=== PATIENT | male | born 1955 | race Caucasian/White ===

== ENCOUNTER 2016-10-29 18:09 | Inpatient (IN) | payer OTHER ==
[~2016-10-29] VITALS: Ht 177.8 cm; Wt 81.8 kg
[2016-10-29 20:15] VITALS: BP 127/99
[2016-10-29] MEDS ORDERED: BISACODYL 10 MG SUPP.RECT PR PRN (21:30)
[2016-10-29] MEDS ORDERED: 0.9 % SODIUM CHLORIDE 10 ML DISP.SYRIN. IV PRN (21:30)
[2016-10-29] MEDS ORDERED: ONDANSETRON PF 4 MG/2 ML VIAL. IV PRN (21:30)
[2016-10-29] MEDS ORDERED: ASA/APAP/CAFFEINE 250/250/65MG TABLET. PO PRN (21:30)
[2016-10-29] MEDS ORDERED: IV NORMAL SALINE 1000ML BAG 1,000 ML IV SCH (21:30)
[2016-10-29 22:35] LABS: BASO % 1 % (0-3); EOS % 2 % (0-3); HEMATOCRIT 39.9 % (39.0-53.0); HEMOGLOBIN 13.1 g/dL (13.0-17.5); LYMPH # 0.8 x10^3/uL (1.0-4.8); LYMPH % 12 % (24-48); MEAN CORPUSCULAR HEMOGLOBIN 31 pg (25-35); MEAN CORPUSCULAR HGB CONC 33 g/dL (31-37); MEAN CORPUSCULAR VOLUME 93 fL (79-100); MONO % 12 % (0-9); NEUT % 74 % (31-73); PLATELET COUNT 297 x10^3/uL (140-400); RED BLOOD COUNT 4.28 x10^6/uL (4.30-5.70); RED CELL DISTRIBUTION WIDTH 14.9 % (11.5-14.5); WHITE BLOOD COUNT 7.2 x10^3/uL (4.0-11.0)
[2016-10-29 22:54] LABS: ALBUMIN 2.3 g/dL (3.4-5.0); ALBUMIN/GLOBULIN RATIO 0.5 (1.0-1.7); CALCIUM 8.7 mg/dL (8.5-10.1); CREATININE 0.9 mg/dL (0.7-1.3); GFR 86.1; POTASSIUM 3.3 mmol/L (3.5-5.1); TOTAL BILIRUBIN 0.9 mg/dL (0.2-1.0); TOTAL PROTEIN 6.5 g/dL (6.4-8.2)
--- NOTE | 2016-10-29 23:16 | HP ---
ADMIT DATE: 10/29/2016 CHIEF COMPLAINT: Intractable vomiting and hematemesis. HISTORY OF PRESENT ILLNESS: The patient is a 61-year-old gentleman, currently residing at [facility], who has a longstanding history of recurrent nausea, vomiting, and dehydration. His story actually goes back to 09/07/2016 when he was first admitted to the [facility] [place] with nausea, vomiting, and dehydration. He did recover with IV fluids, etc., but had recurrent symptoms a few days later. He was diagnosed with H. pylori and treatment was started. Over the following months, he actually had received multiple IV fluid boluses to help him over recurrent nausea and vomiting. He was once again admitted to the [facility] on 10/13/2016 with decreased blood pressure and dehydration. Once again received fluids. Labs were fairly abnormal. Most recently, on 10/22/2016, he was once again admitted to the [facility] for the same symptoms- bilious vomiting and creatinine at 2.24, which improved with IV fluids. However, yesterday he had an episode of copious hematemesis of about a liter and a half. He has stabilized since then. Labs are okay. Nevertheless, the etiology of his vomiting remains unclear and he was therefore transferred to [facility] for further workup and care. The patient denies any other medical issues, has noticed worsening weakness. He is unable to keep any food down. At times, even water does not stay with him. He is constantly thirsty and trying to drink. PAST MEDICAL HISTORY: Essentially none. FAMILY HISTORY: Positive for diabetes. Other diseases unknown. SOCIAL HISTORY: Quit smoking 10 years ago. No toxic habits ongoing. ALLERGIES: No known drug allergies. HOME MEDICATIONS: Reconciled with MAR. REVIEW OF SYSTEMS: Positive as per HPI. Generalized weakness. Rest of organ system review is fairly benign. PHYSICAL EXAMINATION: VITAL SIGNS: From today, show a blood pressure of 127/99, heart rate of 97, and respiratory rate at 18. He is afebrile. GENERAL: This is a 61-year-old gentleman, well-nourished, pale-appearing, alert and oriented, and in no acute distress. HEENT: Shows no scleral icterus. NECK: Supple without any lymphadenopathy. LUNGS: Clear to auscultation bilaterally. HEART: Slightly tachycardic. ABDOMEN: Has positive bowel sounds, soft, and no tenderness to palpation. EXTREMITIES: Show no edema. Palms and the distal fingers are bluish-whitish discolored bilaterally and cool. SKIN: Otherwise warm, soft, and dry. LABORATORY DATA: Pending. ASSESSMENT AND PLAN: The patient is a 61-year-old gentleman with recurrent nausea and vomiting of unclear etiology. We will place him on clear liquids for now. IV fluids will be started to prevent dehydration. Labs are pending. We will obtain a CT of the abdomen to evaluate. Obtain GI consult in the morning. Question gastric outlet obstruction versus obstruction further down the road. The patient did have a history of Helicobacter pylori. This may or may not be resolved at this point, but I doubt that this is the etiology for ongoing issues. We will start a proton pump inhibitor. Only home medication is Paxil. We will continue this for the time being. PAYAM FANG MD DR: NGOC/nts JOB#: [id number] / [id number] RICHARD
[2016-10-29 23:40] VITALS: BP 97/70
[2016-10-29] MEDS: DO NOT USE 40 MG/0.4 ML DISP.SYRIN SQ SCH (23:46)
[2016-10-30] MEDS: METOCLOPRAMIDE HCL 10 MG/2 ML VIAL. IV SCH ×4 (00:24→21:07)
[2016-10-30 03:40] VITALS: BP 97/58
[2016-10-30] MEDS ORDERED: IOHEXOL 240 MG/ML 50ML VIAL. PO ONE (06:45)
[2016-10-30] MEDS ORDERED: IOHEXOL 300 MG/ML 75 ML VIAL IV ONE (06:45)
[2016-10-30] MEDS ORDERED: CONTRAST GIVEN MC PRN (06:45)
[2016-10-30 07:54] VITALS: BP 122/71
[2016-10-30] MEDS: PAROXETINE 10 MG TABLET. PO SCH ×3 (09:00→17:52)
[2016-10-30] MEDS: PANTOPRAZOLE IV PUSH 40 MG VIAL. IVP SCH (09:31)
--- NOTE | 2016-10-30 10:11 | PDOC2 ---
GI CONSULT Reason For Consult: N/v HPI: HPI: 61 y/o male from [facility] admitted through ER. Reports "at least" 2 months of n/v, abd pain, and weight loss. Vomiting occurs 1-3 times daily randomly (not always related to eating). Nausea is fairly constant. Periumbilical pain is worse after eating, drinking ice water, and w/ movement; as a result, he has avoided eating. Estimates 46 lb weight loss during this time. Feels weak. Regarding hematemesis, he says "they found some blood" but he has never noticed anything obvious. Additional h/o GERD which used to be quite bothersome requiring frequent use of Tums. Dietary changes have minimized symptoms. Has been bloated lately and taking Gas-X. Also, was somehow diagnosed w/ H. pylori and describes previous treatment w/ 10 days of amoxicillin followed by a course of Flagyl. Denies diarrhea, constipation, melena, hematochezia. No previous EGD or colonoscopy. Has had HAs recently and took Excedrin once but otherwise denies NSAID use. PMH: PMH: GERD, H. pylori, heart cath (reportedly normal), COPD, anxiety, right knee surgery (meniscal tear) FH: Family History: No pertinent hx (denies GI cancers) Social History: Smoke: Quit ALCOHOL: other (describes heavy alcohol use in the past) ROS: GEN: Denies fevers, chills, sweats HEENT: Denies blurred vision, sore throat CV: Denies chest pain RESP: Denies shortness of air, cough GI: Per HPI : Denies hematuria, dysuria ENDO: +weight loss NEURO: Denies confusion, dizziness MSK: +weakness SKIN: Denies jaundice, pruritus VItals: Vitals: Vital Signs Date Time Temp Pulse Resp B/P Pulse Ox O2 Delivery O2 Flow Rate FiO2 10/30/16 07:54 99.1 80 18 122/71 98 Room Air 99.1 10/30/16 07:49 99.0 Labs: Labs: Laboratory Tests Test 10/29/16 22:04 White Blood Count 7.2x10^3/uL (4.0-11.0) Red Blood Count 4.28x10^6/uL (4.30-5.70) Hemoglobin 13.1g/dL (13.0-17.5) Hematocrit 39.9% (39.0-53.0) Mean Corpuscular Volume 93fL (79-100) Mean Corpuscular Hemoglobin 31pg (25-35) Mean Corpuscular Hemoglobin Concent 33g/dL (31-37) Red Cell Distribution Width 14.9% (11.5-14.5) Platelet Count 297x10^3/uL (140-400) Neutrophils (%) (Auto) 74% (31-73) Lymphocytes (%) (Auto) 12% (24-48) Monocytes (%) (Auto) 12% (0-9) Eosinophils (%) (Auto) 2% (0-3) Basophils (%) (Auto) 1% (0-3) Neutrophils # (Auto) 5.3x10^3uL (1.8-7.7) Lymphocytes # (Auto) 0.8x10^3/uL (1.0-4.8) Monocytes # (Auto) 0.9x10^3/uL (0.0-1.1) Eosinophils # (Auto) 0.1x10^3/uL (0.0-0.7) Basophils # (Auto) 0.0x10^3/uL (0.0-0.2) Sodium Level 140mmol/L (136-145) Potassium Level 3.3mmol/L (3.5-5.1) Chloride Level 106mmol/L (98-107) Carbon Dioxide Level 25mmol/L (21-32) Anion Gap 9 (6-14) Blood Urea Nitrogen 17mg/dL (8-26) Creatinine 0.9mg/dL (0.7-1.3) Estimated GFR (Cockcroft-Gault) 86.1 BUN/Creatinine Ratio 19 (6-20) Glucose Level 91mg/dL (70-99) Calcium Level 8.7mg/dL (8.5-10.1) Total Bilirubin 0.9mg/dL (0.2-1.0) Aspartate Amino Transf (AST/SGOT) 43U/L (15-37) Alanine Aminotransferase (ALT/SGPT) 37U/L (16-63) Alkaline Phosphatase 131U/L (46-116) Total Protein 6.5g/dL (6.4-8.2) Albumin 2.3g/dL (3.4-5.0) Albumin/Globulin Ratio 0.5 (1.0-1.7) Thyroid Stimulating Hormone (TSH) 1.034uIU/mL (0.358-3.74) Allergies: Coded Allergies: No Known Drug Allergies (Unverified , 10/29/16) Medications: Current Medications Medications (Trade) Dose Ordered Sig/Jose Route PRN Reason Start Time Stop Time Status Last Admin Dose Admin Sodium Chloride (Iv Sodium Chloride 0.9% 1000ml Bag) 1,000 ml @ 100 mls/hr Q10H IV 10/29/16 21:30 10/30/16 07:29 DC 10/30/16 00:27 Enoxaparin Sodium (Lovenox 40mg Syringe) 40 mg Q24H SQ 10/29/16 22:00 10/29/16 23:46 Metoclopramide HCl (Reglan) 10 mg Q8HRS IV 10/29/16 22:00 10/30/16 05:44 Pantoprazole Sodium (Protonix Vial) 40 mg DAILYAC IVP 10/30/16 07:30 10/30/16 09:31 Acetaminophen/ Aspirin/Caffeine (Excedrin Migraine) 1 tab PRN BID PRN PO MIGRAINE HEADACHE 10/29/16 21:30 10/29/16 23:46 Iohexol (Omnipaque 300 Mg/ml) 75 ml 1X ONCE IV 10/30/16 06:45 10/30/16 06:46 DC 10/30/16 09:09 Iohexol (Omnipaque 240 Mg/ml) 30 ml 1X ONCE PO 10/30/16 06:45 10/30/16 06:46 DC 10/30/16 06:45 Imaging: Imaging: CT A/P PENDING PE: GEN: NAD HEENT: Atraumatic, PERRLA LUNGS: clear anteriorly HEART: S1S2, distant ABD: NABS, S/ND, periumbilical tenderness most prominent, epigastric discomfort EXTREMITY: No edema SKIN: No rashes, no jaundice NEURO/PSYCH: A & O 3 A/P: A/P: N/v, abd pain, weight loss -onset ~2 months ago -n/v throughout the day -periumbilical pain worse after eating -estimates >40 lb weight loss GERD -long history, treated w/ Tums -recently improved w/ dietary changes H/o H. pylori -?diagnosed w/ lab -seems received treatment w/ Prevpac and then Pylera (?) CRC screen -no previous colonoscopy -- Await CT A/P. Agree w/ PPI. ?EGD Dr. Fam to see. LEANDRO SHARMA Oct 30, 2016 10:11
[2016-10-30 11:13] VITALS: BP 115/69
--- NOTE | 2016-10-30 11:22 | PDOC ---
PROGRESS NOTES Chief Complaint Chief Complaint A/P Small bowel obstruction Plan IV Zofran CT abdomen pending GI recommendations noted, Surgery and oncology consulted IV hydration NPO IV Morphine for pain control History of Present Illness History of Present Illness vomiting no fever no chest pain Vitals Vitals Vital Signs Date Time Temp Pulse Resp B/P Pulse Ox O2 Delivery O2 Flow Rate FiO2 10/30/16 11:13 97.9 82 18 115/69 99 Room Air 97.9 10/30/16 07:49 99.0 Physical Exam General: Alert, Oriented X3 Heart: Normal S1, Normal S2 Lungs: Clear Abdomen: Normal bowel sounds, Soft Extremities: No clubbing Labs LABS Laboratory Tests Test 10/29/16 22:04 White Blood Count 7.2x10^3/uL (4.0-11.0) Red Blood Count 4.28x10^6/uL (4.30-5.70) Hemoglobin 13.1g/dL (13.0-17.5) Hematocrit 39.9% (39.0-53.0) Mean Corpuscular Volume 93fL (79-100) Mean Corpuscular Hemoglobin 31pg (25-35) Mean Corpuscular Hemoglobin Concent 33g/dL (31-37) Red Cell Distribution Width 14.9% (11.5-14.5) Platelet Count 297x10^3/uL (140-400) Neutrophils (%) (Auto) 74% (31-73) Lymphocytes (%) (Auto) 12% (24-48) Monocytes (%) (Auto) 12% (0-9) Eosinophils (%) (Auto) 2% (0-3) Basophils (%) (Auto) 1% (0-3) Neutrophils # (Auto) 5.3x10^3uL (1.8-7.7) Lymphocytes # (Auto) 0.8x10^3/uL (1.0-4.8) Monocytes # (Auto) 0.9x10^3/uL (0.0-1.1) Eosinophils # (Auto) 0.1x10^3/uL (0.0-0.7) Basophils # (Auto) 0.0x10^3/uL (0.0-0.2) Sodium Level 140mmol/L (136-145) Potassium Level 3.3mmol/L (3.5-5.1) Chloride Level 106mmol/L (98-107) Carbon Dioxide Level 25mmol/L (21-32) Anion Gap 9 (6-14) Blood Urea Nitrogen 17mg/dL (8-26) Creatinine 0.9mg/dL (0.7-1.3) Estimated GFR (Cockcroft-Gault) 86.1 BUN/Creatinine Ratio 19 (6-20) Glucose Level 91mg/dL (70-99) Calcium Level 8.7mg/dL (8.5-10.1) Total Bilirubin 0.9mg/dL (0.2-1.0) Aspartate Amino Transf (AST/SGOT) 43U/L (15-37) Alanine Aminotransferase (ALT/SGPT) 37U/L (16-63) Alkaline Phosphatase 131U/L (46-116) Total Protein 6.5g/dL (6.4-8.2) Albumin 2.3g/dL (3.4-5.0) Albumin/Globulin Ratio 0.5 (1.0-1.7) Thyroid Stimulating Hormone (TSH) 1.034uIU/mL (0.358-3.74) Assessment and Plan Assessmemt and Plan Problems Medical Problems: (1) Intractable vomiting Status: Acute Problems: Comment Review of Relevant I have reviewed the following items pako (where applicable) has been applied. Labs Laboratory Tests Test 10/29/16 22:04 White Blood Count 7.2x10^3/uL (4.0-11.0) Red Blood Count 4.28x10^6/uL (4.30-5.70) Hemoglobin 13.1g/dL (13.0-17.5) Hematocrit 39.9% (39.0-53.0) Mean Corpuscular Volume 93fL (79-100) Mean Corpuscular Hemoglobin 31pg (25-35) Mean Corpuscular Hemoglobin Concent 33g/dL (31-37) Red Cell Distribution Width 14.9% (11.5-14.5) Platelet Count 297x10^3/uL (140-400) Neutrophils (%) (Auto) 74% (31-73) Lymphocytes (%) (Auto) 12% (24-48) Monocytes (%) (Auto) 12% (0-9) Eosinophils (%) (Auto) 2% (0-3) Basophils (%) (Auto) 1% (0-3) Neutrophils # (Auto) 5.3x10^3uL (1.8-7.7) Lymphocytes # (Auto) 0.8x10^3/uL (1.0-4.8) Monocytes # (Auto) 0.9x10^3/uL (0.0-1.1) Eosinophils # (Auto) 0.1x10^3/uL (0.0-0.7) Basophils # (Auto) 0.0x10^3/uL (0.0-0.2) Sodium Level 140mmol/L (136-145) Potassium Level 3.3mmol/L (3.5-5.1) Chloride Level 106mmol/L (98-107) Carbon Dioxide Level 25mmol/L (21-32) Anion Gap 9 (6-14) Blood Urea Nitrogen 17mg/dL (8-26) Creatinine 0.9mg/dL (0.7-1.3) Estimated GFR (Cockcroft-Gault) 86.1 BUN/Creatinine Ratio 19 (6-20) Glucose Level 91mg/dL (70-99) Calcium Level 8.7mg/dL (8.5-10.1) Total Bilirubin 0.9mg/dL (0.2-1.0) Aspartate Amino Transf (AST/SGOT) 43U/L (15-37) Alanine Aminotransferase (ALT/SGPT) 37U/L (16-63) Alkaline Phosphatase 131U/L (46-116) Total Protein 6.5g/dL (6.4-8.2) Albumin 2.3g/dL (3.4-5.0) Albumin/Globulin Ratio 0.5 (1.0-1.7) Thyroid Stimulating Hormone (TSH) 1.034uIU/mL (0.358-3.74) Laboratory Tests Test 10/29/16 22:04 White Blood Count 7.2x10^3/uL (4.0-11.0) Red Blood Count 4.28x10^6/uL (4.30-5.70) Hemoglobin 13.1g/dL (13.0-17.5) Hematocrit 39.9% (39.0-53.0) Mean Corpuscular Volume 93fL (79-100) Mean Corpuscular Hemoglobin 31pg (25-35) Mean Corpuscular Hemoglobin Concent 33g/dL (31-37) Red Cell Distribution Width 14.9% (11.5-14.5) Platelet Count 297x10^3/uL (140-400) Neutrophils (%) (Auto) 74% (31-73) Lymphocytes (%) (Auto) 12% (24-48) Monocytes (%) (Auto) 12% (0-9) Eosinophils (%) (Auto) 2% (0-3) Basophils (%) (Auto) 1% (0-3) Neutrophils # (Auto) 5.3x10^3uL (1.8-7.7) Lymphocytes # (Auto) 0.8x10^3/uL (1.0-4.8) Monocytes # (Auto) 0.9x10^3/uL (0.0-1.1) Eosinophils # (Auto) 0.1x10^3/uL (0.0-0.7) Basophils # (Auto) 0.0x10^3/uL (0.0-0.2) Sodium Level 140mmol/L (136-145) Potassium Level 3.3mmol/L (3.5-5.1) Chloride Level 106mmol/L (98-107) Carbon Dioxide Level 25mmol/L (21-32) Anion Gap 9 (6-14) Blood Urea Nitrogen 17mg/dL (8-26) Creatinine 0.9mg/dL (0.7-1.3) Estimated GFR (Cockcroft-Gault) 86.1 BUN/Creatinine Ratio 19 (6-20) Glucose Level 91mg/dL (70-99) Calcium Level 8.7mg/dL (8.5-10.1) Total Bilirubin 0.9mg/dL (0.2-1.0) Aspartate Amino Transf (AST/SGOT) 43U/L (15-37) Alanine Aminotransferase (ALT/SGPT) 37U/L (16-63) Alkaline Phosphatase 131U/L (46-116) Total Protein 6.5g/dL (6.4-8.2) Albumin 2.3g/dL (3.4-5.0) Albumin/Globulin Ratio 0.5 (1.0-1.7) Thyroid Stimulating Hormone (TSH) 1.034uIU/mL (0.358-3.74) Medications Current Medications Sodium Chloride 3 ml 3 ml PRN DAILY PRN IV AFTER MEDS AND BLOOD DRAWS; Start at 21:30 Sodium Chloride (Iv Sodium Chloride 0.9% 1000ml Bag) 1,000 ml @ 100 mls/hr Q10H IV Last administered on 10/30/16 00:27; Start 10/29/16 at 21:30; Stop at 07:29; Status DC Bisacodyl (Dulcolax Supp) 10 mg PRN DAILY PRN NM CONSTIPATION; Start 10/29/16 at 21:30 Enoxaparin Sodium (Lovenox 40mg Syringe) 40 mg Q24H SQ Last administered on 23:46; Start 10/29/16 at 22:00 Metoclopramide HCl (Reglan) 10 mg Q8HRS IV Last administered on 10/30/16 05:44 ; Start 10/29/16 at 22:00 Ondansetron HCl (Zofran) 4 mg PRN Q8HRS PRN IV NAUSEA/VOMITING; Start 10/29/16 at 21:30 Pantoprazole Sodium (Protonix Vial) 40 mg DAILYAC IVP Last administered on 10/30 09:31; Start 10/30/16 at 07:30 Paroxetine HCl (Paxil) 10 mg DAILY PO ; Start 10/30/16 at 09:00; Stop 10/30/16 at 09:33; Status DC Acetaminophen/ Aspirin/Caffeine (Excedrin Migraine) 1 tab PRN BID PRN PO MIGRAINE HEADACHE Last administered on 10/29/16 23:46; Start 10/29/16 at 21:30 Acetaminophen (Tylenol) 650 mg PRN Q6HRS PRN PO MILD PAIN / TEMP; Start at 22:00 Iohexol (Omnipaque 300 Mg/ml) 75 ml 1X ONCE IV Last administered on 10/30/16 09:09; Start 10/30/16 at 06:45; Stop 10/30/16 at 06:46; Status DC Iohexol (Omnipaque 240 Mg/ml) 30 ml 1X ONCE PO Last administered on 10/30/16 06:45; Start 10/30/16 at 06:45; Stop 10/30/16 at 06:46; Status DC Info (Do NOT chart on this entry -- for MONITORING) 1 each PRN DAILY PRN MC SEE COMMENTS; Start 10/30/16 at 06:45; Stop 11/01/16 at 06:44 Paroxetine HCl (Paxil) 10 mg DAILY@18 PO ; Start 10/30/16 at 18:00 Vitals/I & O Vital Sign - Last 24 Hours 10/29/16 10/29/16 10/29/16 10/30/16 20:15 22:37 23:40 03:40 Temp 99.0 98.3 98.4 99.0 98.3 98.4 Pulse 97 95 89 Resp 18 18 18 B/P 127/99 97/70 97/58 Pulse Ox 100 99 O2 Delivery Room Air Room Air Room Air Room Air O2 Flow Rate 99.0 10/30/16 10/30/16 10/30/16 07:49 07:54 11:13 Temp 99.1 97.9 99.1 97.9 Pulse 80 82 Resp 18 18 B/P 122/71 115/69 Pulse Ox 98 99 O2 Delivery Room Air Room Air Room Air O2 Flow Rate 99.0 Intake and Output 10/29/16 10/29/16 10/30/16 15:00 23:00 07:00 Intake Total 0 ml Output Total 100 ml Balance -100 ml DAX REY MD Oct 30, 2016 11:22
--- NOTE | 2016-10-30 13:08 | RAD ---
Indication: Intractable vomiting. Technique: Axial images and coronal and sagittal reformatted images are provided. Patient received oral contrast and 75 mL of intravenous Omnipaque 300. No comparison is available. One or more of the following individualized dose reduction techniques were utilized for this examination: 1. Automated exposure control 2. Adjustment of the mA and/or kV according to patient size 3. Use of iterative reconstruction technique Findings: Calcified granuloma is noted in the left lung base. There is no pleural effusion. The heart is not enlarged. There is fatty infiltration of the liver. Gallbladder is unremarkable. Spleen is not enlarged. Pancreas and adrenals are unremarkable. Probable cyst in each kidney is less than a centimeter in size. There is atheromatous disease in the abdominal aorta without aneurysm. There is moderate gastric distention and there is dilation of the duodenum and proximal jejunum. Abnormal thickened small bowel loop extending over a length of at least 15 cm is the transition site. Necrotic mesenteric adenopathy is adjacent to this bowel loop including a matted grouping of nodes measuring up to 4.6 x 4.1 cm. Beyond this abnormal jejunal loop the bowel is normal in caliber. Oral contrast does pass beyond this abnormal loop suggesting a partial obstruction. There are a few diverticula in the colon. Bladder is unremarkable. Prostate calcifications are noted. There are degenerative changes in the spine. No definite skeletal lesion is identified. Report was called to the patient's nurse, Jacqui, at 1302 hours. Impression: 1. Abnormally thickened jejunal small bowel loop with adjacent necrotic adenopathy suspicious for neoplasm. 2. Mild obstruction associated with this abnormal bowel loop. 3. Fatty infiltration of the liver.
[2016-10-30 15:43] VITALS: BP 102/69
[2016-10-30] MEDS ORDERED: MORPHINE SULFATE 2 MG/ML DISP.SYRIN. IV PRN (17:45)
[2016-10-30 19:24] VITALS: BP 104/69
[2016-10-30] MEDS: DO NOT USE 40 MG/0.4 ML DISP.SYRIN SQ SCH (21:11)
[2016-10-30 23:52] VITALS: BP 112/57
[2016-10-31] VITALS (11 sets, daily range): BP systolic 84–125; BP diastolic 47–64
[2016-10-31] MEDS: METOCLOPRAMIDE HCL 10 MG/2 ML VIAL. IV SCH ×3 (06:20→21:01)
[2016-10-31] MEDS: PANTOPRAZOLE IV PUSH 40 MG VIAL. IVP SCH (08:20)
--- NOTE | 2016-10-31 08:36 | PDOC2 ---
PHU VACA [employer] 10/31/16 0836: CONSULT Date of Consult Date of Consult DATE: 10/31/16 TIME: 08:27 Reason for Consult Reason for Consult: possible small bowel cancer Referring Physician Referring Physician: SKINNY Identification/Chief Complaint Chief Complaint abdominal pain Source Source: Chart review, Patient History of Present Illness Reason for Visit: 3 month history of abdominal pain, nausea and emesis. Reports has been worsening, the pain is constant, aggravated by eating and movement. For last 2 weeks has not been able to keep even water down. Was in the [facility] receiving fluids, a diagnosis of H pylori also. His symptoms never improved. He does report 46 lb weight loss in 5 weeks Past Medical History Pulmonary: COPD GI: GERD, Other (H pylori) Psych: Anxiety, Depression Past Surgical History Past Surgical History: Other (knee, no abdominal surgeries ) Family History Family History: Diabetes, Other (lung cancer in family hx) Social History Quit ALCOHOL: other (describes heavy alcohol use in the past) Drugs: None Current Problem List Problem List Problems Medical Problems: (1) Intractable vomiting Status: Acute Current Medications Current Medications Current Medications Sodium Chloride 3 ml 3 ml PRN DAILY PRN IV AFTER MEDS AND BLOOD DRAWS; Start at 21:30 Sodium Chloride (Iv Sodium Chloride 0.9% 1000ml Bag) 1,000 ml @ 100 mls/hr Q10H IV Last administered on 10/30/16 00:27; Start 10/29/16 at 21:30; Stop at 07:29; Status DC Bisacodyl (Dulcolax Supp) 10 mg PRN DAILY PRN [place] CONSTIPATION; Start 10/29/16 at 21:30 Enoxaparin Sodium (Lovenox 40mg Syringe) 40 mg Q24H SQ Last administered on 21:11; Start 10/29/16 at 22:00 Metoclopramide HCl (Reglan) 10 mg Q8HRS IV Last administered on 10/31/16 06:20 ; Start 10/29/16 at 22:00 Ondansetron HCl (Zofran) 4 mg PRN Q8HRS PRN IV NAUSEA/VOMITING Last administered on 10/31/16 00:09; Start 10/29/16 at 21:30 Pantoprazole Sodium (Protonix Vial) 40 mg DAILYAC IVP Last administered on 10/31 08:20; Start 10/30/16 at 07:30 Paroxetine HCl (Paxil) 10 mg DAILY PO ; Start 10/30/16 at 09:00; Stop 10/30/16 at 09:33; Status DC Acetaminophen/ Aspirin/Caffeine (Excedrin Migraine) 1 tab PRN BID PRN PO MIGRAINE HEADACHE Last administered on 10/29/16 23:46; Start 10/29/16 at 21:30 Acetaminophen (Tylenol) 650 mg PRN Q6HRS PRN PO MILD PAIN / TEMP; Start at 22:00 Iohexol (Omnipaque 300 Mg/ml) 75 ml 1X ONCE IV Last administered on 10/30/16 09:09; Start 10/30/16 at 06:45; Stop 10/30/16 at 06:46; Status DC Iohexol (Omnipaque 240 Mg/ml) 30 ml 1X ONCE PO Last administered on 10/30/16 06:45; Start 10/30/16 at 06:45; Stop 10/30/16 at 06:46; Status DC Info (Do NOT chart on this entry -- for MONITORING) 1 each PRN DAILY PRN MC SEE COMMENTS; Start 10/30/16 at 06:45; Stop 11/01/16 at 06:44 Paroxetine HCl (Paxil) 10 mg DAILY@18 PO Last administered on 10/30/16 17:52; Start 10/30/16 at 18:00 Morphine Sulfate 2 mg PRN Q2HR PRN IV PAIN; Start 10/30/16 at 17:45 Allergies Allergies: Coded Allergies: No Known Drug Allergies (Unverified , 10/29/16) ROS General: YES: Chills, No: Other (fevers ) PSYCHOLOGICAL ROS: YES: Anxiety, Depression Eyes: No Blurry vision, No Double vision HEENT: No: Heacaches, Sore Throat Hematological and Lymphatic: No: Bleeding Problems, Blood Clots Respiratory: YES: Shortness of breath, No: Cough Cardiovascular: No Chest Pain, No Palpitations Gastrointestinal: Yes Other (see hpi) Genitourinary: No Dysuria, No Hematuria Musculoskeletal: No Joint Pain, No Muscle Pain Neurological: No Confusion, No Numbness/Tingling Skin: No Pruritus, No Rash Physical Exam General: Alert, Oriented X3, Cooperative, No acute distress, Other (appears in acute discomfort) HEENT: Atraumatic, PERRLA Lungs: Clear to auscultation, Normal air movement Heart: Regular rate, Normal S1, Normal S2 Abdomen: Soft, Other (mildly distended, moderately tender mid abdomen, epigastric ) Extremities: No clubbing, No cyanosis Skin: No rashes, No breakdown Neuro: Normal speech, Sensation intact Psych/Mental Status: Mental status NL, Mood NL MUSCULOSKELETAL: No deformity, No swelling Vitals VITALS Vital Signs Date Time Temp Pulse Resp B/P Pulse Ox O2 Delivery O2 Flow Rate FiO2 10/31/16 02:34 99.1 92 18 98/59 96 Room Air 99.1 10/30/16 20:00 99.0 Labs Labs Laboratory Tests Test 10/29/16 20:35 10/29/16 22:04 Nasal Screen MRSA (PCR) Negative (Negative) White Blood Count 7.2x10^3/uL (4.0-11.0) Red Blood Count 4.28x10^6/uL (4.30-5.70) Hemoglobin 13.1g/dL (13.0-17.5) Hematocrit 39.9% (39.0-53.0) Mean Corpuscular Volume 93fL (79-100) Mean Corpuscular Hemoglobin 31pg (25-35) Mean Corpuscular Hemoglobin Concent 33g/dL (31-37) Red Cell Distribution Width 14.9% (11.5-14.5) Platelet Count 297x10^3/uL (140-400) Neutrophils (%) (Auto) 74% (31-73) Lymphocytes (%) (Auto) 12% (24-48) Monocytes (%) (Auto) 12% (0-9) Eosinophils (%) (Auto) 2% (0-3) Basophils (%) (Auto) 1% (0-3) Neutrophils # (Auto) 5.3x10^3uL (1.8-7.7) Lymphocytes # (Auto) 0.8x10^3/uL (1.0-4.8) Monocytes # (Auto) 0.9x10^3/uL (0.0-1.1) Eosinophils # (Auto) 0.1x10^3/uL (0.0-0.7) Basophils # (Auto) 0.0x10^3/uL (0.0-0.2) Sodium Level 140mmol/L (136-145) Potassium Level 3.3mmol/L (3.5-5.1) Chloride Level 106mmol/L (98-107) Carbon Dioxide Level 25mmol/L (21-32) Anion Gap 9 (6-14) Blood Urea Nitrogen 17mg/dL (8-26) Creatinine 0.9mg/dL (0.7-1.3) Estimated GFR (Cockcroft-Gault) 86.1 BUN/Creatinine Ratio 19 (6-20) Glucose Level 91mg/dL (70-99) Calcium Level 8.7mg/dL (8.5-10.1) Total Bilirubin 0.9mg/dL (0.2-1.0) Aspartate Amino Transf (AST/SGOT) 43U/L (15-37) Alanine Aminotransferase (ALT/SGPT) 37U/L (16-63) Alkaline Phosphatase 131U/L (46-116) Total Protein 6.5g/dL (6.4-8.2) Albumin 2.3g/dL (3.4-5.0) Albumin/Globulin Ratio 0.5 (1.0-1.7) Thyroid Stimulating Hormone (TSH) 1.034uIU/mL (0.358-3.74) Assessment/Plan Assessment/Plan Abdominal pain, nausea, emesis, weight loss mild to moderate protein malnutrition albumin 2.3 Ct with findings concerning for small bowel cancer, jejunal loop thickening and adjacent necrotic mesenteric adenopathy D/W Dr Cage NPO, last lovenox dose was last night-hold today Plans for OR this Afternoon REAL CAGE MD 10/31/16 1242: CONSULT Allergies Allergies: Coded Allergies: No Known Drug Allergies (Unverified , 10/29/16) Assessment/Plan Assessment/Plan addendum i saw and examined him. i repeated weems parts of the consult. 61 yo reports to me a 3 month hx of periumbilical pain, dull mostly but at times crampy in nature, mild to moderate in severity. associated with n/v and decreased amount of stool production. pain is aggravated/worsened by eating. pmh copd. former smoker ros neg except shortness of breath and 40-50 pound weight loss in last few months. pe afeb vss alert, no distress abd nd, mild to moderate tenderness above the umbilicus. firmness in LUQ and across midline above the umbilicus. ct reviewed lab reviewed. 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 risks of bleeding ,infection, injury to intra-abd structure requiring repair, anastamotic leak resulting in sepsis and requiring additional surgery, hernia formation, pneumonia/resp failure (increased risk due to his copd), ami, cva, dvt/pe, and d/w him. questions answered and he desires to proceed. PHU VACA APRN Oct 31, 2016 08:36 REAL CAGE MD Oct 31, 2016 12:42
[2016-10-31] MEDS ORDERED: IV RINGERS,LACTATED 1000ML 1,000 ML IV SCH (08:44)
[2016-10-31] MEDS ORDERED: HYDROMORPHONE 2 MG/ML VIAL. IV PRN ×2 (08:45→17:30)
[2016-10-31] MEDS ORDERED: MORPHINE SULFATE 2 MG/ML DISP.SYRIN. IV PRN (08:45)
[2016-10-31] MEDS ORDERED: PROCHLORPERAZINE 10 MG/2 ML VIAL. IV PRN (08:45)
[2016-10-31] MEDS ORDERED: FENTANYL PF 100 MCG/2 ML VIAL. IV PRN ×2 (08:45)
[2016-10-31] MEDS ORDERED: LIDOCAINE 1% 1 ML SYRINGE. ID PRN (08:45)
[2016-10-31] MEDS ORDERED: ONDANSETRON PF 4 MG/2 ML VIAL. IV PRN (08:45)
--- NOTE | 2016-10-31 10:37 | PDOC ---
PROGRESS NOTES Chief Complaint Chief Complaint A/P Small bowel obstruction ? Malignancy Plan Pain control with IV fentanyl surgical plans, Dr Martini following. IV hydration IV zofran History of Present Illness History of Present Illness vomiting no fever no chest pain Vitals Vitals Vital Signs Date Time Temp Pulse Resp B/P Pulse Ox O2 Delivery O2 Flow Rate FiO2 10/31/16 08:00 Room Air 99.0 10/31/16 07:00 98.4 93 16 103/64 97 98.4 Physical Exam General: Alert, Oriented X3, Cooperative, No acute distress, Other (appears in acute discomfort) Heart: Regular rate, Normal S1, Normal S2 Lungs: Clear Abdomen: Soft, Other (mildly distended, moderately tender mid abdomen, epigastric ) Extremities: No clubbing, No cyanosis Skin: No rashes, No breakdown Assessment and Plan Assessmemt and Plan Problems Medical Problems: (1) Intractable vomiting Status: Acute Problems: Comment Review of Relevant I have reviewed the following items pako (where applicable) has been applied. Labs Laboratory Tests Test 10/29/16 20:35 10/29/16 22:04 Nasal Screen MRSA (PCR) Negative (Negative) White Blood Count 7.2x10^3/uL (4.0-11.0) Red Blood Count 4.28x10^6/uL (4.30-5.70) Hemoglobin 13.1g/dL (13.0-17.5) Hematocrit 39.9% (39.0-53.0) Mean Corpuscular Volume 93fL (79-100) Mean Corpuscular Hemoglobin 31pg (25-35) Mean Corpuscular Hemoglobin Concent 33g/dL (31-37) Red Cell Distribution Width 14.9% (11.5-14.5) Platelet Count 297x10^3/uL (140-400) Neutrophils (%) (Auto) 74% (31-73) Lymphocytes (%) (Auto) 12% (24-48) Monocytes (%) (Auto) 12% (0-9) Eosinophils (%) (Auto) 2% (0-3) Basophils (%) (Auto) 1% (0-3) Neutrophils # (Auto) 5.3x10^3uL (1.8-7.7) Lymphocytes # (Auto) 0.8x10^3/uL (1.0-4.8) Monocytes # (Auto) 0.9x10^3/uL (0.0-1.1) Eosinophils # (Auto) 0.1x10^3/uL (0.0-0.7) Basophils # (Auto) 0.0x10^3/uL (0.0-0.2) Sodium Level 140mmol/L (136-145) Potassium Level 3.3mmol/L (3.5-5.1) Chloride Level 106mmol/L (98-107) Carbon Dioxide Level 25mmol/L (21-32) Anion Gap 9 (6-14) Blood Urea Nitrogen 17mg/dL (8-26) Creatinine 0.9mg/dL (0.7-1.3) Estimated GFR (Cockcroft-Gault) 86.1 BUN/Creatinine Ratio 19 (6-20) Glucose Level 91mg/dL (70-99) Calcium Level 8.7mg/dL (8.5-10.1) Total Bilirubin 0.9mg/dL (0.2-1.0) Aspartate Amino Transf (AST/SGOT) 43U/L (15-37) Alanine Aminotransferase (ALT/SGPT) 37U/L (16-63) Alkaline Phosphatase 131U/L (46-116) Total Protein 6.5g/dL (6.4-8.2) Albumin 2.3g/dL (3.4-5.0) Albumin/Globulin Ratio 0.5 (1.0-1.7) Thyroid Stimulating Hormone (TSH) 1.034uIU/mL (0.358-3.74) Medications Current Medications Sodium Chloride 3 ml 3 ml PRN DAILY PRN IV AFTER MEDS AND BLOOD DRAWS; Start at 21:30 Sodium Chloride (Iv Sodium Chloride 0.9% 1000ml Bag) 1,000 ml @ 100 mls/hr Q10H IV Last administered on 10/30/16 00:27; Start 10/29/16 at 21:30; Stop at 07:29; Status DC Bisacodyl (Dulcolax Supp) 10 mg PRN DAILY PRN [place] CONSTIPATION; Start 10/29/16 at 21:30 Enoxaparin Sodium (Lovenox 40mg Syringe) 40 mg Q24H SQ Last administered on 21:11; Start 10/29/16 at 22:00; Stop 10/31/16 at 08:28; Status DC Metoclopramide HCl (Reglan) 10 mg Q8HRS IV Last administered on 10/31/16 06:20 ; Start 10/29/16 at 22:00 Ondansetron HCl (Zofran) 4 mg PRN Q8HRS PRN IV NAUSEA/VOMITING Last administered on 10/31/16 00:09; Start 10/29/16 at 21:30 Pantoprazole Sodium (Protonix Vial) 40 mg DAILYAC IVP Last administered on 10/31 08:20; Start 10/30/16 at 07:30 Paroxetine HCl (Paxil) 10 mg DAILY PO ; Start 10/30/16 at 09:00; Stop 10/30/16 at 09:33; Status DC Acetaminophen/ Aspirin/Caffeine (Excedrin Migraine) 1 tab PRN BID PRN PO MIGRAINE HEADACHE Last administered on 10/29/16 23:46; Start 10/29/16 at 21:30 Acetaminophen (Tylenol) 650 mg PRN Q6HRS PRN PO MILD PAIN / TEMP; Start at 22:00 Iohexol (Omnipaque 300 Mg/ml) 75 ml 1X ONCE IV Last administered on 10/30/16 09:09; Start 10/30/16 at 06:45; Stop 10/30/16 at 06:46; Status DC Iohexol (Omnipaque 240 Mg/ml) 30 ml 1X ONCE PO Last administered on 10/30/16 06:45; Start 10/30/16 at 06:45; Stop 10/30/16 at 06:46; Status DC Info (Do NOT chart on this entry -- for MONITORING) 1 each PRN DAILY PRN MC SEE COMMENTS; Start 10/30/16 at 06:45; Stop 11/01/16 at 06:44 Paroxetine HCl (Paxil) 10 mg DAILY@18 PO Last administered on 10/30/16 17:52; Start 10/30/16 at 18:00 Morphine Sulfate 2 mg PRN Q2HR PRN IV PAIN; Start 10/30/16 at 17:45 Ondansetron HCl (Zofran) 4 mg PRN Q6HRS PRN IV Nausea; Start 10/31/16 at 08:45 ; Stop 10/31/16 at 18:00 Fentanyl Citrate (Fentanyl 2ml Vial) 25 mcg PRN Q5MIN PRN IV MILD PAIN; Start 10/31/16 at 08:45; Stop 10/31/16 at 18:00 Fentanyl Citrate (Fentanyl 2ml Vial) 50 mcg PRN Q5MIN PRN IV MODERATE PAIN; Start 10/31/16 at 08:45; Stop 10/31/16 at 08:50; Status DC Morphine Sulfate 1 mg 1 mg PRN Q10MIN PRN IV SEVERE PAIN; Start 10/31/16 at 08: 45; Stop 10/31/16 at 18:00 Lactated Ringer's (Iv Lactated Ringers) 1,000 ml @ 30 mls/hr Q24H IV ; Start at 08:44; Stop 10/31/16 at 20:43 Lidocaine HCl 2 ml 1X PRN PRN ID IV START; Start 10/31/16 at 08:45; Stop at 18:00 Hydromorphone HCl (Dilaudid) 0.5 mg PRN Q10MIN PRN IV SEV PAIN,Second choice; Start 10/31/16 at 08:45; Stop 10/31/16 at 18:00 Prochlorperazine Edisylate (Compazine) 5 mg PACU PRN PRN IV NAUSEA; Start 10/31 at 08:45; Stop 10/31/16 at 18:00 Vitals/I & O Vital Sign - Last 24 Hours 10/30/16 10/30/16 10/30/16 10/30/16 11:13 15:43 19:24 20:00 Temp 97.9 98.8 98.4 97.9 98.8 98.4 Pulse 82 88 90 Resp 18 B/P 115/69 102/69 104/69 Pulse Ox 99 96 96 O2 Delivery Room Air Room Air Room Air Room Air O2 Flow Rate 99.0 10/30/16 10/31/16 10/31/16 10/31/16 23:52 02:34 07:00 08:00 Temp 99.3 99.1 98.4 99.3 99.1 98.4 Pulse 102 92 93 Resp 16 B/P 112/57 98/59 103/64 Pulse Ox 96 96 97 O2 Delivery Room Air Room Air Room Air Room Air O2 Flow Rate 99.0 Intake and Output 10/30/16 10/30/16 10/31/16 15:00 23:00 07:00 Intake Total 100 ml Output Total 800 ml 6200 ml Balance -800 ml -6100 ml Nutrition Consultation Dietary Evaluation: Recommendations by RD: Increase Calorie Intake, Protein supplementation Comments: boost breeze tid and prn Expected Outcomes/Goals: diet adv/ tolerance Interpretation of weight loss: >5% in 1 month Malnutrition Findings: Food and Nutrition Intake (Sev: <50% est energy req 5days Reduced Lean Leader Strength: N/A Weight Status: Overweight Fluid Accumulation (N/A): N/A DAX REY MD Oct 31, 2016 10:37
[2016-10-31 11:15] LABS: BASO # 0.1 x10^3/uL (0.0-0.2); BASO % 1 % (0-3); EOS % 3 % (0-3); HEMATOCRIT 36.6 % (39.0-53.0); HEMOGLOBIN 12.3 g/dL (13.0-17.5); LYMPH # 1.1 x10^3/uL (1.0-4.8); LYMPH % 18 % (24-48); MEAN CORPUSCULAR HEMOGLOBIN 30 pg (25-35); MEAN CORPUSCULAR HGB CONC 34 g/dL (31-37); MEAN CORPUSCULAR VOLUME 91 fL (79-100); MONO % 17 % (0-9); NEUT % 60 % (31-73); PLATELET COUNT 367 x10^3/uL (140-400); RED BLOOD COUNT 4.03 x10^6/uL (4.30-5.70); RED CELL DISTRIBUTION WIDTH 15.3 % (11.5-14.5)
[2016-10-31 11:23] LABS: CALCIUM 8.9 mg/dL (8.5-10.1); CREATININE 0.9 mg/dL (0.7-1.3); GFR 86.1; POTASSIUM 3.5 mmol/L (3.5-5.1)
[2016-10-31] MEDS ORDERED: CEFOXITIN 2GM IVPB FOR OMNI 100 ML IV ONE (11:30)
[2016-10-31] MEDS ORDERED: ROCURONIUM 50 MG/5 ML VIAL. ONE (12:14)
[2016-10-31] MEDS ORDERED: FENTANYL PF 100 MCG/2 ML VIAL. ONE (12:14)
[2016-10-31] MEDS ORDERED: SEVOFLURANE 61 TO 120 MINUTES. IH ONE (12:14)
[2016-10-31] MEDS ORDERED: ONDANSETRON PF 4 MG/2 ML VIAL. ONE (12:15)
[2016-10-31] MEDS ORDERED: PROPOFOL 20 ML IV ONE (12:15)
[2016-10-31] MEDS ORDERED: LIDOCAINE 2% 100 MG/5 ML DISP.SYRIN. ONE (12:15)
[2016-10-31] MEDS ORDERED: DEXAMETHASONE SOD PHOS 20 MG/5 ML VIAL. ONE (12:15)
--- NOTE | 2016-10-31 12:38 | PDOC ---
Provider Note Provider Note Onc consult dictated- 119278 Distal small bowel mass causing partial obstruction- To OR today - CT chest for staging of probable malignancy - CEA, CA 19-9 ordered - Will f/u operative and path reports SACHIN UNGER DO Oct 31, 2016 12:38
[2016-10-31] MEDS ORDERED: GLYCOPYRROLATE 1 MG/5 ML VIAL. ONE (12:40)
[2016-10-31] MEDS ORDERED: NEOSTIGMINE METHYLSULFATE 5 MG/5 ML SYRINGE. ONE (12:40)
[2016-10-31] MEDS ORDERED: SUCCINYLCHOLINE 200 MG/10 ML VIAL. ONE (13:04)
[2016-10-31] MEDS ORDERED: PHENYLEPHRINE in 0.9% NACL PF 1 MG/10 ML DISP.SYRIN. IV ONE (13:14)
--- NOTE | 2016-10-31 13:21 | PDOC ---
G I PROGRESS NOTE Subjective Not seen. In surgery. Objective Others' notes reviewed. Physical Exam No PE. Review of Relevant I have reviewed the following items pako (where applicable) has been applied. Labs Laboratory Tests Test 10/29/16 20:35 10/29/16 22:04 10/31/16 07:00 Nasal Screen MRSA (PCR) Negative (Negative) White Blood Count 7.2x10^3/uL (4.0-11.0) 6.0x10^3/uL (4.0-11.0) Red Blood Count 4.28x10^6/uL (4.30-5.70) 4.03x10^6/uL (4.30-5.70) Hemoglobin 13.1g/dL (13.0-17.5) 12.3g/dL (13.0-17.5) Hematocrit 39.9% (39.0-53.0) 36.6% (39.0-53.0) Mean Corpuscular Volume 93fL (79-100) 91fL (79-100) Mean Corpuscular Hemoglobin 31pg (25-35) 30pg (25-35) Mean Corpuscular Hemoglobin Concent 33g/dL (31-37) 34g/dL (31-37) Red Cell Distribution Width 14.9% (11.5-14.5) 15.3% (11.5-14.5) Platelet Count 297x10^3/uL (140-400) 367x10^3/uL (140-400) Neutrophils (%) (Auto) 74% (31-73) 60% (31-73) Lymphocytes (%) (Auto) 12% (24-48) 18% (24-48) Monocytes (%) (Auto) 12% (0-9) 17% (0-9) Eosinophils (%) (Auto) 2% (0-3) 3% (0-3) Basophils (%) (Auto) 1% (0-3) 1% (0-3) Neutrophils # (Auto) 5.3x10^3uL (1.8-7.7) 3.6x10^3uL (1.8-7.7) Lymphocytes # (Auto) 0.8x10^3/uL (1.0-4.8) 1.1x10^3/uL (1.0-4.8) Monocytes # (Auto) 0.9x10^3/uL (0.0-1.1) 1.0x10^3/uL (0.0-1.1) Eosinophils # (Auto) 0.1x10^3/uL (0.0-0.7) 0.2x10^3/uL (0.0-0.7) Basophils # (Auto) 0.0x10^3/uL (0.0-0.2) 0.1x10^3/uL (0.0-0.2) Sodium Level 140mmol/L (136-145) 142mmol/L (136-145) Potassium Level 3.3mmol/L (3.5-5.1) 3.5mmol/L (3.5-5.1) Chloride Level 106mmol/L (98-107) 108mmol/L (98-107) Carbon Dioxide Level 25mmol/L (21-32) 21mmol/L (21-32) Anion Gap 9 (6-14) 13 (6-14) Blood Urea Nitrogen 17mg/dL (8-26) 16mg/dL (8-26) Creatinine 0.9mg/dL (0.7-1.3) 0.9mg/dL (0.7-1.3) Estimated GFR (Cockcroft-Gault) 86.1 86.1 BUN/Creatinine Ratio 19 (6-20) Glucose Level 91mg/dL (70-99) 91mg/dL (70-99) Calcium Level 8.7mg/dL (8.5-10.1) 8.9mg/dL (8.5-10.1) Total Bilirubin 0.9mg/dL (0.2-1.0) Aspartate Amino Transf (AST/SGOT) 43U/L (15-37) Alanine Aminotransferase (ALT/SGPT) 37U/L (16-63) Alkaline Phosphatase 131U/L (46-116) Total Protein 6.5g/dL (6.4-8.2) Albumin 2.3g/dL (3.4-5.0) Albumin/Globulin Ratio 0.5 (1.0-1.7) Thyroid Stimulating Hormone (TSH) 1.034uIU/mL (0.358-3.74) Laboratory Tests Test 10/31/16 07:00 White Blood Count 6.0x10^3/uL (4.0-11.0) Red Blood Count 4.03x10^6/uL (4.30-5.70) Hemoglobin 12.3g/dL (13.0-17.5) Hematocrit 36.6% (39.0-53.0) Mean Corpuscular Volume 91fL (79-100) Mean Corpuscular Hemoglobin 30pg (25-35) Mean Corpuscular Hemoglobin Concent 34g/dL (31-37) Red Cell Distribution Width 15.3% (11.5-14.5) Platelet Count 367x10^3/uL (140-400) Neutrophils (%) (Auto) 60% (31-73) Lymphocytes (%) (Auto) 18% (24-48) Monocytes (%) (Auto) 17% (0-9) Eosinophils (%) (Auto) 3% (0-3) Basophils (%) (Auto) 1% (0-3) Neutrophils # (Auto) 3.6x10^3uL (1.8-7.7) Lymphocytes # (Auto) 1.1x10^3/uL (1.0-4.8) Monocytes # (Auto) 1.0x10^3/uL (0.0-1.1) Eosinophils # (Auto) 0.2x10^3/uL (0.0-0.7) Basophils # (Auto) 0.1x10^3/uL (0.0-0.2) Sodium Level 142mmol/L (136-145) Potassium Level 3.5mmol/L (3.5-5.1) Chloride Level 108mmol/L (98-107) Carbon Dioxide Level 21mmol/L (21-32) Anion Gap 13 (6-14) Blood Urea Nitrogen 16mg/dL (8-26) Creatinine 0.9mg/dL (0.7-1.3) Estimated GFR (Cockcroft-Gault) 86.1 Glucose Level 91mg/dL (70-99) Calcium Level 8.9mg/dL (8.5-10.1) Medications Current Medications Sodium Chloride 3 ml 3 ml PRN DAILY PRN IV AFTER MEDS AND BLOOD DRAWS; Start at 21:30 Sodium Chloride (Iv Sodium Chloride 0.9% 1000ml Bag) 1,000 ml @ 100 mls/hr Q10H IV Last administered on 10/30/16 00:27; Start 10/29/16 at 21:30; Stop at 07:29; Status DC Bisacodyl (Dulcolax Supp) 10 mg PRN DAILY PRN [place] CONSTIPATION; Start 10/29/16 at 21:30 Enoxaparin Sodium (Lovenox 40mg Syringe) 40 mg Q24H SQ Last administered on 21:11; Start 10/29/16 at 22:00; Stop 10/31/16 at 08:28; Status DC Metoclopramide HCl (Reglan) 10 mg Q8HRS IV Last administered on 10/31/16 06:20 ; Start 10/29/16 at 22:00 Ondansetron HCl (Zofran) 4 mg PRN Q8HRS PRN IV NAUSEA/VOMITING Last administered on 10/31/16 00:09; Start 10/29/16 at 21:30 Pantoprazole Sodium (Protonix Vial) 40 mg DAILYAC IVP Last administered on 10/31 08:20; Start 10/30/16 at 07:30 Paroxetine HCl (Paxil) 10 mg DAILY PO ; Start 10/30/16 at 09:00; Stop 10/30/16 at 09:33; Status DC Acetaminophen/ Aspirin/Caffeine (Excedrin Migraine) 1 tab PRN BID PRN PO MIGRAINE HEADACHE Last administered on 10/29/16 23:46; Start 10/29/16 at 21:30 Acetaminophen (Tylenol) 650 mg PRN Q6HRS PRN PO MILD PAIN / TEMP; Start at 22:00 Iohexol (Omnipaque 300 Mg/ml) 75 ml 1X ONCE IV Last administered on 10/30/16 09:09; Start 10/30/16 at 06:45; Stop 10/30/16 at 06:46; Status DC Iohexol (Omnipaque 240 Mg/ml) 30 ml 1X ONCE PO Last administered on 10/30/16 06:45; Start 10/30/16 at 06:45; Stop 10/30/16 at 06:46; Status DC Info (Do NOT chart on this entry -- for MONITORING) 1 each PRN DAILY PRN MC SEE COMMENTS; Start 10/30/16 at 06:45; Stop 11/01/16 at 06:44 Paroxetine HCl (Paxil) 10 mg DAILY@18 PO Last administered on 10/30/16t 17:52; Start 10/30/16 at 18:00 Morphine Sulfate 2 mg PRN Q2HR PRN IV PAIN; Start 10/30/16 at 17:45 Ondansetron HCl (Zofran) 4 mg PRN Q6HRS PRN IV Nausea; Start 10/31/16 at 08:45 ; Stop 10/31/16 at 18:00 Fentanyl Citrate (Fentanyl 2ml Vial) 25 mcg PRN Q5MIN PRN IV MILD PAIN; Start 10/31/16 at 08:45; Stop 10/31/16 at 18:00 Fentanyl Citrate (Fentanyl 2ml Vial) 50 mcg PRN Q5MIN PRN IV MODERATE PAIN; Start 10/31/16 at 08:45; Stop 10/31/16 at 08:50; Status DC Morphine Sulfate 1 mg 1 mg PRN Q10MIN PRN IV SEVERE PAIN; Start 10/31/16 at 08: 45; Stop 10/31/16 at 18:00 Lactated Ringer's (Iv Lactated Ringers) 1,000 ml @ 30 mls/hr Q24H IV ; Start at 08:44; Stop 10/31/16 at 20:43 Lidocaine HCl 2 ml 1X PRN PRN ID IV START; Start 10/31/16 at 08:45; Stop at 18:00 Hydromorphone HCl (Dilaudid) 0.5 mg PRN Q10MIN PRN IV SEV PAIN,Second choice; Start 10/31/16 at 08:45; Stop 10/31/16 at 18:00 Prochlorperazine Edisylate 5 mg 5 mg PACU PRN PRN IV NAUSEA; Start 10/31/16 at 08:45; Stop 10/31/16 at 18:00 Cefoxitin Sodium (Mefoxin 2gm Ivpb For Omni) 100 ml @ 200 mls/hr 1X ONCE IV ; Start 10/31/16 at 11:30; Stop 10/31/16 at 11:59; Status DC Sevoflurane (Ultane) 60 ml STK-MED ONCE IH ; Start 10/31/16 at 12:14; Stop 10/31 at 12:15; Status DC Fentanyl Citrate (Fentanyl 2ml Vial) 100 mcg STK-MED ONCE .ROUTE ; Start at 12:14; Stop 10/31/16 at 12:15; Status DC Rocuronium [place] 50 mg 50 mg STK-MED ONCE .ROUTE ; Start 10/31/16 at 12:14; Stop 10/31/16 at 12:15; Status DC Propofol (Diprivan) 20 ml @ As Directed STK-MED ONCE IV ; Start 10/31/16 at 12: 15; Stop 10/31/16 at 12:16; Status DC Dexamethasone Sodium Phosphate (Decadron) 20 mg STK-MED ONCE .ROUTE ; Start at 12:15; Stop 10/31/16 at 12:16; Status DC Ondansetron HCl (Zofran) 4 mg STK-MED ONCE .ROUTE ; Start 10/31/16 at 12:15; Stop 10/31/16 at 12:16; Status DC Lidocaine HCl 100 mg STK-MED ONCE .ROUTE ; Start 10/31/16 at 12:15; Stop at 12:16; Status DC Glycopyrrolate (Robinul) 1 mg STK-MED ONCE .ROUTE ; Start 10/31/16 at 12:40; Stop 10/31/16 at 12:41; Status DC Neostigmine Methylsulfate 5 mg STK-MED ONCE .ROUTE ; Start 10/31/16 at 12:40; Stop 10/31/16 at 12:41; Status DC Succinylcholine Chloride (Anectine) 200 mg STK-MED ONCE .ROUTE ; Start 10/31/16 at 13:04; Stop 10/31/16 at 13:05; Status DC Phenylephrine HCl 1 mg STK-MED ONCE IV ; Start 10/31/16 at 13:14; Stop 10/31/16 at 13:15; Status DC Vitals/I & O Vital Sign - Last 24 Hours 10/30/16 10/30/16 10/30/16 10/30/16 15:43 19:24 20:00 23:52 Temp 98.8 98.4 99.3 98.8 98.4 99.3 Pulse 88 90 102 Resp 20 18 18 B/P 102/69 104/69 112/57 Pulse Ox 96 96 96 O2 Delivery Room Air Room Air Room Air Room Air O2 Flow Rate 99.0 10/31/16 10/31/16 10/31/16 10/31/16 02:34 07:00 08:00 10:47 Temp 99.1 98.4 99.1 99.1 98.4 99.1 Pulse 92 93 93 Resp 18 18 B/P 98/59 103/64 125/62 Pulse Ox 96 97 97 O2 Delivery Room Air Room Air Room Air Room Air O2 Flow Rate 99.0 10/31/16 12:23 Temp 97.9 97.9 Pulse 82 Resp 21 B/P 90/61 Pulse Ox 96 O2 Delivery Room Air Intake and Output 10/30/16 10/30/16 10/31/16 15:00 23:00 07:00 Intake Total 100 ml Output Total 800 ml 6200 ml Balance -800 ml -6100 ml Problem List Problems Medical Problems: (1) Intractable vomiting Status: Acute Assessment Jejunal mass with partial SBO, 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 Lymphoma? Seems a bit long for anything else. Plan of Care Note Await operative findings, path. ROBINSON RAMOS MD Oct 31, 2016 13:21
[2016-10-31] MEDS ORDERED: ALBUMIN HUMAN 5% 500 ML IV ONE (15:47)
[2016-10-31] MEDS ORDERED: ROCURONIUM 100 MG/10 ML VIAL. ONE (15:51)
[2016-10-31] MEDS ORDERED: CEFOXITIN 2GM IVPB FOR OMNI. IV ONE (16:00)
[2016-10-31] MEDS ORDERED: FENTANYL PF 250 MCG/5 ML VIAL. ONE (16:19)
[2016-10-31] MEDS ORDERED: HYDROMORPHONE STANDARD PCA 30 ML IV ONE (17:24)
[2016-10-31] MEDS ORDERED: IV NORMAL SALINE 1000ML BAG 1,000 ML IV ONE (17:30)
[2016-10-31] MEDS ORDERED: 0.9 % SODIUM CHLORIDE 10 ML DISP.SYRIN. IV PRN (17:30)
[2016-10-31] MEDS: HYDROMORPHONE STANDARD PCA 30 ML IV PRN (17:33)
[2016-10-31] MEDS: PAROXETINE 10 MG TABLET. PO SCH (18:00)
--- NOTE | 2016-10-31 18:27 | PDOC ---
BRIEF OPERATIVE NOTE Pre-Op Diagnosis small bowel neoplasm xlap; sbr shant cage (assist. sean champagne) geta ebl 300 ivf 3300 crystalloid, 500 albumin uop 450 ng 1900 leandra well to rr stable. REAL CAGE MD Oct 31, 2016 18:27
[2016-10-31 21:27] LABS: HEMATOCRIT 32.6 % (39.0-53.0); HEMOGLOBIN 10.6 g/dL (13.0-17.5)
[2016-10-31] MEDS ORDERED: IV NORMAL SALINE 500ML BAG 500 ML IV ONE (22:00)
--- NOTE | 2016-11-01 00:18 | CONS ---
DATE OF CONSULTATION: 10/31/2016 REFERRING PROVIDER: Dr. Gupta. REASON FOR CONSULTATION: Small bowel mass. HISTORY OF PRESENT ILLNESS: The patient is a 61-year-old male who reports a 2-month history of nausea, vomiting, recurring dehydration, abdominal pain, recent hematemesis, 50-pound weight loss in 2 months. He was noted on imaging to have an abnormal mass with associated adenopathy in the jejunum and concern for a partial small bowel obstruction. Per review of GI notes, an EGD would not be helpful as it is too far distal. CT of the abdomen and pelvis revealed a fatty liver, dilation in the duodenum and proximal jejunum with small bowel thickening measuring 15 cm and a 4.6 cm mass of matted necrotic lymph nodes. Per discussion with Surgery, he is going to go to the operating room this afternoon. PAST MEDICAL HISTORY: H. pylori, COPD, anxiety, heartburn. PAST SURGICAL HISTORY: Right knee arthroscopy, tonsillectomy. FAMILY HISTORY: Brother had rheumatoid arthritis, sister with anxiety. SOCIAL HISTORY: Currently incarcerated. He previously smoked 5 packs a day for 40 years, but quit 10 years ago. He previously drank heavily as well. ALLERGIES: No known drug allergies. CURRENT MEDICATIONS: Compazine, Dilaudid, morphine, fentanyl, Zofran, Paxil, Protonix, Tylenol, Reglan, Excedrin. REVIEW OF SYSTEMS: Ten-point review of systems completed and unremarkable with the exception of that mentioned above and bilateral foot neuropathy. PHYSICAL EXAMINATION: VITAL SIGNS: Temperature 99.1, pulse 102, respiratory rate 18, blood pressure 110/59, 96% O2 on room air. GENERAL: He is alert and oriented. He appears very fatigued. He is not in any distress at this time. HEENT: No scleral icterus. Dry mucous membranes. CARDIOVASCULAR: Heart is regular in rhythm and rate. LUNGS: Clear to auscultation bilaterally. ABDOMEN: Reveals normoactive bowel sounds. Some mild tenderness diffusely. EXTREMITIES: No edema. NEUROLOGIC: No focal cranial deficits. IMAGING AND LABORATORY DATA: CBC and CMP are unremarkable with the exception of albumin 2.3. ASSESSMENT AND PLAN: The patient is a 61-year-old male with the following medical problems: Jejunal mass with associated adenopathy, certainly concerning for an underlying malignancy. This lesion is not accessible via endoscopy. He is going to go to the operating room today. I did order a CT chest for staging of this probable malignancy in addition to a baseline CEA and CA19-9. We will follow up on the operative and pathology report. Thank you for allowing me to participate in his care. SACHIN UNGER DO DR: Tanya JOB#: [id number] / [id number] RICHARD
[2016-11-01 02:45] VITALS: BP 93/51
[2016-11-01] MEDS: METOCLOPRAMIDE HCL 10 MG/2 ML VIAL. IV SCH ×3 (05:59→22:13)
[2016-11-01 06:02] LABS: BASO # 0.1 x10^3/uL (0.0-0.2); BASO % 1 % (0-3); EOS % 0 % (0-3); HEMATOCRIT 31.9 % (39.0-53.0); HEMOGLOBIN 10.5 g/dL (13.0-17.5); LYMPH # 0.4 x10^3/uL (1.0-4.8); LYMPH % 4 % (24-48); MEAN CORPUSCULAR HEMOGLOBIN 31 pg (25-35); MEAN CORPUSCULAR HGB CONC 33 g/dL (31-37); MEAN CORPUSCULAR VOLUME 94 fL (79-100); MONO % 9 % (0-9); NEUT % 87 % (31-73); PLATELET COUNT 310 x10^3/uL (140-400); RED CELL DISTRIBUTION WIDTH 15.5 % (11.5-14.5); WHITE BLOOD COUNT 9.6 x10^3/uL (4.0-11.0)
[2016-11-01 06:11] LABS: CREATININE 0.9 mg/dL (0.7-1.3); GFR 86.1; POTASSIUM 4.2 mmol/L (3.5-5.1)
[2016-11-01 07:00] VITALS: BP 94/53
[2016-11-01] MEDS: DO NOT USE 40 MG/0.4 ML DISP.SYRIN SQ SCH (08:24)
[2016-11-01] MEDS: PANTOPRAZOLE IV PUSH 40 MG VIAL. IVP SCH (08:24)
--- NOTE | 2016-11-01 09:07 | PDOC ---
G I PROGRESS NOTE Subjective "Sore". Incisional pain. Objective Op note reviewed. Path pending. Physical Exam Lungs clear. RRR Abdomen soft, no real bowel sounds. Review of Relevant I have reviewed the following items pako (where applicable) has been applied. Labs Laboratory Tests Test 10/31/16 07:00 10/31/16 21:15 11/01/16 05:25 White Blood Count 6.0x10^3/uL (4.0-11.0) 9.6x10^3/uL (4.0-11.0) Red Blood Count 4.03x10^6/uL (4.30-5.70) 3.40x10^6/uL (4.30-5.70) Hemoglobin 12.3g/dL (13.0-17.5) 10.6g/dL (13.0-17.5) 10.5g/dL (13.0-17.5) Hematocrit 36.6% (39.0-53.0) 32.6% (39.0-53.0) 31.9% (39.0-53.0) Mean Corpuscular Volume 91fL (79-100) 94fL (79-100) Mean Corpuscular Hemoglobin 30pg (25-35) 31pg (25-35) Mean Corpuscular Hemoglobin Concent 34g/dL (31-37) 33g/dL (31-37) 33g/dL (31-37) Red Cell Distribution Width 15.3% (11.5-14.5) 15.5% (11.5-14.5) Platelet Count 367x10^3/uL (140-400) 310x10^3/uL (140-400) Neutrophils (%) (Auto) 60% (31-73) 87% (31-73) Lymphocytes (%) (Auto) 18% (24-48) 4% (24-48) Monocytes (%) (Auto) 17% (0-9) 9% (0-9) Eosinophils (%) (Auto) 3% (0-3) 0% (0-3) Basophils (%) (Auto) 1% (0-3) 1% (0-3) Neutrophils # (Auto) 3.6x10^3uL (1.8-7.7) 8.4x10^3uL (1.8-7.7) Lymphocytes # (Auto) 1.1x10^3/uL (1.0-4.8) 0.4x10^3/uL (1.0-4.8) Monocytes # (Auto) 1.0x10^3/uL (0.0-1.1) 0.8x10^3/uL (0.0-1.1) Eosinophils # (Auto) 0.2x10^3/uL (0.0-0.7) 0.0x10^3/uL (0.0-0.7) Basophils # (Auto) 0.1x10^3/uL (0.0-0.2) 0.1x10^3/uL (0.0-0.2) Sodium Level 142mmol/L (136-145) 144mmol/L (136-145) Potassium Level 3.5mmol/L (3.5-5.1) 4.2mmol/L (3.5-5.1) Chloride Level 108mmol/L (98-107) 111mmol/L (98-107) Carbon Dioxide Level 21mmol/L (21-32) 18mmol/L (21-32) Anion Gap 13 (6-14) 15 (6-14) Blood Urea Nitrogen 16mg/dL (8-26) 17mg/dL (8-26) Creatinine 0.9mg/dL (0.7-1.3) 0.9mg/dL (0.7-1.3) Estimated GFR (Cockcroft-Gault) 86.1 86.1 Glucose Level 91mg/dL (70-99) 73mg/dL (70-99) Calcium Level 8.9mg/dL (8.5-10.1) 8.0mg/dL (8.5-10.1) Laboratory Tests Test 10/31/16 21:15 11/01/16 05:25 Hemoglobin 10.6g/dL (13.0-17.5) 10.5g/dL (13.0-17.5) Hematocrit 32.6% (39.0-53.0) 31.9% (39.0-53.0) Mean Corpuscular Hemoglobin Concent 33g/dL (31-37) 33g/dL (31-37) White Blood Count 9.6x10^3/uL (4.0-11.0) Red Blood Count 3.40x10^6/uL (4.30-5.70) Mean Corpuscular Volume 94fL (79-100) Mean Corpuscular Hemoglobin 31pg (25-35) Red Cell Distribution Width 15.5% (11.5-14.5) Platelet Count 310x10^3/uL (140-400) Neutrophils (%) (Auto) 87% (31-73) Lymphocytes (%) (Auto) 4% (24-48) Monocytes (%) (Auto) 9% (0-9) Eosinophils (%) (Auto) 0% (0-3) Basophils (%) (Auto) 1% (0-3) Neutrophils # (Auto) 8.4x10^3uL (1.8-7.7) Lymphocytes # (Auto) 0.4x10^3/uL (1.0-4.8) Monocytes # (Auto) 0.8x10^3/uL (0.0-1.1) Eosinophils # (Auto) 0.0x10^3/uL (0.0-0.7) Basophils # (Auto) 0.1x10^3/uL (0.0-0.2) Sodium Level 144mmol/L (136-145) Potassium Level 4.2mmol/L (3.5-5.1) Chloride Level 111mmol/L (98-107) Carbon Dioxide Level 18mmol/L (21-32) Anion Gap 15 (6-14) Blood Urea Nitrogen 17mg/dL (8-26) Creatinine 0.9mg/dL (0.7-1.3) Estimated GFR (Cockcroft-Gault) 86.1 Glucose Level 73mg/dL (70-99) Calcium Level 8.0mg/dL (8.5-10.1) Medications Current Medications Sodium Chloride 3 ml 3 ml PRN DAILY PRN IV AFTER MEDS AND BLOOD DRAWS; Start at 21:30 Sodium Chloride (Iv Sodium Chloride 0.9% 1000ml Bag) 1,000 ml @ 100 mls/hr Q10H IV Last administered on 10/30/16t 00:27; Start 10/29/16 at 21:30; Stop at 07:29; Status DC Bisacodyl (Dulcolax Supp) 10 mg PRN DAILY PRN IN CONSTIPATION; Start 10/29/16 at 21:30 Enoxaparin Sodium (Lovenox 40mg Syringe) 40 mg Q24H SQ Last administered on 21:11; Start 10/29/16 at 22:00; Stop 10/31/16 at 08:28; Status DC Metoclopramide HCl (Reglan) 10 mg Q8HRS IV Last administered on 11/01/16 05:59 ; Start 10/29/16 at 22:00 Ondansetron HCl (Zofran) 4 mg PRN Q8HRS PRN IV NAUSEA/VOMITING Last administered on 10/31/16 00:09; Start 10/29/16 at 21:30 Pantoprazole Sodium (Protonix Vial) 40 mg DAILYAC IVP Last administered on 11/01 08:24; Start 10/30/16 at 07:30 Paroxetine HCl (Paxil) 10 mg DAILY PO ; Start 10/30/16 at 09:00; Stop 10/30/16 at 09:33; Status DC Acetaminophen/ Aspirin/Caffeine (Excedrin Migraine) 1 tab PRN BID PRN PO MIGRAINE HEADACHE Last administered on 10/29/16 23:46; Start 10/29/16 at 21:30 Acetaminophen (Tylenol) 650 mg PRN Q6HRS PRN PO MILD PAIN / TEMP; Start at 22:00 Iohexol (Omnipaque 300 Mg/ml) 75 ml 1X ONCE IV Last administered on 10/30/16 09:09; Start 10/30/16 at 06:45; Stop 10/30/16 at 06:46; Status DC Iohexol (Omnipaque 240 Mg/ml) 30 ml 1X ONCE PO Last administered on 10/30/16 06:45; Start 10/30/16 at 06:45; Stop 10/30/16 at 06:46; Status DC Info (Do NOT chart on this entry -- for MONITORING) 1 each PRN DAILY PRN MC SEE COMMENTS; Start 10/30/16 at 06:45; Stop 11/01/16 at 06:44; Status DC Paroxetine HCl (Paxil) 10 mg DAILY@18 PO Last administered on 10/30/16t 17:52; Start 10/30/16 at 18:00 Morphine Sulfate 2 mg PRN Q2HR PRN IV PAIN; Start 10/30/16 at 17:45 Ondansetron HCl (Zofran) 4 mg PRN Q6HRS PRN IV Nausea; Start 10/31/16 at 08:45 ; Stop 10/31/16 at 18:00; Status DC Fentanyl Citrate (Fentanyl 2ml Vial) 25 mcg PRN Q5MIN PRN IV MILD PAIN; Start 10/31/16 at 08:45; Stop 10/31/16 at 18:00; Status DC Fentanyl Citrate (Fentanyl 2ml Vial) 50 mcg PRN Q5MIN PRN IV MODERATE PAIN; Start 10/31/16 at 08:45; Stop 10/31/16 at 08:50; Status DC Morphine Sulfate 1 mg 1 mg PRN Q10MIN PRN IV SEVERE PAIN; Start 10/31/16 at 08: 45; Stop 10/31/16 at 18:00; Status DC Lactated Ringer's (Iv Lactated Ringers) 1,000 ml @ 30 mls/hr Q24H IV ; Start at 08:44; Stop 10/31/16 at 20:43; Status DC Lidocaine HCl 2 ml 1X PRN PRN ID IV START; Start 10/31/16 at 08:45; Stop at 18:00; Status DC Hydromorphone HCl (Dilaudid) 0.5 mg PRN Q10MIN PRN IV SEV PAIN,Second choice; Start 10/31/16 at 08:45; Stop 10/31/16 at 18:00; Status DC Prochlorperazine Edisylate 5 mg 5 mg PACU PRN PRN IV NAUSEA; Start 10/31/16 at 08:45; Stop 10/31/16 at 18:00; Status DC Cefoxitin Sodium (Mefoxin 2gm Ivpb For Omni) 100 ml @ 200 mls/hr 1X ONCE IV Last administered on 10/31/16t 13:16; Start 10/31/16 at 11:30; Stop 10/31/16 at 11:59; Status DC Sevoflurane (Ultane) 60 ml STK-MED ONCE IH ; Start 10/31/16 at 12:14; Stop 10/31 at 12:15; Status DC Fentanyl Citrate (Fentanyl 2ml Vial) 100 mcg STK-MED ONCE .ROUTE ; Start at 12:14; Stop 10/31/16 at 12:15; Status DC Rocuronium Kechi 50 mg 50 mg STK-MED ONCE .ROUTE ; Start 10/31/16 at 12:14; Stop 10/31/16 at 12:15; Status DC Propofol (Diprivan) 20 ml @ As Directed STK-MED ONCE IV ; Start 10/31/16 at 12: 15; Stop 10/31/16 at 12:16; Status DC Dexamethasone Sodium Phosphate (Decadron) 20 mg STK-MED ONCE .ROUTE ; Start at 12:15; Stop 10/31/16 at 12:16; Status DC Ondansetron HCl (Zofran) 4 mg STK-MED ONCE .ROUTE ; Start 10/31/16 at 12:15; Stop 10/31/16 at 12:16; Status DC Lidocaine HCl 100 mg STK-MED ONCE .ROUTE ; Start 10/31/16 at 12:15; Stop at 12:16; Status DC Glycopyrrolate (Robinul) 1 mg STK-MED ONCE .ROUTE ; Start 10/31/16 at 12:40; Stop 10/31/16 at 12:41; Status DC Neostigmine Methylsulfate 5 mg STK-MED ONCE .ROUTE ; Start 10/31/16 at 12:40; Stop 10/31/16 at 12:41; Status DC Succinylcholine Chloride (Anectine) 200 mg STK-MED ONCE .ROUTE ; Start 10/31/16 at 13:04; Stop 10/31/16 at 13:05; Status DC Phenylephrine HCl 1 mg 1 mg STK-MED ONCE IV ; Start 10/31/16 at 13:14; Stop at 13:15; Status DC Albumin Human (Plasmanate) 500 ml @ As Directed STK-MED ONCE IV ; Start at 15:47; Stop 10/31/16 at 15:48; Status DC Rocuronium Kechi (Zemuron) 100 mg STK-MED ONCE .ROUTE ; Start 10/31/16 at 15: 51; Stop 10/31/16 at 15:52; Status DC Fentanyl Citrate (Fentanyl 5ml Vial) 250 mcg STK-MED ONCE .ROUTE ; Start at 16:19; Stop 10/31/16 at 16:20; Status DC Sodium Chloride 3 ml 3 ml QSHIFT PRN IV AFTER MEDS AND BLOOD DRAWS; Start 10/31 at 17:30; Status UNV Hydromorphone HCl (Dilaudid Standard [employer]) 30 ml @ 0 mls/hr CONT PRN PRN IV PROTOCOL Last administered on 10/31/16 17:33; Start 10/31/16 at 17:30 Hydromorphone HCl (Dilaudid) 0.4 mg PRN Q1HR PRN IV SEE COMMENTS; Start at 17:30 Ondansetron HCl (Zofran) 4 mg PRN Q6HRS PRN IV NAUESA, 1ST CHOICE; Start at 17:30 Metoclopramide HCl 10 mg 10 mg PRN Q6HRS PRN IV Nausea/Vomiting, 2nd Choice; Start 10/31/16 at 17:30 Sodium Chloride (Iv Sodium Chloride 0.9% 1000ml Bag) 1,000 ml @ 125 mls/hr 1X ONCE IV Last administered on 10/31/16 22:45; Start 10/31/16 at 17:30; Stop at 01:29; Status DC Enoxaparin Sodium 40 mg 40 mg Q24H SQ Last administered on 11/01/16 08:24; Start 11/01/16 at 09:00 Hydromorphone HCl 30 ml @ As Directed STK-MED ONCE IV ; Start 10/31/16 at 17:24 ; Stop 10/31/16 at 17:26; Status DC Sodium Chloride (Iv Sodium Chloride 0.9% 500ml Bag) 500 ml @ 500 mls/hr 1X ONCE IV Last administered on 10/31/16 22:00; Start 10/31/16 at 22:00; Stop at 22:59; Status DC Cefoxitin Sodium (Mefoxin 2gm Ivpb For Omni) 2 gm STK-MED ONCE IV ; Start at 16:00; Stop 11/01/16 at 08:43; Status DC Vitals/I & O Vital Sign - Last 24 Hours 10/31/16 10/31/16 10/31/16 10/31/16 10:47 12:23 16:42 16:42 Temp 99.1 97.9 97.3 99.1 97.9 97.3 Pulse 93 82 75 Resp 18 21 12 B/P 125/62 90/61 119/61 Pulse Ox 97 96 100 O2 Delivery Room Air Room Air Mask Simple Mask O2 Flow Rate 10 10 10/31/16 10/31/16 10/31/16 10/31/16 16:57 17:12 17:25 17:27 Pulse 78 84 90 Resp 10 10 12 B/P 106/59 101/58 104/56 Pulse Ox 100 100 97 O2 Delivery Simple Mask Simple Mask Room Air Room Air O2 Flow Rate 10 10 10/31/16 10/31/16 10/31/16 10/31/16 17:33 17:42 18:00 18:15 Temp 97.4 97.7 97.4 97.7 Pulse 90 93 95 Resp 12 12 18 18 B/P 104/56 97/57 95/57 Pulse Ox 95 96 95 93 O2 Delivery Room Air Room Air Room Air Room Air 10/31/16 10/31/16 10/31/16 10/31/16 18:30 18:31 18:40 19:50 Temp 97.9 97.9 Pulse 101 93 103 Resp 18 B/P 84/57 97/52 96/60 Pulse Ox 94 96 94 97 O2 Delivery Room Air Room Air Room Air Room Air O2 Flow Rate 10.0 10/31/16 10/31/16 10/31/16 11/01/16 20:00 21:00 22:23 02:45 Temp 97.9 98.6 97.9 98.6 Pulse 98 113 Resp 14 18 B/P 86/47 117/61 93/51 Pulse Ox 97 97 O2 Delivery Room Air Room Air Room Air O2 Flow Rate 99.0 11/01/16 07:00 Temp 97.9 97.9 Pulse 116 Resp 18 B/P 94/53 Pulse Ox 93 O2 Delivery Room Air Intake and Output 10/31/16 10/31/16 11/01/16 15:00 23:00 07:00 Output Total 946 ml 2775 ml 830 ml Balance -946 ml -2775 ml -830 ml Problem List Problems Medical Problems: (1) Intractable vomiting Status: Acute (2) Small intestine cancer Status: Acute Assessment IMP: Small bowel mass/tumor, post-resection. Plan of Care: Continue current Tx, Mgmt Plan of Care Note Await path. I'm off the weekend. Dr. Moreno available if needed. ROBINSON RAMOS MD Nov 01, 2016 09:07
--- NOTE | 2016-11-01 09:26 | PDOC ---
SURGICAL PROGRESS NOTE Subjective sore but feels better than preop no n/v no flatus yet bxo out, no void yet Vital Signs Vital Signs Date Time Temp Pulse Resp B/P Pulse Ox O2 Delivery O2 Flow Rate FiO2 11/01/16 07:00 97.9 116 18 94/53 93 Room Air 97.9 10/31/16 20:00 99.0 I&O Intake and Output 11/01/16 07:00 Output Total 4551 ml Balance -4551 ml Output Urine Total 1025 ml Gastric Drainage Total 2200 ml Emesis 946 ml Drainage Total 80 ml Estimated Blood Loss 300 ml PATIENT HAS A BOX: No General: Alert, Oriented X3, Cooperative, No acute distress HEENT: Other (NG bilious) Abdomen: Soft, Other (incisional TTP, dressing dry, HIEU serosang) Labs Laboratory Tests Test 10/31/16 07:00 10/31/16 21:15 11/01/16 05:25 White Blood Count 6.0x10^3/uL (4.0-11.0) 9.6x10^3/uL (4.0-11.0) Red Blood Count 4.03x10^6/uL (4.30-5.70) 3.40x10^6/uL (4.30-5.70) Hemoglobin 12.3g/dL (13.0-17.5) 10.6g/dL (13.0-17.5) 10.5g/dL (13.0-17.5) Hematocrit 36.6% (39.0-53.0) 32.6% (39.0-53.0) 31.9% (39.0-53.0) Mean Corpuscular Volume 91fL (79-100) 94fL (79-100) Mean Corpuscular Hemoglobin 30pg (25-35) 31pg (25-35) Mean Corpuscular Hemoglobin Concent 34g/dL (31-37) 33g/dL (31-37) 33g/dL (31-37) Red Cell Distribution Width 15.3% (11.5-14.5) 15.5% (11.5-14.5) Platelet Count 367x10^3/uL (140-400) 310x10^3/uL (140-400) Neutrophils (%) (Auto) 60% (31-73) 87% (31-73) Lymphocytes (%) (Auto) 18% (24-48) 4% (24-48) Monocytes (%) (Auto) 17% (0-9) 9% (0-9) Eosinophils (%) (Auto) 3% (0-3) 0% (0-3) Basophils (%) (Auto) 1% (0-3) 1% (0-3) Neutrophils # (Auto) 3.6x10^3uL (1.8-7.7) 8.4x10^3uL (1.8-7.7) Lymphocytes # (Auto) 1.1x10^3/uL (1.0-4.8) 0.4x10^3/uL (1.0-4.8) Monocytes # (Auto) 1.0x10^3/uL (0.0-1.1) 0.8x10^3/uL (0.0-1.1) Eosinophils # (Auto) 0.2x10^3/uL (0.0-0.7) 0.0x10^3/uL (0.0-0.7) Basophils # (Auto) 0.1x10^3/uL (0.0-0.2) 0.1x10^3/uL (0.0-0.2) Sodium Level 142mmol/L (136-145) 144mmol/L (136-145) Potassium Level 3.5mmol/L (3.5-5.1) 4.2mmol/L (3.5-5.1) Chloride Level 108mmol/L (98-107) 111mmol/L (98-107) Carbon Dioxide Level 21mmol/L (21-32) 18mmol/L (21-32) Anion Gap 13 (6-14) 15 (6-14) Blood Urea Nitrogen 16mg/dL (8-26) 17mg/dL (8-26) Creatinine 0.9mg/dL (0.7-1.3) 0.9mg/dL (0.7-1.3) Estimated GFR (Cockcroft-Gault) 86.1 86.1 Glucose Level 91mg/dL (70-99) 73mg/dL (70-99) Calcium Level 8.9mg/dL (8.5-10.1) 8.0mg/dL (8.5-10.1) Laboratory Tests Test 10/31/16 21:15 11/01/16 05:25 Hemoglobin 10.6g/dL (13.0-17.5) 10.5g/dL (13.0-17.5) Hematocrit 32.6% (39.0-53.0) 31.9% (39.0-53.0) Mean Corpuscular Hemoglobin Concent 33g/dL (31-37) 33g/dL (31-37) White Blood Count 9.6x10^3/uL (4.0-11.0) Red Blood Count 3.40x10^6/uL (4.30-5.70) Mean Corpuscular Volume 94fL (79-100) Mean Corpuscular Hemoglobin 31pg (25-35) Red Cell Distribution Width 15.5% (11.5-14.5) Platelet Count 310x10^3/uL (140-400) Neutrophils (%) (Auto) 87% (31-73) Lymphocytes (%) (Auto) 4% (24-48) Monocytes (%) (Auto) 9% (0-9) Eosinophils (%) (Auto) 0% (0-3) Basophils (%) (Auto) 1% (0-3) Neutrophils # (Auto) 8.4x10^3uL (1.8-7.7) Lymphocytes # (Auto) 0.4x10^3/uL (1.0-4.8) Monocytes # (Auto) 0.8x10^3/uL (0.0-1.1) Eosinophils # (Auto) 0.0x10^3/uL (0.0-0.7) Basophils # (Auto) 0.1x10^3/uL (0.0-0.2) Sodium Level 144mmol/L (136-145) Potassium Level 4.2mmol/L (3.5-5.1) Chloride Level 111mmol/L (98-107) Carbon Dioxide Level 18mmol/L (21-32) Anion Gap 15 (6-14) Blood Urea Nitrogen 17mg/dL (8-26) Creatinine 0.9mg/dL (0.7-1.3) Estimated GFR (Cockcroft-Gault) 86.1 Glucose Level 73mg/dL (70-99) Calcium Level 8.0mg/dL (8.5-10.1) Problem List Problems Medical Problems: (1) Intractable vomiting Status: Acute (2) Small intestine cancer Status: Acute Assessment/Plan POD#1 xlap, sbr needs to void, if no void st cath NG lis await bowel function afebrile, lab ok ambulate Problems: PHU VACA APRN Nov 01, 2016 09:26
[2016-11-01 09:49] LABS: % EOS 1 % (0-5); PLT ESTIMATE ADEQUATE (ADEQUATE)
--- NOTE | 2016-11-01 10:20 | PDOC ---
PROGRESS NOTES Chief Complaint Chief Complaint A/P Small bowel obstructions, small intestinal mass, s/p exploratory laparotomy on ? 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 NG tube, intermittent suction Follow pathology report Oncology following NPO Monitor electrolytes. History of Present Illness History of Present Illness vomiting no fever no chest pain Vitals Vitals Vital Signs Date Time Temp Pulse Resp B/P Pulse Ox O2 Delivery O2 Flow Rate FiO2 11/01/16 07:00 97.9 116 18 94/53 93 Room Air 97.9 10/31/16 20:00 99.0 Physical Exam General: Alert, Oriented X3, Cooperative, No acute distress Heart: Regular rate, Normal S1, Normal S2 Lungs: Clear Abdomen: Soft, Other (incisional TTP, dressing dry, HIEU serosang) Extremities: No clubbing, No cyanosis Skin: No rashes, No breakdown Labs LABS Laboratory Tests Test 10/31/16 21:15 11/01/16 05:25 Hemoglobin 10.6g/dL (13.0-17.5) 10.5g/dL (13.0-17.5) Hematocrit 32.6% (39.0-53.0) 31.9% (39.0-53.0) Mean Corpuscular Hemoglobin Concent 33g/dL (31-37) 33g/dL (31-37) White Blood Count 9.6x10^3/uL (4.0-11.0) Red Blood Count 3.40x10^6/uL (4.30-5.70) Mean Corpuscular Volume 94fL (79-100) Mean Corpuscular Hemoglobin 31pg (25-35) Red Cell Distribution Width 15.5% (11.5-14.5) Platelet Count 310x10^3/uL (140-400) Neutrophils (%) (Auto) 87% (31-73) Lymphocytes (%) (Auto) 4% (24-48) Monocytes (%) (Auto) 9% (0-9) Eosinophils (%) (Auto) 0% (0-3) Basophils (%) (Auto) 1% (0-3) Neutrophils # (Auto) 8.4x10^3uL (1.8-7.7) Lymphocytes # (Auto) 0.4x10^3/uL (1.0-4.8) Monocytes # (Auto) 0.8x10^3/uL (0.0-1.1) Eosinophils # (Auto) 0.0x10^3/uL (0.0-0.7) Basophils # (Auto) 0.1x10^3/uL (0.0-0.2) Segmented Neutrophils % 73% (35-66) Band Neutrophils % 18% (0-9) Lymphocytes % 1% (24-48) Monocytes % 7% (0-10) Eosinophils % 1% (0-5) Platelet Estimate Adequate (ADEQUATE) Sodium Level 144mmol/L (136-145) Potassium Level 4.2mmol/L (3.5-5.1) Chloride Level 111mmol/L (98-107) Carbon Dioxide Level 18mmol/L (21-32) Anion Gap 15 (6-14) Blood Urea Nitrogen 17mg/dL (8-26) Creatinine 0.9mg/dL (0.7-1.3) Estimated GFR (Cockcroft-Gault) 86.1 Glucose Level 73mg/dL (70-99) Calcium Level 8.0mg/dL (8.5-10.1) Assessment and Plan Assessmemt and Plan Problems Medical Problems: (1) Intractable vomiting Status: Acute (2) Small intestine cancer Status: Acute Problems: Comment Review of Relevant I have reviewed the following items pako (where applicable) has been applied. Labs Laboratory Tests Test 10/31/16 07:00 10/31/16 21:15 11/01/16 05:25 White Blood Count 6.0x10^3/uL (4.0-11.0) 9.6x10^3/uL (4.0-11.0) Red Blood Count 4.03x10^6/uL (4.30-5.70) 3.40x10^6/uL (4.30-5.70) Hemoglobin 12.3g/dL (13.0-17.5) 10.6g/dL (13.0-17.5) 10.5g/dL (13.0-17.5) Hematocrit 36.6% (39.0-53.0) 32.6% (39.0-53.0) 31.9% (39.0-53.0) Mean Corpuscular Volume 91fL (79-100) 94fL (79-100) Mean Corpuscular Hemoglobin 30pg (25-35) 31pg (25-35) Mean Corpuscular Hemoglobin Concent 34g/dL (31-37) 33g/dL (31-37) 33g/dL (31-37) Red Cell Distribution Width 15.3% (11.5-14.5) 15.5% (11.5-14.5) Platelet Count 367x10^3/uL (140-400) 310x10^3/uL (140-400) Neutrophils (%) (Auto) 60% (31-73) 87% (31-73) Lymphocytes (%) (Auto) 18% (24-48) 4% (24-48) Monocytes (%) (Auto) 17% (0-9) 9% (0-9) Eosinophils (%) (Auto) 3% (0-3) 0% (0-3) Basophils (%) (Auto) 1% (0-3) 1% (0-3) Neutrophils # (Auto) 3.6x10^3uL (1.8-7.7) 8.4x10^3uL (1.8-7.7) Lymphocytes # (Auto) 1.1x10^3/uL (1.0-4.8) 0.4x10^3/uL (1.0-4.8) Monocytes # (Auto) 1.0x10^3/uL (0.0-1.1) 0.8x10^3/uL (0.0-1.1) Eosinophils # (Auto) 0.2x10^3/uL (0.0-0.7) 0.0x10^3/uL (0.0-0.7) Basophils # (Auto) 0.1x10^3/uL (0.0-0.2) 0.1x10^3/uL (0.0-0.2) Sodium Level 142mmol/L (136-145) 144mmol/L (136-145) Potassium Level 3.5mmol/L (3.5-5.1) 4.2mmol/L (3.5-5.1) Chloride Level 108mmol/L (98-107) 111mmol/L (98-107) Carbon Dioxide Level 21mmol/L (21-32) 18mmol/L (21-32) Anion Gap 13 (6-14) 15 (6-14) Blood Urea Nitrogen 16mg/dL (8-26) 17mg/dL (8-26) Creatinine 0.9mg/dL (0.7-1.3) 0.9mg/dL (0.7-1.3) Estimated GFR (Cockcroft-Gault) 86.1 86.1 Glucose Level 91mg/dL (70-99) 73mg/dL (70-99) Calcium Level 8.9mg/dL (8.5-10.1) 8.0mg/dL (8.5-10.1) Segmented Neutrophils % 73% (35-66) Band Neutrophils % 18% (0-9) Lymphocytes % 1% (24-48) Monocytes % 7% (0-10) Eosinophils % 1% (0-5) Platelet Estimate Adequate (ADEQUATE) Laboratory Tests Test 10/31/16 21:15 11/01/16 05:25 Hemoglobin 10.6g/dL (13.0-17.5) 10.5g/dL (13.0-17.5) Hematocrit 32.6% (39.0-53.0) 31.9% (39.0-53.0) Mean Corpuscular Hemoglobin Concent 33g/dL (31-37) 33g/dL (31-37) White Blood Count 9.6x10^3/uL (4.0-11.0) Red Blood Count 3.40x10^6/uL (4.30-5.70) Mean Corpuscular Volume 94fL (79-100) Mean Corpuscular Hemoglobin 31pg (25-35) Red Cell Distribution Width 15.5% (11.5-14.5) Platelet Count 310x10^3/uL (140-400) Neutrophils (%) (Auto) 87% (31-73) Lymphocytes (%) (Auto) 4% (24-48) Monocytes (%) (Auto) 9% (0-9) Eosinophils (%) (Auto) 0% (0-3) Basophils (%) (Auto) 1% (0-3) Neutrophils # (Auto) 8.4x10^3uL (1.8-7.7) Lymphocytes # (Auto) 0.4x10^3/uL (1.0-4.8) Monocytes # (Auto) 0.8x10^3/uL (0.0-1.1) Eosinophils # (Auto) 0.0x10^3/uL (0.0-0.7) Basophils # (Auto) 0.1x10^3/uL (0.0-0.2) Segmented Neutrophils % 73% (35-66) Band Neutrophils % 18% (0-9) Lymphocytes % 1% (24-48) Monocytes % 7% (0-10) Eosinophils % 1% (0-5) Platelet Estimate Adequate (ADEQUATE) Sodium Level 144mmol/L (136-145) Potassium Level 4.2mmol/L (3.5-5.1) Chloride Level 111mmol/L (98-107) Carbon Dioxide Level 18mmol/L (21-32) Anion Gap 15 (6-14) Blood Urea Nitrogen 17mg/dL (8-26) Creatinine 0.9mg/dL (0.7-1.3) Estimated GFR (Cockcroft-Gault) 86.1 Glucose Level 73mg/dL (70-99) Calcium Level 8.0mg/dL (8.5-10.1) Medications Current Medications Sodium Chloride 3 ml 3 ml PRN DAILY PRN IV AFTER MEDS AND BLOOD DRAWS; Start at 21:30 Sodium Chloride (Iv Sodium Chloride 0.9% 1000ml Bag) 1,000 ml @ 100 mls/hr Q10H IV Last administered on 10/30/16 00:27; Start 10/29/16 at 21:30; Stop at 07:29; Status DC Bisacodyl (Dulcolax Supp) 10 mg PRN DAILY PRN OK CONSTIPATION; Start 10/29/16 at 21:30 Enoxaparin Sodium (Lovenox 40mg Syringe) 40 mg Q24H SQ Last administered on 21:11; Start 10/29/16 at 22:00; Stop 10/31/16 at 08:28; Status DC Metoclopramide HCl (Reglan) 10 mg Q8HRS IV Last administered on 11/01/16 05:59 ; Start 10/29/16 at 22:00 Ondansetron HCl (Zofran) 4 mg PRN Q8HRS PRN IV NAUSEA/VOMITING Last administered on 10/31/16 00:09; Start 10/29/16 at 21:30 Pantoprazole Sodium (Protonix Vial) 40 mg DAILYAC IVP Last administered on 11/01 08:24; Start 10/30/16 at 07:30 Paroxetine HCl (Paxil) 10 mg DAILY PO ; Start 10/30/16 at 09:00; Stop 10/30/16 at 09:33; Status DC Acetaminophen/ Aspirin/Caffeine (Excedrin Migraine) 1 tab PRN BID PRN PO MIGRAINE HEADACHE Last administered on 10/29/16 23:46; Start 10/29/16 at 21:30 Acetaminophen (Tylenol) 650 mg PRN Q6HRS PRN PO MILD PAIN / TEMP; Start at 22:00 Iohexol (Omnipaque 300 Mg/ml) 75 ml 1X ONCE IV Last administered on 10/30/16 09:09; Start 10/30/16 at 06:45; Stop 10/30/16 at 06:46; Status DC Iohexol (Omnipaque 240 Mg/ml) 30 ml 1X ONCE PO Last administered on 10/30/16 06:45; Start 10/30/16 at 06:45; Stop 10/30/16 at 06:46; Status DC Info (Do NOT chart on this entry -- for MONITORING) 1 each PRN DAILY PRN MC SEE COMMENTS; Start 10/30/16 at 06:45; Stop 11/01/16 at 06:44; Status DC Paroxetine HCl (Paxil) 10 mg DAILY@18 PO Last administered on 10/30/16 17:52; Start 10/30/16 at 18:00 Morphine Sulfate 2 mg PRN Q2HR PRN IV PAIN; Start 10/30/16 at 17:45 Ondansetron HCl (Zofran) 4 mg PRN Q6HRS PRN IV Nausea; Start 10/31/16 at 08:45 ; Stop 10/31/16 at 18:00; Status DC Fentanyl Citrate (Fentanyl 2ml Vial) 25 mcg PRN Q5MIN PRN IV MILD PAIN; Start 10/31/16 at 08:45; Stop 10/31/16 at 18:00; Status DC Fentanyl Citrate (Fentanyl 2ml Vial) 50 mcg PRN Q5MIN PRN IV MODERATE PAIN; Start 10/31/16 at 08:45; Stop 10/31/16 at 08:50; Status DC Morphine Sulfate 1 mg 1 mg PRN Q10MIN PRN IV SEVERE PAIN; Start 10/31/16 at 08: 45; Stop 10/31/16 at 18:00; Status DC Lactated Ringer's (Iv Lactated Ringers) 1,000 ml @ 30 mls/hr Q24H IV ; Start at 08:44; Stop 10/31/16 at 20:43; Status DC Lidocaine HCl 2 ml 1X PRN PRN ID IV START; Start 10/31/16 at 08:45; Stop at 18:00; Status DC Hydromorphone HCl (Dilaudid) 0.5 mg PRN Q10MIN PRN IV SEV PAIN,Second choice; Start 10/31/16 at 08:45; Stop 10/31/16 at 18:00; Status DC Prochlorperazine Edisylate 5 mg 5 mg PACU PRN PRN IV NAUSEA; Start 10/31/16 at 08:45; Stop 10/31/16 at 18:00; Status DC Cefoxitin Sodium (Mefoxin 2gm Ivpb For Omni) 100 ml @ 200 mls/hr 1X ONCE IV Last administered on 10/31/16t 13:16; Start 10/31/16 at 11:30; Stop 10/31/16 at 11:59; Status DC Sevoflurane (Ultane) 60 ml STK-MED ONCE IH ; Start 10/31/16 at 12:14; Stop 10/31 at 12:15; Status DC Fentanyl Citrate (Fentanyl 2ml Vial) 100 mcg STK-MED ONCE .ROUTE ; Start at 12:14; Stop 10/31/16 at 12:15; Status DC Rocuronium [place] 50 mg 50 mg STK-MED ONCE .ROUTE ; Start 10/31/16 at 12:14; Stop 10/31/16 at 12:15; Status DC Propofol (Diprivan) 20 ml @ As Directed STK-MED ONCE IV ; Start 10/31/16 at 12: 15; Stop 10/31/16 at 12:16; Status DC Dexamethasone Sodium Phosphate (Decadron) 20 mg STK-MED ONCE .ROUTE ; Start at 12:15; Stop 10/31/16 at 12:16; Status DC Ondansetron HCl (Zofran) 4 mg STK-MED ONCE .ROUTE ; Start 10/31/16 at 12:15; Stop 10/31/16 at 12:16; Status DC Lidocaine HCl 100 mg STK-MED ONCE .ROUTE ; Start 10/31/16 at 12:15; Stop at 12:16; Status DC Glycopyrrolate (Robinul) 1 mg STK-MED ONCE .ROUTE ; Start 10/31/16 at 12:40; Stop 10/31/16 at 12:41; Status DC Neostigmine Methylsulfate 5 mg STK-MED ONCE .ROUTE ; Start 10/31/16 at 12:40; Stop 10/31/16 at 12:41; Status DC Succinylcholine Chloride (Anectine) 200 mg STK-MED ONCE .ROUTE ; Start 10/31/16 at 13:04; Stop 10/31/16 at 13:05; Status DC Phenylephrine HCl 1 mg 1 mg STK-MED ONCE IV ; Start 10/31/16 at 13:14; Stop at 13:15; Status DC Albumin Human (Plasmanate) 500 ml @ As Directed STK-MED ONCE IV ; Start at 15:47; Stop 10/31/16 at 15:48; Status DC Rocuronium [place] (Zemuron) 100 mg STK-MED ONCE .ROUTE ; Start 10/31/16 at 15: 51; Stop 10/31/16 at 15:52; Status DC Fentanyl Citrate (Fentanyl 5ml Vial) 250 mcg STK-MED ONCE .ROUTE ; Start at 16:19; Stop 10/31/16 at 16:20; Status DC Sodium Chloride 3 ml 3 ml QSHIFT PRN IV AFTER MEDS AND BLOOD DRAWS; Start 10/31 at 17:30; Status UNV Hydromorphone HCl (Dilaudid Standard PAINT FORMULATOR) 30 ml @ 0 mls/hr CONT PRN PRN IV PROTOCOL Last administered on 10/31/16 17:33; Start 10/31/16 at 17:30 Hydromorphone HCl (Dilaudid) 0.4 mg PRN Q1HR PRN IV SEE COMMENTS; Start at 17:30 Ondansetron HCl (Zofran) 4 mg PRN Q6HRS PRN IV NAUESA, 1ST CHOICE; Start at 17:30 Metoclopramide HCl 10 mg 10 mg PRN Q6HRS PRN IV Nausea/Vomiting, 2nd Choice; Start 10/31/16 at 17:30 Sodium Chloride (Iv Sodium Chloride 0.9% 1000ml Bag) 1,000 ml @ 125 mls/hr 1X ONCE IV Last administered on 10/31/16 22:45; Start 10/31/16 at 17:30; Stop at 01:29; Status DC Enoxaparin Sodium 40 mg 40 mg Q24H SQ Last administered on 11/01/16 08:24; Start 11/01/16 at 09:00 Hydromorphone HCl 30 ml @ As Directed STK-MED ONCE IV ; Start 10/31/16 at 17:24 ; Stop 10/31/16 at 17:26; Status DC Sodium Chloride (Iv Sodium Chloride 0.9% 500ml Bag) 500 ml @ 500 mls/hr 1X ONCE IV Last administered on 10/31/16 22:00; Start 10/31/16 at 22:00; Stop at 22:59; Status DC Cefoxitin Sodium (Mefoxin 2gm Ivpb For Omni) 2 gm STK-MED ONCE IV ; Start at 16:00; Stop 11/01/16 at 08:43; Status DC Vitals/I & O Vital Sign - Last 24 Hours 10/31/16 10/31/16 10/31/16 10/31/16 10:47 12:23 16:42 16:42 Temp 99.1 97.9 97.3 99.1 97.9 97.3 Pulse 93 82 75 Resp 18 21 12 B/P 125/62 90/61 119/61 Pulse Ox 97 96 100 O2 Delivery Room Air Room Air Mask Simple Mask O2 Flow Rate 10 10 3/16/17 10/31/16 10/31/16 10/31/16 16:57 17:12 17:25 17:27 Pulse 78 84 90 Resp 10 10 12 B/P 106/59 101/58 104/56 Pulse Ox 100 100 97 O2 Delivery Simple Mask Simple Mask Room Air Room Air O2 Flow Rate 10 10 10/31/16 10/31/16 10/31/16 10/31/16 17:33 17:42 18:00 18:15 Temp 97.4 97.7 97.4 97.7 Pulse 90 93 95 Resp 12 12 18 18 B/P 104/56 97/57 95/57 Pulse Ox 95 96 95 93 O2 Delivery Room Air Room Air Room Air Room Air 10/31/16 10/31/16 10/31/16 10/31/16 18:30 18:31 18:40 19:50 Temp 97.9 97.9 Pulse 101 93 103 Resp 18 B/P 84/57 97/52 96/60 Pulse Ox 94 96 94 97 O2 Delivery Room Air Room Air Room Air Room Air O2 Flow Rate 10.0 10/31/16 10/31/16 10/31/16 11/01/16 20:00 21:00 22:23 02:45 Temp 97.9 98.6 97.9 98.6 Pulse 98 113 Resp 14 18 B/P 86/47 117/61 93/51 Pulse Ox 97 97 O2 Delivery Room Air Room Air Room Air O2 Flow Rate 99.0 11/01/16 07:00 Temp 97.9 97.9 Pulse 116 Resp 18 B/P 94/53 Pulse Ox 93 O2 Delivery Room Air Intake and Output 10/31/16 10/31/16 11/01/16 15:00 23:00 07:00 Output Total 946 ml 2775 ml 830 ml Balance -946 ml -2775 ml -830 ml Nutrition Consultation Dietary Evaluation: Recommendations by RD: Increase Calorie Intake, Protein supplementation Comments: boost breeze tid and prn Expected Outcomes/Goals: diet adv/ tolerance Interpretation of weight loss: >5% in 1 month Malnutrition Findings: Food and Nutrition Intake (Sev: <50% est energy req 5days 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
--- NOTE | 2016-11-01 10:20 | PDOC ---
Subjective: Subjective: Onc f/u- Small bowel mass s/o resxn 10/31 Pain controlled. NGT in place. No complaints. Objective: Vital Signs: Vital Signs Date Time Temp Pulse Resp B/P Pulse Ox O2 Delivery O2 Flow Rate FiO2 11/01/16 07:00 97.9 116 18 94/53 93 Room Air 97.9 10/31/16 20:00 99.0 Physical Exam: Extremities: No edema General: Alert, Oriented X3, Cooperative, No acute distress Lungs: Other (no resp dsitress) Psych/Mental Status: Mental status NL, Mood NL Skin: Other (no jaundicce) Assessment/Plan A/P: 1. Small bowel mass causing partial SBO, adenopathy s/p resxn 10/31. Plan: F/u CEA, CA 19-9 F/u Operative, path reports F/u CT chest- not yet done Continue supportive care per surgery, primary team. Dr. Mcguire is covering this weekend if acute issues arise, Dr. Sinclair will take over Fri and return when path report is available. SACHIN UNGER DO Nov 01, 2016 10:20
[2016-11-01 11:00] VITALS: BP 99/56
[2016-11-01] MEDS ORDERED: IV NORMAL SALINE 1000ML BAG 1,000 ML IV ONE ×2 (14:00)
[2016-11-01 15:00] VITALS: BP 98/54
[2016-11-01] MEDS: PAROXETINE 10 MG TABLET. PO SCH (18:00)
[2016-11-01 19:50] VITALS: BP 99/60
[2016-11-01 23:05] VITALS: BP 107/62
[2016-11-02] VITALS (7 sets, daily range): BP systolic 104–117; BP diastolic 59–65
--- NOTE | 2016-11-02 00:31 | OP ---
DATE OF SURGERY: 10/31/2016 PREOPERATIVE DIAGNOSIS: Small bowel neoplasm. POSTOPERATIVE DIAGNOSIS: Small bowel neoplasm. PROCEDURES: 1. Exploratory laparotomy. 2. Small bowel resection with a duodenojejunal anastomosis. SURGEON: Real Cage M.D. BIODIESEL PROCESSING TECHNICIAN: Dr. Khalif Betancourt. ANESTHESIA: General. ESTIMATED BLOOD LOSS: 300 mL. IV FLUIDS: 3300 mL crystalloid, 500 albumin, 453 urine output, and NG-tube was 1900. INDICATIONS: The patient is a 61-year-old male who presents with a 3-month history of abdominal pain and weight loss. He had a CT scan, which confirmed the presence of a small bowel neoplasm. He is here for resection. FINDINGS: Extensive small bowel neoplasm arising just beyond the ligament of Treitz into the proximal jejunum and the base of the mesentery was replaced with tumor. Small bowel resection was performed at the ligament of Treitz, then the anastomosis was performed between the 4th portion of the duodenum and the jejunum. DESCRIPTION OF PROCEDURE: After informed consent was obtained, the patient was taken to the operating room and placed in supine position. After adequate induction of general anesthesia, he was prepped and draped in usual sterile fashion. Epigastric incision was made with a scalpel and sent through subcutaneous tissue with cautery. The fascia was opened in the midline with cautery along the length of the incision. Peritoneum was opened with cautery. The abdomen was explored. The liver was smooth without nodularity. The gallbladder was smooth and without stones. The colon was otherwise unremarkable. The small bowel was run from the ligament of treitz to the ileocecal valve. The only abnormality in the small bowel began in the proximal jejunum and extended just distal to the ligament of Treitz. This was a section of small bowel that was replaced with tumor. The mesentery was replaced with large bulky lymphadenopathy as well. The transverse colon and the mesentery of the transverse colon appeared to be adherent to the mass, but not being invaded by the mass. This was able to be somewhat bluntly and also with cautery without any obvious dissection directly through neoplasm itself. The duodenum at the 4th portion was massively enlarged. He has had this process ongoing for months and had been developing bowel obstruction from this large mass for the 4 months resulting in massive dilation of the stomach and the duodenum. At this point a resection was performed. The jejunum distal to the mass was resected with a PETER-75 stapler. The mesentery was taken both with LigaSure impact as well as clamp, cutting and ligating any larger vessels. The superior mesenteric artery at first could not be palpated. Using the CT images from his preop CT and correlating that with intraoperative anatomy, the majority of the bulky lymphadenopathy was able to be resected, leaving the SMA and SMV intact. The lymphadenopathy was primarily anterior to the SMA. The ligament of Treitz had to be mobilized sharply and in doing so, then window was made just distal to the ligament of Treitz where the duodenum at its fourth portion could be transected with a TA 90 stapler. The specimen was then sent to pathology with the open end marked proximal. The duodenum in its width was approximately 7 cm versus the jejunum, which was approximately 2-3 cm at its width. Therefore end-to-end anastomosis was not feasible because of the luminal mismatch, and so the anastomosis was an end duodenal with a side jejunal anastomosis. This was performed in a double layer fashion with 2-0 Vicryl Lembert sutures for the outer layer and then inner layer with 3-0 Vicryl in a running fashion. At the completion of the anastomosis, it was hemostatic and it was water/air tight. There was no obvious leakage. The duodenum and the jejunum both appeared healthy and both had excellent blood supply throughout the anastomosis. There was reassuring bleeding from the anastomosis that was being created. At this point, the mesenteric rent was closed with 3-0 Vicryl suture and then the abdomen was irrigated. I did attempt to pass a Dobhoff past the anastomosis, but I could not get it to advance through the second and third portion of the duodenum, therefore a Dobhoff was not placed. NG tube was left in place. The fascia was closed with a #1 looped PDS starting in the apices and meeting in the middle. Subcutaneous tissue was irrigated. Skin was loosely reapproximated with fatoumata. Telfa itzel were placed between while we placed the fatoumata. He tolerated the procedure well. There were no apparent complications. He was then transferred in stable condition to the recovery room. Sponge and needle counts were correct at the end of the procedure. REAL CAGE MD DR: KORIN/federico JOB#: [id number] / [id number] RICHARD
[2016-11-02] MEDS: HYDROMORPHONE STANDARD PCA 30 ML IV PRN (06:10)
[2016-11-02] MEDS: METOCLOPRAMIDE HCL 10 MG/2 ML VIAL. IV SCH ×3 (06:11→21:14)
[2016-11-02] MEDS: DO NOT USE 40 MG/0.4 ML DISP.SYRIN SQ SCH (08:47)
[2016-11-02] MEDS: PANTOPRAZOLE IV PUSH 40 MG VIAL. IVP SCH (08:47)
--- NOTE | 2016-11-02 09:47 | PDOC ---
PROGRESS NOTES Chief Complaint Chief Complaint A/P Small bowel obstructions, small intestinal mass, s/p exploratory laparotomy, s/ p small bowel resection with a duodenojejunal anastomosis on 10/31/16 ? 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 NG tube, intermittent suction Follow pathology report Oncology following NPO Monitor electrolytes. IV NS 1 bolus History of Present Illness History of Present Illness no vomiting no fever no chest pain Vitals Vitals Vital Signs Date Time Temp Pulse Resp B/P Pulse Ox O2 Delivery O2 Flow Rate FiO2 11/02/16 08:00 98.9 102 12 108/65 93 Nasal Cannula 3.0 98.9 Physical Exam General: Alert, Oriented X3, Cooperative, No acute distress Heart: Regular rate, Normal S1, Normal S2 Lungs: Clear Abdomen: Soft, Other (incisional TTP, dressing dry, HIEU serosang) Extremities: No edema Skin: Other (no jaundicce) Assessment and Plan Assessmemt and Plan Problems Medical Problems: (1) Intractable vomiting Status: Acute (2) Small intestine cancer Status: Acute Problems: Comment Review of Relevant I have reviewed the following items pako (where applicable) has been applied. Labs Laboratory Tests Test 10/31/16 21:15 11/01/16 05:25 Hemoglobin 10.6g/dL (13.0-17.5) 10.5g/dL (13.0-17.5) Hematocrit 32.6% (39.0-53.0) 31.9% (39.0-53.0) Mean Corpuscular Hemoglobin Concent 33g/dL (31-37) 33g/dL (31-37) White Blood Count 9.6x10^3/uL (4.0-11.0) Red Blood Count 3.40x10^6/uL (4.30-5.70) Mean Corpuscular Volume 94fL (79-100) Mean Corpuscular Hemoglobin 31pg (25-35) Red Cell Distribution Width 15.5% (11.5-14.5) Platelet Count 310x10^3/uL (140-400) Neutrophils (%) (Auto) 87% (31-73) Lymphocytes (%) (Auto) 4% (24-48) Monocytes (%) (Auto) 9% (0-9) Eosinophils (%) (Auto) 0% (0-3) Basophils (%) (Auto) 1% (0-3) Neutrophils # (Auto) 8.4x10^3uL (1.8-7.7) Lymphocytes # (Auto) 0.4x10^3/uL (1.0-4.8) Monocytes # (Auto) 0.8x10^3/uL (0.0-1.1) Eosinophils # (Auto) 0.0x10^3/uL (0.0-0.7) Basophils # (Auto) 0.1x10^3/uL (0.0-0.2) Segmented Neutrophils % 73% (35-66) Band Neutrophils % 18% (0-9) Lymphocytes % 1% (24-48) Monocytes % 7% (0-10) Eosinophils % 1% (0-5) Platelet Estimate Adequate (ADEQUATE) Sodium Level 144mmol/L (136-145) Potassium Level 4.2mmol/L (3.5-5.1) Chloride Level 111mmol/L (98-107) Carbon Dioxide Level 18mmol/L (21-32) Anion Gap 15 (6-14) Blood Urea Nitrogen 17mg/dL (8-26) Creatinine 0.9mg/dL (0.7-1.3) Estimated GFR (Cockcroft-Gault) 86.1 Glucose Level 73mg/dL (70-99) Calcium Level 8.0mg/dL (8.5-10.1) Medications Current Medications Sodium Chloride 3 ml 3 ml PRN DAILY PRN IV AFTER MEDS AND BLOOD DRAWS; Start at 21:30 Sodium Chloride (Iv Sodium Chloride 0.9% 1000ml Bag) 1,000 ml @ 100 mls/hr Q10H IV Last administered on 10/30/16 00:27; Start 10/29/16 at 21:30; Stop at 07:29; Status DC Bisacodyl (Dulcolax Supp) 10 mg PRN DAILY PRN LA CONSTIPATION; Start 10/29/16 at 21:30 Enoxaparin Sodium (Lovenox 40mg Syringe) 40 mg Q24H SQ Last administered on 21:11; Start 10/29/16 at 22:00; Stop 10/31/16 at 08:28; Status DC Metoclopramide HCl (Reglan) 10 mg Q8HRS IV Last administered on 11/02/16 06:11 ; Start 10/29/16 at 22:00 Ondansetron HCl (Zofran) 4 mg PRN Q8HRS PRN IV NAUSEA/VOMITING Last administered on 10/31/16 00:09; Start 10/29/16 at 21:30; Stop 11/01/16 at 14:47 ; Status DC Pantoprazole Sodium (Protonix Vial) 40 mg DAILYAC IVP Last administered on 11/02 08:47; Start 10/30/16 at 07:30 Paroxetine HCl (Paxil) 10 mg DAILY PO ; Start 10/30/16 at 09:00; Stop 10/30/16 at 09:33; Status DC Acetaminophen/ Aspirin/Caffeine (Excedrin Migraine) 1 tab PRN BID PRN PO MIGRAINE HEADACHE Last administered on 10/29/16 23:46; Start 10/29/16 at 21:30 Acetaminophen (Tylenol) 650 mg PRN Q6HRS PRN PO MILD PAIN / TEMP; Start at 22:00 Iohexol (Omnipaque 300 Mg/ml) 75 ml 1X ONCE IV Last administered on 10/30/16 09:09; Start 10/30/16 at 06:45; Stop 10/30/16 at 06:46; Status DC Iohexol (Omnipaque 240 Mg/ml) 30 ml 1X ONCE PO Last administered on 10/30/16 06:45; Start 10/30/16 at 06:45; Stop 10/30/16 at 06:46; Status DC Info (Do NOT chart on this entry -- for MONITORING) 1 each PRN DAILY PRN MC SEE COMMENTS; Start 10/30/16 at 06:45; Stop 11/01/16 at 06:44; Status DC Paroxetine HCl (Paxil) 10 mg DAILY@18 PO Last administered on 10/30/16 17:52; Start 10/30/16 at 18:00 Morphine Sulfate 2 mg PRN Q2HR PRN IV PAIN; Start 10/30/16 at 17:45; Stop 11/02 at 05:57; Status DC Ondansetron HCl (Zofran) 4 mg PRN Q6HRS PRN IV Nausea; Start 10/31/16 at 08:45 ; Stop 10/31/16 at 18:00; Status DC Fentanyl Citrate (Fentanyl 2ml Vial) 25 mcg PRN Q5MIN PRN IV MILD PAIN; Start 10/31/16 at 08:45; Stop 10/31/16 at 18:00; Status DC Fentanyl Citrate (Fentanyl 2ml Vial) 50 mcg PRN Q5MIN PRN IV MODERATE PAIN; Start 10/31/16 at 08:45; Stop 10/31/16 at 08:50; Status DC Morphine Sulfate 1 mg 1 mg PRN Q10MIN PRN IV SEVERE PAIN; Start 10/31/16 at 08: 45; Stop 10/31/16 at 18:00; Status DC Lactated Ringer's (Iv Lactated Ringers) 1,000 ml @ 30 mls/hr Q24H IV ; Start at 08:44; Stop 10/31/16 at 20:43; Status DC Lidocaine HCl 2 ml 1X PRN PRN ID IV START; Start 10/31/16 at 08:45; Stop at 18:00; Status DC Hydromorphone HCl (Dilaudid) 0.5 mg PRN Q10MIN PRN IV SEV PAIN,Second choice; Start 10/31/16 at 08:45; Stop 10/31/16 at 18:00; Status DC Prochlorperazine Edisylate 5 mg 5 mg PACU PRN PRN IV NAUSEA; Start 10/31/16 at 08:45; Stop 10/31/16 at 18:00; Status DC Cefoxitin Sodium (Mefoxin 2gm Ivpb For Omni) 100 ml @ 200 mls/hr 1X ONCE IV Last administered on 10/31/16t 13:16; Start 10/31/16 at 11:30; Stop 10/31/16 at 11:59; Status DC Sevoflurane (Ultane) 60 ml STK-MED ONCE IH ; Start 10/31/16 at 12:14; Stop 10/31 at 12:15; Status DC Fentanyl Citrate (Fentanyl 2ml Vial) 100 mcg STK-MED ONCE .ROUTE ; Start at 12:14; Stop 10/31/16 at 12:15; Status DC Rocuronium [place] 50 mg 50 mg STK-MED ONCE .ROUTE ; Start 10/31/16 at 12:14; Stop 10/31/16 at 12:15; Status DC Propofol (Diprivan) 20 ml @ As Directed STK-MED ONCE IV ; Start 10/31/16 at 12: 15; Stop 10/31/16 at 12:16; Status DC Dexamethasone Sodium Phosphate (Decadron) 20 mg STK-MED ONCE .ROUTE ; Start at 12:15; Stop 10/31/16 at 12:16; Status DC Ondansetron HCl (Zofran) 4 mg STK-MED ONCE .ROUTE ; Start 10/31/16 at 12:15; Stop 10/31/16 at 12:16; Status DC Lidocaine HCl 100 mg STK-MED ONCE .ROUTE ; Start 10/31/16 at 12:15; Stop at 12:16; Status DC Glycopyrrolate (Robinul) 1 mg STK-MED ONCE .ROUTE ; Start 10/31/16 at 12:40; Stop 10/31/16 at 12:41; Status DC Neostigmine Methylsulfate 5 mg STK-MED ONCE .ROUTE ; Start 10/31/16 at 12:40; Stop 10/31/16 at 12:41; Status DC Succinylcholine Chloride (Anectine) 200 mg STK-MED ONCE .ROUTE ; Start 10/31/16 at 13:04; Stop 10/31/16 at 13:05; Status DC Phenylephrine HCl 1 mg 1 mg STK-MED ONCE IV ; Start 10/31/16 at 13:14; Stop at 13:15; Status DC Albumin Human (Plasmanate) 500 ml @ As Directed STK-MED ONCE IV ; Start at 15:47; Stop 10/31/16 at 15:48; Status DC Rocuronium [place] (Zemuron) 100 mg STK-MED ONCE .ROUTE ; Start 10/31/16 at 15: 51; Stop 10/31/16 at 15:52; Status DC Fentanyl Citrate (Fentanyl 5ml Vial) 250 mcg STK-MED ONCE .ROUTE ; Start at 16:19; Stop 10/31/16 at 16:20; Status DC Sodium Chloride 3 ml 3 ml QSHIFT PRN IV AFTER MEDS AND BLOOD DRAWS; Start 10/31 at 17:30; Status UNV Hydromorphone HCl (Dilaudid Standard FOREPART LASTER) 30 ml @ 0 mls/hr CONT PRN PRN IV PROTOCOL Last administered on 11/02/16 06:10; Start 10/31/16 at 17:30 Hydromorphone HCl (Dilaudid) 0.4 mg PRN Q1HR PRN IV SEE COMMENTS; Start at 17:30; Stop 11/02/16 at 05:57; Status DC Ondansetron HCl (Zofran) 4 mg PRN Q6HRS PRN IV NAUESA, 1ST CHOICE; Start at 17:30 Metoclopramide HCl 10 mg 10 mg PRN Q6HRS PRN IV Nausea/Vomiting, 2nd Choice; Start 10/31/16 at 17:30 Sodium Chloride (Iv Sodium Chloride 0.9% 1000ml Bag) 1,000 ml @ 125 mls/hr 1X ONCE IV Last administered on 10/31/16 22:45; Start 10/31/16 at 17:30; Stop at 01:29; Status DC Enoxaparin Sodium 40 mg 40 mg Q24H SQ Last administered on 11/02/16 08:47; Start 11/01/16 at 09:00 Hydromorphone HCl 30 ml @ As Directed STK-MED ONCE IV ; Start 10/31/16 at 17:24 ; Stop 10/31/16 at 17:26; Status DC Sodium Chloride (Iv Sodium Chloride 0.9% 500ml Bag) 500 ml @ 500 mls/hr 1X ONCE IV Last administered on 10/31/16 22:00; Start 10/31/16 at 22:00; Stop at 22:59; Status DC Cefoxitin Sodium 2 gm 2 gm STK-MED ONCE IV ; Start 10/31/16 at 16:00; Stop 11/01 at 08:43; Status DC Sodium Chloride 1,000 ml @ 1,000 mls/hr 1X ONCE IV Last administered on 14:00; Start 11/01/16 at 14:00; Stop 11/01/16 at 14:59; Status DC Sodium Chloride (Iv Sodium Chloride 0.9% 1000ml Bag) 1,000 ml @ 125 mls/hr 1X ONCE IV Last administered on 11/01/16t 17:51; Start 11/01/16 at 14:00; Stop at 21:59; Status DC Vitals/I & O Vital Sign - Last 24 Hours 11/01/16 11/01/16 11/01/16 11/01/16 11:00 15:00 19:50 20:00 Temp 97.9 97.7 98.1 97.9 97.7 98.1 Pulse 116 110 123 Resp 20 B/P 99/56 98/54 99/60 Pulse Ox 94 95 94 O2 Delivery Room Air Room Air Room Air Room Air 11/01/16 11/02/16 11/02/16 11/02/16 23:05 03:38 06:10 08:00 Temp 98.1 98.2 98.1 98.2 Pulse 122 119 Resp 16 B/P 107/62 104/59 Pulse Ox 93 92 O2 Delivery Room Air Room Air Room Air 11/02/16 08:00 Temp 98.9 98.9 Pulse 102 Resp 12 B/P 108/65 Pulse Ox 93 O2 Delivery Nasal Cannula O2 Flow Rate 3.0 Intake and Output 11/01/16 11/01/16 11/02/16 15:00 23:00 07:00 Intake Total 2181 ml Output Total 280 ml 960 ml Balance 1901 ml -960 ml Nutrition Consultation Dietary Evaluation: Recommendations by RD: Increase Calorie Intake, Protein supplementation Comments: boost breeze tid and prn Expected Outcomes/Goals: diet adv/ tolerance Interpretation of weight loss: >5% in 1 month Malnutrition Findings: Food and Nutrition Intake (Sev: <50% est energy req 5days Reduced Head Greenskeeper Strength: N/A Weight Status: Overweight Fluid Accumulation (N/A): N/A DAX REY MD Nov 02, 2016 09:47
--- NOTE | 2016-11-02 11:15 | PDOC ---
Provider Note Provider Note SURG Dann for Dr Martini POD 2 SBR, no new complaints, still thirsty vss belly soft NG patent s/p SBR continue NG ERWIN BEGUM MD Nov 02, 2016 11:15
[2016-11-02] MEDS ORDERED: IV NORMAL SALINE 1000ML BAG 1,000 ML IV ONE (11:45)
[2016-11-02] MEDS: PAROXETINE 10 MG TABLET. PO SCH (17:31)
[2016-11-03 03:15] VITALS: BP 93/91
[2016-11-03] MEDS: METOCLOPRAMIDE HCL 10 MG/2 ML VIAL. IV SCH ×3 (06:30→21:10)
[2016-11-03 07:00] VITALS: BP 107/66
--- NOTE | 2016-11-03 07:19 | PDOC ---
PROGRESS NOTES Chief Complaint Chief Complaint A/P Small bowel obstructions, small intestinal mass, s/p exploratory laparotomy, s/ p small bowel resection with a duodenojejunal anastomosis on 10/31/16 ? 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 NG tube, intermittent suction Follow pathology report Oncology following NPO Monitor electrolytes. History of Present Illness History of Present Illness no vomiting no fever no chest pain Vitals Vitals Vital Signs Date Time Temp Pulse Resp B/P Pulse Ox O2 Delivery O2 Flow Rate FiO2 11/03/16 03:15 98.2 76 18 93/91 95 Room Air 98.2 11/02/16 08:00 3.0 Physical Exam General: Alert, Oriented X3, Cooperative, No acute distress Heart: Regular rate, Normal S1, Normal S2 Lungs: Clear Abdomen: Soft, Other (incisional TTP, dressing dry, HIEU serosang) Extremities: No edema Skin: Other (no jaundicce) Labs LABS Laboratory Tests Test 11/02/16 17:31 Glucose (Fingerstick) 75mg/dL (70-99) Assessment and Plan Assessmemt and Plan Problems Medical Problems: (1) Intractable vomiting Status: Acute (2) Small intestine cancer Status: Acute Problems: Comment Review of Relevant I have reviewed the following items pako (where applicable) has been applied. Labs Laboratory Tests Test 11/02/16 17:31 Glucose (Fingerstick) 75mg/dL (70-99) Laboratory Tests Test 11/02/16 17:31 Glucose (Fingerstick) 75mg/dL (70-99) Medications Current Medications Sodium Chloride 3 ml 3 ml PRN DAILY PRN IV AFTER MEDS AND BLOOD DRAWS; Start at 21:30 Sodium Chloride (Iv Sodium Chloride 0.9% 1000ml Bag) 1,000 ml @ 100 mls/hr Q10H IV Last administered on 10/30/16t 00:27; Start 10/29/16 at 21:30; Stop at 07:29; Status DC Bisacodyl (Dulcolax Supp) 10 mg PRN DAILY PRN LA CONSTIPATION; Start 10/29/16 at 21:30 Enoxaparin Sodium (Lovenox 40mg Syringe) 40 mg Q24H SQ Last administered on 21:11; Start 10/29/16 at 22:00; Stop 10/31/16 at 08:28; Status DC Metoclopramide HCl (Reglan) 10 mg Q8HRS IV Last administered on 11/03/16 06:30 ; Start 10/29/16 at 22:00 Ondansetron HCl (Zofran) 4 mg PRN Q8HRS PRN IV NAUSEA/VOMITING Last administered on 10/31/16 00:09; Start 10/29/16 at 21:30; Stop 11/01/16 at 14:47 ; Status DC Pantoprazole Sodium (Protonix Vial) 40 mg DAILYAC IVP Last administered on 11/02 08:47; Start 10/30/16 at 07:30 Paroxetine HCl (Paxil) 10 mg DAILY PO ; Start 10/30/16 at 09:00; Stop 10/30/16 at 09:33; Status DC Acetaminophen/ Aspirin/Caffeine (Excedrin Migraine) 1 tab PRN BID PRN PO MIGRAINE HEADACHE Last administered on 10/29/16 23:46; Start 10/29/16 at 21:30 Acetaminophen (Tylenol) 650 mg PRN Q6HRS PRN PO MILD PAIN / TEMP; Start at 22:00 Iohexol (Omnipaque 300 Mg/ml) 75 ml 1X ONCE IV Last administered on 10/30/16 09:09; Start 10/30/16 at 06:45; Stop 10/30/16 at 06:46; Status DC Iohexol (Omnipaque 240 Mg/ml) 30 ml 1X ONCE PO Last administered on 10/30/16 06:45; Start 10/30/16 at 06:45; Stop 10/30/16 at 06:46; Status DC Info (Do NOT chart on this entry -- for MONITORING) 1 each PRN DAILY PRN MC SEE COMMENTS; Start 10/30/16 at 06:45; Stop 11/01/16 at 06:44; Status DC Paroxetine HCl (Paxil) 10 mg DAILY@18 PO Last administered on 10/30/16 17:52; Start 10/30/16 at 18:00 Morphine Sulfate 2 mg PRN Q2HR PRN IV PAIN; Start 10/30/16 at 17:45; Stop 11/02 at 05:57; Status DC Ondansetron HCl (Zofran) 4 mg PRN Q6HRS PRN IV Nausea; Start 10/31/16 at 08:45 ; Stop 10/31/16 at 18:00; Status DC Fentanyl Citrate (Fentanyl 2ml Vial) 25 mcg PRN Q5MIN PRN IV MILD PAIN; Start 10/31/16 at 08:45; Stop 10/31/16 at 18:00; Status DC Fentanyl Citrate (Fentanyl 2ml Vial) 50 mcg PRN Q5MIN PRN IV MODERATE PAIN; Start 10/31/16 at 08:45; Stop 10/31/16 at 08:50; Status DC Morphine Sulfate 1 mg 1 mg PRN Q10MIN PRN IV SEVERE PAIN; Start 10/31/16 at 08: 45; Stop 10/31/16 at 18:00; Status DC Lactated Ringer's (Iv Lactated Ringers) 1,000 ml @ 30 mls/hr Q24H IV ; Start at 08:44; Stop 10/31/16 at 20:43; Status DC Lidocaine HCl 2 ml 1X PRN PRN ID IV START; Start 10/31/16 at 08:45; Stop at 18:00; Status DC Hydromorphone HCl (Dilaudid) 0.5 mg PRN Q10MIN PRN IV SEV PAIN,Second choice; Start 10/31/16 at 08:45; Stop 10/31/16 at 18:00; Status DC Prochlorperazine Edisylate 5 mg 5 mg PACU PRN PRN IV NAUSEA; Start 10/31/16 at 08:45; Stop 10/31/16 at 18:00; Status DC Cefoxitin Sodium (Mefoxin 2gm Ivpb For Omni) 100 ml @ 200 mls/hr 1X ONCE IV Last administered on 10/31/16t 13:16; Start 10/31/16 at 11:30; Stop 10/31/16 at 11:59; Status DC Sevoflurane (Ultane) 60 ml STK-MED ONCE IH ; Start 10/31/16 at 12:14; Stop 10/31 at 12:15; Status DC Fentanyl Citrate (Fentanyl 2ml Vial) 100 mcg STK-MED ONCE .ROUTE ; Start at 12:14; Stop 10/31/16 at 12:15; Status DC Rocuronium [place] 50 mg 50 mg STK-MED ONCE .ROUTE ; Start 10/31/16 at 12:14; Stop 10/31/16 at 12:15; Status DC Propofol (Diprivan) 20 ml @ As Directed STK-MED ONCE IV ; Start 10/31/16 at 12: 15; Stop 10/31/16 at 12:16; Status DC Dexamethasone Sodium Phosphate (Decadron) 20 mg STK-MED ONCE .ROUTE ; Start at 12:15; Stop 10/31/16 at 12:16; Status DC Ondansetron HCl (Zofran) 4 mg STK-MED ONCE .ROUTE ; Start 10/31/16 at 12:15; Stop 10/31/16 at 12:16; Status DC Lidocaine HCl 100 mg STK-MED ONCE .ROUTE ; Start 10/31/16 at 12:15; Stop at 12:16; Status DC Glycopyrrolate (Robinul) 1 mg STK-MED ONCE .ROUTE ; Start 10/31/16 at 12:40; Stop 10/31/16 at 12:41; Status DC Neostigmine Methylsulfate 5 mg STK-MED ONCE .ROUTE ; Start 10/31/16 at 12:40; Stop 10/31/16 at 12:41; Status DC Succinylcholine Chloride (Anectine) 200 mg STK-MED ONCE .ROUTE ; Start 10/31/16 at 13:04; Stop 10/31/16 at 13:05; Status DC Phenylephrine HCl 1 mg 1 mg STK-MED ONCE IV ; Start 10/31/16 at 13:14; Stop at 13:15; Status DC Albumin Human (Plasmanate) 500 ml @ As Directed STK-MED ONCE IV ; Start at 15:47; Stop 10/31/16 at 15:48; Status DC Rocuronium [place] (Zemuron) 100 mg STK-MED ONCE .ROUTE ; Start 10/31/16 at 15: 51; Stop 10/31/16 at 15:52; Status DC Fentanyl Citrate (Fentanyl 5ml Vial) 250 mcg STK-MED ONCE .ROUTE ; Start at 16:19; Stop 10/31/16 at 16:20; Status DC Sodium Chloride 3 ml 3 ml QSHIFT PRN IV AFTER MEDS AND BLOOD DRAWS; Start 10/31 at 17:30; Status UNV Hydromorphone HCl (Dilaudid Standard CUT PLUG PACKER) 30 ml @ 0 mls/hr CONT PRN PRN IV PROTOCOL Last administered on 11/02/16 06:10; Start 10/31/16 at 17:30 Hydromorphone HCl (Dilaudid) 0.4 mg PRN Q1HR PRN IV SEE COMMENTS; Start at 17:30; Stop 11/02/16 at 05:57; Status DC Ondansetron HCl (Zofran) 4 mg PRN Q6HRS PRN IV NAUESA, 1ST CHOICE; Start at 17:30 Metoclopramide HCl 10 mg 10 mg PRN Q6HRS PRN IV Nausea/Vomiting, 2nd Choice; Start 10/31/16 at 17:30 Sodium Chloride (Iv Sodium Chloride 0.9% 1000ml Bag) 1,000 ml @ 125 mls/hr 1X ONCE IV Last administered on 10/31/16 22:45; Start 10/31/16 at 17:30; Stop at 01:29; Status DC Enoxaparin Sodium 40 mg 40 mg Q24H SQ Last administered on 11/02/16 08:47; Start 11/01/16 at 09:00 Hydromorphone HCl 30 ml @ As Directed STK-MED ONCE IV ; Start 10/31/16 at 17:24 ; Stop 10/31/16 at 17:26; Status DC Sodium Chloride (Iv Sodium Chloride 0.9% 500ml Bag) 500 ml @ 500 mls/hr 1X ONCE IV Last administered on 10/31/16 22:00; Start 10/31/16 at 22:00; Stop at 22:59; Status DC Cefoxitin Sodium 2 gm 2 gm STK-MED ONCE IV ; Start 10/31/16 at 16:00; Stop 11/01 at 08:43; Status DC Sodium Chloride 1,000 ml @ 1,000 mls/hr 1X ONCE IV Last administered on 14:00; Start 11/01/16 at 14:00; Stop 11/01/16 at 14:59; Status DC Sodium Chloride 1,000 ml @ 125 mls/hr 1X ONCE IV Last administered on 17:51; Start 11/01/16 at 14:00; Stop 11/01/16 at 21:59; Status DC Sodium Chloride (Iv Sodium Chloride 0.9% 1000ml Bag) 1,000 ml @ 1,000 mls/hr 1X ONCE IV Last administered on 11/02/16 13:14; Start 11/02/16 at 11:45; Stop 11/02/16 at 12:44; Status DC Vitals/I & O Vital Sign - Last 24 Hours 11/02/16 11/02/16 11/02/16 11/02/16 08:00 08:00 11:00 15:00 Temp 98.9 98.8 100.6 98.9 98.8 100.6 Pulse 102 104 94 Resp 16 16 B/P 108/65 117/64 114/65 Pulse Ox 93 93 96 O2 Delivery Room Air Nasal Cannula Room Air Room Air O2 Flow Rate 3.0 11/02/16 11/02/16 11/02/16 11/03/16 19:15 20:00 23:15 03:15 Temp 98.4 98.0 98.2 98.4 98.0 98.2 Pulse 85 78 76 Resp 18 B/P 116/64 114/62 93/91 Pulse Ox 98 95 95 O2 Delivery Room Air Room Air Room Air Room Air Intake and Output 11/02/16 11/02/16 11/03/16 15:00 23:00 07:00 Intake Total 0 ml Output Total 150 ml 250 ml Balance -150 ml -250 ml Nutrition Consultation Dietary Evaluation: Recommendations by RD: Increase Calorie Intake, Protein supplementation Comments: boost breeze tid and prn Expected Outcomes/Goals: diet adv/ tolerance Interpretation of weight loss: >5% in 1 month Malnutrition Findings: Food and Nutrition Intake (Sev: <50% est energy req 5days Reduced Inventory Controller Strength: N/A Weight Status: Overweight Fluid Accumulation (N/A): N/A DAX REY MD Nov 03, 2016 07:19
[2016-11-03 08:35] LABS: HEMATOCRIT 26.7 % (39.0-53.0); HEMOGLOBIN 8.8 g/dL (13.0-17.5); RED BLOOD COUNT 2.83 x10^6/uL (4.30-5.70); RED CELL DISTRIBUTION WIDTH 16.9 % (11.5-14.5); WHITE BLOOD COUNT 7.3 x10^3/uL (4.0-11.0)
[2016-11-03] MEDS: DO NOT USE 40 MG/0.4 ML DISP.SYRIN SQ SCH (09:24)
[2016-11-03] MEDS: PANTOPRAZOLE IV PUSH 40 MG VIAL. IVP SCH (09:25)
[2016-11-03] MEDS: AA 3%/ELECTROLYTE-TPN SOLN/GLY 1,000 ML IV SCH ×2 (10:25→21:15)
[2016-11-03 11:00] VITALS: BP 117/62
--- NOTE | 2016-11-03 12:14 | PDOC ---
Provider Note Provider Note SURG POD [address] Martini wants "nutrition", NG out vss belly soft, NG in place explained needed to allow healing of anastomosis before NG removed he understands no new recs ambulate ERWIN BEGUM MD Nov 03, 2016 12:14
[2016-11-03 15:00] VITALS: BP 134/58
[2016-11-03] MEDS: PAROXETINE 10 MG TABLET. PO SCH (17:29)
[2016-11-03 19:15] VITALS: BP 136/73
[2016-11-03] MEDS: HYDROMORPHONE STANDARD PCA 30 ML IV PRN (20:21)
[2016-11-03 23:57] VITALS: BP 129/77
[2016-11-04] MEDS: AA 3%/ELECTROLYTE-TPN SOLN/GLY 1,000 ML IV SCH ×2 (03:00→15:11)
[2016-11-04 03:07] VITALS: BP 153/86
[2016-11-04] MEDS: METOCLOPRAMIDE HCL 10 MG/2 ML VIAL. IV SCH ×3 (06:00→21:20)
[2016-11-04 07:05] VITALS: BP 159/71
[2016-11-04] MEDS: PANTOPRAZOLE IV PUSH 40 MG VIAL. IVP SCH (07:30)
--- NOTE | 2016-11-04 08:39 | PDOC ---
PHU VACA [employer]PER[employer]OR [employer] 11/04/16 0839: SURGICAL PROGRESS NOTE Subjective sweating this AM IV problems no flatus Vital Signs Vital Signs Date Time Temp Pulse Resp B/P Pulse Ox O2 Delivery O2 Flow Rate FiO2 11/04/16 07:05 98.1 93 18 159/71 95 Room Air 98.1 I&O Intake and Output 11/04/16 07:00 Intake Total 0 ml Output Total 970 ml Balance -970 ml Intake Oral 0 ml Output Urine Total 750 ml Drainage Total 220 ml PATIENT HAS A GIANG: No General: Alert, Oriented X3, Cooperative, No acute distress Abdomen: Soft, Other (incision loosely intact, removed itzel, no drainage from wound, fredy serosang) Labs Laboratory Tests Test 11/02/16 17:31 11/03/16 08:15 Glucose (Fingerstick) 75mg/dL (70-99) White Blood Count 7.3x10^3/uL (4.0-11.0) Red Blood Count 2.83x10^6/uL (4.30-5.70) Hemoglobin 8.8g/dL (13.0-17.5) Hematocrit 26.7% (39.0-53.0) Mean Corpuscular Volume 94fL (79-100) Mean Corpuscular Hemoglobin 31pg (25-35) Mean Corpuscular Hemoglobin Concent 33g/dL (31-37) Red Cell Distribution Width 16.9% (11.5-14.5) Platelet Count 270x10^3/uL (140-400) Problem List Problems Medical Problems: (1) Intractable vomiting Status: Acute (2) Small intestine cancer Status: Acute Assessment/Plan POD#4 no documentation on NG output--nursing unsure, no drainage in canister this AM on rounds---will clamp ng, check residual in 6 hrs itzel out, wound dry, if increased drainage will repack wound ambulate continue PPN Problems: REAL CAGE MD 11/04/16 1108: SURGICAL PROGRESS NOTE Assessment/Plan addendum i saw and examined him. the only c/o he has now is dry, sore throat from ng. not sure if he passed flatus no nausea with ng clamped abd soft nd nt ng output not charted all weekend. will clamp ng, check residual, if low, will dc ng and start clears today. d/w pt the likelihood that this mass is malignant and outpt chemo will be needed post op. Problems: PHU VACA APRN Nov 04, 2016 08:39 REAL CAGE MD Nov 04, 2016 11:08
[2016-11-04 11:05] VITALS: BP 178/73
[2016-11-04] MEDS: IPRATRPIUM/ALBUTEROL 0.5/2.5MG 3 ML NEBU. NEB SCH ×3 (12:00→19:22)
--- NOTE | 2016-11-04 12:49 | PDOC ---
Subjective: Subjective: Trying not to cough to avoid abd pain. Awaiting specimen cup for sputum sample - doesn't want to swallow phlegm. Not sure if passed flatus. Wants NG out, uncomfortable. Objective: Objective: Per RN - monitoring NG until this afternoon, then possible removal after checking w/ surgery. PICC today. Elevated BP noted. Vital Signs: Vital Signs Date Time Temp Pulse Resp B/P Pulse Ox O2 Delivery O2 Flow Rate FiO2 11/04/16 11:05 99.0 101 20 178/73 95 Room Air 99.0 PE: GEN: NAD LUNGS: poor effort, obvious pain w/ wet cough HEART: tachycardic ABD: NG, dressing w/o drainage, drain serosang, soft, not too tender NEURO/PSYCH: A & O 3 A/P: Small bowel mass s/p resection 10/31 -NPO w/ NG, on PPN, NG clamped w/ possible removal later today -incisional pain w/ cough -path pending, likely malignant -PICC to be placed Cough -CXR and sputum cx ordered -- NG per surgery. Awaiting path. Will follow. LEANDRO SHARMA Nov 04, 2016 12:49
--- NOTE | 2016-11-04 13:00 | PDOC ---
PROGRESS NOTES Subjective Subjective c/c - f/u of Small bowel mass causing partial SBO, adenopathy s/p resxn 10/31. Objective Objective Vital Signs Date Time Temp Pulse Resp B/P Pulse Ox O2 Delivery O2 Flow Rate FiO2 11/04/16 11:05 99.0 101 20 178/73 95 Room Air 99.0 11/02/16 08:00 3.0 Intake and Output 11/04/16 07:00 Intake Total 0 ml Output Total 970 ml Balance -970 ml Intake Oral 0 ml Output Urine Total 750 ml Drainage Total 220 ml Physical Exam Heart: Normal S1, Normal S2 General: Alert, Oriented X3 Lungs: Clear to auscultation Assessment Assessment Problems Medical Problems: (1) Intractable vomiting Status: Acute (2) Small intestine cancer Status: Acute A/P: 1. Small bowel mass causing partial SBO, adenopathy s/p resxn 10/31. Await pathology CEA 8.8, CA 19-9 is 27 F/u Operative, path reports F/u CT chest- not yet done Continue supportive care per surgery, primary team. Comment Review of Relevant I have reviewed the following items pako (where applicable) has been applied. Labs Laboratory Tests Test 11/02/16 17:31 11/03/16 08:15 Glucose (Fingerstick) 75mg/dL (70-99) White Blood Count 7.3x10^3/uL (4.0-11.0) Red Blood Count 2.83x10^6/uL (4.30-5.70) Hemoglobin 8.8g/dL (13.0-17.5) Hematocrit 26.7% (39.0-53.0) Mean Corpuscular Volume 94fL (79-100) Mean Corpuscular Hemoglobin 31pg (25-35) Mean Corpuscular Hemoglobin Concent 33g/dL (31-37) Red Cell Distribution Width 16.9% (11.5-14.5) Platelet Count 270x10^3/uL (140-400) Medications Current Medications Sodium Chloride 3 ml 3 ml PRN DAILY PRN IV AFTER MEDS AND BLOOD DRAWS; Start at 21:30 Sodium Chloride (Iv Sodium Chloride 0.9% 1000ml Bag) 1,000 ml @ 100 mls/hr Q10H IV Last administered on 10/30/16 00:27; Start 10/29/16 at 21:30; Stop at 07:29; Status DC Bisacodyl (Dulcolax Supp) 10 mg PRN DAILY PRN [place] CONSTIPATION; Start 10/29/16 at 21:30 Enoxaparin Sodium (Lovenox 40mg Syringe) 40 mg Q24H SQ Last administered on 21:11; Start 10/29/16 at 22:00; Stop 10/31/16 at 08:28; Status DC Metoclopramide HCl (Reglan) 10 mg Q8HRS IV Last administered on 11/03/16 21:10 ; Start 10/29/16 at 22:00 Ondansetron HCl (Zofran) 4 mg PRN Q8HRS PRN IV NAUSEA/VOMITING Last administered on 10/31/16 00:09; Start 10/29/16 at 21:30; Stop 11/01/16 at 14:47 ; Status DC Pantoprazole Sodium (Protonix Vial) 40 mg DAILYAC IVP Last administered on 11/03 09:25; Start 10/30/16 at 07:30 Paroxetine HCl (Paxil) 10 mg DAILY PO ; Start 10/30/16 at 09:00; Stop 10/30/16 at 09:33; Status DC Acetaminophen/ Aspirin/Caffeine (Excedrin Migraine) 1 tab PRN BID PRN PO MIGRAINE HEADACHE Last administered on 10/29/16 23:46; Start 10/29/16 at 21:30 Acetaminophen (Tylenol) 650 mg PRN Q6HRS PRN PO MILD PAIN / TEMP; Start at 22:00 Iohexol (Omnipaque 300 Mg/ml) 75 ml 1X ONCE IV Last administered on 10/30/16 09:09; Start 10/30/16 at 06:45; Stop 10/30/16 at 06:46; Status DC Iohexol (Omnipaque 240 Mg/ml) 30 ml 1X ONCE PO Last administered on 10/30/16 06:45; Start 10/30/16 at 06:45; Stop 10/30/16 at 06:46; Status DC Info (Do NOT chart on this entry -- for MONITORING) 1 each PRN DAILY PRN MC SEE COMMENTS; Start 10/30/16 at 06:45; Stop 11/01/16 at 06:44; Status DC Paroxetine HCl (Paxil) 10 mg DAILY@18 PO Last administered on 10/30/16t 17:52; Start 10/30/16 at 18:00 Morphine Sulfate 2 mg PRN Q2HR PRN IV PAIN; Start 10/30/16 at 17:45; Stop 11/02 at 05:57; Status DC Ondansetron HCl (Zofran) 4 mg PRN Q6HRS PRN IV Nausea; Start 10/31/16 at 08:45 ; Stop 10/31/16 at 18:00; Status DC Fentanyl Citrate (Fentanyl 2ml Vial) 25 mcg PRN Q5MIN PRN IV MILD PAIN; Start 10/31/16 at 08:45; Stop 10/31/16 at 18:00; Status DC Fentanyl Citrate (Fentanyl 2ml Vial) 50 mcg PRN Q5MIN PRN IV MODERATE PAIN; Start 10/31/16 at 08:45; Stop 10/31/16 at 08:50; Status DC Morphine Sulfate 1 mg 1 mg PRN Q10MIN PRN IV SEVERE PAIN; Start 10/31/16 at 08: 45; Stop 10/31/16 at 18:00; Status DC Lactated Ringer's (Iv Lactated Ringers) 1,000 ml @ 30 mls/hr Q24H IV ; Start at 08:44; Stop 10/31/16 at 20:43; Status DC Lidocaine HCl 2 ml 1X PRN PRN ID IV START; Start 10/31/16 at 08:45; Stop at 18:00; Status DC Hydromorphone HCl (Dilaudid) 0.5 mg PRN Q10MIN PRN IV SEV PAIN,Second choice; Start 10/31/16 at 08:45; Stop 10/31/16 at 18:00; Status DC Prochlorperazine Edisylate 5 mg 5 mg PACU PRN PRN IV NAUSEA; Start 10/31/16 at 08:45; Stop 10/31/16 at 18:00; Status DC Cefoxitin Sodium (Mefoxin 2gm Ivpb For Omni) 100 ml @ 200 mls/hr 1X ONCE IV Last administered on 10/31/16t 13:16; Start 10/31/16 at 11:30; Stop 10/31/16 at 11:59; Status DC Sevoflurane (Ultane) 60 ml STK-MED ONCE IH ; Start 10/31/16 at 12:14; Stop 10/31 at 12:15; Status DC Fentanyl Citrate (Fentanyl 2ml Vial) 100 mcg STK-MED ONCE .ROUTE ; Start at 12:14; Stop 10/31/16 at 12:15; Status DC Rocuronium [place] 50 mg 50 mg STK-MED ONCE .ROUTE ; Start 10/31/16 at 12:14; Stop 10/31/16 at 12:15; Status DC Propofol (Diprivan) 20 ml @ As Directed STK-MED ONCE IV ; Start 10/31/16 at 12: 15; Stop 10/31/16 at 12:16; Status DC Dexamethasone Sodium Phosphate (Decadron) 20 mg STK-MED ONCE .ROUTE ; Start at 12:15; Stop 10/31/16 at 12:16; Status DC Ondansetron HCl (Zofran) 4 mg STK-MED ONCE .ROUTE ; Start 10/31/16 at 12:15; Stop 10/31/16 at 12:16; Status DC Lidocaine HCl 100 mg STK-MED ONCE .ROUTE ; Start 10/31/16 at 12:15; Stop at 12:16; Status DC Glycopyrrolate (Robinul) 1 mg STK-MED ONCE .ROUTE ; Start 10/31/16 at 12:40; Stop 10/31/16 at 12:41; Status DC Neostigmine Methylsulfate 5 mg STK-MED ONCE .ROUTE ; Start 10/31/16 at 12:40; Stop 10/31/16 at 12:41; Status DC Succinylcholine Chloride (Anectine) 200 mg STK-MED ONCE .ROUTE ; Start 10/31/16 at 13:04; Stop 10/31/16 at 13:05; Status DC Phenylephrine HCl 1 mg 1 mg STK-MED ONCE IV ; Start 10/31/16 at 13:14; Stop at 13:15; Status DC Albumin Human (Plasmanate) 500 ml @ As Directed STK-MED ONCE IV ; Start at 15:47; Stop 10/31/16 at 15:48; Status DC Rocuronium [place] (Zemuron) 100 mg STK-MED ONCE .ROUTE ; Start 10/31/16 at 15: 51; Stop 10/31/16 at 15:52; Status DC Fentanyl Citrate (Fentanyl 5ml Vial) 250 mcg STK-MED ONCE .ROUTE ; Start at 16:19; Stop 10/31/16 at 16:20; Status DC Sodium Chloride 3 ml 3 ml QSHIFT PRN IV AFTER MEDS AND BLOOD DRAWS; Start 10/31 at 17:30; Status UNV Hydromorphone HCl (Dilaudid Standard NIGHT SHIFT) 30 ml @ 0 mls/hr CONT PRN PRN IV PROTOCOL Last administered on 11/03/16 20:21; Start 10/31/16 at 17:30 Hydromorphone HCl (Dilaudid) 0.4 mg PRN Q1HR PRN IV SEE COMMENTS; Start at 17:30; Stop 11/02/16 at 05:57; Status DC Ondansetron HCl (Zofran) 4 mg PRN Q6HRS PRN IV NAUESA, 1ST CHOICE; Start at 17:30 Metoclopramide HCl 10 mg 10 mg PRN Q6HRS PRN IV Nausea/Vomiting, 2nd Choice; Start 10/31/16 at 17:30 Sodium Chloride (Iv Sodium Chloride 0.9% 1000ml Bag) 1,000 ml @ 125 mls/hr 1X ONCE IV Last administered on 10/31/16 22:45; Start 10/31/16 at 17:30; Stop at 01:29; Status DC Enoxaparin Sodium 40 mg 40 mg Q24H SQ Last administered on 11/03/16 09:24; Start 11/01/16 at 09:00 Hydromorphone HCl 30 ml @ As Directed STK-MED ONCE IV ; Start 10/31/16 at 17:24 ; Stop 10/31/16 at 17:26; Status DC Sodium Chloride (Iv Sodium Chloride 0.9% 500ml Bag) 500 ml @ 500 mls/hr 1X ONCE IV Last administered on 10/31/16 22:00; Start 10/31/16 at 22:00; Stop at 22:59; Status DC Cefoxitin Sodium 2 gm 2 gm STK-MED ONCE IV ; Start 10/31/16 at 16:00; Stop 11/01 at 08:43; Status DC Sodium Chloride 1,000 ml @ 1,000 mls/hr 1X ONCE IV Last administered on 14:00; Start 11/01/16 at 14:00; Stop 11/01/16 at 14:59; Status DC Sodium Chloride 1,000 ml @ 125 mls/hr 1X ONCE IV Last administered on 17:51; Start 11/01/16 at 14:00; Stop 11/01/16 at 21:59; Status DC Sodium Chloride 1,000 ml @ 1,000 mls/hr 1X ONCE IV Last administered on 13:14; Start 11/02/16 at 11:45; Stop 11/02/16 at 12:44; Status DC Amino Acids/ Glycerin/ Electrolytes (Procalamine) 1,000 ml @ 80 mls/hr [id number] IV Last administered on 11/03/16 21:15; Start 11/03/16 at 09:30 Albuterol/ Ipratropium (Duoneb) 3 ml RTQID NEB ; Start 11/04/16 at 12:00 Albuterol Sulfate (Ventolin Neb Soln) 2.5 mg PRN Q4HRS PRN NEB SHORTNESS OF BREATH; Start 11/04/16 at 11:00 Vitals/I & O Vital Sign - Last 24 Hours 11/03/16 11/03/16 11/03/16 11/03/16 15:00 19:15 20:00 20:21 Temp 98.0 97.9 98.0 97.9 Pulse 105 98 Resp 18 B/P 134/58 136/73 Pulse Ox 94 95 95 O2 Delivery Room Air Room Air Room Air Room Air 11/03/16 11/04/16 11/04/16 11/04/16 23:57 03:07 07:05 08:00 Temp 98.1 97.7 98.1 98.1 97.7 98.1 Pulse 93 101 93 Resp B/P 129/77 153/86 159/71 Pulse Ox 93 94 95 O2 Delivery Room Air Room Air Room Air Room Air 11/04/16 11:05 Temp 99.0 99.0 Pulse 101 Resp 20 B/P 178/73 Pulse Ox 95 O2 Delivery Room Air Intake and Output 11/03/16 11/03/16 11/04/16 15:00 23:00 07:00 Intake Total 0 ml 0 ml Output Total 820 ml 150 ml Balance -820 ml -150 ml Nutrition Consultation Dietary Evaluation: Recommendations by RD: Increase Calorie Intake, Protein supplementation Comments: boost breeze tid and prn Expected Outcomes/Goals: diet adv/ tolerance Interpretation of weight loss: >5% in 1 month Malnutrition Findings: Food and Nutrition Intake (Sev: <50% est energy req 5days 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
[2016-11-04] MEDS ORDERED: LIDOCAINE 1% / SOD BICARB 8.4% 20 ML VIAL. IJ ONE (14:00)
--- NOTE | 2016-11-04 14:23 | PDOC ---
PROGRESS NOTES Chief Complaint Chief Complaint A/P Small bowel obstructions, small intestinal mass, s/p exploratory laparotomy, s/ p small bowel resection with a duodenojejunal anastomosis on 10/31/16 ? 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, Path pending NGT ppn, npo check cxr, add duoneb labs tmr gi, dvt ppx check sputum get PICC line since no iv access now History of Present Illness History of Present Illness no vomiting no fever no chest pain no bm, or flatus post op severe abd pain ,with cough Vitals Vitals Vital Signs Date Time Temp Pulse Resp B/P Pulse Ox O2 Delivery O2 Flow Rate FiO2 11/04/16 11:05 99.0 101 20 178/73 95 Room Air 99.0 Physical Exam General: Alert, Oriented X3 Heart: Normal S1, Normal S2 Lungs: Clear Abdomen: Soft, Other (incision loosely intact, removed itzel, no drainage from wound, fredy serosang) Extremities: No edema Skin: Other (no jaundicce) Review of Systems Review of Systems no fever, chills, sob or chest pain Assessment and Plan Assessmemt and Plan Problems Medical Problems: (1) Intractable vomiting Status: Acute (2) Small intestine cancer Status: Acute Problems: Comment Review of Relevant I have reviewed the following items pako (where applicable) has been applied. Labs Laboratory Tests Test 11/02/16 17:31 11/03/16 08:15 Glucose (Fingerstick) 75mg/dL (70-99) White Blood Count 7.3x10^3/uL (4.0-11.0) Red Blood Count 2.83x10^6/uL (4.30-5.70) Hemoglobin 8.8g/dL (13.0-17.5) Hematocrit 26.7% (39.0-53.0) Mean Corpuscular Volume 94fL (79-100) Mean Corpuscular Hemoglobin 31pg (25-35) Mean Corpuscular Hemoglobin Concent 33g/dL (31-37) Red Cell Distribution Width 16.9% (11.5-14.5) Platelet Count 270x10^3/uL (140-400) Medications Current Medications Sodium Chloride 3 ml 3 ml PRN DAILY PRN IV AFTER MEDS AND BLOOD DRAWS; Start at 21:30 Sodium Chloride (Iv Sodium Chloride 0.9% 1000ml Bag) 1,000 ml @ 100 mls/hr Q10H IV Last administered on 10/30/16 00:27; Start 10/29/16 at 21:30; Stop at 07:29; Status DC Bisacodyl (Dulcolax Supp) 10 mg PRN DAILY PRN [place] CONSTIPATION; Start 10/29/16 at 21:30 Enoxaparin Sodium (Lovenox 40mg Syringe) 40 mg Q24H SQ Last administered on 21:11; Start 10/29/16 at 22:00; Stop 10/31/16 at 08:28; Status DC Metoclopramide HCl (Reglan) 10 mg Q8HRS IV Last administered on 11/03/16 21:10 ; Start 10/29/16 at 22:00 Ondansetron HCl (Zofran) 4 mg PRN Q8HRS PRN IV NAUSEA/VOMITING Last administered on 10/31/16 00:09; Start 10/29/16 at 21:30; Stop 11/01/16 at 14:47 ; Status DC Pantoprazole Sodium (Protonix Vial) 40 mg DAILYAC IVP Last administered on 11/03 09:25; Start 10/30/16 at 07:30 Paroxetine HCl (Paxil) 10 mg DAILY PO ; Start 10/30/16 at 09:00; Stop 10/30/16 at 09:33; Status DC Acetaminophen/ Aspirin/Caffeine (Excedrin Migraine) 1 tab PRN BID PRN PO MIGRAINE HEADACHE Last administered on 10/29/16 23:46; Start 10/29/16 at 21:30 Acetaminophen (Tylenol) 650 mg PRN Q6HRS PRN PO MILD PAIN / TEMP; Start at 22:00 Iohexol (Omnipaque 300 Mg/ml) 75 ml 1X ONCE IV Last administered on 10/30/16 09:09; Start 10/30/16 at 06:45; Stop 10/30/16 at 06:46; Status DC Iohexol (Omnipaque 240 Mg/ml) 30 ml 1X ONCE PO Last administered on 10/30/16 06:45; Start 10/30/16 at 06:45; Stop 10/30/16 at 06:46; Status DC Info (Do NOT chart on this entry -- for MONITORING) 1 each PRN DAILY PRN MC SEE COMMENTS; Start 10/30/16 at 06:45; Stop 11/01/16 at 06:44; Status DC Paroxetine HCl (Paxil) 10 mg DAILY@18 PO Last administered on 10/30/16t 17:52; Start 10/30/16 at 18:00 Morphine Sulfate 2 mg PRN Q2HR PRN IV PAIN; Start 10/30/16 at 17:45; Stop 11/02 at 05:57; Status DC Ondansetron HCl (Zofran) 4 mg PRN Q6HRS PRN IV Nausea; Start 10/31/16 at 08:45 ; Stop 10/31/16 at 18:00; Status DC Fentanyl Citrate (Fentanyl 2ml Vial) 25 mcg PRN Q5MIN PRN IV MILD PAIN; Start 10/31/16 at 08:45; Stop 10/31/16 at 18:00; Status DC Fentanyl Citrate (Fentanyl 2ml Vial) 50 mcg PRN Q5MIN PRN IV MODERATE PAIN; Start 10/31/16 at 08:45; Stop 10/31/16 at 08:50; Status DC Morphine Sulfate 1 mg 1 mg PRN Q10MIN PRN IV SEVERE PAIN; Start 10/31/16 at 08: 45; Stop 10/31/16 at 18:00; Status DC Lactated Ringer's (Iv Lactated Ringers) 1,000 ml @ 30 mls/hr Q24H IV ; Start at 08:44; Stop 10/31/16 at 20:43; Status DC Lidocaine HCl 2 ml 1X PRN PRN ID IV START; Start 10/31/16 at 08:45; Stop at 18:00; Status DC Hydromorphone HCl (Dilaudid) 0.5 mg PRN Q10MIN PRN IV SEV PAIN,Second choice; Start 10/31/16 at 08:45; Stop 10/31/16 at 18:00; Status DC Prochlorperazine Edisylate 5 mg 5 mg PACU PRN PRN IV NAUSEA; Start 10/31/16 at 08:45; Stop 10/31/16 at 18:00; Status DC Cefoxitin Sodium (Mefoxin 2gm Ivpb For Omni) 100 ml @ 200 mls/hr 1X ONCE IV Last administered on 10/31/16t 13:16; Start 10/31/16 at 11:30; Stop 10/31/16 at 11:59; Status DC Sevoflurane (Ultane) 60 ml STK-MED ONCE IH ; Start 10/31/16 at 12:14; Stop 10/31 at 12:15; Status DC Fentanyl Citrate (Fentanyl 2ml Vial) 100 mcg STK-MED ONCE .ROUTE ; Start at 12:14; Stop 10/31/16 at 12:15; Status DC Rocuronium Bent 50 mg 50 mg STK-MED ONCE .ROUTE ; Start 10/31/16 at 12:14; Stop 10/31/16 at 12:15; Status DC Propofol (Diprivan) 20 ml @ As Directed STK-MED ONCE IV ; Start 10/31/16 at 12: 15; Stop 10/31/16 at 12:16; Status DC Dexamethasone Sodium Phosphate (Decadron) 20 mg STK-MED ONCE .ROUTE ; Start at 12:15; Stop 10/31/16 at 12:16; Status DC Ondansetron HCl (Zofran) 4 mg STK-MED ONCE .ROUTE ; Start 10/31/16 at 12:15; Stop 10/31/16 at 12:16; Status DC Lidocaine HCl 100 mg STK-MED ONCE .ROUTE ; Start 10/31/16 at 12:15; Stop at 12:16; Status DC Glycopyrrolate (Robinul) 1 mg STK-MED ONCE .ROUTE ; Start 10/31/16 at 12:40; Stop 10/31/16 at 12:41; Status DC Neostigmine Methylsulfate 5 mg STK-MED ONCE .ROUTE ; Start 10/31/16 at 12:40; Stop 10/31/16 at 12:41; Status DC Succinylcholine Chloride (Anectine) 200 mg STK-MED ONCE .ROUTE ; Start 10/31/16 at 13:04; Stop 10/31/16 at 13:05; Status DC Phenylephrine HCl 1 mg 1 mg STK-MED ONCE IV ; Start 10/31/16 at 13:14; Stop at 13:15; Status DC Albumin Human (Plasmanate) 500 ml @ As Directed STK-MED ONCE IV ; Start at 15:47; Stop 10/31/16 at 15:48; Status DC Rocuronium [place] (Zemuron) 100 mg STK-MED ONCE .ROUTE ; Start 10/31/16 at 15: 51; Stop 10/31/16 at 15:52; Status DC Fentanyl Citrate (Fentanyl 5ml Vial) 250 mcg STK-MED ONCE .ROUTE ; Start at 16:19; Stop 10/31/16 at 16:20; Status DC Sodium Chloride 3 ml 3 ml QSHIFT PRN IV AFTER MEDS AND BLOOD DRAWS; Start 10/31 at 17:30; Status UNV Hydromorphone HCl (Dilaudid Standard [employer]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) 30 ml @ 0 mls/hr CONT PRN PRN IV PROTOCOL Last administered on 11/03/16 20:21; Start 10/31/16 at 17:30 Hydromorphone HCl (Dilaudid) 0.4 mg PRN Q1HR PRN IV SEE COMMENTS; Start at 17:30; Stop 11/02/16 at 05:57; Status DC Ondansetron HCl (Zofran) 4 mg PRN Q6HRS PRN IV NAUESA, 1ST CHOICE; Start at 17:30 Metoclopramide HCl 10 mg 10 mg PRN Q6HRS PRN IV Nausea/Vomiting, 2nd Choice; Start 10/31/16 at 17:30 Sodium Chloride (Iv Sodium Chloride 0.9% 1000ml Bag) 1,000 ml @ 125 mls/hr 1X ONCE IV Last administered on 10/31/16 22:45; Start 10/31/16 at 17:30; Stop at 01:29; Status DC Enoxaparin Sodium 40 mg 40 mg Q24H SQ Last administered on 11/03/16 09:24; Start 11/01/16 at 09:00 Hydromorphone HCl 30 ml @ As Directed STK-MED ONCE IV ; Start 10/31/16 at 17:24 ; Stop 10/31/16 at 17:26; Status DC Sodium Chloride (Iv Sodium Chloride 0.9% 500ml Bag) 500 ml @ 500 mls/hr 1X ONCE IV Last administered on 10/31/16 22:00; Start 10/31/16 at 22:00; Stop at 22:59; Status DC Cefoxitin Sodium 2 gm 2 gm STK-MED ONCE IV ; Start 10/31/16 at 16:00; Stop 11/01 at 08:43; Status DC Sodium Chloride 1,000 ml @ 1,000 mls/hr 1X ONCE IV Last administered on 14:00; Start 11/01/16 at 14:00; Stop 11/01/16 at 14:59; Status DC Sodium Chloride 1,000 ml @ 125 mls/hr 1X ONCE IV Last administered on 17:51; Start 11/01/16 at 14:00; Stop 11/01/16 at 21:59; Status DC Sodium Chloride 1,000 ml @ 1,000 mls/hr 1X ONCE IV Last administered on 13:14; Start 11/02/16 at 11:45; Stop 11/02/16 at 12:44; Status DC Amino Acids/ Glycerin/ Electrolytes (Procalamine) 1,000 ml @ 80 mls/hr [id number] IV Last administered on 11/03/16 21:15; Start 11/03/16 at 09:30 Albuterol/ Ipratropium (Duoneb) 3 ml RTQID NEB ; Start 11/04/16 at 12:00 Albuterol Sulfate (Ventolin Neb Soln) 2.5 mg PRN Q4HRS PRN NEB SHORTNESS OF BREATH; Start 11/04/16 at 11:00 Lidocaine/Sodium Bicarbonate (Buffered Lidocaine 1%) 3 ml 1X ONCE IJ ; Start at 14:00; Stop 11/04/16 at 14:01; Status DC Heparin Sodium/ Sodium Chloride 60 unit 1X ONCE IV ; Start 11/04/16 at 14:00; Stop 11/04/16 at 14:01; Status DC Vitals/I & O Vital Sign - Last 24 Hours 11/03/16 11/03/16 11/03/16 11/03/16 15:00 19:15 20:00 20:21 Temp 98.0 97.9 98.0 97.9 Pulse 105 98 Resp 18 B/P 134/58 136/73 Pulse Ox 94 95 95 O2 Delivery Room Air Room Air Room Air Room Air 11/03/16 11/04/16 11/04/16 11/04/16 23:57 03:07 07:05 08:00 Temp 98.1 97.7 98.1 98.1 97.7 98.1 Pulse 93 101 93 Resp 18 18 B/P 129/77 153/86 159/71 Pulse Ox 93 94 95 O2 Delivery Room Air Room Air Room Air Room Air 11/04/16 11:05 Temp 99.0 99.0 Pulse 101 Resp 20 B/P 178/73 Pulse Ox 95 O2 Delivery Room Air Intake and Output 11/03/16 11/03/16 11/04/16 15:00 23:00 07:00 Intake Total 0 ml 0 ml Output Total 820 ml 150 ml Balance -820 ml -150 ml Nutrition Consultation Dietary Evaluation: Recommendations by RD: Increase Calorie Intake, Protein supplementation Comments: boost breeze tid and prn Expected Outcomes/Goals: diet adv/ tolerance Interpretation of weight loss: >5% in 1 month Malnutrition Findings: Food and Nutrition Intake (Sev: <50% est energy req 5days 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
[2016-11-04] MEDS: DO NOT USE 40 MG/0.4 ML DISP.SYRIN SQ SCH (15:07)
[2016-11-04] MEDS: PAROXETINE 10 MG TABLET. PO SCH (15:36)
[2016-11-04] MEDS ORDERED: GUAIFENESIN 200 MG/10 ML LIQUID. PO PRN (16:15)
--- NOTE | 2016-11-04 16:20 | RAD ---
Indication cough. AP views, 2, of the chest were obtained. No prior imaging of the chest is available. The heart and pulmonary vessels appear normal. The mediastinum has a normal appearance. The lungs are clear. A right PICC line is appropriately positioned in the mid to distal SVC. Nasogastric tube has its tip beyond the proximal body of the stomach. IMPRESSION: Appropriately positioned right PICC line. NG tube also noted. No acute or focal process seen in the chest
--- NOTE | 2016-11-04 16:44 | RAD ---
Procedure: Upper extremity PICC line placement Clinical Indication: 61-year-old requiring central venous access Sedation: Local anesthesia only was provided Antibiotics: None Fluoro Time: 0.2 minutes. Images: 1 Contrast: None Sterility: All elements of maximal sterile barrier technique including the use of a cap, mask, sterile gown, sterile gloves, large sterile sheet, appropriate hand hygiene, and 2% chlorhexidine for cutaneous antisepsis (or acceptable alternative antiseptic per current guidelines) were followed for this procedure. Consent: The procedure was explained in its entirety to the patient or the patients designated banking representative by a member of the treatment team, including a discussion of the risks, benefits and commonly accepted alternatives to the procedure, as well as the expected consequences of no therapy whatsoever. Discussion of the risks included, but was not limited to, those that are most frequent and those that are rare but possibly severe or life-threatening, as well as the possibility of unforeseen complications. Technique and Findings: Following informed consent, the patient was prepped and draped in the usual sterile fashion. Ultrasound interrogation of the right arm revealed patency and compressibility of right basilic vein. A hard copy ultrasound image was recorded. 1% Lidocaine was used to achieve local anesthesia and a 21-gauge micropuncture needle was used to gain access to the targeted vein. The needle was exchanged over wire for a 5 Prydeinig peel-away sheath which was used to deploy a PICC line under fluoroscopic guidance such that the distal tip resided at the cavoatrial junction. The catheter flushed and aspirated with ease and was sutured to the skin. Complications: No immediate Impression: 1. Ultrasound guided PICC line placement as described.
[2016-11-04 17:36] VITALS: BP 150/82
[2016-11-04] MEDS: ACETAMINOPHEN 325 MG TABLET. PO PRN (17:39)
[2016-11-04 19:00] VITALS: BP 142/74
[2016-11-04 23:24] VITALS: BP 144/74
[2016-11-05 03:00] VITALS: BP 113/58
[2016-11-05] MEDS: METOCLOPRAMIDE HCL 10 MG/2 ML VIAL. IV SCH ×3 (06:01→21:31)
[2016-11-05 06:16] LABS: BASO % 1 % (0-3); EOS % 5 % (0-3); HEMATOCRIT 27.8 % (39.0-53.0); HEMOGLOBIN 9.3 g/dL (13.0-17.5); LYMPH % 15 % (24-48); MEAN CORPUSCULAR HEMOGLOBIN 31 pg (25-35); MEAN CORPUSCULAR HGB CONC 33 g/dL (31-37); MEAN CORPUSCULAR VOLUME 92 fL (79-100); MONO % 12 % (0-9); NEUT % 68 % (31-73); PLATELET COUNT 240 x10^3/uL (140-400); RED BLOOD COUNT 3.01 x10^6/uL (4.30-5.70); RED CELL DISTRIBUTION WIDTH 15.8 % (11.5-14.5); WHITE BLOOD COUNT 6.8 x10^3/uL (4.0-11.0)
[2016-11-05 06:28] LABS: CALCIUM 7.8 mg/dL (8.5-10.1); CREATININE 0.7 mg/dL (0.7-1.3); POTASSIUM 3.1 mmol/L (3.5-5.1)
[2016-11-05 07:00] VITALS: BP 121/87
[2016-11-05] MEDS: IPRATRPIUM/ALBUTEROL 0.5/2.5MG 3 ML NEBU. NEB SCH ×3 (07:53→11:44)
[2016-11-05] MEDS: DO NOT USE 40 MG/0.4 ML DISP.SYRIN SQ SCH (08:24)
[2016-11-05] MEDS: PANTOPRAZOLE IV PUSH 40 MG VIAL. IVP SCH (08:25)
[2016-11-05] MEDS: AA 2.75%/CALCIUM/LYTES/D5W 2,000 ML IV SCH (08:33)
--- NOTE | 2016-11-05 10:38 | PDOC ---
G I PROGRESS NOTE Subjective NG out/on clears. Had "wet belch" last night. Continues with some abdominal discomfort. Still no stool; not sure if he's passed flatus. Physical Exam Lungs clear. RRR Abdomen soft with incisional tenderness. Maybe rare bowel sounds. Review of Relevant I have reviewed the following items pako (where applicable) has been applied. Labs Laboratory Tests Test 11/05/16 06:06 White Blood Count 6.8x10^3/uL (4.0-11.0) Red Blood Count 3.01x10^6/uL (4.30-5.70) Hemoglobin 9.3g/dL (13.0-17.5) Hematocrit 27.8% (39.0-53.0) Mean Corpuscular Volume 92fL (79-100) Mean Corpuscular Hemoglobin 31pg (25-35) Mean Corpuscular Hemoglobin Concent 33g/dL (31-37) Red Cell Distribution Width 15.8% (11.5-14.5) Platelet Count 240x10^3/uL (140-400) Neutrophils (%) (Auto) 68% (31-73) Lymphocytes (%) (Auto) 15% (24-48) Monocytes (%) (Auto) 12% (0-9) Eosinophils (%) (Auto) 5% (0-3) Basophils (%) (Auto) 1% (0-3) Neutrophils # (Auto) 4.7x10^3uL (1.8-7.7) Lymphocytes # (Auto) 1.0x10^3/uL (1.0-4.8) Monocytes # (Auto) 0.8x10^3/uL (0.0-1.1) Eosinophils # (Auto) 0.3x10^3/uL (0.0-0.7) Basophils # (Auto) 0.0x10^3/uL (0.0-0.2) Sodium Level 142mmol/L (136-145) Potassium Level 3.1mmol/L (3.5-5.1) Chloride Level 106mmol/L (98-107) Carbon Dioxide Level 30mmol/L (21-32) Anion Gap 6 (6-14) Blood Urea Nitrogen 12mg/dL (8-26) Creatinine 0.7mg/dL (0.7-1.3) Estimated GFR (Cockcroft-Gault) 115.0 Glucose Level 133mg/dL (70-99) Calcium Level 7.8mg/dL (8.5-10.1) Magnesium Level 2.1mg/dL (1.8-2.4) Laboratory Tests Test 11/05/16 06:06 White Blood Count 6.8x10^3/uL (4.0-11.0) Red Blood Count 3.01x10^6/uL (4.30-5.70) Hemoglobin 9.3g/dL (13.0-17.5) Hematocrit 27.8% (39.0-53.0) Mean Corpuscular Volume 92fL (79-100) Mean Corpuscular Hemoglobin 31pg (25-35) Mean Corpuscular Hemoglobin Concent 33g/dL (31-37) Red Cell Distribution Width 15.8% (11.5-14.5) Platelet Count 240x10^3/uL (140-400) Neutrophils (%) (Auto) 68% (31-73) Lymphocytes (%) (Auto) 15% (24-48) Monocytes (%) (Auto) 12% (0-9) Eosinophils (%) (Auto) 5% (0-3) Basophils (%) (Auto) 1% (0-3) Neutrophils # (Auto) 4.7x10^3uL (1.8-7.7) Lymphocytes # (Auto) 1.0x10^3/uL (1.0-4.8) Monocytes # (Auto) 0.8x10^3/uL (0.0-1.1) Eosinophils # (Auto) 0.3x10^3/uL (0.0-0.7) Basophils # (Auto) 0.0x10^3/uL (0.0-0.2) Sodium Level 142mmol/L (136-145) Potassium Level 3.1mmol/L (3.5-5.1) Chloride Level 106mmol/L (98-107) Carbon Dioxide Level 30mmol/L (21-32) Anion Gap 6 (6-14) Blood Urea Nitrogen 12mg/dL (8-26) Creatinine 0.7mg/dL (0.7-1.3) Estimated GFR (Cockcroft-Gault) 115.0 Glucose Level 133mg/dL (70-99) Calcium Level 7.8mg/dL (8.5-10.1) Magnesium Level 2.1mg/dL (1.8-2.4) Path pending. Medications Current Medications Sodium Chloride 3 ml 3 ml PRN DAILY PRN IV AFTER MEDS AND BLOOD DRAWS; Start at 21:30 Sodium Chloride (Iv Sodium Chloride 0.9% 1000ml Bag) 1,000 ml @ 100 mls/hr Q10H IV Last administered on 10/30/16 00:27; Start 10/29/16 at 21:30; Stop at 07:29; Status DC Bisacodyl (Dulcolax Supp) 10 mg PRN DAILY PRN [place] CONSTIPATION; Start 10/29/16 at 21:30 Enoxaparin Sodium (Lovenox 40mg Syringe) 40 mg Q24H SQ Last administered on 21:11; Start 10/29/16 at 22:00; Stop 10/31/16 at 08:28; Status DC Metoclopramide HCl (Reglan) 10 mg Q8HRS IV Last administered on 11/05/16 06:01 ; Start 10/29/16 at 22:00 Ondansetron HCl (Zofran) 4 mg PRN Q8HRS PRN IV NAUSEA/VOMITING Last administered on 10/31/16 00:09; Start 10/29/16 at 21:30; Stop 11/01/16 at 14:47 ; Status DC Pantoprazole Sodium (Protonix Vial) 40 mg DAILYAC IVP Last administered on 11/05 08:25; Start 10/30/16 at 07:30 Paroxetine HCl (Paxil) 10 mg DAILY PO ; Start 10/30/16 at 09:00; Stop 10/30/16 at 09:33; Status DC Acetaminophen/ Aspirin/Caffeine (Excedrin Migraine) 1 tab PRN BID PRN PO MIGRAINE HEADACHE Last administered on 10/29/16 23:46; Start 10/29/16 at 21:30 Acetaminophen (Tylenol) 650 mg PRN Q6HRS PRN PO MILD PAIN / TEMP Last administered on 11/04/16 17:39; Start 10/29/16 at 22:00 Iohexol (Omnipaque 300 Mg/ml) 75 ml 1X ONCE IV Last administered on 10/30/16 09:09; Start 10/30/16 at 06:45; Stop 10/30/16 at 06:46; Status DC Iohexol (Omnipaque 240 Mg/ml) 30 ml 1X ONCE PO Last administered on 10/30/16 06:45; Start 10/30/16 at 06:45; Stop 10/30/16 at 06:46; Status DC Info (Do NOT chart on this entry -- for MONITORING) 1 each PRN DAILY PRN MC SEE COMMENTS; Start 10/30/16 at 06:45; Stop 11/01/16 at 06:44; Status DC Paroxetine HCl (Paxil) 10 mg DAILY@18 PO Last administered on 10/30/16 17:52; Start 10/30/16 at 18:00 Morphine Sulfate 2 mg PRN Q2HR PRN IV PAIN; Start 10/30/16 at 17:45; Stop 11/02 at 05:57; Status DC Ondansetron HCl (Zofran) 4 mg PRN Q6HRS PRN IV Nausea; Start 10/31/16 at 08:45 ; Stop 10/31/16 at 18:00; Status DC Fentanyl Citrate (Fentanyl 2ml Vial) 25 mcg PRN Q5MIN PRN IV MILD PAIN; Start 10/31/16 at 08:45; Stop 10/31/16 at 18:00; Status DC Fentanyl Citrate (Fentanyl 2ml Vial) 50 mcg PRN Q5MIN PRN IV MODERATE PAIN; Start 10/31/16 at 08:45; Stop 10/31/16 at 08:50; Status DC Morphine Sulfate 1 mg 1 mg PRN Q10MIN PRN IV SEVERE PAIN; Start 10/31/16 at 08: 45; Stop 10/31/16 at 18:00; Status DC Lactated Ringer's (Iv Lactated Ringers) 1,000 ml @ 30 mls/hr Q24H IV ; Start at 08:44; Stop 10/31/16 at 20:43; Status DC Lidocaine HCl 2 ml 1X PRN PRN ID IV START; Start 10/31/16 at 08:45; Stop at 18:00; Status DC Hydromorphone HCl (Dilaudid) 0.5 mg PRN Q10MIN PRN IV SEV PAIN,Second choice; Start 10/31/16 at 08:45; Stop 10/31/16 at 18:00; Status DC Prochlorperazine Edisylate 5 mg 5 mg PACU PRN PRN IV NAUSEA; Start 10/31/16 at 08:45; Stop 10/31/16 at 18:00; Status DC Cefoxitin Sodium (Mefoxin 2gm Ivpb For Omni) 100 ml @ 200 mls/hr 1X ONCE IV Last administered on 10/31/16t 13:16; Start 10/31/16 at 11:30; Stop 10/31/16 at 11:59; Status DC Sevoflurane (Ultane) 60 ml STK-MED ONCE IH ; Start 10/31/16 at 12:14; Stop 10/31 at 12:15; Status DC Fentanyl Citrate (Fentanyl 2ml Vial) 100 mcg STK-MED ONCE .ROUTE ; Start at 12:14; Stop 10/31/16 at 12:15; Status DC Rocuronium [place] 50 mg 50 mg STK-MED ONCE .ROUTE ; Start 10/31/16 at 12:14; Stop 10/31/16 at 12:15; Status DC Propofol (Diprivan) 20 ml @ As Directed STK-MED ONCE IV ; Start 10/31/16 at 12: 15; Stop 10/31/16 at 12:16; Status DC Dexamethasone Sodium Phosphate (Decadron) 20 mg STK-MED ONCE .ROUTE ; Start at 12:15; Stop 10/31/16 at 12:16; Status DC Ondansetron HCl (Zofran) 4 mg STK-MED ONCE .ROUTE ; Start 10/31/16 at 12:15; Stop 10/31/16 at 12:16; Status DC Lidocaine HCl 100 mg STK-MED ONCE .ROUTE ; Start 10/31/16 at 12:15; Stop at 12:16; Status DC Glycopyrrolate (Robinul) 1 mg STK-MED ONCE .ROUTE ; Start 10/31/16 at 12:40; Stop 10/31/16 at 12:41; Status DC Neostigmine Methylsulfate 5 mg STK-MED ONCE .ROUTE ; Start 10/31/16 at 12:40; Stop 10/31/16 at 12:41; Status DC Succinylcholine Chloride (Anectine) 200 mg STK-MED ONCE .ROUTE ; Start 10/31/16 at 13:04; Stop 10/31/16 at 13:05; Status DC Phenylephrine HCl 1 mg 1 mg STK-MED ONCE IV ; Start 10/31/16 at 13:14; Stop at 13:15; Status DC Albumin Human (Plasmanate) 500 ml @ As Directed STK-MED ONCE IV ; Start at 15:47; Stop 10/31/16 at 15:48; Status DC Rocuronium [place] (Zemuron) 100 mg STK-MED ONCE .ROUTE ; Start 10/31/16 at 15: 51; Stop 10/31/16 at 15:52; Status DC Fentanyl Citrate (Fentanyl 5ml Vial) 250 mcg STK-MED ONCE .ROUTE ; Start at 16:19; Stop 10/31/16 at 16:20; Status DC Sodium Chloride 3 ml 3 ml QSHIFT PRN IV AFTER MEDS AND BLOOD DRAWS; Start 10/31 at 17:30; Status UNV Hydromorphone HCl (Dilaudid Standard V[employer]ER) 30 ml @ 0 mls/hr CONT PRN PRN IV PROTOCOL Last administered on 11/03/16t 20:21; Start 10/31/16 at 17:30 Hydromorphone HCl (Dilaudid) 0.4 mg PRN Q1HR PRN IV SEE COMMENTS; Start at 17:30; Stop 11/02/16 at 05:57; Status DC Ondansetron HCl (Zofran) 4 mg PRN Q6HRS PRN IV NAUESA, 1ST CHOICE; Start at 17:30 Metoclopramide HCl 10 mg 10 mg PRN Q6HRS PRN IV Nausea/Vomiting, 2nd Choice; Start 10/31/16 at 17:30 Sodium Chloride (Iv Sodium Chloride 0.9% 1000ml Bag) 1,000 ml @ 125 mls/hr 1X ONCE IV Last administered on 10/31/16t 22:45; Start 10/31/16 at 17:30; Stop at 01:29; Status DC Enoxaparin Sodium 40 mg 40 mg Q24H SQ Last administered on 11/05/16 08:24; Start 11/01/16 at 09:00 Hydromorphone HCl 30 ml @ As Directed STK-MED ONCE IV ; Start 10/31/16 at 17:24 ; Stop 10/31/16 at 17:26; Status DC Sodium Chloride (Iv Sodium Chloride 0.9% 500ml Bag) 500 ml @ 500 mls/hr 1X ONCE IV Last administered on 10/31/16 22:00; Start 10/31/16 at 22:00; Stop at 22:59; Status DC Cefoxitin Sodium 2 gm 2 gm STK-MED ONCE IV ; Start 10/31/16 at 16:00; Stop 11/01 at 08:43; Status DC Sodium Chloride 1,000 ml @ 1,000 mls/hr 1X ONCE IV Last administered on 14:00; Start 11/01/16 at 14:00; Stop 11/01/16 at 14:59; Status DC Sodium Chloride 1,000 ml @ 125 mls/hr 1X ONCE IV Last administered on 17:51; Start 11/01/16 at 14:00; Stop 11/01/16 at 21:59; Status DC Sodium Chloride 1,000 ml @ 1,000 mls/hr 1X ONCE IV Last administered on 13:14; Start 11/02/16 at 11:45; Stop 11/02/16 at 12:44; Status DC Amino Acids/ Glycerin/ Electrolytes (Procalamine) 1,000 ml @ 80 mls/hr [id number] IV Last administered on 11/04/16 03:00; Start 11/03/16 at 09:30; Stop at 07:57; Status DC Albuterol/ Ipratropium (Duoneb) 3 ml RTQID NEB Last administered on 11/05/16 07:53; Start 11/04/16 at 12:00 Albuterol Sulfate (Ventolin Neb Soln) 2.5 mg PRN Q4HRS PRN NEB SHORTNESS OF BREATH; Start 11/04/16 at 11:00 Lidocaine/Sodium Bicarbonate (Buffered Lidocaine 1%) 3 ml 1X ONCE IJ Last administered on 11/04/16 14:51; Start 11/04/16 at 14:00; Stop 11/04/16 at 14:01 ; Status DC Heparin Sodium/ Sodium Chloride 60 unit 1X ONCE IV Last administered on 14:52; Start 11/04/16 at 14:00; Stop 11/04/16 at 14:01; Status DC Guaifenesin 200 mg 200 mg PRN Q6HRS PRN PO COUGH; Start 11/04/16 at 16:15 Amino Acids/ Electrolytes (Clinimix E 2.75%-5% Solution) 2,000 ml @ 80 mls/hr Q24H IV Last administered on 11/05/16 08:33; Start 11/05/16 at 08:00 Vitals/I & O Vital Sign - Last 24 Hours 11/04/16 11/04/16 11/04/16 11/04/16 11:05 15:38 17:36 19:00 Temp 99.0 99.9 97.9 99.0 99.9 97.9 Pulse 101 99 76 Resp 20 16 B/P 178/73 150/82 142/74 Pulse Ox 95 93 96 97 O2 Delivery Room Air Room Air Room Air Room Air 11/04/16 11/04/16 11/04/16 11/05/16 19:24 20:00 23:24 03:00 Temp 96.5 98.1 96.5 98.1 Pulse 95 84 Resp 16 16 B/P 144/74 113/58 Pulse Ox 94 97 96 O2 Delivery Room Air Room Air Room Air Room Air 11/05/16 11/05/16 11/05/16 07:00 07:53 08:00 Temp 98.0 98.0 Pulse 66 Resp 18 B/P 121/87 Pulse Ox 97 98 O2 Delivery Room Air Room Air Room Air Intake and Output 11/04/16 11/04/16 11/05/16 15:00 23:00 07:00 Intake Total 269 ml Output Total 150 ml 365 ml Balance 119 ml -365 ml Problem List Problems Medical Problems: (1) Intractable vomiting Status: Acute (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 Ileus persists to some degree. Plan of Care: Continue current Tx, Mgmt Plan of Care Note Await path. ROBINSON RAMOS MD Nov 05, 2016 10:38
[2016-11-05] MEDS: ONDANSETRON PF 4 MG/2 ML VIAL. IV PRN ×2 (10:46→18:27)
[2016-11-05 11:00] VITALS: BP 148/78
--- NOTE | 2016-11-05 11:06 | PDOC ---
PROGRESS NOTES Subjective Subjective c/c - f/u of Small bowel mass causing partial SBO, adenopathy s/p resxn 10/31. Objective Objective Vital Signs Date Time Temp Pulse Resp B/P Pulse Ox O2 Delivery O2 Flow Rate FiO2 11/05/16 08:00 Room Air 11/05/16 07:53 98 11/05/16 07:00 98.0 66 18 121/87 98.0 11/02/16 08:00 3.0 Intake and Output 11/05/16 07:00 Intake Total 269 ml Output Total 515 ml Balance -246 ml Intake Oral 200 ml IV Total 69 ml Output Urine Total 225 ml Gastric Drainage Total 50 ml Drainage Total 240 ml Physical Exam Heart: Normal S1, Normal S2 General: Alert, Oriented X3 Lungs: Clear to auscultation Assessment Assessment Problems Medical Problems: (1) Intractable vomiting Status: Acute (2) Small intestine cancer Status: Acute A/P: 1. Small bowel mass causing partial SBO, adenopathy s/p resxn 10/31. Await pathology CEA 8.8, CA 19-9 is 27 F/u Operative, path reports F/u CT chest- not yet done Continue supportive care per surgery, primary team. 2. Abd pain - cont pain management per surgery Comment Review of Relevant I have reviewed the following items pako (where applicable) has been applied. Labs Laboratory Tests Test 11/05/16 06:06 White Blood Count 6.8x10^3/uL (4.0-11.0) Red Blood Count 3.01x10^6/uL (4.30-5.70) Hemoglobin 9.3g/dL (13.0-17.5) Hematocrit 27.8% (39.0-53.0) Mean Corpuscular Volume 92fL (79-100) Mean Corpuscular Hemoglobin 31pg (25-35) Mean Corpuscular Hemoglobin Concent 33g/dL (31-37) Red Cell Distribution Width 15.8% (11.5-14.5) Platelet Count 240x10^3/uL (140-400) Neutrophils (%) (Auto) 68% (31-73) Lymphocytes (%) (Auto) 15% (24-48) Monocytes (%) (Auto) 12% (0-9) Eosinophils (%) (Auto) 5% (0-3) Basophils (%) (Auto) 1% (0-3) Neutrophils # (Auto) 4.7x10^3uL (1.8-7.7) Lymphocytes # (Auto) 1.0x10^3/uL (1.0-4.8) Monocytes # (Auto) 0.8x10^3/uL (0.0-1.1) Eosinophils # (Auto) 0.3x10^3/uL (0.0-0.7) Basophils # (Auto) 0.0x10^3/uL (0.0-0.2) Sodium Level 142mmol/L (136-145) Potassium Level 3.1mmol/L (3.5-5.1) Chloride Level 106mmol/L (98-107) Carbon Dioxide Level 30mmol/L (21-32) Anion Gap 6 (6-14) Blood Urea Nitrogen 12mg/dL (8-26) Creatinine 0.7mg/dL (0.7-1.3) Estimated GFR (Cockcroft-Gault) 115.0 Glucose Level 133mg/dL (70-99) Calcium Level 7.8mg/dL (8.5-10.1) Magnesium Level 2.1mg/dL (1.8-2.4) Laboratory Tests Test 11/05/16 06:06 White Blood Count 6.8x10^3/uL (4.0-11.0) Red Blood Count 3.01x10^6/uL (4.30-5.70) Hemoglobin 9.3g/dL (13.0-17.5) Hematocrit 27.8% (39.0-53.0) Mean Corpuscular Volume 92fL (79-100) Mean Corpuscular Hemoglobin 31pg (25-35) Mean Corpuscular Hemoglobin Concent 33g/dL (31-37) Red Cell Distribution Width 15.8% (11.5-14.5) Platelet Count 240x10^3/uL (140-400) Neutrophils (%) (Auto) 68% (31-73) Lymphocytes (%) (Auto) 15% (24-48) Monocytes (%) (Auto) 12% (0-9) Eosinophils (%) (Auto) 5% (0-3) Basophils (%) (Auto) 1% (0-3) Neutrophils # (Auto) 4.7x10^3uL (1.8-7.7) Lymphocytes # (Auto) 1.0x10^3/uL (1.0-4.8) Monocytes # (Auto) 0.8x10^3/uL (0.0-1.1) Eosinophils # (Auto) 0.3x10^3/uL (0.0-0.7) Basophils # (Auto) 0.0x10^3/uL (0.0-0.2) Sodium Level 142mmol/L (136-145) Potassium Level 3.1mmol/L (3.5-5.1) Chloride Level 106mmol/L (98-107) Carbon Dioxide Level 30mmol/L (21-32) Anion Gap 6 (6-14) Blood Urea Nitrogen 12mg/dL (8-26) Creatinine 0.7mg/dL (0.7-1.3) Estimated GFR (Cockcroft-Gault) 115.0 Glucose Level 133mg/dL (70-99) Calcium Level 7.8mg/dL (8.5-10.1) Magnesium Level 2.1mg/dL (1.8-2.4) Medications Current Medications Sodium Chloride 3 ml 3 ml PRN DAILY PRN IV AFTER MEDS AND BLOOD DRAWS; Start at 21:30 Sodium Chloride (Iv Sodium Chloride 0.9% 1000ml Bag) 1,000 ml @ 100 mls/hr Q10H IV Last administered on 10/30/16 00:27; Start 10/29/16 at 21:30; Stop at 07:29; Status DC Bisacodyl (Dulcolax Supp) 10 mg PRN DAILY PRN [place] CONSTIPATION; Start 10/29/16 at 21:30 Enoxaparin Sodium (Lovenox 40mg Syringe) 40 mg Q24H SQ Last administered on 21:11; Start 10/29/16 at 22:00; Stop 10/31/16 at 08:28; Status DC Metoclopramide HCl (Reglan) 10 mg Q8HRS IV Last administered on 11/05/16 06:01 ; Start 10/29/16 at 22:00 Ondansetron HCl (Zofran) 4 mg PRN Q8HRS PRN IV NAUSEA/VOMITING Last administered on 10/31/16 00:09; Start 10/29/16 at 21:30; Stop 11/01/16 at 14:47 ; Status DC Pantoprazole Sodium (Protonix Vial) 40 mg DAILYAC IVP Last administered on 11/05 08:25; Start 10/30/16 at 07:30 Paroxetine HCl (Paxil) 10 mg DAILY PO ; Start 10/30/16 at 09:00; Stop 10/30/16 at 09:33; Status DC Acetaminophen/ Aspirin/Caffeine (Excedrin Migraine) 1 tab PRN BID PRN PO MIGRAINE HEADACHE Last administered on 10/29/16 23:46; Start 10/29/16 at 21:30 Acetaminophen (Tylenol) 650 mg PRN Q6HRS PRN PO MILD PAIN / TEMP Last administered on 11/04/16 17:39; Start 10/29/16 at 22:00 Iohexol (Omnipaque 300 Mg/ml) 75 ml 1X ONCE IV Last administered on 10/30/16 09:09; Start 10/30/16 at 06:45; Stop 10/30/16 at 06:46; Status DC Iohexol (Omnipaque 240 Mg/ml) 30 ml 1X ONCE PO Last administered on 10/30/16 06:45; Start 10/30/16 at 06:45; Stop 10/30/16 at 06:46; Status DC Info (Do NOT chart on this entry -- for MONITORING) 1 each PRN DAILY PRN MC SEE COMMENTS; Start 10/30/16 at 06:45; Stop 11/01/16 at 06:44; Status DC Paroxetine HCl (Paxil) 10 mg DAILY@18 PO Last administered on 10/30/16 17:52; Start 10/30/16 at 18:00 Morphine Sulfate 2 mg PRN Q2HR PRN IV PAIN; Start 10/30/16 at 17:45; Stop 11/02 at 05:57; Status DC Ondansetron HCl (Zofran) 4 mg PRN Q6HRS PRN IV Nausea; Start 10/31/16 at 08:45 ; Stop 10/31/16 at 18:00; Status DC Fentanyl Citrate (Fentanyl 2ml Vial) 25 mcg PRN Q5MIN PRN IV MILD PAIN; Start 10/31/16 at 08:45; Stop 10/31/16 at 18:00; Status DC Fentanyl Citrate (Fentanyl 2ml Vial) 50 mcg PRN Q5MIN PRN IV MODERATE PAIN; Start 10/31/16 at 08:45; Stop 10/31/16 at 08:50; Status DC Morphine Sulfate 1 mg 1 mg PRN Q10MIN PRN IV SEVERE PAIN; Start 10/31/16 at 08: 45; Stop 10/31/16 at 18:00; Status DC Lactated Ringer's (Iv Lactated Ringers) 1,000 ml @ 30 mls/hr Q24H IV ; Start at 08:44; Stop 10/31/16 at 20:43; Status DC Lidocaine HCl 2 ml 1X PRN PRN ID IV START; Start 10/31/16 at 08:45; Stop at 18:00; Status DC Hydromorphone HCl (Dilaudid) 0.5 mg PRN Q10MIN PRN IV SEV PAIN,Second choice; Start 10/31/16 at 08:45; Stop 10/31/16 at 18:00; Status DC Prochlorperazine Edisylate 5 mg 5 mg PACU PRN PRN IV NAUSEA; Start 10/31/16 at 08:45; Stop 10/31/16 at 18:00; Status DC Cefoxitin Sodium (Mefoxin 2gm Ivpb For Omni) 100 ml @ 200 mls/hr 1X ONCE IV Last administered on 10/31/16t 13:16; Start 10/31/16 at 11:30; Stop 10/31/16 at 11:59; Status DC Sevoflurane (Ultane) 60 ml STK-MED ONCE IH ; Start 10/31/16 at 12:14; Stop 10/31 at 12:15; Status DC Fentanyl Citrate (Fentanyl 2ml Vial) 100 mcg STK-MED ONCE .ROUTE ; Start at 12:14; Stop 10/31/16 at 12:15; Status DC Rocuronium [place] 50 mg 50 mg STK-MED ONCE .ROUTE ; Start 10/31/16 at 12:14; Stop 10/31/16 at 12:15; Status DC Propofol (Diprivan) 20 ml @ As Directed STK-MED ONCE IV ; Start 10/31/16 at 12: 15; Stop 10/31/16 at 12:16; Status DC Dexamethasone Sodium Phosphate (Decadron) 20 mg STK-MED ONCE .ROUTE ; Start at 12:15; Stop 10/31/16 at 12:16; Status DC Ondansetron HCl (Zofran) 4 mg STK-MED ONCE .ROUTE ; Start 10/31/16 at 12:15; Stop 10/31/16 at 12:16; Status DC Lidocaine HCl 100 mg STK-MED ONCE .ROUTE ; Start 10/31/16 at 12:15; Stop at 12:16; Status DC Glycopyrrolate (Robinul) 1 mg STK-MED ONCE .ROUTE ; Start 10/31/16 at 12:40; Stop 10/31/16 at 12:41; Status DC Neostigmine Methylsulfate 5 mg STK-MED ONCE .ROUTE ; Start 10/31/16 at 12:40; Stop 10/31/16 at 12:41; Status DC Succinylcholine Chloride (Anectine) 200 mg STK-MED ONCE .ROUTE ; Start 10/31/16 at 13:04; Stop 10/31/16 at 13:05; Status DC Phenylephrine HCl 1 mg 1 mg STK-MED ONCE IV ; Start 10/31/16 at 13:14; Stop at 13:15; Status DC Albumin Human (Plasmanate) 500 ml @ As Directed STK-MED ONCE IV ; Start at 15:47; Stop 10/31/16 at 15:48; Status DC Rocuronium [place] (Zemuron) 100 mg STK-MED ONCE .ROUTE ; Start 10/31/16 at 15: 51; Stop 10/31/16 at 15:52; Status DC Fentanyl Citrate (Fentanyl 5ml Vial) 250 mcg STK-MED ONCE .ROUTE ; Start at 16:19; Stop 10/31/16 at 16:20; Status DC Sodium Chloride 3 ml 3 ml QSHIFT PRN IV AFTER MEDS AND BLOOD DRAWS; Start 10/31 at 17:30; Status UNV Hydromorphone HCl (Dilaudid Standard [employer]) 30 ml @ 0 mls/hr CONT PRN PRN IV PROTOCOL Last administered on 11/03/16 20:21; Start 10/31/16 at 17:30 Hydromorphone HCl (Dilaudid) 0.4 mg PRN Q1HR PRN IV SEE COMMENTS; Start at 17:30; Stop 11/02/16 at 05:57; Status DC Ondansetron HCl (Zofran) 4 mg PRN Q6HRS PRN IV NAUESA, 1ST CHOICE Last administered on 11/05/16 10:46; Start 10/31/16 at 17:30 Metoclopramide HCl 10 mg 10 mg PRN Q6HRS PRN IV Nausea/Vomiting, 2nd Choice; Start 10/31/16 at 17:30 Sodium Chloride (Iv Sodium Chloride 0.9% 1000ml Bag) 1,000 ml @ 125 mls/hr 1X ONCE IV Last administered on 10/31/16 22:45; Start 10/31/16 at 17:30; Stop at 01:29; Status DC Enoxaparin Sodium 40 mg 40 mg Q24H SQ Last administered on 11/05/16 08:24; Start 11/01/16 at 09:00 Hydromorphone HCl 30 ml @ As Directed STK-MED ONCE IV ; Start 10/31/16 at 17:24 ; Stop 10/31/16 at 17:26; Status DC Sodium Chloride (Iv Sodium Chloride 0.9% 500ml Bag) 500 ml @ 500 mls/hr 1X ONCE IV Last administered on 10/31/16 22:00; Start 10/31/16 at 22:00; Stop at 22:59; Status DC Cefoxitin Sodium 2 gm 2 gm STK-MED ONCE IV ; Start 10/31/16 at 16:00; Stop 11/01 at 08:43; Status DC Sodium Chloride 1,000 ml @ 1,000 mls/hr 1X ONCE IV Last administered on 14:00; Start 11/01/16 at 14:00; Stop 11/01/16 at 14:59; Status DC Sodium Chloride 1,000 ml @ 125 mls/hr 1X ONCE IV Last administered on 17:51; Start 11/01/16 at 14:00; Stop 11/01/16 at 21:59; Status DC Sodium Chloride 1,000 ml @ 1,000 mls/hr 1X ONCE IV Last administered on 13:14; Start 11/02/16 at 11:45; Stop 11/02/16 at 12:44; Status DC Amino Acids/ Glycerin/ Electrolytes (Procalamine) 1,000 ml @ 80 mls/hr [id number] IV Last administered on 11/04/16 03:00; Start 11/03/16 at 09:30; Stop at 07:57; Status DC Albuterol/ Ipratropium (Duoneb) 3 ml RTQID NEB Last administered on 11/05/16 07:53; Start 11/04/16 at 12:00 Albuterol Sulfate (Ventolin Neb Soln) 2.5 mg PRN Q4HRS PRN NEB SHORTNESS OF BREATH; Start 11/04/16 at 11:00 Lidocaine/Sodium Bicarbonate (Buffered Lidocaine 1%) 3 ml 1X ONCE IJ Last administered on 11/04/16 14:51; Start 11/04/16 at 14:00; Stop 11/04/16 at 14:01 ; Status DC Heparin Sodium/ Sodium Chloride 60 unit 1X ONCE IV Last administered on 14:52; Start 11/04/16 at 14:00; Stop 11/04/16 at 14:01; Status DC Guaifenesin 200 mg 200 mg PRN Q6HRS PRN PO COUGH; Start 11/04/16 at 16:15 Amino Acids/ Electrolytes (Clinimix E 2.75%-5% Solution) 2,000 ml @ 80 mls/hr Q24H IV Last administered on 11/05/16 08:33; Start 11/05/16 at 08:00 Vitals/I & O Vital Sign - Last 24 Hours 11/04/16 11/04/16 11/04/16 11/04/16 11:05 15:38 17:36 19:00 Temp 99.0 99.9 97.9 99.0 99.9 97.9 Pulse 101 99 76 Resp 20 20 16 B/P 178/73 150/82 142/74 Pulse Ox 95 93 96 97 O2 Delivery Room Air Room Air Room Air Room Air 3/11/04/16 11/04/16 11/05/16 19:24 20:00 23:24 03:00 Temp 96.5 98.1 96.5 98.1 Pulse 95 84 Resp 16 16 B/P 144/74 113/58 Pulse Ox 94 97 96 O2 Delivery Room Air Room Air Room Air Room Air 11/05/16 11/05/16 11/05/16 07:00 07:53 08:00 Temp 98.0 98.0 Pulse 66 Resp 18 B/P 121/87 Pulse Ox 97 98 O2 Delivery Room Air Room Air Room Air Intake and Output 11/04/16 11/04/16 11/05/16 15:00 23:00 07:00 Intake Total 269 ml Output Total 150 ml 365 ml Balance 119 ml -365 ml Nutrition Consultation Dietary Evaluation: Recommendations by RD: PPN/TPN Comments: continue ppn at this time Expected Outcomes/Goals: diet adv/ tolerance Interpretation of weight loss: >5% in 1 month Malnutrition Findings: Food and Nutrition Intake (Sev: <50% est energy req 5days Reduced Order Entry Representative Strength: N/A Weight Status: Overweight Fluid Accumulation (N/A): N/A ADELAIDA LOPEZ MD Nov 05, 2016 11:06
[2016-11-05] MEDS: POTASSIUM CHLORIDE 20 MEQ TABLET.ER. PO ONE ×2 (11:15→12:37)
[2016-11-05] MEDS ORDERED: POLYETHYLENE GLYCOL 3350 17 GM PACKET. PO PRN (11:15)
--- NOTE | 2016-11-05 12:23 | PDOC ---
SURGICAL PROGRESS NOTE Subjective 3 episodes of emesis(although he believes related to breathing txs, occurred after those) unsure if any flatus incisional pain managed mainly just taking sips of water Vital Signs Vital Signs Date Time Temp Pulse Resp B/P Pulse Ox O2 Delivery O2 Flow Rate FiO2 11/05/16 11:00 97.8 91 18 148/78 98 Room Air 97.8 I&O Intake and Output 11/05/16 07:00 Intake Total 269 ml Output Total 515 ml Balance -246 ml Intake Oral 200 ml IV Total 69 ml Output Urine Total 225 ml Gastric Drainage Total 50 ml Drainage Total 240 ml General: Alert, Oriented X3, Cooperative, No acute distress Abdomen: Soft, Other (midline incision-lower portion with drainage, serous/ yellow--small wick dressing packed in place, fredy serosang ) Labs Laboratory Tests Test 11/05/16 06:06 White Blood Count 6.8x10^3/uL (4.0-11.0) Red Blood Count 3.01x10^6/uL (4.30-5.70) Hemoglobin 9.3g/dL (13.0-17.5) Hematocrit 27.8% (39.0-53.0) Mean Corpuscular Volume 92fL (79-100) Mean Corpuscular Hemoglobin 31pg (25-35) Mean Corpuscular Hemoglobin Concent 33g/dL (31-37) Red Cell Distribution Width 15.8% (11.5-14.5) Platelet Count 240x10^3/uL (140-400) Neutrophils (%) (Auto) 68% (31-73) Lymphocytes (%) (Auto) 15% (24-48) Monocytes (%) (Auto) 12% (0-9) Eosinophils (%) (Auto) 5% (0-3) Basophils (%) (Auto) 1% (0-3) Neutrophils # (Auto) 4.7x10^3uL (1.8-7.7) Lymphocytes # (Auto) 1.0x10^3/uL (1.0-4.8) Monocytes # (Auto) 0.8x10^3/uL (0.0-1.1) Eosinophils # (Auto) 0.3x10^3/uL (0.0-0.7) Basophils # (Auto) 0.0x10^3/uL (0.0-0.2) Sodium Level 142mmol/L (136-145) Potassium Level 3.1mmol/L (3.5-5.1) Chloride Level 106mmol/L (98-107) Carbon Dioxide Level 30mmol/L (21-32) Anion Gap 6 (6-14) Blood Urea Nitrogen 12mg/dL (8-26) Creatinine 0.7mg/dL (0.7-1.3) Estimated GFR (Cockcroft-Gault) 115.0 Glucose Level 133mg/dL (70-99) Calcium Level 7.8mg/dL (8.5-10.1) Magnesium Level 2.1mg/dL (1.8-2.4) Laboratory Tests Test 11/05/16 06:06 White Blood Count 6.8x10^3/uL (4.0-11.0) Red Blood Count 3.01x10^6/uL (4.30-5.70) Hemoglobin 9.3g/dL (13.0-17.5) Hematocrit 27.8% (39.0-53.0) Mean Corpuscular Volume 92fL (79-100) Mean Corpuscular Hemoglobin 31pg (25-35) Mean Corpuscular Hemoglobin Concent 33g/dL (31-37) Red Cell Distribution Width 15.8% (11.5-14.5) Platelet Count 240x10^3/uL (140-400) Neutrophils (%) (Auto) 68% (31-73) Lymphocytes (%) (Auto) 15% (24-48) Monocytes (%) (Auto) 12% (0-9) Eosinophils (%) (Auto) 5% (0-3) Basophils (%) (Auto) 1% (0-3) Neutrophils # (Auto) 4.7x10^3uL (1.8-7.7) Lymphocytes # (Auto) 1.0x10^3/uL (1.0-4.8) Monocytes # (Auto) 0.8x10^3/uL (0.0-1.1) Eosinophils # (Auto) 0.3x10^3/uL (0.0-0.7) Basophils # (Auto) 0.0x10^3/uL (0.0-0.2) Sodium Level 142mmol/L (136-145) Potassium Level 3.1mmol/L (3.5-5.1) Chloride Level 106mmol/L (98-107) Carbon Dioxide Level 30mmol/L (21-32) Anion Gap 6 (6-14) Blood Urea Nitrogen 12mg/dL (8-26) Creatinine 0.7mg/dL (0.7-1.3) Estimated GFR (Cockcroft-Gault) 115.0 Glucose Level 133mg/dL (70-99) Calcium Level 7.8mg/dL (8.5-10.1) Magnesium Level 2.1mg/dL (1.8-2.4) Problem List Problems Medical Problems: (1) Intractable vomiting Status: Acute (2) Small intestine cancer Status: Acute Assessment/Plan s/p sbr await return of bowel fx-with emesis, npo wound packing to allow for drainage hypokalemia-replacement noted PT/OT tachycardia improved, noted cardiology consult Problems: PHU VACA APRN Nov 05, 2016 12:23
[2016-11-05] MEDS ORDERED: IPRATRPIUM/ALBUTEROL 0.5/2.5MG 3 ML NEBU. NEB PRN (12:30)
--- NOTE | 2016-11-05 12:39 | PDOC2 ---
HEIDIKATI Tete [employer]IST[employer] 11/05/16 1239: CARDIAC CONSULT DATE OF CONSULT Date of Consult DATE: 11/05/16 TIME: 12:37 REASON FOR CONSULT Reason for Consult: NSVT REFERRING PHYSICIAN Referring Physician: Dr. Sara Lewis SOURCE Source: Chart review, Patient HISTORY OF PRESENT ILLNESS HISTORY OF PRESENT ILLNESS 61 year old male with hematemesis at his correctional facility and subsequent transfer to [facility]. Determined to have small bowel mass and has undergone surgical resection with question of malignancy. Narrow and wide complex tachycardia demonstrated on telemetry. No history of tachydysrhythmias. Underwent LHC about 15 years ago for dyspnea without significant findings and ultimately diagnosed with COPD. Has noted faster heart rate if he has a fever. Serum K today of 3.1 with oral replacement ordered. Reason for Visit: NSVT PAST MEDICAL HISTORY Pulmonary: COPD GI: GERD, Other (H. pylori) Psych: Anxiety PAST SURGICAL HISTORY Past Surgical History: Tonsillectomy, Other (right knee arthroscopy; LHC 15 years ago) FAMILY HISTORY Family History: Other (non-contributory) SOCIAL HISTORY Smoke: Quit (2008; 200 pack year history (5 ppd X 40 yrs)) ALCOHOL: other (heavy use prior to quiting) Drugs: Cocaine (remote history ), Marijuana (remoted history ) Lives: Roommate (incarcerated) CURRENT MEDICATIONS CURRENT MEDICATIONS Current Medications Medications (Trade) Dose Ordered Sig/Jose Route PRN Reason Start Time Stop Time Status Last Admin Dose Admin Lidocaine/Sodium Bicarbonate (Buffered Lidocaine 1%) 3 ml 1X ONCE IJ 11/04/16 14:00 11/04/16 14:01 DC 11/04/16 14:51 Heparin Sodium/ Sodium Chloride 60 unit 60 unit 1X ONCE IV 11/04/16 14:00 11/04/16 14:01 DC 11/04/16 14:52 Amino Acids/ Electrolytes (Clinimix E 2.75%-5% Solution) 2,000 ml @ 80 mls/hr Q24H IV 11/05/16 08:00 11/05/16 08:33 ALLERGIES ALLERGIES: Coded Allergies: No Known Drug Allergies (Unverified , 10/31/16) ROS General: YES: Chills, Fatigue, Malaise, Night Sweats PSYCHOLOGICAL ROS: YES: Anxiety Eyes: No Blurry vision, No Decreased vision, No Double vision, No Dry eyes, No Excessive tearing, No Eye Pain, No Itchy Eyes, No Loss of vision, No Other, No Photophobia, No Scotomata, No Uses contacts, No Uses glasses HEENT: No: Epistaxis, Heacaches, Hearing change, Nasal congestion, Nasal discharge, Oral lesions, Other, Sinus pain, Sneezing, Snoring, Sore Throat, Tinnitus, Vertigo, Visual Changes, Vocal changes Hematological and Lymphatic: No: Bleeding Problems, Blood Clots, Blood Transfusions, Brusing, Night Sweats, Other, Pallor, Swollen Lymph Nodes ENDOCRINE: No: Breast Changes, Galactorrhea, Hair Pattern Changes, Hot Flashes , Malaise/lethargy, Mood Swings, Other, Palpitations, Polydipsia/polyuria, Skin Changes, Temperature Intolerance, Unexpected Weight Changes Respiratory: No: Cough, Hemoptysis, Orthopnea, Other, Pleuritic Pain, SOB with excertion, Shortness of breath, Sputum Changes, Stridor, Tachypnea, Wheezing Cardiovascular: yes Palpitations, No Chest Pain, No Edema, No Lt Headedness, No Orthopnea, No Other, No Paroxysmal Noc. Dyspnea Gastrointestinal: Yes Abdominal Pain, Yes Nausea, Yes Vomiting, No Constipation, No Diarrhea, No Hematochezia, No Melena, No Other Genitourinary: No Discharge, No Dysuria, No Flank Pain, No Frequency, No Hematuria, No Incontinence, No Other, No Pain, No Retention, No Urgency Musculoskeletal: No Gait Disturbance, No Joint Pain, No Joint Stiffness, No Joint Swelling, No Muscle Pain, No Muscular Weakness, No Other, No Pain In:, No Swelling In: Neurological: No Behavorial Changes, No Bowel/Bladder ControlChng, No Confusion , No Dizziness, No Gait Disturbance, No Headaches, No Impaired Coord/balance, No Memory Loss, No Numbness/Tingling, No Other, No Seizures, No Speech Problems , No Tremors, No Visual Changes, No Weakness Skin: No Acne, No Dry Skin, No Eczema, No Hair Changes, No Lumps, No Mole Changes, No Mottling, No Nail Changes, No Other, No Pruritus, No Rash, No Skin Lesion Changes PHYSICAL EXAM General: Alert, Oriented X3, Cooperative, No acute distress HEENT: Atraumatic, PERRLA Lungs: Clear to auscultation Heart: Regular rate, Normal S1, Normal S2, No murmurs, Other (no carotid bruits ) Abdomen: Soft Extremities: No edema, Normal pulses Skin: No rashes Neuro: Normal speech Psych/Mental Status: Mental status NL, Mood NL MUSCULOSKELETAL: No joint tenderness VITALS VITALS Vital Signs Date Time Temp Pulse Resp B/P Pulse Ox O2 Delivery O2 Flow Rate FiO2 11/05/16 11:00 97.8 91 18 148/78 98 Room Air 97.8 LABS Lab: Laboratory Tests Test 11/05/16 06:06 White Blood Count 6.8x10^3/uL (4.0-11.0) Red Blood Count 3.01x10^6/uL (4.30-5.70) Hemoglobin 9.3g/dL (13.0-17.5) Hematocrit 27.8% (39.0-53.0) Mean Corpuscular Volume 92fL (79-100) Mean Corpuscular Hemoglobin 31pg (25-35) Mean Corpuscular Hemoglobin Concent 33g/dL (31-37) Red Cell Distribution Width 15.8% (11.5-14.5) Platelet Count 240x10^3/uL (140-400) Neutrophils (%) (Auto) 68% (31-73) Lymphocytes (%) (Auto) 15% (24-48) Monocytes (%) (Auto) 12% (0-9) Eosinophils (%) (Auto) 5% (0-3) Basophils (%) (Auto) 1% (0-3) Neutrophils # (Auto) 4.7x10^3uL (1.8-7.7) Lymphocytes # (Auto) 1.0x10^3/uL (1.0-4.8) Monocytes # (Auto) 0.8x10^3/uL (0.0-1.1) Eosinophils # (Auto) 0.3x10^3/uL (0.0-0.7) Basophils # (Auto) 0.0x10^3/uL (0.0-0.2) Sodium Level 142mmol/L (136-145) Potassium Level 3.1mmol/L (3.5-5.1) Chloride Level 106mmol/L (98-107) Carbon Dioxide Level 30mmol/L (21-32) Anion Gap 6 (6-14) Blood Urea Nitrogen 12mg/dL (8-26) Creatinine 0.7mg/dL (0.7-1.3) Estimated GFR (Cockcroft-Gault) 115.0 Glucose Level 133mg/dL (70-99) Calcium Level 7.8mg/dL (8.5-10.1) Magnesium Level 2.1mg/dL (1.8-2.4) IMAGES IMAGES 11/04/2016: CXR: The heart and pulmonary vessels appear normal. The mediastinum has a normal appearance. The lungs are clear. A right PICC line is appropriately positioned in the mid to distal SVC. Nasogastric tube has its tip beyond the proximal body of the stomach. IMPRESSION: Appropriately positioned right PICC line. NG tube also noted. No acute or focal process seen in the chest EKG EKG none for review ASSESSMENT/PLAN ASSESSMENT/PLAN 1. NSVT no evidence of this 2. PAF with RVR, new rates in the 150s; wide complex rhythm likely aberrant atrial fib occurring in the setting of untreated hypokalemia hold oral potassium and give IV replacement as patient nauseated hold rate controlling agents until K replaced echo to assess for valvular disease defer on OAC with recent abdominal surgery 3. small bowel mass s/p surgical resection ? malignancy Problems: JESSICA GELLER MD 11/05/16 1607: CARDIAC CONSULT ALLERGIES ALLERGIES: Coded Allergies: No Known Drug Allergies (Unverified , 10/31/16) ASSESSMENT/PLAN ASSESSMENT/PLAN Patient seen and examined. Agree with RISK OFFICER's assessment and plan. s/p surgical resection of small bowel mass, found to have postoperative atrial fibrillation. Patient is currently back in sinus rhythm. Telemetry showed few episodes of wide complex rhythm, most probably atrial fibrillation with aberrant conduction. 2-D echo showed normal LV systolic function. Agree with replacing potassium. If he has recurrent episodes of atrial fib, we will consider intravenous beta blockers. Thank you for your consultation. Problems: KATI GORDON APRN Nov 05, 2016 12:39 JESSICA GELLER MD Nov 05, 2016 16:07
--- NOTE | 2016-11-05 12:49 | PDOC ---
PROGRESS NOTES Chief Complaint Chief Complaint A/P Small bowel obstructions, small intestinal mass, s/p exploratory laparotomy, s/ p small bowel resection with a duodenojejunal anastomosis on 10/31/16 ? 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 pt to ambulate and avoid MACHINIST LINOTYPE if can not too much pain card consult miralax prn History of Present Illness History of Present Illness no vomiting no fever no chest pain no bm,post op, pt is not sure if he had flatus, +bs tho severe abd pain ,with cough using MACHINIST LINOTYPE every 1 h cough is gone Vitals Vitals Vital Signs Date Time Temp Pulse Resp B/P Pulse Ox O2 Delivery O2 Flow Rate FiO2 11/05/16 11:00 97.8 91 18 148/78 98 Room Air 97.8 Physical Exam General: Alert, Oriented X3, Cooperative, No acute distress Heart: Normal S1, Normal S2 Lungs: Clear Abdomen: Soft, Other (midline incision-lower portion with drainage, serous/ yellow--small wick dressing packed in place, fredy serosang ) Extremities: No edema Skin: Other (no jaundicce) Labs LABS Laboratory Tests Test 11/05/16 06:06 White Blood Count 6.8x10^3/uL (4.0-11.0) Red Blood Count 3.01x10^6/uL (4.30-5.70) Hemoglobin 9.3g/dL (13.0-17.5) Hematocrit 27.8% (39.0-53.0) Mean Corpuscular Volume 92fL (79-100) Mean Corpuscular Hemoglobin 31pg (25-35) Mean Corpuscular Hemoglobin Concent 33g/dL (31-37) Red Cell Distribution Width 15.8% (11.5-14.5) Platelet Count 240x10^3/uL (140-400) Neutrophils (%) (Auto) 68% (31-73) Lymphocytes (%) (Auto) 15% (24-48) Monocytes (%) (Auto) 12% (0-9) Eosinophils (%) (Auto) 5% (0-3) Basophils (%) (Auto) 1% (0-3) Neutrophils # (Auto) 4.7x10^3uL (1.8-7.7) Lymphocytes # (Auto) 1.0x10^3/uL (1.0-4.8) Monocytes # (Auto) 0.8x10^3/uL (0.0-1.1) Eosinophils # (Auto) 0.3x10^3/uL (0.0-0.7) Basophils # (Auto) 0.0x10^3/uL (0.0-0.2) Sodium Level 142mmol/L (136-145) Potassium Level 3.1mmol/L (3.5-5.1) Chloride Level 106mmol/L (98-107) Carbon Dioxide Level 30mmol/L (21-32) Anion Gap 6 (6-14) Blood Urea Nitrogen 12mg/dL (8-26) Creatinine 0.7mg/dL (0.7-1.3) Estimated GFR (Cockcroft-Gault) 115.0 Glucose Level 133mg/dL (70-99) Calcium Level 7.8mg/dL (8.5-10.1) Magnesium Level 2.1mg/dL (1.8-2.4) Review of Systems Review of Systems no fever, chills, sob or chest pain Assessment and Plan Assessmemt and Plan Problems Medical Problems: (1) Intractable vomiting Status: Acute (2) Small intestine cancer Status: Acute Problems: Comment Review of Relevant I have reviewed the following items pako (where applicable) has been applied. Labs Laboratory Tests Test 11/05/16 06:06 White Blood Count 6.8x10^3/uL (4.0-11.0) Red Blood Count 3.01x10^6/uL (4.30-5.70) Hemoglobin 9.3g/dL (13.0-17.5) Hematocrit 27.8% (39.0-53.0) Mean Corpuscular Volume 92fL (79-100) Mean Corpuscular Hemoglobin 31pg (25-35) Mean Corpuscular Hemoglobin Concent 33g/dL (31-37) Red Cell Distribution Width 15.8% (11.5-14.5) Platelet Count 240x10^3/uL (140-400) Neutrophils (%) (Auto) 68% (31-73) Lymphocytes (%) (Auto) 15% (24-48) Monocytes (%) (Auto) 12% (0-9) Eosinophils (%) (Auto) 5% (0-3) Basophils (%) (Auto) 1% (0-3) Neutrophils # (Auto) 4.7x10^3uL (1.8-7.7) Lymphocytes # (Auto) 1.0x10^3/uL (1.0-4.8) Monocytes # (Auto) 0.8x10^3/uL (0.0-1.1) Eosinophils # (Auto) 0.3x10^3/uL (0.0-0.7) Basophils # (Auto) 0.0x10^3/uL (0.0-0.2) Sodium Level 142mmol/L (136-145) Potassium Level 3.1mmol/L (3.5-5.1) Chloride Level 106mmol/L (98-107) Carbon Dioxide Level 30mmol/L (21-32) Anion Gap 6 (6-14) Blood Urea Nitrogen 12mg/dL (8-26) Creatinine 0.7mg/dL (0.7-1.3) Estimated GFR (Cockcroft-Gault) 115.0 Glucose Level 133mg/dL (70-99) Calcium Level 7.8mg/dL (8.5-10.1) Magnesium Level 2.1mg/dL (1.8-2.4) Laboratory Tests Test 11/05/16 06:06 White Blood Count 6.8x10^3/uL (4.0-11.0) Red Blood Count 3.01x10^6/uL (4.30-5.70) Hemoglobin 9.3g/dL (13.0-17.5) Hematocrit 27.8% (39.0-53.0) Mean Corpuscular Volume 92fL (79-100) Mean Corpuscular Hemoglobin 31pg (25-35) Mean Corpuscular Hemoglobin Concent 33g/dL (31-37) Red Cell Distribution Width 15.8% (11.5-14.5) Platelet Count 240x10^3/uL (140-400) Neutrophils (%) (Auto) 68% (31-73) Lymphocytes (%) (Auto) 15% (24-48) Monocytes (%) (Auto) 12% (0-9) Eosinophils (%) (Auto) 5% (0-3) Basophils (%) (Auto) 1% (0-3) Neutrophils # (Auto) 4.7x10^3uL (1.8-7.7) Lymphocytes # (Auto) 1.0x10^3/uL (1.0-4.8) Monocytes # (Auto) 0.8x10^3/uL (0.0-1.1) Eosinophils # (Auto) 0.3x10^3/uL (0.0-0.7) Basophils # (Auto) 0.0x10^3/uL (0.0-0.2) Sodium Level 142mmol/L (136-145) Potassium Level 3.1mmol/L (3.5-5.1) Chloride Level 106mmol/L (98-107) Carbon Dioxide Level 30mmol/L (21-32) Anion Gap 6 (6-14) Blood Urea Nitrogen 12mg/dL (8-26) Creatinine 0.7mg/dL (0.7-1.3) Estimated GFR (Cockcroft-Gault) 115.0 Glucose Level 133mg/dL (70-99) Calcium Level 7.8mg/dL (8.5-10.1) Magnesium Level 2.1mg/dL (1.8-2.4) Medications Current Medications Sodium Chloride 3 ml 3 ml PRN DAILY PRN IV AFTER MEDS AND BLOOD DRAWS; Start at 21:30 Sodium Chloride (Iv Sodium Chloride 0.9% 1000ml Bag) 1,000 ml @ 100 mls/hr Q10H IV Last administered on 10/30/16 00:27; Start 10/29/16 at 21:30; Stop at 07:29; Status DC Bisacodyl (Dulcolax Supp) 10 mg PRN DAILY PRN GA CONSTIPATION; Start 10/29/16 at 21:30 Enoxaparin Sodium (Lovenox 40mg Syringe) 40 mg Q24H SQ Last administered on 21:11; Start 10/29/16 at 22:00; Stop 10/31/16 at 08:28; Status DC Metoclopramide HCl (Reglan) 10 mg Q8HRS IV Last administered on 11/05/16 12:37 ; Start 10/29/16 at 22:00 Ondansetron HCl (Zofran) 4 mg PRN Q8HRS PRN IV NAUSEA/VOMITING Last administered on 10/31/16 00:09; Start 10/29/16 at 21:30; Stop 11/01/16 at 14:47 ; Status DC Pantoprazole Sodium (Protonix Vial) 40 mg DAILYAC IVP Last administered on 11/05 08:25; Start 10/30/16 at 07:30; Stop 11/05/16 at 11:13; Status DC Paroxetine HCl (Paxil) 10 mg DAILY PO ; Start 10/30/16 at 09:00; Stop 10/30/16 at 09:33; Status DC Acetaminophen/ Aspirin/Caffeine (Excedrin Migraine) 1 tab PRN BID PRN PO MIGRAINE HEADACHE Last administered on 10/29/16 23:46; Start 10/29/16 at 21:30 Acetaminophen (Tylenol) 650 mg PRN Q6HRS PRN PO MILD PAIN / TEMP Last administered on 11/04/16 17:39; Start 10/29/16 at 22:00 Iohexol (Omnipaque 300 Mg/ml) 75 ml 1X ONCE IV Last administered on 10/30/16 09:09; Start 10/30/16 at 06:45; Stop 10/30/16 at 06:46; Status DC Iohexol (Omnipaque 240 Mg/ml) 30 ml 1X ONCE PO Last administered on 10/30/16 06:45; Start 10/30/16 at 06:45; Stop 10/30/16 at 06:46; Status DC Info (Do NOT chart on this entry -- for MONITORING) 1 each PRN DAILY PRN MC SEE COMMENTS; Start 10/30/16 at 06:45; Stop 11/01/16 at 06:44; Status DC Paroxetine HCl (Paxil) 10 mg DAILY@18 PO Last administered on 10/30/16 17:52; Start 10/30/16 at 18:00 Morphine Sulfate 2 mg PRN Q2HR PRN IV PAIN; Start 10/30/16 at 17:45; Stop 11/02 at 05:57; Status DC Ondansetron HCl (Zofran) 4 mg PRN Q6HRS PRN IV Nausea; Start 10/31/16 at 08:45 ; Stop 10/31/16 at 18:00; Status DC Fentanyl Citrate (Fentanyl 2ml Vial) 25 mcg PRN Q5MIN PRN IV MILD PAIN; Start 10/31/16 at 08:45; Stop 10/31/16 at 18:00; Status DC Fentanyl Citrate (Fentanyl 2ml Vial) 50 mcg PRN Q5MIN PRN IV MODERATE PAIN; Start 10/31/16 at 08:45; Stop 10/31/16 at 08:50; Status DC Morphine Sulfate 1 mg 1 mg PRN Q10MIN PRN IV SEVERE PAIN; Start 10/31/16 at 08: 45; Stop 10/31/16 at 18:00; Status DC Lactated Ringer's (Iv Lactated Ringers) 1,000 ml @ 30 mls/hr Q24H IV ; Start at 08:44; Stop 10/31/16 at 20:43; Status DC Lidocaine HCl 2 ml 1X PRN PRN ID IV START; Start 10/31/16 at 08:45; Stop at 18:00; Status DC Hydromorphone HCl (Dilaudid) 0.5 mg PRN Q10MIN PRN IV SEV PAIN,Second choice; Start 10/31/16 at 08:45; Stop 10/31/16 at 18:00; Status DC Prochlorperazine Edisylate 5 mg 5 mg PACU PRN PRN IV NAUSEA; Start 10/31/16 at 08:45; Stop 10/31/16 at 18:00; Status DC Cefoxitin Sodium (Mefoxin 2gm Ivpb For Omni) 100 ml @ 200 mls/hr 1X ONCE IV Last administered on 10/31/16t 13:16; Start 10/31/16 at 11:30; Stop 10/31/16 at 11:59; Status DC Sevoflurane (Ultane) 60 ml STK-MED ONCE IH ; Start 10/31/16 at 12:14; Stop 10/31 at 12:15; Status DC Fentanyl Citrate (Fentanyl 2ml Vial) 100 mcg STK-MED ONCE .ROUTE ; Start at 12:14; Stop 10/31/16 at 12:15; Status DC Rocuronium [place] 50 mg 50 mg STK-MED ONCE .ROUTE ; Start 10/31/16 at 12:14; Stop 10/31/16 at 12:15; Status DC Propofol (Diprivan) 20 ml @ As Directed STK-MED ONCE IV ; Start 10/31/16 at 12: 15; Stop 10/31/16 at 12:16; Status DC Dexamethasone Sodium Phosphate (Decadron) 20 mg STK-MED ONCE .ROUTE ; Start at 12:15; Stop 10/31/16 at 12:16; Status DC Ondansetron HCl (Zofran) 4 mg STK-MED ONCE .ROUTE ; Start 10/31/16 at 12:15; Stop 10/31/16 at 12:16; Status DC Lidocaine HCl 100 mg STK-MED ONCE .ROUTE ; Start 10/31/16 at 12:15; Stop at 12:16; Status DC Glycopyrrolate (Robinul) 1 mg STK-MED ONCE .ROUTE ; Start 10/31/16 at 12:40; Stop 10/31/16 at 12:41; Status DC Neostigmine Methylsulfate 5 mg STK-MED ONCE .ROUTE ; Start 10/31/16 at 12:40; Stop 10/31/16 at 12:41; Status DC Succinylcholine Chloride (Anectine) 200 mg STK-MED ONCE .ROUTE ; Start 10/31/16 at 13:04; Stop 10/31/16 at 13:05; Status DC Phenylephrine HCl 1 mg 1 mg STK-MED ONCE IV ; Start 10/31/16 at 13:14; Stop at 13:15; Status DC Albumin Human (Plasmanate) 500 ml @ As Directed STK-MED ONCE IV ; Start at 15:47; Stop 10/31/16 at 15:48; Status DC Rocuronium [place] (Zemuron) 100 mg STK-MED ONCE .ROUTE ; Start 10/31/16 at 15: 51; Stop 10/31/16 at 15:52; Status DC Fentanyl Citrate (Fentanyl 5ml Vial) 250 mcg STK-MED ONCE .ROUTE ; Start at 16:19; Stop 10/31/16 at 16:20; Status DC Sodium Chloride 3 ml 3 ml QSHIFT PRN IV AFTER MEDS AND BLOOD DRAWS; Start 10/31 at 17:30; Status UNV Hydromorphone HCl (Dilaudid Standard MACHINIST LINOTYPE) 30 ml @ 0 mls/hr CONT PRN PRN IV PROTOCOL Last administered on 11/03/16 20:21; Start 10/31/16 at 17:30 Hydromorphone HCl (Dilaudid) 0.4 mg PRN Q1HR PRN IV SEE COMMENTS; Start at 17:30; Stop 11/02/16 at 05:57; Status DC Ondansetron HCl (Zofran) 4 mg PRN Q6HRS PRN IV NAUESA, 1ST CHOICE Last administered on 11/05/16 10:46; Start 10/31/16 at 17:30 Metoclopramide HCl 10 mg 10 mg PRN Q6HRS PRN IV Nausea/Vomiting, 2nd Choice; Start 10/31/16 at 17:30 Sodium Chloride (Iv Sodium Chloride 0.9% 1000ml Bag) 1,000 ml @ 125 mls/hr 1X ONCE IV Last administered on 10/31/16 22:45; Start 10/31/16 at 17:30; Stop at 01:29; Status DC Enoxaparin Sodium 40 mg 40 mg Q24H SQ Last administered on 11/05/16 08:24; Start 11/01/16 at 09:00 Hydromorphone HCl 30 ml @ As Directed STK-MED ONCE IV ; Start 10/31/16 at 17:24 ; Stop 10/31/16 at 17:26; Status DC Sodium Chloride (Iv Sodium Chloride 0.9% 500ml Bag) 500 ml @ 500 mls/hr 1X ONCE IV Last administered on 10/31/16 22:00; Start 10/31/16 at 22:00; Stop at 22:59; Status DC Cefoxitin Sodium 2 gm 2 gm STK-MED ONCE IV ; Start 10/31/16 at 16:00; Stop 11/01 at 08:43; Status DC Sodium Chloride 1,000 ml @ 1,000 mls/hr 1X ONCE IV Last administered on 14:00; Start 11/01/16 at 14:00; Stop 11/01/16 at 14:59; Status DC Sodium Chloride 1,000 ml @ 125 mls/hr 1X ONCE IV Last administered on 17:51; Start 11/01/16 at 14:00; Stop 11/01/16 at 21:59; Status DC Sodium Chloride 1,000 ml @ 1,000 mls/hr 1X ONCE IV Last administered on 13:14; Start 11/02/16 at 11:45; Stop 11/02/16 at 12:44; Status DC Amino Acids/ Glycerin/ Electrolytes (Procalamine) 1,000 ml @ 80 mls/hr [id number] IV Last administered on 11/04/16 03:00; Start 11/03/16 at 09:30; Stop at 07:57; Status DC Albuterol/ Ipratropium (Duoneb) 3 ml RTQID NEB Last administered on 11/05/16 07:53; Start 11/04/16 at 12:00; Stop 11/05/16 at 12:32; Status DC Albuterol Sulfate (Ventolin Neb Soln) 2.5 mg PRN Q4HRS PRN NEB SHORTNESS OF BREATH; Start 11/04/16 at 11:00 Lidocaine/Sodium Bicarbonate (Buffered Lidocaine 1%) 3 ml 1X ONCE IJ Last administered on 11/04/16 14:51; Start 11/04/16 at 14:00; Stop 11/04/16 at 14:01 ; Status DC Heparin Sodium/ Sodium Chloride 60 unit 1X ONCE IV Last administered on 14:52; Start 11/04/16 at 14:00; Stop 11/04/16 at 14:01; Status DC Guaifenesin 200 mg 200 mg PRN Q6HRS PRN PO COUGH; Start 11/04/16 at 16:15 Amino Acids/ Electrolytes (Clinimix E 2.75%-5% Solution) 2,000 ml @ 80 mls/hr Q24H IV Last administered on 11/05/16 08:33; Start 11/05/16 at 08:00 Pantoprazole Sodium (Protonix) 40 mg DAILYAC PO ; Start 11/06/16 at 07:30 Potassium Chloride (Klor-Con) 40 meq 1X ONCE PO ; Start 11/05/16 at 11:15; Stop 11/05/16 at 11:17; Status DC Polyethylene Glycol (miraLAX PACKET) 17 gm PRN DAILY PRN PO CONSTIPATION Last administered on 11/05/16t 12:37; Start 11/05/16 at 11:15 Albuterol/ Ipratropium (Duoneb) 3 ml PRN DAILY PRN NEB SHORTNESS OF BREATH; Start 11/05/16 at 12:30 Vitals/I & O Vital Sign - Last 24 Hours 11/04/16 11/04/16 11/04/16 11/04/16 15:38 17:36 19:00 19:24 Temp 99.9 97.9 99.9 97.9 Pulse 99 76 Resp 20 16 B/P 150/82 142/74 Pulse Ox 93 96 97 94 O2 Delivery Room Air Room Air Room Air Room Air 11/04/16 11/04/16 11/05/16 11/05/16 20:00 23:24 03:00 07:00 Temp 96.5 98.1 98.0 96.5 98.1 98.0 Pulse 95 84 66 Resp 16 16 18 B/P 144/74 113/58 121/87 Pulse Ox 97 96 97 O2 Delivery Room Air Room Air Room Air Room Air 11/05/16 11/05/16 11/05/16 07:53 08:00 11:00 Temp 97.8 97.8 Pulse 91 Resp 18 B/P 148/78 Pulse Ox 98 98 O2 Delivery Room Air Room Air Room Air Intake and Output 11/04/16 11/04/16 11/05/16 15:00 23:00 07:00 Intake Total 269 ml Output Total 150 ml 365 ml Balance 119 ml -365 ml Nutrition Consultation Dietary Evaluation: Recommendations by RD: PPN/TPN Comments: continue ppn at this time Expected Outcomes/Goals: diet adv/ tolerance Interpretation of weight loss: >5% in 1 month Malnutrition Findings: Food and Nutrition Intake (Sev: <50% est energy req 5days Reduced Adhesive Sprayer Strength: N/A Weight Status: Overweight Fluid Accumulation (N/A): N/A DERIAN WILLSON MD Nov 05, 2016 12:49
[2016-11-05] MEDS: POTASSIUM CHLORIDE 20MEQ 50 ML IV SCH ×2 (13:41→15:10)
--- NOTE | 2016-11-05 14:56 | EKG ---
[facility] [address] [place] [address] Test Date: 2016-11-05 Test Time: 14:55:14 Pat Name: MAHAD REARDON Department: Room: [facility] Gender: M Rn Navigator: : 1955 Requested By: KATI GORDON Order Number: [id number] Reading MD: Measurements Intervals [place] Rate: 73 P: 41 [place]: 152 QRS: 24 QRSD: 72 T: 26 QT: 400 QTc: 444 Interpretive Statements SINUS RHYTHM NORMAL ECG RI6.01 No previous ECG available for comparison
[2016-11-05 15:00] VITALS: BP 147/78
[2016-11-05] MEDS: PAROXETINE 10 MG TABLET. PO SCH (15:06)
--- NOTE | 2016-11-05 15:38 | CARD ---
APPROVED REPORT EXAM: Two-dimensional and M-mode echocardiogram with Doppler and color Doppler. Other Information Quality : Fair Rhythm : Atrial Fibrillation INDICATION Atrial Fibrillation 2D DIMENSIONS RVDd2.7 (2.9-3.5cm)Left Atrium(2D)3.7 (1.6-4.0cm) IVSd0.8 (0.7-1.1cm)Aortic Root(2D)3.2 (2.0-3.7cm) LVDd4.5 (3.9-5.9cm)LVOT Diameter2.3 (1.8-2.4cm) PWd0.9 (0.7-1.1cm)LVDs3.8 (2.5-4.0cm) FS (%) 23.0 %SV27.1 ml LVEF(%)45.0 (>50%) Aortic Valve AoV Peak Braxton.95.8cm/sAoV VTI15.1cm AO Peak GR.3.7mmHgLVOT VTI 18.78cm AO Mean GR.2mmHgAVA (VTI)5.00cm2 Mitral Valve MV E Rvozqpkx52.1cm/sMV DECEL [id number] MV A Twczulap19.9cm/sE/A Ratio0.8 TDI Lateral E' P. V9.20cm/sMedial E' P. V4.51cm/s E/Lateral E'6.4E/Medial E'13.1 Pulmonary Vein S1 Sphbtcfa38.4cm/sS2 Hrgdzzbn54.24cm/s D2 Yucgihzo06.2cm/sPVa [id number] LEFT VENTRICLE The left ventricle is normal size. There is normal left ventricular wall thickness. The left ventricu lar systolic function is normal and the ejection fraction is within normal range. EF 65% There is nor mal LV segmental wall motion. Transmitral Doppler flow pattern is Grade I-abnormal relaxation pattern . RIGHT VENTRICLE The right ventricle is normal size. The right ventricular systolic function is normal. ATRIA The left atrium size is normal. The right atrium size is normal. The interatrial septum is intact wit h no evidence for an atrial septal defect or patent foramen ovale as noted on 2-D or Doppler imaging. AORTIC VALVE The aortic valve is calcified but opens well. Doppler and Color Flow revealed no significant aortic r egurgitation. There is no significant aortic valvular stenosis. MITRAL VALVE The mitral valve is calcified but opens well. There is no evidence of mitral valve prolapse. There is no mitral valve stenosis. Doppler and Color Flow revealed no mitral valve regurgitation noted. TRICUSPID VALVE The tricuspid valve is normal in structure and function. Doppler and Color Flow revealed no tricuspid valve regurgitation noted. There is no tricuspid valve stenosis. PULMONIC VALVE The pulmonic valve is not well visualized. Doppler and Color Flow revealed no pulmonic valvular regur gitation. There is no pulmonic valvular stenosis. GREAT VESSELS The aortic root is normal in size. The ascending aorta is normal in size. The IVC was not visualized. PERICARDIAL EFFUSION There is no evidence of significant pericardial effusion. Critical Notification Critical Value: No <Conclusion> The left ventricular systolic function is normal and the ejection fraction is within normal range. EF 65%
[2016-11-05 19:35] VITALS: BP 121/66
[2016-11-05 23:35] VITALS: BP 131/81
[2016-11-06 03:35] VITALS: BP 108/63
[2016-11-06] MEDS: METOCLOPRAMIDE HCL 10 MG/2 ML VIAL. IV SCH (06:07)
[2016-11-06 06:43] LABS: CALCIUM 7.9 mg/dL (8.5-10.1); CREATININE 0.6 mg/dL (0.7-1.3); GFR 137.4; POTASSIUM 3.2 mmol/L (3.5-5.1)
[2016-11-06 06:52] LABS: BASO % 1 % (0-3); EOS % 5 % (0-3); HEMATOCRIT 27.1 % (39.0-53.0); HEMOGLOBIN 9.1 g/dL (13.0-17.5); LYMPH # 0.8 x10^3/uL (1.0-4.8); LYMPH % 15 % (24-48); MEAN CORPUSCULAR HEMOGLOBIN 31 pg (25-35); MEAN CORPUSCULAR HGB CONC 34 g/dL (31-37); MEAN CORPUSCULAR VOLUME 92 fL (79-100); MONO % 12 % (0-9); NEUT % 68 % (31-73); PLATELET COUNT 207 x10^3/uL (140-400); RED BLOOD COUNT 2.95 x10^6/uL (4.30-5.70); RED CELL DISTRIBUTION WIDTH 15.4 % (11.5-14.5); WHITE BLOOD COUNT 5.8 x10^3/uL (4.0-11.0)
[2016-11-06 07:22] VITALS: BP 116/65
[2016-11-06] MEDS: PANTOPRAZOLE 40 MG TABLET. PO SCH (07:30)
[2016-11-06] MEDS: DO NOT USE 40 MG/0.4 ML DISP.SYRIN SQ SCH (07:44)
--- NOTE | 2016-11-06 09:04 | PDOC ---
PROGRESS NOTES Subjective Subjective c/c - Small bowel mass causing partial SBO Objective Objective Vital Signs Date Time Temp Pulse Resp B/P Pulse Ox O2 Delivery O2 Flow Rate FiO2 11/06/16 07:48 Room Air 11/06/16 07:22 97.7 75 18 116/65 98 97.7 11/02/16 08:00 3.0 Intake and Output 11/06/16 07:00 Intake Total 0 ml Output Total 2030 ml Balance -2030 ml Intake Oral 0 ml Output Urine Total 1700 ml Drainage Total 330 ml # Voids 2 # Bowel Movements 2 Physical Exam Heart: Normal S1, Normal S2 Psych/Mental Status: Mental status NL Assessment Assessment Problems Medical Problems: (1) Intractable vomiting Status: Acute (2) Small intestine cancer Status: Acute A/P: 1. Small bowel (jejunal) mass causing partial SBO, adenopathy s/p resxn 10/31. Await pathology CEA 8.8, CA 19-9 is 27 F/u path reports (pending) F/u CT chest- not yet done. Plan CT prior to discharge. Continue supportive care per surgery, primary team. 2. Abd pain - cont pain management per surgery Comment Review of Relevant I have reviewed the following items pako (where applicable) has been applied. Labs Laboratory Tests Test 11/05/16 06:06 11/06/16 06:20 White Blood Count 6.8x10^3/uL (4.0-11.0) 5.8x10^3/uL (4.0-11.0) Red Blood Count 3.01x10^6/uL (4.30-5.70) 2.95x10^6/uL (4.30-5.70) Hemoglobin 9.3g/dL (13.0-17.5) 9.1g/dL (13.0-17.5) Hematocrit 27.8% (39.0-53.0) 27.1% (39.0-53.0) Mean Corpuscular Volume 92fL (79-100) 92fL (79-100) Mean Corpuscular Hemoglobin 31pg (25-35) 31pg (25-35) Mean Corpuscular Hemoglobin Concent 33g/dL (31-37) 34g/dL (31-37) Red Cell Distribution Width 15.8% (11.5-14.5) 15.4% (11.5-14.5) Platelet Count 240x10^3/uL (140-400) 207x10^3/uL (140-400) Neutrophils (%) (Auto) 68% (31-73) 68% (31-73) Lymphocytes (%) (Auto) 15% (24-48) 15% (24-48) Monocytes (%) (Auto) 12% (0-9) 12% (0-9) Eosinophils (%) (Auto) 5% (0-3) 5% (0-3) Basophils (%) (Auto) 1% (0-3) 1% (0-3) Neutrophils # (Auto) 4.7x10^3uL (1.8-7.7) 3.9x10^3uL (1.8-7.7) Lymphocytes # (Auto) 1.0x10^3/uL (1.0-4.8) 0.8x10^3/uL (1.0-4.8) Monocytes # (Auto) 0.8x10^3/uL (0.0-1.1) 0.7x10^3/uL (0.0-1.1) Eosinophils # (Auto) 0.3x10^3/uL (0.0-0.7) 0.3x10^3/uL (0.0-0.7) Basophils # (Auto) 0.0x10^3/uL (0.0-0.2) 0.0x10^3/uL (0.0-0.2) Sodium Level 142mmol/L (136-145) 142mmol/L (136-145) Potassium Level 3.1mmol/L (3.5-5.1) 3.2mmol/L (3.5-5.1) Chloride Level 106mmol/L (98-107) 107mmol/L (98-107) Carbon Dioxide Level 30mmol/L (21-32) 30mmol/L (21-32) Anion Gap 6 (6-14) 5 (6-14) Blood Urea Nitrogen 12mg/dL (8-26) 10mg/dL (8-26) Creatinine 0.7mg/dL (0.7-1.3) 0.6mg/dL (0.7-1.3) Estimated GFR (Cockcroft-Gault) 115.0 137.4 Glucose Level 133mg/dL (70-99) 130mg/dL (70-99) Calcium Level 7.8mg/dL (8.5-10.1) 7.9mg/dL (8.5-10.1) Magnesium Level 2.1mg/dL (1.8-2.4) Laboratory Tests Test 11/06/16 06:20 White Blood Count 5.8x10^3/uL (4.0-11.0) Red Blood Count 2.95x10^6/uL (4.30-5.70) Hemoglobin 9.1g/dL (13.0-17.5) Hematocrit 27.1% (39.0-53.0) Mean Corpuscular Volume 92fL (79-100) Mean Corpuscular Hemoglobin 31pg (25-35) Mean Corpuscular Hemoglobin Concent 34g/dL (31-37) Red Cell Distribution Width 15.4% (11.5-14.5) Platelet Count 207x10^3/uL (140-400) Neutrophils (%) (Auto) 68% (31-73) Lymphocytes (%) (Auto) 15% (24-48) Monocytes (%) (Auto) 12% (0-9) Eosinophils (%) (Auto) 5% (0-3) Basophils (%) (Auto) 1% (0-3) Neutrophils # (Auto) 3.9x10^3uL (1.8-7.7) Lymphocytes # (Auto) 0.8x10^3/uL (1.0-4.8) Monocytes # (Auto) 0.7x10^3/uL (0.0-1.1) Eosinophils # (Auto) 0.3x10^3/uL (0.0-0.7) Basophils # (Auto) 0.0x10^3/uL (0.0-0.2) Sodium Level 142mmol/L (136-145) Potassium Level 3.2mmol/L (3.5-5.1) Chloride Level 107mmol/L (98-107) Carbon Dioxide Level 30mmol/L (21-32) Anion Gap 5 (6-14) Blood Urea Nitrogen 10mg/dL (8-26) Creatinine 0.6mg/dL (0.7-1.3) Estimated GFR (Cockcroft-Gault) 137.4 Glucose Level 130mg/dL (70-99) Calcium Level 7.9mg/dL (8.5-10.1) Medications Current Medications Sodium Chloride 3 ml 3 ml PRN DAILY PRN IV AFTER MEDS AND BLOOD DRAWS; Start at 21:30 Sodium Chloride (Iv Sodium Chloride 0.9% 1000ml Bag) 1,000 ml @ 100 mls/hr Q10H IV Last administered on 10/30/16 00:27; Start 10/29/16 at 21:30; Stop at 07:29; Status DC Bisacodyl (Dulcolax Supp) 10 mg PRN DAILY PRN [place] CONSTIPATION; Start 10/29/16 at 21:30 Enoxaparin Sodium (Lovenox 40mg Syringe) 40 mg Q24H SQ Last administered on 21:11; Start 10/29/16 at 22:00; Stop 10/31/16 at 08:28; Status DC Metoclopramide HCl (Reglan) 10 mg Q8HRS IV Last administered on 11/06/16 06:07 ; Start 10/29/16 at 22:00 Ondansetron HCl (Zofran) 4 mg PRN Q8HRS PRN IV NAUSEA/VOMITING Last administered on 10/31/16 00:09; Start 10/29/16 at 21:30; Stop 11/01/16 at 14:47 ; Status DC Pantoprazole Sodium (Protonix Vial) 40 mg DAILYAC IVP Last administered on 11/05 08:25; Start 10/30/16 at 07:30; Stop 11/05/16 at 11:13; Status DC Paroxetine HCl (Paxil) 10 mg DAILY PO ; Start 10/30/16 at 09:00; Stop 10/30/16 at 09:33; Status DC Acetaminophen/ Aspirin/Caffeine (Excedrin Migraine) 1 tab PRN BID PRN PO MIGRAINE HEADACHE Last administered on 10/29/16 23:46; Start 10/29/16 at 21:30 Acetaminophen (Tylenol) 650 mg PRN Q6HRS PRN PO MILD PAIN / TEMP Last administered on 11/04/16 17:39; Start 10/29/16 at 22:00 Iohexol (Omnipaque 300 Mg/ml) 75 ml 1X ONCE IV Last administered on 10/30/16 09:09; Start 10/30/16 at 06:45; Stop 10/30/16 at 06:46; Status DC Iohexol (Omnipaque 240 Mg/ml) 30 ml 1X ONCE PO Last administered on 10/30/16 06:45; Start 10/30/16 at 06:45; Stop 10/30/16 at 06:46; Status DC Info (Do NOT chart on this entry -- for MONITORING) 1 each PRN DAILY PRN MC SEE COMMENTS; Start 10/30/16 at 06:45; Stop 11/01/16 at 06:44; Status DC Paroxetine HCl (Paxil) 10 mg DAILY@18 PO Last administered on 10/30/16 17:52; Start 10/30/16 at 18:00 Morphine Sulfate 2 mg PRN Q2HR PRN IV PAIN; Start 10/30/16 at 17:45; Stop 11/02 at 05:57; Status DC Ondansetron HCl (Zofran) 4 mg PRN Q6HRS PRN IV Nausea; Start 10/31/16 at 08:45 ; Stop 10/31/16 at 18:00; Status DC Fentanyl Citrate (Fentanyl 2ml Vial) 25 mcg PRN Q5MIN PRN IV MILD PAIN; Start 10/31/16 at 08:45; Stop 10/31/16 at 18:00; Status DC Fentanyl Citrate (Fentanyl 2ml Vial) 50 mcg PRN Q5MIN PRN IV MODERATE PAIN; Start 10/31/16 at 08:45; Stop 10/31/16 at 08:50; Status DC Morphine Sulfate 1 mg 1 mg PRN Q10MIN PRN IV SEVERE PAIN; Start 10/31/16 at 08: 45; Stop 10/31/16 at 18:00; Status DC Lactated Ringer's (Iv Lactated Ringers) 1,000 ml @ 30 mls/hr Q24H IV ; Start at 08:44; Stop 10/31/16 at 20:43; Status DC Lidocaine HCl 2 ml 1X PRN PRN ID IV START; Start 10/31/16 at 08:45; Stop at 18:00; Status DC Hydromorphone HCl (Dilaudid) 0.5 mg PRN Q10MIN PRN IV SEV PAIN,Second choice; Start 10/31/16 at 08:45; Stop 10/31/16 at 18:00; Status DC Prochlorperazine Edisylate 5 mg 5 mg PACU PRN PRN IV NAUSEA; Start 10/31/16 at 08:45; Stop 10/31/16 at 18:00; Status DC Cefoxitin Sodium (Mefoxin 2gm Ivpb For Omni) 100 ml @ 200 mls/hr 1X ONCE IV Last administered on 10/31/16t 13:16; Start 10/31/16 at 11:30; Stop 10/31/16 at 11:59; Status DC Sevoflurane (Ultane) 60 ml STK-MED ONCE IH ; Start 10/31/16 at 12:14; Stop 10/31 at 12:15; Status DC Fentanyl Citrate (Fentanyl 2ml Vial) 100 mcg STK-MED ONCE .ROUTE ; Start at 12:14; Stop 10/31/16 at 12:15; Status DC Rocuronium [place] 50 mg 50 mg STK-MED ONCE .ROUTE ; Start 10/31/16 at 12:14; Stop 10/31/16 at 12:15; Status DC Propofol (Diprivan) 20 ml @ As Directed STK-MED ONCE IV ; Start 10/31/16 at 12: 15; Stop 10/31/16 at 12:16; Status DC Dexamethasone Sodium Phosphate (Decadron) 20 mg STK-MED ONCE .ROUTE ; Start at 12:15; Stop 10/31/16 at 12:16; Status DC Ondansetron HCl (Zofran) 4 mg STK-MED ONCE .ROUTE ; Start 10/31/16 at 12:15; Stop 10/31/16 at 12:16; Status DC Lidocaine HCl 100 mg STK-MED ONCE .ROUTE ; Start 10/31/16 at 12:15; Stop at 12:16; Status DC Glycopyrrolate (Robinul) 1 mg STK-MED ONCE .ROUTE ; Start 3/16/17 at 12:40; Stop 10/31/16 at 12:41; Status DC Neostigmine Methylsulfate 5 mg STK-MED ONCE .ROUTE ; Start 10/31/16 at 12:40; Stop 10/31/16 at 12:41; Status DC Succinylcholine Chloride (Anectine) 200 mg STK-MED ONCE .ROUTE ; Start 10/31/16 at 13:04; Stop 10/31/16 at 13:05; Status DC Phenylephrine HCl 1 mg 1 mg STK-MED ONCE IV ; Start 10/31/16 at 13:14; Stop at 13:15; Status DC Albumin Human (Plasmanate) 500 ml @ As Directed STK-MED ONCE IV ; Start at 15:47; Stop 10/31/16 at 15:48; Status DC Rocuronium [place] (Zemuron) 100 mg STK-MED ONCE .ROUTE ; Start 10/31/16 at 15: 51; Stop 10/31/16 at 15:52; Status DC Fentanyl Citrate (Fentanyl 5ml Vial) 250 mcg STK-MED ONCE .ROUTE ; Start at 16:19; Stop 10/31/16 at 16:20; Status DC Sodium Chloride 3 ml 3 ml QSHIFT PRN IV AFTER MEDS AND BLOOD DRAWS; Start 10/31 at 17:30; Status UNV Hydromorphone HCl (Dilaudid Standard SHIPPING HAND) 30 ml @ 0 mls/hr CONT PRN PRN IV PROTOCOL Last administered on 11/03/16 20:21; Start 10/31/16 at 17:30 Hydromorphone HCl (Dilaudid) 0.4 mg PRN Q1HR PRN IV SEE COMMENTS; Start at 17:30; Stop 11/02/16 at 05:57; Status DC Ondansetron HCl (Zofran) 4 mg PRN Q6HRS PRN IV NAUESA, 1ST CHOICE Last administered on 11/05/16 18:27; Start 10/31/16 at 17:30 Metoclopramide HCl 10 mg 10 mg PRN Q6HRS PRN IV Nausea/Vomiting, 2nd Choice; Start 10/31/16 at 17:30 Sodium Chloride (Iv Sodium Chloride 0.9% 1000ml Bag) 1,000 ml @ 125 mls/hr 1X ONCE IV Last administered on 10/31/16 22:45; Start 10/31/16 at 17:30; Stop at 01:29; Status DC Enoxaparin Sodium 40 mg 40 mg Q24H SQ Last administered on 11/06/16 07:44; Start 11/01/16 at 09:00 Hydromorphone HCl 30 ml @ As Directed STK-MED ONCE IV ; Start 10/31/16 at 17:24 ; Stop 10/31/16 at 17:26; Status DC Sodium Chloride (Iv Sodium Chloride 0.9% 500ml Bag) 500 ml @ 500 mls/hr 1X ONCE IV Last administered on 10/31/16 22:00; Start 10/31/16 at 22:00; Stop at 22:59; Status DC Cefoxitin Sodium 2 gm 2 gm STK-MED ONCE IV ; Start 10/31/16 at 16:00; Stop 11/01 at 08:43; Status DC Sodium Chloride 1,000 ml @ 1,000 mls/hr 1X ONCE IV Last administered on 14:00; Start 11/01/16 at 14:00; Stop 11/01/16 at 14:59; Status DC Sodium Chloride 1,000 ml @ 125 mls/hr 1X ONCE IV Last administered on 17:51; Start 11/01/16 at 14:00; Stop 11/01/16 at 21:59; Status DC Sodium Chloride 1,000 ml @ 1,000 mls/hr 1X ONCE IV Last administered on 13:14; Start 11/02/16 at 11:45; Stop 11/02/16 at 12:44; Status DC Amino Acids/ Glycerin/ Electrolytes (Procalamine) 1,000 ml @ 80 mls/hr [id number] IV Last administered on 11/04/16 03:00; Start 11/03/16 at 09:30; Stop at 07:57; Status DC Albuterol/ Ipratropium (Duoneb) 3 ml RTQID NEB Last administered on 11/05/16 07:53; Start 11/04/16 at 12:00; Stop 11/05/16 at 12:32; Status DC Albuterol Sulfate (Ventolin Neb Soln) 2.5 mg PRN Q4HRS PRN NEB SHORTNESS OF BREATH; Start 11/04/16 at 11:00 Lidocaine/Sodium Bicarbonate (Buffered Lidocaine 1%) 3 ml 1X ONCE IJ Last administered on 11/04/16 14:51; Start 11/04/16 at 14:00; Stop 11/04/16 at 14:01 ; Status DC Heparin Sodium/ Sodium Chloride 60 unit 1X ONCE IV Last administered on 14:52; Start 11/04/16 at 14:00; Stop 11/04/16 at 14:01; Status DC Guaifenesin 200 mg 200 mg PRN Q6HRS PRN PO COUGH; Start 11/04/16 at 16:15 Amino Acids/ Electrolytes (Clinimix E 2.75%-5% Solution) 2,000 ml @ 80 mls/hr Q24H IV Last administered on 11/05/16 08:33; Start 11/05/16 at 08:00 Pantoprazole Sodium (Protonix) 40 mg DAILYAC PO ; Start 11/06/16 at 07:30 Potassium Chloride (Klor-Con) 40 meq 1X ONCE PO ; Start 11/05/16 at 11:15; Stop 11/05/16 at 12:58; Status DC Polyethylene Glycol (miraLAX PACKET) 17 gm PRN DAILY PRN PO CONSTIPATION Last administered on 11/05/16 12:37; Start 11/05/16 at 11:15 Albuterol/ Ipratropium 3 ml 3 ml PRN DAILY PRN NEB SHORTNESS OF BREATH; Start 11/05/16 at 12:30; Stop 11/05/16 at 12:47; Status DC Potassium Chloride 50 ml @ 50 mls/hr Q1H IV Last administered on 11/05/16 15: 10; Start 11/05/16 at 13:30; Stop 11/05/16 at 15:29; Status DC Potassium Chloride 50 ml @ 25 mls/hr Q2H IV ; Start 11/06/16 at 09:00; Stop at 12:59 Potassium Chloride (KCl Premix 20meq) 50 ml @ 25 mls/hr Q2H IV ; Start 11/06/16 at 14:00; Stop 11/06/16 at 17:59 Vitals/I & O Vital Sign - Last 24 Hours 11/05/16 11/05/16 11/05/16 11/05/16 11:00 15:00 19:35 20:00 Temp 97.8 98.2 98.9 97.8 98.2 98.9 Pulse 91 80 87 Resp 18 B/P 148/78 147/78 121/66 Pulse Ox 98 100 97 O2 Delivery Room Air Room Air Room Air Room Air 11/05/16 11/06/16 11/06/16 11/06/16 23:35 03:35 07:22 07:48 Temp 98.8 98.7 97.7 98.8 98.7 97.7 Pulse 69 74 75 Resp 18 B/P 131/81 108/63 116/65 Pulse Ox 96 95 98 O2 Delivery Room Air Room Air Room Air Room Air Intake and Output 11/05/16 11/05/16 11/06/16 15:00 23:00 07:00 Intake Total 0 ml Output Total 860 ml 1170 ml Balance -860 ml -1170 ml Nutrition Consultation Dietary Evaluation: Recommendations by RD: PPN/TPN Comments: continue ppn at this time Expected Outcomes/Goals: diet adv/ tolerance Interpretation of weight loss: >5% in 1 month Malnutrition Findings: Food and Nutrition Intake (Sev: <50% est energy req 5days Reduced [employer] Strength: N/A Weight Status: Overweight Fluid Accumulation (N/A): N/A ADELAIDA LOPEZ MD Nov 06, 2016 09:03
[2016-11-06] MEDS: AA 2.75%/CALCIUM/LYTES/D5W 2,000 ML IV SCH (09:08)
[2016-11-06] MEDS: POTASSIUM CHLORIDE 20MEQ 50 ML IV SCH ×4 (09:09→15:46)
--- NOTE | 2016-11-06 10:22 | PDOC ---
G I PROGRESS NOTE Subjective Some progress. Has stooled. Denies nausea or vomiting. Still with incisional pain. Physical Exam Lungs clear. RRR Abdomen soft with incisional tenderness. Bowel sounds present. Review of Relevant I have reviewed the following items pako (where applicable) has been applied. Labs Laboratory Tests Test 11/05/16 06:06 11/06/16 06:20 White Blood Count 6.8x10^3/uL (4.0-11.0) 5.8x10^3/uL (4.0-11.0) Red Blood Count 3.01x10^6/uL (4.30-5.70) 2.95x10^6/uL (4.30-5.70) Hemoglobin 9.3g/dL (13.0-17.5) 9.1g/dL (13.0-17.5) Hematocrit 27.8% (39.0-53.0) 27.1% (39.0-53.0) Mean Corpuscular Volume 92fL (79-100) 92fL (79-100) Mean Corpuscular Hemoglobin 31pg (25-35) 31pg (25-35) Mean Corpuscular Hemoglobin Concent 33g/dL (31-37) 34g/dL (31-37) Red Cell Distribution Width 15.8% (11.5-14.5) 15.4% (11.5-14.5) Platelet Count 240x10^3/uL (140-400) 207x10^3/uL (140-400) Neutrophils (%) (Auto) 68% (31-73) 68% (31-73) Lymphocytes (%) (Auto) 15% (24-48) 15% (24-48) Monocytes (%) (Auto) 12% (0-9) 12% (0-9) Eosinophils (%) (Auto) 5% (0-3) 5% (0-3) Basophils (%) (Auto) 1% (0-3) 1% (0-3) Neutrophils # (Auto) 4.7x10^3uL (1.8-7.7) 3.9x10^3uL (1.8-7.7) Lymphocytes # (Auto) 1.0x10^3/uL (1.0-4.8) 0.8x10^3/uL (1.0-4.8) Monocytes # (Auto) 0.8x10^3/uL (0.0-1.1) 0.7x10^3/uL (0.0-1.1) Eosinophils # (Auto) 0.3x10^3/uL (0.0-0.7) 0.3x10^3/uL (0.0-0.7) Basophils # (Auto) 0.0x10^3/uL (0.0-0.2) 0.0x10^3/uL (0.0-0.2) Sodium Level 142mmol/L (136-145) 142mmol/L (136-145) Potassium Level 3.1mmol/L (3.5-5.1) 3.2mmol/L (3.5-5.1) Chloride Level 106mmol/L (98-107) 107mmol/L (98-107) Carbon Dioxide Level 30mmol/L (21-32) 30mmol/L (21-32) Anion Gap 6 (6-14) 5 (6-14) Blood Urea Nitrogen 12mg/dL (8-26) 10mg/dL (8-26) Creatinine 0.7mg/dL (0.7-1.3) 0.6mg/dL (0.7-1.3) Estimated GFR (Cockcroft-Gault) 115.0 137.4 Glucose Level 133mg/dL (70-99) 130mg/dL (70-99) Calcium Level 7.8mg/dL (8.5-10.1) 7.9mg/dL (8.5-10.1) Magnesium Level 2.1mg/dL (1.8-2.4) Laboratory Tests Test 11/06/16 06:20 White Blood Count 5.8x10^3/uL (4.0-11.0) Red Blood Count 2.95x10^6/uL (4.30-5.70) Hemoglobin 9.1g/dL (13.0-17.5) Hematocrit 27.1% (39.0-53.0) Mean Corpuscular Volume 92fL (79-100) Mean Corpuscular Hemoglobin 31pg (25-35) Mean Corpuscular Hemoglobin Concent 34g/dL (31-37) Red Cell Distribution Width 15.4% (11.5-14.5) Platelet Count 207x10^3/uL (140-400) Neutrophils (%) (Auto) 68% (31-73) Lymphocytes (%) (Auto) 15% (24-48) Monocytes (%) (Auto) 12% (0-9) Eosinophils (%) (Auto) 5% (0-3) Basophils (%) (Auto) 1% (0-3) Neutrophils # (Auto) 3.9x10^3uL (1.8-7.7) Lymphocytes # (Auto) 0.8x10^3/uL (1.0-4.8) Monocytes # (Auto) 0.7x10^3/uL (0.0-1.1) Eosinophils # (Auto) 0.3x10^3/uL (0.0-0.7) Basophils # (Auto) 0.0x10^3/uL (0.0-0.2) Sodium Level 142mmol/L (136-145) Potassium Level 3.2mmol/L (3.5-5.1) Chloride Level 107mmol/L (98-107) Carbon Dioxide Level 30mmol/L (21-32) Anion Gap 5 (6-14) Blood Urea Nitrogen 10mg/dL (8-26) Creatinine 0.6mg/dL (0.7-1.3) Estimated GFR (Cockcroft-Gault) 137.4 Glucose Level 130mg/dL (70-99) Calcium Level 7.9mg/dL (8.5-10.1) Path still pending. Medications Current Medications Sodium Chloride 3 ml 3 ml PRN DAILY PRN IV AFTER MEDS AND BLOOD DRAWS; Start at 21:30 Sodium Chloride (Iv Sodium Chloride 0.9% 1000ml Bag) 1,000 ml @ 100 mls/hr Q10H IV Last administered on 10/30/16t 00:27; Start 10/29/16 at 21:30; Stop at 07:29; Status DC Bisacodyl (Dulcolax Supp) 10 mg PRN DAILY PRN DC CONSTIPATION; Start 10/29/16 at 21:30 Enoxaparin Sodium (Lovenox 40mg Syringe) 40 mg Q24H SQ Last administered on 21:11; Start 10/29/16 at 22:00; Stop 10/31/16 at 08:28; Status DC Metoclopramide HCl (Reglan) 10 mg Q8HRS IV Last administered on 11/06/16 06:07 ; Start 10/29/16 at 22:00 Ondansetron HCl (Zofran) 4 mg PRN Q8HRS PRN IV NAUSEA/VOMITING Last administered on 10/31/16 00:09; Start 10/29/16 at 21:30; Stop 11/01/16 at 14:47 ; Status DC Pantoprazole Sodium (Protonix Vial) 40 mg DAILYAC IVP Last administered on 11/05 08:25; Start 10/30/16 at 07:30; Stop 11/05/16 at 11:13; Status DC Paroxetine HCl (Paxil) 10 mg DAILY PO ; Start 10/30/16 at 09:00; Stop 10/30/16 at 09:33; Status DC Acetaminophen/ Aspirin/Caffeine (Excedrin Migraine) 1 tab PRN BID PRN PO MIGRAINE HEADACHE Last administered on 10/29/16 23:46; Start 10/29/16 at 21:30 Acetaminophen (Tylenol) 650 mg PRN Q6HRS PRN PO MILD PAIN / TEMP Last administered on 11/04/16 17:39; Start 10/29/16 at 22:00 Iohexol (Omnipaque 300 Mg/ml) 75 ml 1X ONCE IV Last administered on 10/30/16 09:09; Start 10/30/16 at 06:45; Stop 10/30/16 at 06:46; Status DC Iohexol (Omnipaque 240 Mg/ml) 30 ml 1X ONCE PO Last administered on 10/30/16 06:45; Start 10/30/16 at 06:45; Stop 10/30/16 at 06:46; Status DC Info (Do NOT chart on this entry -- for MONITORING) 1 each PRN DAILY PRN MC SEE COMMENTS; Start 10/30/16 at 06:45; Stop 11/01/16 at 06:44; Status DC Paroxetine HCl (Paxil) 10 mg DAILY@18 PO Last administered on 3/15/17at 17:52; Start 10/30/16 at 18:00 Morphine Sulfate 2 mg PRN Q2HR PRN IV PAIN; Start 10/30/16 at 17:45; Stop 11/02 at 05:57; Status DC Ondansetron HCl (Zofran) 4 mg PRN Q6HRS PRN IV Nausea; Start 10/31/16 at 08:45 ; Stop 10/31/16 at 18:00; Status DC Fentanyl Citrate (Fentanyl 2ml Vial) 25 mcg PRN Q5MIN PRN IV MILD PAIN; Start 10/31/16 at 08:45; Stop 10/31/16 at 18:00; Status DC Fentanyl Citrate (Fentanyl 2ml Vial) 50 mcg PRN Q5MIN PRN IV MODERATE PAIN; Start 10/31/16 at 08:45; Stop 10/31/16 at 08:50; Status DC Morphine Sulfate 1 mg 1 mg PRN Q10MIN PRN IV SEVERE PAIN; Start 10/31/16 at 08: 45; Stop 10/31/16 at 18:00; Status DC Lactated Ringer's (Iv Lactated Ringers) 1,000 ml @ 30 mls/hr Q24H IV ; Start at 08:44; Stop 10/31/16 at 20:43; Status DC Lidocaine HCl 2 ml 1X PRN PRN ID IV START; Start 10/31/16 at 08:45; Stop at 18:00; Status DC Hydromorphone HCl (Dilaudid) 0.5 mg PRN Q10MIN PRN IV SEV PAIN,Second choice; Start 10/31/16 at 08:45; Stop 10/31/16 at 18:00; Status DC Prochlorperazine Edisylate 5 mg 5 mg PACU PRN PRN IV NAUSEA; Start 10/31/16 at 08:45; Stop 10/31/16 at 18:00; Status DC Cefoxitin Sodium (Mefoxin 2gm Ivpb For Omni) 100 ml @ 200 mls/hr 1X ONCE IV Last administered on 10/31/16t 13:16; Start 10/31/16 at 11:30; Stop 10/31/16 at 11:59; Status DC Sevoflurane (Ultane) 60 ml STK-MED ONCE IH ; Start 10/31/16 at 12:14; Stop 10/31 at 12:15; Status DC Fentanyl Citrate (Fentanyl 2ml Vial) 100 mcg STK-MED ONCE .ROUTE ; Start at 12:14; Stop 10/31/16 at 12:15; Status DC Rocuronium Greene 50 mg 50 mg STK-MED ONCE .ROUTE ; Start 10/31/16 at 12:14; Stop 10/31/16 at 12:15; Status DC Propofol (Diprivan) 20 ml @ As Directed STK-MED ONCE IV ; Start 10/31/16 at 12: 15; Stop 10/31/16 at 12:16; Status DC Dexamethasone Sodium Phosphate (Decadron) 20 mg STK-MED ONCE .ROUTE ; Start at 12:15; Stop 10/31/16 at 12:16; Status DC Ondansetron HCl (Zofran) 4 mg STK-MED ONCE .ROUTE ; Start 10/31/16 at 12:15; Stop 10/31/16 at 12:16; Status DC Lidocaine HCl 100 mg STK-MED ONCE .ROUTE ; Start 10/31/16 at 12:15; Stop at 12:16; Status DC Glycopyrrolate (Robinul) 1 mg STK-MED ONCE .ROUTE ; Start 10/31/16 at 12:40; Stop 10/31/16 at 12:41; Status DC Neostigmine Methylsulfate 5 mg STK-MED ONCE .ROUTE ; Start 10/31/16 at 12:40; Stop 10/31/16 at 12:41; Status DC Succinylcholine Chloride (Anectine) 200 mg STK-MED ONCE .ROUTE ; Start 10/31/16 at 13:04; Stop 10/31/16 at 13:05; Status DC Phenylephrine HCl 1 mg 1 mg STK-MED ONCE IV ; Start 10/31/16 at 13:14; Stop at 13:15; Status DC Albumin Human (Plasmanate) 500 ml @ As Directed STK-MED ONCE IV ; Start at 15:47; Stop 10/31/16 at 15:48; Status DC Rocuronium Greene (Zemuron) 100 mg STK-MED ONCE .ROUTE ; Start 10/31/16 at 15: 51; Stop 10/31/16 at 15:52; Status DC Fentanyl Citrate (Fentanyl 5ml Vial) 250 mcg STK-MED ONCE .ROUTE ; Start at 16:19; Stop 10/31/16 at 16:20; Status DC Sodium Chloride 3 ml 3 ml QSHIFT PRN IV AFTER MEDS AND BLOOD DRAWS; Start 10/31 at 17:30; Status UNV Hydromorphone HCl (Dilaudid Standard PM HEAD COOK) 30 ml @ 0 mls/hr CONT PRN PRN IV PROTOCOL Last administered on 11/03/16 20:21; Start 10/31/16 at 17:30 Hydromorphone HCl (Dilaudid) 0.4 mg PRN Q1HR PRN IV SEE COMMENTS; Start at 17:30; Stop 11/02/16 at 05:57; Status DC Ondansetron HCl (Zofran) 4 mg PRN Q6HRS PRN IV NAUESA, 1ST CHOICE Last administered on 11/05/16 18:27; Start 10/31/16 at 17:30 Metoclopramide HCl 10 mg 10 mg PRN Q6HRS PRN IV Nausea/Vomiting, 2nd Choice; Start 10/31/16 at 17:30 Sodium Chloride (Iv Sodium Chloride 0.9% 1000ml Bag) 1,000 ml @ 125 mls/hr 1X ONCE IV Last administered on 10/31/16 22:45; Start 10/31/16 at 17:30; Stop at 01:29; Status DC Enoxaparin Sodium 40 mg 40 mg Q24H SQ Last administered on 11/06/16 07:44; Start 11/01/16 at 09:00 Hydromorphone HCl 30 ml @ As Directed STK-MED ONCE IV ; Start 10/31/16 at 17:24 ; Stop 10/31/16 at 17:26; Status DC Sodium Chloride (Iv Sodium Chloride 0.9% 500ml Bag) 500 ml @ 500 mls/hr 1X ONCE IV Last administered on 10/31/16 22:00; Start 10/31/16 at 22:00; Stop at 22:59; Status DC Cefoxitin Sodium 2 gm 2 gm STK-MED ONCE IV ; Start 10/31/16 at 16:00; Stop 11/01 at 08:43; Status DC Sodium Chloride 1,000 ml @ 1,000 mls/hr 1X ONCE IV Last administered on 14:00; Start 11/01/16 at 14:00; Stop 11/01/16 at 14:59; Status DC Sodium Chloride 1,000 ml @ 125 mls/hr 1X ONCE IV Last administered on 17:51; Start 11/01/16 at 14:00; Stop 11/01/16 at 21:59; Status DC Sodium Chloride 1,000 ml @ 1,000 mls/hr 1X ONCE IV Last administered on 13:14; Start 11/02/16 at 11:45; Stop 11/02/16 at 12:44; Status DC Amino Acids/ Glycerin/ Electrolytes (Procalamine) 1,000 ml @ 80 mls/hr [id number] IV Last administered on 11/04/16 03:00; Start 11/03/16 at 09:30; Stop at 07:57; Status DC Albuterol/ Ipratropium (Duoneb) 3 ml RTQID NEB Last administered on 11/05/16 07:53; Start 11/04/16 at 12:00; Stop 11/05/16 at 12:32; Status DC Albuterol Sulfate (Ventolin Neb Soln) 2.5 mg PRN Q4HRS PRN NEB SHORTNESS OF BREATH; Start 11/04/16 at 11:00 Lidocaine/Sodium Bicarbonate (Buffered Lidocaine 1%) 3 ml 1X ONCE IJ Last administered on 11/04/16 14:51; Start 11/04/16 at 14:00; Stop 11/04/16 at 14:01 ; Status DC Heparin Sodium/ Sodium Chloride 60 unit 1X ONCE IV Last administered on 14:52; Start 11/04/16 at 14:00; Stop 11/04/16 at 14:01; Status DC Guaifenesin 200 mg 200 mg PRN Q6HRS PRN PO COUGH; Start 11/04/16 at 16:15 Amino Acids/ Electrolytes (Clinimix E 2.75%-5% Solution) 2,000 ml @ 80 mls/hr Q24H IV Last administered on 11/06/16 09:08; Start 11/05/16 at 08:00 Pantoprazole Sodium (Protonix) 40 mg DAILYAC PO ; Start 11/06/16 at 07:30 Potassium Chloride (Klor-Con) 40 meq 1X ONCE PO ; Start 11/05/16 at 11:15; Stop 11/05/16 at 12:58; Status DC Polyethylene Glycol (miraLAX PACKET) 17 gm PRN DAILY PRN PO CONSTIPATION Last administered on 11/05/16 12:37; Start 11/05/16 at 11:15 Albuterol/ Ipratropium 3 ml 3 ml PRN DAILY PRN NEB SHORTNESS OF BREATH; Start 11/05/16 at 12:30; Stop 11/05/16 at 12:47; Status DC Potassium Chloride 50 ml @ 50 mls/hr Q1H IV Last administered on 11/05/16 15: 10; Start 11/05/16 at 13:30; Stop 11/05/16 at 15:29; Status DC Potassium Chloride 50 ml @ 25 mls/hr Q2H IV Last administered on 11/06/16 09: 09; Start 11/06/16 at 09:00; Stop 11/06/16 at 12:59 Potassium Chloride (KCl Premix 20meq) 50 ml @ 25 mls/hr Q2H IV ; Start 11/06/16 at 14:00; Stop 11/06/16 at 17:59 Vitals/I & O Vital Sign - Last 24 Hours 11/05/16 11/05/16 11/05/16 11/05/16 11:00 15:00 19:35 20:00 Temp 97.8 98.2 98.9 97.8 98.2 98.9 Pulse 91 80 87 Resp 18 18 18 B/P 148/78 147/78 121/66 Pulse Ox 98 100 97 O2 Delivery Room Air Room Air Room Air Room Air 11/05/16 11/06/16 11/06/16 11/06/16 23:35 03:35 07:22 07:48 Temp 98.8 98.7 97.7 98.8 98.7 97.7 Pulse 69 74 75 Resp 18 18 18 B/P 131/81 108/63 116/65 Pulse Ox 96 95 98 O2 Delivery Room Air Room Air Room Air Room Air Intake and Output 11/05/16 11/05/16 11/06/16 15:00 23:00 07:00 Intake Total 0 ml Output Total 860 ml 1170 ml Balance -860 ml -1170 ml Problem List Problems Medical Problems: (1) Intractable vomiting Status: Acute (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 Ileus improving. Plan of Care: Continue current Tx, Mgmt Plan of Care Note Await path. ROBINSON RAMOS MD Nov 06, 2016 10:22
--- NOTE | 2016-11-06 10:34 | PDOC ---
CARDIO Progress Notes Date and Time Date of Service 11/06/2016 Time of Evaluation 1031 Subjective Subjective: No Chest Pain, No shortness of breath, No Palpitations, No Dizziness, Other (nausea) Vitals Vitals Vital Signs Date Time Temp Pulse Resp B/P Pulse Ox O2 Delivery O2 Flow Rate FiO2 11/06/16 07:48 Room Air 11/06/16 07:22 97.7 75 18 116/65 98 97.7 Weight Weight [ ] Input and Output Intake and Output Intake and Output 11/06/16 07:00 Intake Total 0 ml Output Total 2030 ml Balance -2030 ml Intake Oral 0 ml Output Urine Total 1700 ml Drainage Total 330 ml # Voids 2 # Bowel Movements 2 Laboratory Labs Laboratory Tests Test 11/06/16 06:20 White Blood Count 5.8x10^3/uL (4.0-11.0) Red Blood Count 2.95x10^6/uL (4.30-5.70) Hemoglobin 9.1g/dL (13.0-17.5) Hematocrit 27.1% (39.0-53.0) Mean Corpuscular Volume 92fL (79-100) Mean Corpuscular Hemoglobin 31pg (25-35) Mean Corpuscular Hemoglobin Concent 34g/dL (31-37) Red Cell Distribution Width 15.4% (11.5-14.5) Platelet Count 207x10^3/uL (140-400) Neutrophils (%) (Auto) 68% (31-73) Lymphocytes (%) (Auto) 15% (24-48) Monocytes (%) (Auto) 12% (0-9) Eosinophils (%) (Auto) 5% (0-3) Basophils (%) (Auto) 1% (0-3) Neutrophils # (Auto) 3.9x10^3uL (1.8-7.7) Lymphocytes # (Auto) 0.8x10^3/uL (1.0-4.8) Monocytes # (Auto) 0.7x10^3/uL (0.0-1.1) Eosinophils # (Auto) 0.3x10^3/uL (0.0-0.7) Basophils # (Auto) 0.0x10^3/uL (0.0-0.2) Sodium Level 142mmol/L (136-145) Potassium Level 3.2mmol/L (3.5-5.1) Chloride Level 107mmol/L (98-107) Carbon Dioxide Level 30mmol/L (21-32) Anion Gap 5 (6-14) Blood Urea Nitrogen 10mg/dL (8-26) Creatinine 0.6mg/dL (0.7-1.3) Estimated GFR (Cockcroft-Gault) 137.4 Glucose Level 130mg/dL (70-99) Calcium Level 7.9mg/dL (8.5-10.1) Physical Exam HEENT: Neck Supple W Full Motion Chest: Symmetric LUNGS: Clear to Auscultation Heart: S1S2, other (tele with atrial fib and intermittent RVR) Abdomen: Other (dressing on abdominal incision ) Extremities: Negative Darvin's Sign Neurology: alert, oriented, follow commands Assessment Assessment 1. PAF with RVR, new echo without significant findings and preserved LV function has declined to wear tele monitor AFib with RVR yesterday evening remains hypokalemic today @ 3.2; no response to K riders yesterday; to receive total of 80 mEq today Mg was 2.1 yesterday 2. small bowel mass s/p surgical resection ? malignancy increase activity KATI GORDON APRN Nov 06, 2016 10:34
[2016-11-06 10:51] VITALS: BP 138/70
[2016-11-06] MEDS: PAROXETINE 10 MG TABLET. PO SCH (11:09)
--- NOTE | 2016-11-06 12:21 | PDOC ---
PROGRESS NOTES Chief Complaint Chief Complaint A/P Small bowel obstructions, small intestinal mass, s/p exploratory laparotomy, s/ p small bowel resection with a duodenojejunal anastomosis on 10/31/16 ? 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 vomited x1 on 10/27 encourage pt to move, but saying still feels very nausea, no vomiting now and weak k still low Vitals Vitals Vital Signs Date Time Temp Pulse Resp B/P Pulse Ox O2 Delivery O2 Flow Rate FiO2 11/06/16 10:51 98.1 77 18 138/70 96 Room Air 98.1 Physical Exam General: Alert, Oriented X3, Cooperative, No acute distress Heart: Normal S1, Normal S2 Lungs: Clear Abdomen: Soft Extremities: No edema, Normal pulses Skin: No rashes Labs LABS Laboratory Tests Test 11/06/16 06:20 White Blood Count 5.8x10^3/uL (4.0-11.0) Red Blood Count 2.95x10^6/uL (4.30-5.70) Hemoglobin 9.1g/dL (13.0-17.5) Hematocrit 27.1% (39.0-53.0) Mean Corpuscular Volume 92fL (79-100) Mean Corpuscular Hemoglobin 31pg (25-35) Mean Corpuscular Hemoglobin Concent 34g/dL (31-37) Red Cell Distribution Width 15.4% (11.5-14.5) Platelet Count 207x10^3/uL (140-400) Neutrophils (%) (Auto) 68% (31-73) Lymphocytes (%) (Auto) 15% (24-48) Monocytes (%) (Auto) 12% (0-9) Eosinophils (%) (Auto) 5% (0-3) Basophils (%) (Auto) 1% (0-3) Neutrophils # (Auto) 3.9x10^3uL (1.8-7.7) Lymphocytes # (Auto) 0.8x10^3/uL (1.0-4.8) Monocytes # (Auto) 0.7x10^3/uL (0.0-1.1) Eosinophils # (Auto) 0.3x10^3/uL (0.0-0.7) Basophils # (Auto) 0.0x10^3/uL (0.0-0.2) Sodium Level 142mmol/L (136-145) Potassium Level 3.2mmol/L (3.5-5.1) Chloride Level 107mmol/L (98-107) Carbon Dioxide Level 30mmol/L (21-32) Anion Gap 5 (6-14) Blood Urea Nitrogen 10mg/dL (8-26) Creatinine 0.6mg/dL (0.7-1.3) Estimated GFR (Cockcroft-Gault) 137.4 Glucose Level 130mg/dL (70-99) Calcium Level 7.9mg/dL (8.5-10.1) Review of Systems Review of Systems no fever, chills, sob or chest pain Assessment and Plan Assessmemt and Plan Problems Medical Problems: (1) Intractable vomiting Status: Acute (2) Small intestine cancer Status: Acute Problems: Comment Review of Relevant I have reviewed the following items pako (where applicable) has been applied. Labs Laboratory Tests Test 11/05/16 06:06 11/06/16 06:20 White Blood Count 6.8x10^3/uL (4.0-11.0) 5.8x10^3/uL (4.0-11.0) Red Blood Count 3.01x10^6/uL (4.30-5.70) 2.95x10^6/uL (4.30-5.70) Hemoglobin 9.3g/dL (13.0-17.5) 9.1g/dL (13.0-17.5) Hematocrit 27.8% (39.0-53.0) 27.1% (39.0-53.0) Mean Corpuscular Volume 92fL (79-100) 92fL (79-100) Mean Corpuscular Hemoglobin 31pg (25-35) 31pg (25-35) Mean Corpuscular Hemoglobin Concent 33g/dL (31-37) 34g/dL (31-37) Red Cell Distribution Width 15.8% (11.5-14.5) 15.4% (11.5-14.5) Platelet Count 240x10^3/uL (140-400) 207x10^3/uL (140-400) Neutrophils (%) (Auto) 68% (31-73) 68% (31-73) Lymphocytes (%) (Auto) 15% (24-48) 15% (24-48) Monocytes (%) (Auto) 12% (0-9) 12% (0-9) Eosinophils (%) (Auto) 5% (0-3) 5% (0-3) Basophils (%) (Auto) 1% (0-3) 1% (0-3) Neutrophils # (Auto) 4.7x10^3uL (1.8-7.7) 3.9x10^3uL (1.8-7.7) Lymphocytes # (Auto) 1.0x10^3/uL (1.0-4.8) 0.8x10^3/uL (1.0-4.8) Monocytes # (Auto) 0.8x10^3/uL (0.0-1.1) 0.7x10^3/uL (0.0-1.1) Eosinophils # (Auto) 0.3x10^3/uL (0.0-0.7) 0.3x10^3/uL (0.0-0.7) Basophils # (Auto) 0.0x10^3/uL (0.0-0.2) 0.0x10^3/uL (0.0-0.2) Sodium Level 142mmol/L (136-145) 142mmol/L (136-145) Potassium Level 3.1mmol/L (3.5-5.1) 3.2mmol/L (3.5-5.1) Chloride Level 106mmol/L (98-107) 107mmol/L (98-107) Carbon Dioxide Level 30mmol/L (21-32) 30mmol/L (21-32) Anion Gap 6 (6-14) 5 (6-14) Blood Urea Nitrogen 12mg/dL (8-26) 10mg/dL (8-26) Creatinine 0.7mg/dL (0.7-1.3) 0.6mg/dL (0.7-1.3) Estimated GFR (Cockcroft-Gault) 115.0 137.4 Glucose Level 133mg/dL (70-99) 130mg/dL (70-99) Calcium Level 7.8mg/dL (8.5-10.1) 7.9mg/dL (8.5-10.1) Magnesium Level 2.1mg/dL (1.8-2.4) Laboratory Tests Test 11/06/16 06:20 White Blood Count 5.8x10^3/uL (4.0-11.0) Red Blood Count 2.95x10^6/uL (4.30-5.70) Hemoglobin 9.1g/dL (13.0-17.5) Hematocrit 27.1% (39.0-53.0) Mean Corpuscular Volume 92fL (79-100) Mean Corpuscular Hemoglobin 31pg (25-35) Mean Corpuscular Hemoglobin Concent 34g/dL (31-37) Red Cell Distribution Width 15.4% (11.5-14.5) Platelet Count 207x10^3/uL (140-400) Neutrophils (%) (Auto) 68% (31-73) Lymphocytes (%) (Auto) 15% (24-48) Monocytes (%) (Auto) 12% (0-9) Eosinophils (%) (Auto) 5% (0-3) Basophils (%) (Auto) 1% (0-3) Neutrophils # (Auto) 3.9x10^3uL (1.8-7.7) Lymphocytes # (Auto) 0.8x10^3/uL (1.0-4.8) Monocytes # (Auto) 0.7x10^3/uL (0.0-1.1) Eosinophils # (Auto) 0.3x10^3/uL (0.0-0.7) Basophils # (Auto) 0.0x10^3/uL (0.0-0.2) Sodium Level 142mmol/L (136-145) Potassium Level 3.2mmol/L (3.5-5.1) Chloride Level 107mmol/L (98-107) Carbon Dioxide Level 30mmol/L (21-32) Anion Gap 5 (6-14) Blood Urea Nitrogen 10mg/dL (8-26) Creatinine 0.6mg/dL (0.7-1.3) Estimated GFR (Cockcroft-Gault) 137.4 Glucose Level 130mg/dL (70-99) Calcium Level 7.9mg/dL (8.5-10.1) Medications Current Medications Sodium Chloride 3 ml 3 ml PRN DAILY PRN IV AFTER MEDS AND BLOOD DRAWS; Start at 21:30 Sodium Chloride (Iv Sodium Chloride 0.9% 1000ml Bag) 1,000 ml @ 100 mls/hr Q10H IV Last administered on 10/30/16 00:27; Start 10/29/16 at 21:30; Stop at 07:29; Status DC Bisacodyl (Dulcolax Supp) 10 mg PRN DAILY PRN PA CONSTIPATION; Start 10/29/16 at 21:30 Enoxaparin Sodium (Lovenox 40mg Syringe) 40 mg Q24H SQ Last administered on 21:11; Start 10/29/16 at 22:00; Stop 10/31/16 at 08:28; Status DC Metoclopramide HCl (Reglan) 10 mg Q8HRS IV Last administered on 11/06/16 06:07 ; Start 10/29/16 at 22:00; Stop 11/06/16 at 11:01; Status DC Ondansetron HCl (Zofran) 4 mg PRN Q8HRS PRN IV NAUSEA/VOMITING Last administered on 10/31/16 00:09; Start 10/29/16 at 21:30; Stop 11/01/16 at 14:47 ; Status DC Pantoprazole Sodium (Protonix Vial) 40 mg DAILYAC IVP Last administered on 11/05 08:25; Start 10/30/16 at 07:30; Stop 11/05/16 at 11:13; Status DC Paroxetine HCl (Paxil) 10 mg DAILY PO ; Start 10/30/16 at 09:00; Stop 10/30/16 at 09:33; Status DC Acetaminophen/ Aspirin/Caffeine (Excedrin Migraine) 1 tab PRN BID PRN PO MIGRAINE HEADACHE Last administered on 10/29/16 23:46; Start 10/29/16 at 21:30 Acetaminophen (Tylenol) 650 mg PRN Q6HRS PRN PO MILD PAIN / TEMP Last administered on 11/04/16 17:39; Start 10/29/16 at 22:00 Iohexol (Omnipaque 300 Mg/ml) 75 ml 1X ONCE IV Last administered on 10/30/16 09:09; Start 10/30/16 at 06:45; Stop 10/30/16 at 06:46; Status DC Iohexol (Omnipaque 240 Mg/ml) 30 ml 1X ONCE PO Last administered on 10/30/16 06:45; Start 10/30/16 at 06:45; Stop 10/30/16 at 06:46; Status DC Info (Do NOT chart on this entry -- for MONITORING) 1 each PRN DAILY PRN MC SEE COMMENTS; Start 10/30/16 at 06:45; Stop 11/01/16 at 06:44; Status DC Paroxetine HCl (Paxil) 10 mg DAILY@18 PO Last administered on 10/30/16 17:52; Start 10/30/16 at 18:00 Morphine Sulfate 2 mg PRN Q2HR PRN IV PAIN; Start 10/30/16 at 17:45; Stop 11/02 at 05:57; Status DC Ondansetron HCl (Zofran) 4 mg PRN Q6HRS PRN IV Nausea; Start 10/31/16 at 08:45 ; Stop 10/31/16 at 18:00; Status DC Fentanyl Citrate (Fentanyl 2ml Vial) 25 mcg PRN Q5MIN PRN IV MILD PAIN; Start 10/31/16 at 08:45; Stop 10/31/16 at 18:00; Status DC Fentanyl Citrate (Fentanyl 2ml Vial) 50 mcg PRN Q5MIN PRN IV MODERATE PAIN; Start 10/31/16 at 08:45; Stop 10/31/16 at 08:50; Status DC Morphine Sulfate 1 mg 1 mg PRN Q10MIN PRN IV SEVERE PAIN; Start 10/31/16 at 08: 45; Stop 10/31/16 at 18:00; Status DC Lactated Ringer's (Iv Lactated Ringers) 1,000 ml @ 30 mls/hr Q24H IV ; Start at 08:44; Stop 10/31/16 at 20:43; Status DC Lidocaine HCl 2 ml 1X PRN PRN ID IV START; Start 10/31/16 at 08:45; Stop at 18:00; Status DC Hydromorphone HCl (Dilaudid) 0.5 mg PRN Q10MIN PRN IV SEV PAIN,Second choice; Start 10/31/16 at 08:45; Stop 10/31/16 at 18:00; Status DC Prochlorperazine Edisylate 5 mg 5 mg PACU PRN PRN IV NAUSEA; Start 10/31/16 at 08:45; Stop 10/31/16 at 18:00; Status DC Cefoxitin Sodium (Mefoxin 2gm Ivpb For Omni) 100 ml @ 200 mls/hr 1X ONCE IV Last administered on 10/31/16t 13:16; Start 10/31/16 at 11:30; Stop 10/31/16 at 11:59; Status DC Sevoflurane (Ultane) 60 ml STK-MED ONCE IH ; Start 10/31/16 at 12:14; Stop 10/31 at 12:15; Status DC Fentanyl Citrate (Fentanyl 2ml Vial) 100 mcg STK-MED ONCE .ROUTE ; Start at 12:14; Stop 10/31/16 at 12:15; Status DC Rocuronium [place] 50 mg 50 mg STK-MED ONCE .ROUTE ; Start 10/31/16 at 12:14; Stop 10/31/16 at 12:15; Status DC Propofol (Diprivan) 20 ml @ As Directed STK-MED ONCE IV ; Start 10/31/16 at 12: 15; Stop 10/31/16 at 12:16; Status DC Dexamethasone Sodium Phosphate (Decadron) 20 mg STK-MED ONCE .ROUTE ; Start at 12:15; Stop 3/16/17 at 12:16; Status DC Ondansetron HCl (Zofran) 4 mg STK-MED ONCE .ROUTE ; Start 10/31/16 at 12:15; Stop 10/31/16 at 12:16; Status DC Lidocaine HCl 100 mg STK-MED ONCE .ROUTE ; Start 10/31/16 at 12:15; Stop at 12:16; Status DC Glycopyrrolate (Robinul) 1 mg STK-MED ONCE .ROUTE ; Start 10/31/16 at 12:40; Stop 10/31/16 at 12:41; Status DC Neostigmine Methylsulfate 5 mg STK-MED ONCE .ROUTE ; Start 10/31/16 at 12:40; Stop 10/31/16 at 12:41; Status DC Succinylcholine Chloride (Anectine) 200 mg STK-MED ONCE .ROUTE ; Start 10/31/16 at 13:04; Stop 10/31/16 at 13:05; Status DC Phenylephrine HCl 1 mg 1 mg STK-MED ONCE IV ; Start 10/31/16 at 13:14; Stop at 13:15; Status DC Albumin Human (Plasmanate) 500 ml @ As Directed STK-MED ONCE IV ; Start at 15:47; Stop 10/31/16 at 15:48; Status DC Rocuronium [place] (Zemuron) 100 mg STK-MED ONCE .ROUTE ; Start 10/31/16 at 15: 51; Stop 10/31/16 at 15:52; Status DC Fentanyl Citrate (Fentanyl 5ml Vial) 250 mcg STK-MED ONCE .ROUTE ; Start at 16:19; Stop 10/31/16 at 16:20; Status DC Sodium Chloride 3 ml 3 ml QSHIFT PRN IV AFTER MEDS AND BLOOD DRAWS; Start 10/31 at 17:30; Status UNV Hydromorphone HCl (Dilaudid Standard GRADUATE TEACHING ASSISTANT) 30 ml @ 0 mls/hr CONT PRN PRN IV PROTOCOL Last administered on 11/03/16t 20:21; Start 10/31/16 at 17:30 Hydromorphone HCl (Dilaudid) 0.4 mg PRN Q1HR PRN IV SEE COMMENTS; Start at 17:30; Stop 11/02/16 at 05:57; Status DC Ondansetron HCl (Zofran) 4 mg PRN Q6HRS PRN IV NAUESA, 1ST CHOICE Last administered on 11/05/16 18:27; Start 10/31/16 at 17:30 Metoclopramide HCl 10 mg 10 mg PRN Q6HRS PRN IV Nausea/Vomiting, 2nd Choice; Start 10/31/16 at 17:30 Sodium Chloride (Iv Sodium Chloride 0.9% 1000ml Bag) 1,000 ml @ 125 mls/hr 1X ONCE IV Last administered on 10/31/16 22:45; Start 10/31/16 at 17:30; Stop at 01:29; Status DC Enoxaparin Sodium 40 mg 40 mg Q24H SQ Last administered on 11/06/16 07:44; Start 11/01/16 at 09:00 Hydromorphone HCl 30 ml @ As Directed STK-MED ONCE IV ; Start 10/31/16 at 17:24 ; Stop 10/31/16 at 17:26; Status DC Sodium Chloride (Iv Sodium Chloride 0.9% 500ml Bag) 500 ml @ 500 mls/hr 1X ONCE IV Last administered on 10/31/16 22:00; Start 10/31/16 at 22:00; Stop at 22:59; Status DC Cefoxitin Sodium 2 gm 2 gm STK-MED ONCE IV ; Start 10/31/16 at 16:00; Stop 11/01 at 08:43; Status DC Sodium Chloride 1,000 ml @ 1,000 mls/hr 1X ONCE IV Last administered on 14:00; Start 11/01/16 at 14:00; Stop 11/01/16 at 14:59; Status DC Sodium Chloride 1,000 ml @ 125 mls/hr 1X ONCE IV Last administered on 17:51; Start 11/01/16 at 14:00; Stop 11/01/16 at 21:59; Status DC Sodium Chloride 1,000 ml @ 1,000 mls/hr 1X ONCE IV Last administered on 13:14; Start 11/02/16 at 11:45; Stop 11/02/16 at 12:44; Status DC Amino Acids/ Glycerin/ Electrolytes (Procalamine) 1,000 ml @ 80 mls/hr [id number] IV Last administered on 11/04/16 03:00; Start 11/03/16 at 09:30; Stop at 07:57; Status DC Albuterol/ Ipratropium (Duoneb) 3 ml RTQID NEB Last administered on 11/05/16 07:53; Start 11/04/16 at 12:00; Stop 11/05/16 at 12:32; Status DC Albuterol Sulfate (Ventolin Neb Soln) 2.5 mg PRN Q4HRS PRN NEB SHORTNESS OF BREATH; Start 11/04/16 at 11:00 Lidocaine/Sodium Bicarbonate (Buffered Lidocaine 1%) 3 ml 1X ONCE IJ Last administered on 11/04/16 14:51; Start 11/04/16 at 14:00; Stop 11/04/16 at 14:01 ; Status DC Heparin Sodium/ Sodium Chloride 60 unit 1X ONCE IV Last administered on 14:52; Start 11/04/16 at 14:00; Stop 11/04/16 at 14:01; Status DC Guaifenesin 200 mg 200 mg PRN Q6HRS PRN PO COUGH; Start 11/04/16 at 16:15 Amino Acids/ Electrolytes (Clinimix E 2.75%-5% Solution) 2,000 ml @ 80 mls/hr Q24H IV Last administered on 11/06/16 09:08; Start 11/05/16 at 08:00 Pantoprazole Sodium (Protonix) 40 mg DAILYAC PO ; Start 11/06/16 at 07:30 Potassium Chloride (Klor-Con) 40 meq 1X ONCE PO ; Start 11/05/16 at 11:15; Stop 11/05/16 at 12:58; Status DC Polyethylene Glycol (miraLAX PACKET) 17 gm PRN DAILY PRN PO CONSTIPATION Last administered on 11/05/16 12:37; Start 11/05/16 at 11:15 Albuterol/ Ipratropium 3 ml 3 ml PRN DAILY PRN NEB SHORTNESS OF BREATH; Start 11/05/16 at 12:30; Stop 11/05/16 at 12:47; Status DC Potassium Chloride 50 ml @ 50 mls/hr Q1H IV Last administered on 11/05/16 15: 10; Start 11/05/16 at 13:30; Stop 11/05/16 at 15:29; Status DC Potassium Chloride 50 ml @ 25 mls/hr Q2H IV Last administered on 11/06/16 11: 23; Start 11/06/16 at 09:00; Stop 11/06/16 at 12:59 Potassium Chloride (KCl Premix 20meq) 50 ml @ 25 mls/hr Q2H IV ; Start 11/06/16 at 14:00; Stop 11/06/16 at 17:59 Vitals/I & O Vital Sign - Last 24 Hours 11/05/16 11/05/16 11/05/16 11/05/16 15:00 19:35 20:00 23:35 Temp 98.2 98.9 98.8 98.2 98.9 98.8 Pulse 80 87 69 Resp 18 B/P 147/78 121/66 131/81 Pulse Ox 100 97 96 O2 Delivery Room Air Room Air Room Air Room Air 11/06/16 11/06/16 11/06/16 11/06/16 03:35 07:22 07:48 10:51 Temp 98.7 97.7 98.1 98.7 97.7 98.1 Pulse 74 75 77 Resp 18 B/P 108/63 116/65 138/70 Pulse Ox 95 98 96 O2 Delivery Room Air Room Air Room Air Room Air Intake and Output 11/05/16 11/05/16 11/06/16 15:00 23:00 07:00 Intake Total 0 ml Output Total 860 ml 1170 ml Balance -860 ml -1170 ml Nutrition Consultation Dietary Evaluation: Recommendations by RD: PPN/TPN Comments: continue ppn at this time Expected Outcomes/Goals: diet adv/ tolerance Interpretation of weight loss: >5% in 1 month Malnutrition Findings: Food and Nutrition Intake (Sev: <50% est energy req 5days 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
--- NOTE | 2016-11-06 13:35 | PDOC ---
Provider Note Provider Note feels nauseated with sips of water. no sig abd pain. +bm yest afeb vss wbc normal appears well, not toxic or ill appearing abd soft nd nt inc clean. lower part of wound repacked due to small amt of serous drainage. fredy serous a/p pod #6 xlap, sbr. cont sips/chips due to nausea. not surprised that he is unable to take po yet--the mass was obstructing and had resulted in longstanding gastric and duodenal obstruction with sig distention of duodenum/ stomach. will take time for motility to recover. REAL CAGE MD Nov 06, 2016 13:35
--- NOTE | 2016-11-06 14:20 | PATHOLOGY ---
PATHOLOGY REPORT * * * * * * * * FINAL DIAGNOSIS: Segment of small bowel and mesentery, proximal jejunum segmental resection: - INVASIVE ADENOCARCINOMA OF SMALL BOWEL, POORLY DIFFERENTIATED, FORMING A SEGMENTAL ULCERATED NODULAR TUMOR MASS MEASURING UP TO 12 CM IN LENGTH, WITH TUMOR INVASION THROUGH MUSCULARIS PROPRIA INTO SUBSEROSA AND EXTENSIVE TUMOR INVASION OF MESENTERY. - LYMPHOVASCULAR TUMOR INVASION IDENTIFIED. 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 - Proximal and distal margins of resection negative for tumor. - Focal adhesed segment of sigmoid mesocolon. (JPM:csd; d/t: 11/05/2016) Clinical History: Not known: . Specimen: Jejunum Procedure: Segmental resection Tumor Site: Jejunum Macroscopic Tumor Perforation: Not identified: . Histologic Type: Adenocarcinoma (not otherwise characterized) Histologic Grade: G3: Poorly differentiated Tumor Size: Greatest dimension: 12 cm Microscopic Tumor Extension: Tumor invades through the muscularis propria into the subserosal adipose tissue or the nonperitonealized george-intestinal soft tissues but does not extend to the serosal surface All margins uninvolved by invasive carcinoma Distance of invasive carcinoma from closest margin: 7 cm Closest margin: Proximal margin Proximal Margin: Uninvolved by invasive carcinoma Intramucosal carcinoma/adenoma not identified at proximal margin: . Distal Margin: Uninvolved by invasive carcinoma Intramucosal carcinoma/adenoma not identified at distal margin: . MARGIN: Uninvolved by invasive carcinoma Other Margin(s): Uninvolved by invasive carcinoma Lymph-Vascular Invasion: Present Primary Tumor (pT): pT3: Tumor invades through the muscularis propria into the subserosa or into the nonperitonealized perimuscular tissue (mesentery or retroperitoneum) with extension 2 cm or less Regional Lymph Nodes (pN): pN2: Metastasis in 4 or more regional lymph nodes Number examined: 12 Number involved: 5 Distant Metastasis: Not applicable: . Additional Pathologic Findings: None identified REPORT ELECTRONICALLY SIGNED BY: Alessio Ahumada M.D. DATE/TIME: 11/06/2016 14:19 * * * * * * * * GROSS PATHOLOGY: The specimen is received in formalin and is designated "proximal jejunum." This consists of a curved segment of small intestine with attached mesentery. The proximal end is open. The distal end is stapled closed. The segment measures 50 cm in length. The central mesentery measures up to approximately 8 cm in depth. Approximately 18 cm from the proximal margin, there is a slightly constricted area of small bowel. This is associated with a palpable mass within the small intestine. The serosa is pinkish brown and erythematous. The palpable mass within the small bowel begins approximately 7 cm from the proximal margin and appears to measure up to 12 cm in length. The antimesocolic serosa corresponding to the mass reveals multiple small and focally confluent caceres nodules. There is a segment of shaggy adipose tissue adherent to the antimesenteric serosa measuring up to 6.0 x 5.0 cm. There is a partially sutured and stapled defect of the small bowel approximately 14 cm from the distal margin. There is nodular induration of the central mesentery associated with the small bowel mass. The specimen is opened along the antimesenteric aspect. The small bowel mass has an irregular pink-caceres to brown ulcerated nodular appearance with corresponding thickening and induration of the bowel wall. The tumor appears to have a piedra-caceres cut surface with scattered pale chalky areas of probable necrosis. On sectioning, the small bowel mass appears to be contiguous with extensive tumor within the adjacent mesentery where the tumor involvement of the mesentery measures up to approximately 8 cm. Within the deeper part of the mesentery, there are fairly well circumscribed yellowish caceres nodules suspicious for tumor involving lymph nodes. A open claims representative portion of the proximal small bowel tumor is submitted for frozen section in cassette A1. (JPM:; d/t: 10/31/16) After adequate fixation, the remainder the specimen is examined to reveal light caceres mucosa with normal architectural folds. No additional nodules or lesions are noted of the mucosa. Sectioning through the attached mesenteric fat reveals multiple necrotic-appearing to tumor-replaced lymph nodes ranging in size from 0.5 to 2.1 cm in maximum dimensions. The mucosa of the attached segment of small bowel is light caceres in appearance with normal architectural folds and no grossly distinct nodules or lesions. The serosal surface is dusky piedra-caceres appearance. Both margins are stapled closed. The specimen is submitted representatively as follows: A2 proximal margin, en face A3 distal margin, en face A4-A8 open claims representative sections of mass A9 open claims representative section of mucosa with overlying white-caceres nodules A10 uninvolved mucosa of segment with mass present A11 margins from attached segment of small bowel A12 cross-section mucosa from attached segment of small bowel A13-A15 open claims representative sections of lymph nodes A16-A19 open claims representative sections of tumor-involved lymph nodes. (CAA:patrick; 11/01/2016) FROZEN SECTION DIAGNOSIS: (Jose Ahumada M.D.) Segment of small intestine and attached mesentery, proximal jejunum segmental resection: - INVASIVE POORLY DIFFERENTIATED ADENOCARCINOMA OF SMALL BOWEL, WITH TUMOR INVASION THROUGH MUSCULAR WALL INTO MESENTERY, AND TUMOR INVOLVEMENT OF MESENTERIC NODES. PROXIMAL AND DISTAL MARGINS CLEAR. (JPM:mgr:patrick; d/t: 10/31/16) The results are displayed to Dr. Martini in the operating room. The specimen is fixed in formalin prior to additional sectioning. Testing performed [place] [facility] [address] INITIAL CPT CODE(S): A; 79655, 52407 Professional services [place] [address] Technical services performed by [facility] at [address] [place] [address], [place] [address]. SPECIMEN(S) RECEIVED: A.Small bowel CLINICAL HISTORY: Small bowel tumor PATIENT: MAHAD REARDON /AGE: 11 1955 (Age: 61) PATIENT #: [id number] ALT CASE #: SPECIMEN COLLECTION DATE: 10/31/2016 SPECIMEN RECEIVED DATE: 10/31/2016 [facility] - [id number] [place] [address] - PHONE: [phone] * * * END OF REPORT * * *
[2016-11-06] MEDS: ONDANSETRON PF 4 MG/2 ML VIAL. IV PRN ×2 (14:48→21:29)
[2016-11-06] MEDS: HYDROMORPHONE STANDARD PCA 30 ML IV PRN (14:48)
[2016-11-06 15:04] VITALS: BP 146/90
[2016-11-06] MEDS: METOCLOPRAMIDE HCL 10 MG/2 ML VIAL. IV PRN ×2 (15:41→22:03)
[2016-11-06 19:35] VITALS: BP 119/75
[2016-11-06 23:35] VITALS: BP 129/82
[2016-11-07 03:40] VITALS: BP 123/88
[2016-11-07 07:00] VITALS: BP 128/74
[2016-11-07 07:07] LABS: CALCIUM 8.3 mg/dL (8.5-10.1); CREATININE 0.7 mg/dL (0.7-1.3); POTASSIUM 4.4 mmol/L (3.5-5.1)
[2016-11-07] MEDS: PANTOPRAZOLE 40 MG TABLET. PO SCH ×2 (07:30→08:25)
[2016-11-07] MEDS: DO NOT USE 40 MG/0.4 ML DISP.SYRIN SQ SCH (08:26)
[2016-11-07] MEDS: AA 2.75%/CALCIUM/LYTES/D5W 2,000 ML IV SCH (08:26)
--- NOTE | 2016-11-07 09:06 | PDOC ---
PROGRESS NOTES Subjective Subjective c/c - T3N2M0 - Stage III, Small bowel poorly differentiated adenocarcinoma Objective Objective Vital Signs Date Time Temp Pulse Resp B/P Pulse Ox O2 Delivery O2 Flow Rate FiO2 11/07/16 07:00 97.5 73 18 128/74 93 Room Air 97.5 11/02/16 08:00 3.0 Intake and Output 11/07/16 07:00 Intake Total 431 ml Output Total 2125 ml Balance -1694 ml Intake Oral 0 ml IV Total 431 ml Output Urine Total 1900 ml Drainage Total 225 ml Physical Exam Heart: Normal S1, Normal S2 General: Alert, Oriented X3 Lungs: Clear to auscultation Assessment Assessment Problems Medical Problems: (1) Intractable vomiting Status: Acute (2) Small intestine cancer Status: Acute A/P: 1. T3N2M0 - Stage III, Small bowel poorly differentiated adenocarcinoma causing partial SBO, adenopathy s/p resxn 10/31. 12/27 LN positive. Reviewed pathology Plan adjuvant chemo with FOLFOX for 12 cycles in 4 weeks. CEA 8.8, CA 19-9 is 27 F/u CT chest - ordered. Continue supportive care per surgery, primary team. 2. Abd pain - cont pain management per surgery PATHOLOGY REPORT: * * * * * * * * FINAL DIAGNOSIS: Segment of small bowel and mesentery, proximal jejunum segmental resection: - INVASIVE ADENOCARCINOMA OF SMALL BOWEL, POORLY DIFFERENTIATED, FORMING A SEGMENTAL ULCERATED NODULAR TUMOR MASS MEASURING UP TO 12 CM IN LENGTH, WITH TUMOR INVASION THROUGH MUSCULARIS PROPRIA INTO SUBSEROSA AND EXTENSIVE TUMOR INVASION OF MESENTERY. - LYMPHOVASCULAR TUMOR INVASION IDENTIFIED. 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 - Proximal and distal margins of resection negative for tumor. - Focal adhesed segment of sigmoid mesocolon. (JPM:patrick; d/t: 11/05/2016) Clinical History: Not known: . Specimen: Jejunum Procedure: Segmental resection Tumor Site: Jejunum Macroscopic Tumor Perforation: Not identified: . Histologic Type: Adenocarcinoma (not otherwise characterized) Histologic Grade: G3: Poorly differentiated Tumor Size: Greatest dimension: 12 cm Microscopic Tumor Extension: Tumor invades through the muscularis propria into the subserosal adipose tissue or the nonperitonealized george-intestinal soft tissues but does not extend to the serosal surface All margins uninvolved by invasive carcinoma Distance of invasive carcinoma from closest margin: 7 cm Closest margin: Proximal margin Proximal Margin: Uninvolved by invasive carcinoma Intramucosal carcinoma/adenoma not identified at proximal margin: . Distal Margin: Uninvolved by invasive carcinoma Intramucosal carcinoma/adenoma not identified at distal margin: . MARGIN: Uninvolved by invasive carcinoma Other Margin(s): Uninvolved by invasive carcinoma Lymph-Vascular Invasion: Present Primary Tumor (pT): pT3: Tumor invades through the muscularis propria into the subserosa or into the nonperitonealized perimuscular tissue (mesentery or retroperitoneum) with extension 2 cm or less Regional Lymph Nodes (pN): pN2: Metastasis in 4 or more regional lymph nodes Number examined: 12 Number involved: 5 Distant Metastasis: Not applicable: . Additional Pathologic Findings: None identified REPORT ELECTRONICALLY SIGNED BY: Alessio Ahumada M.D. DATE/TIME: 11/06/2016 14:19 * * * * * * * * Comment Review of Relevant I have reviewed the following items pako (where applicable) has been applied. Labs Laboratory Tests Test 11/06/16 06:20 11/07/16 06:15 White Blood Count 5.8x10^3/uL (4.0-11.0) Red Blood Count 2.95x10^6/uL (4.30-5.70) Hemoglobin 9.1g/dL (13.0-17.5) Hematocrit 27.1% (39.0-53.0) Mean Corpuscular Volume 92fL (79-100) Mean Corpuscular Hemoglobin 31pg (25-35) Mean Corpuscular Hemoglobin Concent 34g/dL (31-37) Red Cell Distribution Width 15.4% (11.5-14.5) Platelet Count 207x10^3/uL (140-400) Neutrophils (%) (Auto) 68% (31-73) Lymphocytes (%) (Auto) 15% (24-48) Monocytes (%) (Auto) 12% (0-9) Eosinophils (%) (Auto) 5% (0-3) Basophils (%) (Auto) 1% (0-3) Neutrophils # (Auto) 3.9x10^3uL (1.8-7.7) Lymphocytes # (Auto) 0.8x10^3/uL (1.0-4.8) Monocytes # (Auto) 0.7x10^3/uL (0.0-1.1) Eosinophils # (Auto) 0.3x10^3/uL (0.0-0.7) Basophils # (Auto) 0.0x10^3/uL (0.0-0.2) Sodium Level 142mmol/L (136-145) 141mmol/L (136-145) Potassium Level 3.2mmol/L (3.5-5.1) 4.4mmol/L (3.5-5.1) Chloride Level 107mmol/L (98-107) 106mmol/L (98-107) Carbon Dioxide Level 30mmol/L (21-32) 30mmol/L (21-32) Anion Gap 5 (6-14) 5 (6-14) Blood Urea Nitrogen 10mg/dL (8-26) 9mg/dL (8-26) Creatinine 0.6mg/dL (0.7-1.3) 0.7mg/dL (0.7-1.3) Estimated GFR (Cockcroft-Gault) 137.4 115.0 Glucose Level 130mg/dL (70-99) 105mg/dL (70-99) Calcium Level 7.9mg/dL (8.5-10.1) 8.3mg/dL (8.5-10.1) Laboratory Tests Test 11/07/16 06:15 Sodium Level 141mmol/L (136-145) Potassium Level 4.4mmol/L (3.5-5.1) Chloride Level 106mmol/L (98-107) Carbon Dioxide Level 30mmol/L (21-32) Anion Gap 5 (6-14) Blood Urea Nitrogen 9mg/dL (8-26) Creatinine 0.7mg/dL (0.7-1.3) Estimated GFR (Cockcroft-Gault) 115.0 Glucose Level 105mg/dL (70-99) Calcium Level 8.3mg/dL (8.5-10.1) Medications Current Medications Sodium Chloride 3 ml 3 ml PRN DAILY PRN IV AFTER MEDS AND BLOOD DRAWS; Start at 21:30 Sodium Chloride (Iv Sodium Chloride 0.9% 1000ml Bag) 1,000 ml @ 100 mls/hr Q10H IV Last administered on 10/30/16 00:27; Start 10/29/16 at 21:30; Stop at 07:29; Status DC Bisacodyl (Dulcolax Supp) 10 mg PRN DAILY PRN NV CONSTIPATION; Start 10/29/16 at 21:30 Enoxaparin Sodium (Lovenox 40mg Syringe) 40 mg Q24H SQ Last administered on 21:11; Start 10/29/16 at 22:00; Stop 10/31/16 at 08:28; Status DC Metoclopramide HCl (Reglan) 10 mg Q8HRS IV Last administered on 11/06/16 06:07 ; Start 10/29/16 at 22:00; Stop 11/06/16 at 11:01; Status DC Ondansetron HCl (Zofran) 4 mg PRN Q8HRS PRN IV NAUSEA/VOMITING Last administered on 10/31/16 00:09; Start 10/29/16 at 21:30; Stop 11/01/16 at 14:47 ; Status DC Pantoprazole Sodium (Protonix Vial) 40 mg DAILYAC IVP Last administered on 11/05 08:25; Start 10/30/16 at 07:30; Stop 11/05/16 at 11:13; Status DC Paroxetine HCl (Paxil) 10 mg DAILY PO ; Start 10/30/16 at 09:00; Stop 10/30/16 at 09:33; Status DC Acetaminophen/ Aspirin/Caffeine (Excedrin Migraine) 1 tab PRN BID PRN PO MIGRAINE HEADACHE Last administered on 10/29/16 23:46; Start 10/29/16 at 21:30 Acetaminophen (Tylenol) 650 mg PRN Q6HRS PRN PO MILD PAIN / TEMP Last administered on 11/04/16 17:39; Start 10/29/16 at 22:00 Iohexol (Omnipaque 300 Mg/ml) 75 ml 1X ONCE IV Last administered on 10/30/16 09:09; Start 10/30/16 at 06:45; Stop 10/30/16 at 06:46; Status DC Iohexol (Omnipaque 240 Mg/ml) 30 ml 1X ONCE PO Last administered on 10/30/16 06:45; Start 10/30/16 at 06:45; Stop 10/30/16 at 06:46; Status DC Info (Do NOT chart on this entry -- for MONITORING) 1 each PRN DAILY PRN MC SEE COMMENTS; Start 10/30/16 at 06:45; Stop 11/01/16 at 06:44; Status DC Paroxetine HCl (Paxil) 10 mg DAILY@18 PO Last administered on 10/30/16 17:52; Start 10/30/16 at 18:00 Morphine Sulfate 2 mg PRN Q2HR PRN IV PAIN; Start 10/30/16 at 17:45; Stop 11/02 at 05:57; Status DC Ondansetron HCl (Zofran) 4 mg PRN Q6HRS PRN IV Nausea; Start 10/31/16 at 08:45 ; Stop 10/31/16 at 18:00; Status DC Fentanyl Citrate (Fentanyl 2ml Vial) 25 mcg PRN Q5MIN PRN IV MILD PAIN; Start 10/31/16 at 08:45; Stop 10/31/16 at 18:00; Status DC Fentanyl Citrate (Fentanyl 2ml Vial) 50 mcg PRN Q5MIN PRN IV MODERATE PAIN; Start 10/31/16 at 08:45; Stop 10/31/16 at 08:50; Status DC Morphine Sulfate 1 mg 1 mg PRN Q10MIN PRN IV SEVERE PAIN; Start 10/31/16 at 08: 45; Stop 10/31/16 at 18:00; Status DC Lactated Ringer's (Iv Lactated Ringers) 1,000 ml @ 30 mls/hr Q24H IV ; Start at 08:44; Stop 10/31/16 at 20:43; Status DC Lidocaine HCl 2 ml 1X PRN PRN ID IV START; Start 10/31/16 at 08:45; Stop at 18:00; Status DC Hydromorphone HCl (Dilaudid) 0.5 mg PRN Q10MIN PRN IV SEV PAIN,Second choice; Start 10/31/16 at 08:45; Stop 10/31/16 at 18:00; Status DC Prochlorperazine Edisylate 5 mg 5 mg PACU PRN PRN IV NAUSEA; Start 10/31/16 at 08:45; Stop 10/31/16 at 18:00; Status DC Cefoxitin Sodium (Mefoxin 2gm Ivpb For Omni) 100 ml @ 200 mls/hr 1X ONCE IV Last administered on 10/31/16t 13:16; Start 10/31/16 at 11:30; Stop 10/31/16 at 11:59; Status DC Sevoflurane (Ultane) 60 ml STK-MED ONCE IH ; Start 10/31/16 at 12:14; Stop 10/31 at 12:15; Status DC Fentanyl Citrate (Fentanyl 2ml Vial) 100 mcg STK-MED ONCE .ROUTE ; Start at 12:14; Stop 10/31/16 at 12:15; Status DC Rocuronium [place] 50 mg 50 mg STK-MED ONCE .ROUTE ; Start 10/31/16 at 12:14; Stop 10/31/16 at 12:15; Status DC Propofol (Diprivan) 20 ml @ As Directed STK-MED ONCE IV ; Start 10/31/16 at 12: 15; Stop 10/31/16 at 12:16; Status DC Dexamethasone Sodium Phosphate (Decadron) 20 mg STK-MED ONCE .ROUTE ; Start at 12:15; Stop 10/31/16 at 12:16; Status DC Ondansetron HCl (Zofran) 4 mg STK-MED ONCE .ROUTE ; Start 10/31/16 at 12:15; Stop 10/31/16 at 12:16; Status DC Lidocaine HCl 100 mg STK-MED ONCE .ROUTE ; Start 10/31/16 at 12:15; Stop at 12:16; Status DC Glycopyrrolate (Robinul) 1 mg STK-MED ONCE .ROUTE ; Start 10/31/16 at 12:40; Stop 10/31/16 at 12:41; Status DC Neostigmine Methylsulfate 5 mg STK-MED ONCE .ROUTE ; Start 10/31/16 at 12:40; Stop 10/31/16 at 12:41; Status DC Succinylcholine Chloride (Anectine) 200 mg STK-MED ONCE .ROUTE ; Start 10/31/16 at 13:04; Stop 10/31/16 at 13:05; Status DC Phenylephrine HCl 1 mg 1 mg STK-MED ONCE IV ; Start 10/31/16 at 13:14; Stop at 13:15; Status DC Albumin Human (Plasmanate) 500 ml @ As Directed STK-MED ONCE IV ; Start at 15:47; Stop 10/31/16 at 15:48; Status DC Rocuronium [place] (Zemuron) 100 mg STK-MED ONCE .ROUTE ; Start 10/31/16 at 15: 51; Stop 10/31/16 at 15:52; Status DC Fentanyl Citrate (Fentanyl 5ml Vial) 250 mcg STK-MED ONCE .ROUTE ; Start at 16:19; Stop 10/31/16 at 16:20; Status DC Sodium Chloride 3 ml 3 ml QSHIFT PRN IV AFTER MEDS AND BLOOD DRAWS; Start 10/31 at 17:30; Status UNV Hydromorphone HCl (Dilaudid Standard APRN) 30 ml @ 0 mls/hr CONT PRN PRN IV PROTOCOL Last administered on 11/06/16 14:48; Start 10/31/16 at 17:30 Hydromorphone HCl (Dilaudid) 0.4 mg PRN Q1HR PRN IV SEE COMMENTS; Start at 17:30; Stop 11/02/16 at 05:57; Status DC Ondansetron HCl (Zofran) 4 mg PRN Q6HRS PRN IV NAUESA, 1ST CHOICE Last administered on 11/06/16 21:29; Start 10/31/16 at 17:30 Metoclopramide HCl 10 mg 10 mg PRN Q6HRS PRN IV Nausea/Vomiting, 2nd Choice Last administered on 11/06/16 22:03; Start 10/31/16 at 17:30 Sodium Chloride (Iv Sodium Chloride 0.9% 1000ml Bag) 1,000 ml @ 125 mls/hr 1X ONCE IV Last administered on 10/31/16 22:45; Start 10/31/16 at 17:30; Stop at 01:29; Status DC Enoxaparin Sodium 40 mg 40 mg Q24H SQ Last administered on 11/07/16 08:26; Start 11/01/16 at 09:00 Hydromorphone HCl 30 ml @ As Directed STK-MED ONCE IV ; Start 10/31/16 at 17:24 ; Stop 10/31/16 at 17:26; Status DC Sodium Chloride (Iv Sodium Chloride 0.9% 500ml Bag) 500 ml @ 500 mls/hr 1X ONCE IV Last administered on 10/31/16 22:00; Start 10/31/16 at 22:00; Stop at 22:59; Status DC Cefoxitin Sodium 2 gm 2 gm STK-MED ONCE IV ; Start 10/31/16 at 16:00; Stop 11/01 at 08:43; Status DC Sodium Chloride 1,000 ml @ 1,000 mls/hr 1X ONCE IV Last administered on 14:00; Start 11/01/16 at 14:00; Stop 11/01/16 at 14:59; Status DC Sodium Chloride 1,000 ml @ 125 mls/hr 1X ONCE IV Last administered on 17:51; Start 11/01/16 at 14:00; Stop 11/01/16 at 21:59; Status DC Sodium Chloride 1,000 ml @ 1,000 mls/hr 1X ONCE IV Last administered on 13:14; Start 11/02/16 at 11:45; Stop 11/02/16 at 12:44; Status DC Amino Acids/ Glycerin/ Electrolytes (Procalamine) 1,000 ml @ 80 mls/hr [id number] IV Last administered on 11/04/16 03:00; Start 11/03/16 at 09:30; Stop at 07:57; Status DC Albuterol/ Ipratropium (Duoneb) 3 ml RTQID NEB Last administered on 11/05/16 07:53; Start 11/04/16 at 12:00; Stop 11/05/16 at 12:32; Status DC Albuterol Sulfate (Ventolin Neb Soln) 2.5 mg PRN Q4HRS PRN NEB SHORTNESS OF BREATH; Start 11/04/16 at 11:00 Lidocaine/Sodium Bicarbonate (Buffered Lidocaine 1%) 3 ml 1X ONCE IJ Last administered on 11/04/16 14:51; Start 11/04/16 at 14:00; Stop 11/04/16 at 14:01 ; Status DC Heparin Sodium/ Sodium Chloride 60 unit 1X ONCE IV Last administered on 14:52; Start 11/04/16 at 14:00; Stop 11/04/16 at 14:01; Status DC Guaifenesin 200 mg 200 mg PRN Q6HRS PRN PO COUGH; Start 11/04/16 at 16:15 Amino Acids/ Electrolytes (Clinimix E 2.75%-5% Solution) 2,000 ml @ 80 mls/hr Q24H IV Last administered on 11/07/16 08:26; Start 11/05/16 at 08:00 Pantoprazole Sodium (Protonix) 40 mg DAILYAC PO ; Start 11/06/16 at 07:30 Potassium Chloride (Klor-Con) 40 meq 1X ONCE PO ; Start 11/05/16 at 11:15; Stop 11/05/16 at 12:58; Status DC Polyethylene Glycol (miraLAX PACKET) 17 gm PRN DAILY PRN PO CONSTIPATION Last administered on 11/05/16 12:37; Start 11/05/16 at 11:15 Albuterol/ Ipratropium 3 ml 3 ml PRN DAILY PRN NEB SHORTNESS OF BREATH; Start 11/05/16 at 12:30; Stop 11/05/16 at 12:47; Status DC Potassium Chloride 50 ml @ 50 mls/hr Q1H IV Last administered on 11/05/16 15: 10; Start 11/05/16 at 13:30; Stop 11/05/16 at 15:29; Status DC Potassium Chloride 50 ml @ 25 mls/hr Q2H IV Last administered on 11/06/16 11: 23; Start 11/06/16 at 09:00; Stop 11/06/16 at 12:59; Status DC Potassium Chloride (KCl Premix 20meq) 50 ml @ 25 mls/hr Q2H IV Last administered on 11/06/16 15:46; Start 11/06/16 at 14:00; Stop 11/06/16 at 17:59 ; Status DC Vitals/I & O Vital Sign - Last 24 Hours 11/06/16 11/06/16 11/06/16 11/06/16 10:51 14:48 15:04 15:10 Temp 98.1 97.9 98.1 97.9 Pulse 77 98 Resp 18 16 18 14 B/P 138/70 146/90 Pulse Ox 96 95 O2 Delivery Room Air Room Air Room Air Room Air 11/06/16 11/06/16 11/06/16 11/07/16 19:35 20:00 23:35 03:40 Temp 97.7 97.9 96.6 97.7 97.9 96.6 Pulse 72 94 82 Resp 18 18 B/P 119/75 129/82 123/88 Pulse Ox 97 95 97 O2 Delivery Room Air Room Air Room Air Room Air 11/07/16 07:00 Temp 97.5 97.5 Pulse 73 Resp 18 B/P 128/74 Pulse Ox 93 O2 Delivery Room Air Intake and Output 11/06/16 11/06/16 11/07/16 15:00 23:00 07:00 Intake Total 50 ml 381 ml Output Total 350 ml 825 ml 950 ml Balance -300 ml -444 ml -950 ml Nutrition Consultation Dietary Evaluation: Recommendations by RD: PPN/TPN Comments: continue ppn at this time Expected Outcomes/Goals: diet adv/ tolerance Interpretation of weight loss: >5% in 1 month Malnutrition Findings: Food and Nutrition Intake (Sev: <50% est energy req 5days Reduced [employer] Strength: N/A Weight Status: Overweight Fluid Accumulation (N/A): N/A ADELAIDA LOPEZ MD Nov 07, 2016 09:06
--- NOTE | 2016-11-07 10:00 | PDOC ---
CARDIO Progress Notes Date and Time Date of Service 11/07/2016 Time of Evaluation 0958 Subjective Subjective: No Chest Pain, No shortness of breath, No Palpitations, No Dizziness Vitals Vitals Vital Signs Date Time Temp Pulse Resp B/P Pulse Ox O2 Delivery O2 Flow Rate FiO2 11/07/16 07:00 97.5 73 18 128/74 93 Room Air 97.5 Weight Weight [ ] Input and Output Intake and Output Intake and Output 11/07/16 07:00 Intake Total 431 ml Output Total 2125 ml Balance -1694 ml Intake Oral 0 ml IV Total 431 ml Output Urine Total 1900 ml Drainage Total 225 ml Laboratory Labs Laboratory Tests Test 11/07/16 06:15 Sodium Level 141mmol/L (136-145) Potassium Level 4.4mmol/L (3.5-5.1) Chloride Level 106mmol/L (98-107) Carbon Dioxide Level 30mmol/L (21-32) Anion Gap 5 (6-14) Blood Urea Nitrogen 9mg/dL (8-26) Creatinine 0.7mg/dL (0.7-1.3) Estimated GFR (Cockcroft-Gault) 115.0 Glucose Level 105mg/dL (70-99) Calcium Level 8.3mg/dL (8.5-10.1) Physical Exam HEENT: Neck Supple W Full Motion Chest: Symmetric LUNGS: Clear to Auscultation Heart: S1S2, other (tele with atrial fib and intermittent RVR) Abdomen: Other (dressing on abdominal incision ) Extremities: Negative Darvin's Sign Neurology: alert, oriented, follow commands Assessment Assessment 1. PAF with RVR, new echo without significant findings and preserved LV function continues to decline to wear telemetry serum K has been corrected 2. small bowel mass s/p surgical resection ? malignancy increase activity Cardiology signing off KATI GORDON APRN Nov 07, 2016 10:00
[2016-11-07 11:00] VITALS: BP 138/65
--- NOTE | 2016-11-07 11:00 | PDOC ---
SURGICAL PROGRESS NOTE Subjective nausea still no flatus yesterday or today per his recollection pain managed still requiring IV nausea meds Vital Signs Vital Signs Date Time Temp Pulse Resp B/P Pulse Ox O2 Delivery O2 Flow Rate FiO2 11/07/16 07:00 97.5 73 18 128/74 93 Room Air 97.5 I&O Intake and Output 11/07/16 07:00 Intake Total 431 ml Output Total 2125 ml Balance -1694 ml Intake Oral 0 ml IV Total 431 ml Output Urine Total 1900 ml Drainage Total 225 ml General: Alert, Oriented X3, Cooperative, No acute distress Abdomen: Soft, Other (drainage from lower portion of incision, wick in place, fredy serous ) Labs Laboratory Tests Test 11/06/16 06:20 11/07/16 06:15 White Blood Count 5.8x10^3/uL (4.0-11.0) Red Blood Count 2.95x10^6/uL (4.30-5.70) Hemoglobin 9.1g/dL (13.0-17.5) Hematocrit 27.1% (39.0-53.0) Mean Corpuscular Volume 92fL (79-100) Mean Corpuscular Hemoglobin 31pg (25-35) Mean Corpuscular Hemoglobin Concent 34g/dL (31-37) Red Cell Distribution Width 15.4% (11.5-14.5) Platelet Count 207x10^3/uL (140-400) Neutrophils (%) (Auto) 68% (31-73) Lymphocytes (%) (Auto) 15% (24-48) Monocytes (%) (Auto) 12% (0-9) Eosinophils (%) (Auto) 5% (0-3) Basophils (%) (Auto) 1% (0-3) Neutrophils # (Auto) 3.9x10^3uL (1.8-7.7) Lymphocytes # (Auto) 0.8x10^3/uL (1.0-4.8) Monocytes # (Auto) 0.7x10^3/uL (0.0-1.1) Eosinophils # (Auto) 0.3x10^3/uL (0.0-0.7) Basophils # (Auto) 0.0x10^3/uL (0.0-0.2) Sodium Level 142mmol/L (136-145) 141mmol/L (136-145) Potassium Level 3.2mmol/L (3.5-5.1) 4.4mmol/L (3.5-5.1) Chloride Level 107mmol/L (98-107) 106mmol/L (98-107) Carbon Dioxide Level 30mmol/L (21-32) 30mmol/L (21-32) Anion Gap 5 (6-14) 5 (6-14) Blood Urea Nitrogen 10mg/dL (8-26) 9mg/dL (8-26) Creatinine 0.6mg/dL (0.7-1.3) 0.7mg/dL (0.7-1.3) Estimated GFR (Cockcroft-Gault) 137.4 115.0 Glucose Level 130mg/dL (70-99) 105mg/dL (70-99) Calcium Level 7.9mg/dL (8.5-10.1) 8.3mg/dL (8.5-10.1) Laboratory Tests Test 11/07/16 06:15 Sodium Level 141mmol/L (136-145) Potassium Level 4.4mmol/L (3.5-5.1) Chloride Level 106mmol/L (98-107) Carbon Dioxide Level 30mmol/L (21-32) Anion Gap 5 (6-14) Blood Urea Nitrogen 9mg/dL (8-26) Creatinine 0.7mg/dL (0.7-1.3) Estimated GFR (Cockcroft-Gault) 115.0 Glucose Level 105mg/dL (70-99) Calcium Level 8.3mg/dL (8.5-10.1) Problem List Problems Medical Problems: (1) Intractable vomiting Status: Acute (2) Small intestine cancer Status: Acute Assessment/Plan POD#7, sbr await return of bowel function ambulate PPN, NPO Problems: [facility] [employer] Nov 07, 2016 11:00
[2016-11-07] MEDS ORDERED: CONTRAST GIVEN MC PRN (11:15)
[2016-11-07] MEDS ORDERED: IOHEXOL 300 MG/ML 75 ML VIAL IV ONE (11:15)
[2016-11-07] MEDS ORDERED: ASA/APAP/CAFFEINE 250/250/65MG TABLET. PO PRN (11:30)
--- NOTE | 2016-11-07 12:12 | RAD ---
CT of the chest with contrast, 11/07/2016: History: Staging small bowel cancer Multidetector imaging was performed following an IV bolus injection of iodinated contrast material. The thoracic aorta is of normal caliber. No mediastinal or hilar adenopathy is seen. A tiny opacity seen in the right upper lobe on axial image 12 of series #2 is shown on the coronal images to be somewhat linear configuration. This is probably a small scar. No other pulmonary nodule or significant infiltrate is seen. There is no evidence of pleural fluid. Postsurgical changes are present in the upper abdomen with several bubbles of free air. There is subcutaneous edema related to a midline surgical incision. A tube partially visualized in the left upper quadrant presumably represents a surgical drain. A small area of relatively increased density is noted laterally in the right lobe of the liver in a subcapsular location. It measures approximately 4 cm. There is was not evident on the 10/31/1999 CT study. That could be due to differences in bolus timing. IMPRESSION: 1. No CT evidence of metastatic disease in the chest. 2. Small subcapsular area of increased density laterally in the right lobe of the liver, not evident on the 10/30/2016 CT study. This may represent a transient attenuation abnormality due to flow phenomenon. A neoplastic etiology cannot be excluded. MR scanning may be useful for further evaluation. PQRS Compliance Statement: One or more of the following individualized dose reduction techniques were utilized for this examination: 1. Automated exposure control 2. Adjustment of the mA and/or kV according to patient size 3. Use of iterative reconstruction technique
--- NOTE | 2016-11-07 12:22 | PDOC ---
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 vomited x1 on 11/06, 11/07 encourage pt to move, but saying still feels very nausea again 11/06 k back to normal Vitals Vitals Vital Signs Date Time Temp Pulse Resp B/P Pulse Ox O2 Delivery O2 Flow Rate FiO2 11/07/16 07:00 97.5 73 18 128/74 93 Room Air 97.5 Physical Exam General: Alert, Oriented X3, Cooperative, No acute distress Heart: Normal S1, Normal S2 Lungs: Clear Abdomen: Soft, Other (drainage from lower portion of incision, wick in place, fredy serous ) Extremities: No edema, Normal pulses Skin: No rashes Labs LABS Laboratory Tests Test 11/07/16 06:15 Sodium Level 141mmol/L (136-145) Potassium Level 4.4mmol/L (3.5-5.1) Chloride Level 106mmol/L (98-107) Carbon Dioxide Level 30mmol/L (21-32) Anion Gap 5 (6-14) Blood Urea Nitrogen 9mg/dL (8-26) Creatinine 0.7mg/dL (0.7-1.3) Estimated GFR (Cockcroft-Gault) 115.0 Glucose Level 105mg/dL (70-99) Calcium Level 8.3mg/dL (8.5-10.1) Review of Systems Review of Systems no fever, chills, sob or chest pain Assessment and Plan Assessmemt and Plan Problems Medical Problems: (1) Intractable vomiting Status: Acute (2) Small intestine cancer Status: Acute Problems: Comment Review of Relevant I have reviewed the following items pako (where applicable) has been applied. Labs Laboratory Tests Test 11/06/16 06:20 11/07/16 06:15 White Blood Count 5.8x10^3/uL (4.0-11.0) Red Blood Count 2.95x10^6/uL (4.30-5.70) Hemoglobin 9.1g/dL (13.0-17.5) Hematocrit 27.1% (39.0-53.0) Mean Corpuscular Volume 92fL (79-100) Mean Corpuscular Hemoglobin 31pg (25-35) Mean Corpuscular Hemoglobin Concent 34g/dL (31-37) Red Cell Distribution Width 15.4% (11.5-14.5) Platelet Count 207x10^3/uL (140-400) Neutrophils (%) (Auto) 68% (31-73) Lymphocytes (%) (Auto) 15% (24-48) Monocytes (%) (Auto) 12% (0-9) Eosinophils (%) (Auto) 5% (0-3) Basophils (%) (Auto) 1% (0-3) Neutrophils # (Auto) 3.9x10^3uL (1.8-7.7) Lymphocytes # (Auto) 0.8x10^3/uL (1.0-4.8) Monocytes # (Auto) 0.7x10^3/uL (0.0-1.1) Eosinophils # (Auto) 0.3x10^3/uL (0.0-0.7) Basophils # (Auto) 0.0x10^3/uL (0.0-0.2) Sodium Level 142mmol/L (136-145) 141mmol/L (136-145) Potassium Level 3.2mmol/L (3.5-5.1) 4.4mmol/L (3.5-5.1) Chloride Level 107mmol/L (98-107) 106mmol/L (98-107) Carbon Dioxide Level 30mmol/L (21-32) 30mmol/L (21-32) Anion Gap 5 (6-14) 5 (6-14) Blood Urea Nitrogen 10mg/dL (8-26) 9mg/dL (8-26) Creatinine 0.6mg/dL (0.7-1.3) 0.7mg/dL (0.7-1.3) Estimated GFR (Cockcroft-Gault) 137.4 115.0 Glucose Level 130mg/dL (70-99) 105mg/dL (70-99) Calcium Level 7.9mg/dL (8.5-10.1) 8.3mg/dL (8.5-10.1) Laboratory Tests Test 11/07/16 06:15 Sodium Level 141mmol/L (136-145) Potassium Level 4.4mmol/L (3.5-5.1) Chloride Level 106mmol/L (98-107) Carbon Dioxide Level 30mmol/L (21-32) Anion Gap 5 (6-14) Blood Urea Nitrogen 9mg/dL (8-26) Creatinine 0.7mg/dL (0.7-1.3) Estimated GFR (Cockcroft-Gault) 115.0 Glucose Level 105mg/dL (70-99) Calcium Level 8.3mg/dL (8.5-10.1) Medications Current Medications Sodium Chloride 3 ml 3 ml PRN DAILY PRN IV AFTER MEDS AND BLOOD DRAWS; Start at 21:30 Sodium Chloride (Iv Sodium Chloride 0.9% 1000ml Bag) 1,000 ml @ 100 mls/hr Q10H IV Last administered on 10/30/16 00:27; Start 10/29/16 at 21:30; Stop at 07:29; Status DC Bisacodyl (Dulcolax Supp) 10 mg PRN DAILY PRN RI CONSTIPATION; Start 10/29/16 at 21:30 Enoxaparin Sodium (Lovenox 40mg Syringe) 40 mg Q24H SQ Last administered on 21:11; Start 10/29/16 at 22:00; Stop 10/31/16 at 08:28; Status DC Metoclopramide HCl (Reglan) 10 mg Q8HRS IV Last administered on 11/06/16 06:07 ; Start 10/29/16 at 22:00; Stop 11/06/16 at 11:01; Status DC Ondansetron HCl (Zofran) 4 mg PRN Q8HRS PRN IV NAUSEA/VOMITING Last administered on 10/31/16 00:09; Start 10/29/16 at 21:30; Stop 11/01/16 at 14:47 ; Status DC Pantoprazole Sodium (Protonix Vial) 40 mg DAILYAC IVP Last administered on 11/05 08:25; Start 10/30/16 at 07:30; Stop 11/05/16 at 11:13; Status DC Paroxetine HCl (Paxil) 10 mg DAILY PO ; Start 10/30/16 at 09:00; Stop 10/30/16 at 09:33; Status DC Acetaminophen/ Aspirin/Caffeine (Excedrin Migraine) 1 tab PRN BID PRN PO MIGRAINE HEADACHE Last administered on 10/29/16 23:46; Start 10/29/16 at 21:30 ; Stop 11/07/16 at 11:23; Status DC Acetaminophen (Tylenol) 650 mg PRN Q6HRS PRN PO MILD PAIN / TEMP Last administered on 11/04/16 17:39; Start 10/29/16 at 22:00 Iohexol (Omnipaque 300 Mg/ml) 75 ml 1X ONCE IV Last administered on 10/30/16 09:09; Start 10/30/16 at 06:45; Stop 10/30/16 at 06:46; Status DC Iohexol (Omnipaque 240 Mg/ml) 30 ml 1X ONCE PO Last administered on 10/30/16 06:45; Start 10/30/16 at 06:45; Stop 10/30/16 at 06:46; Status DC Info (Do NOT chart on this entry -- for MONITORING) 1 each PRN DAILY PRN MC SEE COMMENTS; Start 10/30/16 at 06:45; Stop 11/01/16 at 06:44; Status DC Paroxetine HCl (Paxil) 10 mg DAILY@18 PO Last administered on 10/30/16 17:52; Start 10/30/16 at 18:00 Morphine Sulfate 2 mg PRN Q2HR PRN IV PAIN; Start 10/30/16 at 17:45; Stop 11/02 at 05:57; Status DC Ondansetron HCl (Zofran) 4 mg PRN Q6HRS PRN IV Nausea; Start 10/31/16 at 08:45 ; Stop 10/31/16 at 18:00; Status DC Fentanyl Citrate (Fentanyl 2ml Vial) 25 mcg PRN Q5MIN PRN IV MILD PAIN; Start 10/31/16 at 08:45; Stop 10/31/16 at 18:00; Status DC Fentanyl Citrate (Fentanyl 2ml Vial) 50 mcg PRN Q5MIN PRN IV MODERATE PAIN; Start 10/31/16 at 08:45; Stop 10/31/16 at 08:50; Status DC Morphine Sulfate 1 mg 1 mg PRN Q10MIN PRN IV SEVERE PAIN; Start 10/31/16 at 08: 45; Stop 10/31/16 at 18:00; Status DC Lactated Ringer's (Iv Lactated Ringers) 1,000 ml @ 30 mls/hr Q24H IV ; Start at 08:44; Stop 10/31/16 at 20:43; Status DC Lidocaine HCl 2 ml 1X PRN PRN ID IV START; Start 10/31/16 at 08:45; Stop at 18:00; Status DC Hydromorphone HCl (Dilaudid) 0.5 mg PRN Q10MIN PRN IV SEV PAIN,Second choice; Start 10/31/16 at 08:45; Stop 10/31/16 at 18:00; Status DC Prochlorperazine Edisylate 5 mg 5 mg PACU PRN PRN IV NAUSEA; Start 10/31/16 at 08:45; Stop 10/31/16 at 18:00; Status DC Cefoxitin Sodium (Mefoxin 2gm Ivpb For Omni) 100 ml @ 200 mls/hr 1X ONCE IV Last administered on 10/31/16t 13:16; Start 10/31/16 at 11:30; Stop 10/31/16 at 11:59; Status DC Sevoflurane (Ultane) 60 ml STK-MED ONCE IH ; Start 10/31/16 at 12:14; Stop 10/31 at 12:15; Status DC Fentanyl Citrate (Fentanyl 2ml Vial) 100 mcg STK-MED ONCE .ROUTE ; Start at 12:14; Stop 10/31/16 at 12:15; Status DC Rocuronium Harmony 50 mg 50 mg STK-MED ONCE .ROUTE ; Start 10/31/16 at 12:14; Stop 10/31/16 at 12:15; Status DC Propofol (Diprivan) 20 ml @ As Directed STK-MED ONCE IV ; Start 10/31/16 at 12: 15; Stop 10/31/16 at 12:16; Status DC Dexamethasone Sodium Phosphate (Decadron) 20 mg STK-MED ONCE .ROUTE ; Start at 12:15; Stop 10/31/16 at 12:16; Status DC Ondansetron HCl (Zofran) 4 mg STK-MED ONCE .ROUTE ; Start 10/31/16 at 12:15; Stop 10/31/16 at 12:16; Status DC Lidocaine HCl 100 mg STK-MED ONCE .ROUTE ; Start 10/31/16 at 12:15; Stop at 12:16; Status DC Glycopyrrolate (Robinul) 1 mg STK-MED ONCE .ROUTE ; Start 10/31/16 at 12:40; Stop 10/31/16 at 12:41; Status DC Neostigmine Methylsulfate 5 mg STK-MED ONCE .ROUTE ; Start 10/31/16 at 12:40; Stop 10/31/16 at 12:41; Status DC Succinylcholine Chloride (Anectine) 200 mg STK-MED ONCE .ROUTE ; Start 10/31/16 at 13:04; Stop 10/31/16 at 13:05; Status DC Phenylephrine HCl 1 mg 1 mg STK-MED ONCE IV ; Start 10/31/16 at 13:14; Stop at 13:15; Status DC Albumin Human (Plasmanate) 500 ml @ As Directed STK-MED ONCE IV ; Start at 15:47; Stop 10/31/16 at 15:48; Status DC Rocuronium Harmony (Zemuron) 100 mg STK-MED ONCE .ROUTE ; Start 10/31/16 at 15: 51; Stop 10/31/16 at 15:52; Status DC Fentanyl Citrate (Fentanyl 5ml Vial) 250 mcg STK-MED ONCE .ROUTE ; Start at 16:19; Stop 10/31/16 at 16:20; Status DC Sodium Chloride 3 ml 3 ml QSHIFT PRN IV AFTER MEDS AND BLOOD DRAWS; Start 10/31 at 17:30; Status UNV Hydromorphone HCl (Dilaudid Standard SHOW [employer]ATIONS SUPERVISOR) 30 ml @ 0 mls/hr CONT PRN PRN IV PROTOCOL Last administered on 11/06/16 14:48; Start 10/31/16 at 17:30 Hydromorphone HCl (Dilaudid) 0.4 mg PRN Q1HR PRN IV SEE COMMENTS; Start at 17:30; Stop 11/02/16 at 05:57; Status DC Ondansetron HCl (Zofran) 4 mg PRN Q6HRS PRN IV NAUESA, 1ST CHOICE Last administered on 11/06/16 21:29; Start 10/31/16 at 17:30 Metoclopramide HCl 10 mg 10 mg PRN Q6HRS PRN IV Nausea/Vomiting, 2nd Choice Last administered on 11/06/16 22:03; Start 10/31/16 at 17:30 Sodium Chloride (Iv Sodium Chloride 0.9% 1000ml Bag) 1,000 ml @ 125 mls/hr 1X ONCE IV Last administered on 10/31/16 22:45; Start 10/31/16 at 17:30; Stop at 01:29; Status DC Enoxaparin Sodium 40 mg 40 mg Q24H SQ Last administered on 11/07/16 08:26; Start 11/01/16 at 09:00 Hydromorphone HCl 30 ml @ As Directed STK-MED ONCE IV ; Start 10/31/16 at 17:24 ; Stop 10/31/16 at 17:26; Status DC Sodium Chloride (Iv Sodium Chloride 0.9% 500ml Bag) 500 ml @ 500 mls/hr 1X ONCE IV Last administered on 10/31/16 22:00; Start 10/31/16 at 22:00; Stop at 22:59; Status DC Cefoxitin Sodium 2 gm 2 gm STK-MED ONCE IV ; Start 10/31/16 at 16:00; Stop 11/01 at 08:43; Status DC Sodium Chloride 1,000 ml @ 1,000 mls/hr 1X ONCE IV Last administered on 14:00; Start 11/01/16 at 14:00; Stop 11/01/16 at 14:59; Status DC Sodium Chloride 1,000 ml @ 125 mls/hr 1X ONCE IV Last administered on 17:51; Start 11/01/16 at 14:00; Stop 11/01/16 at 21:59; Status DC Sodium Chloride 1,000 ml @ 1,000 mls/hr 1X ONCE IV Last administered on 13:14; Start 11/02/16 at 11:45; Stop 11/02/16 at 12:44; Status DC Amino Acids/ Glycerin/ Electrolytes (Procalamine) 1,000 ml @ 80 mls/hr [id number] IV Last administered on 11/04/16 03:00; Start 11/03/16 at 09:30; Stop at 07:57; Status DC Albuterol/ Ipratropium (Duoneb) 3 ml RTQID NEB Last administered on 11/05/16 07:53; Start 11/04/16 at 12:00; Stop 11/05/16 at 12:32; Status DC Albuterol Sulfate (Ventolin Neb Soln) 2.5 mg PRN Q4HRS PRN NEB SHORTNESS OF BREATH; Start 11/04/16 at 11:00 Lidocaine/Sodium Bicarbonate (Buffered Lidocaine 1%) 3 ml 1X ONCE IJ Last administered on 11/04/16 14:51; Start 11/04/16 at 14:00; Stop 11/04/16 at 14:01 ; Status DC Heparin Sodium/ Sodium Chloride 60 unit 1X ONCE IV Last administered on 14:52; Start 11/04/16 at 14:00; Stop 11/04/16 at 14:01; Status DC Guaifenesin 200 mg 200 mg PRN Q6HRS PRN PO COUGH; Start 11/04/16 at 16:15 Amino Acids/ Electrolytes (Clinimix E 2.75%-5% Solution) 2,000 ml @ 80 mls/hr Q24H IV Last administered on 11/07/16 08:26; Start 11/05/16 at 08:00 Pantoprazole Sodium (Protonix) 40 mg DAILYAC PO ; Start 11/06/16 at 07:30 Potassium Chloride (Klor-Con) 40 meq 1X ONCE PO ; Start 11/05/16 at 11:15; Stop 11/05/16 at 12:58; Status DC Polyethylene Glycol (miraLAX PACKET) 17 gm PRN DAILY PRN PO CONSTIPATION Last administered on 11/05/16 12:37; Start 11/05/16 at 11:15 Albuterol/ Ipratropium 3 ml 3 ml PRN DAILY PRN NEB SHORTNESS OF BREATH; Start 11/05/16 at 12:30; Stop 11/05/16 at 12:47; Status DC Potassium Chloride 50 ml @ 50 mls/hr Q1H IV Last administered on 11/05/16 15: 10; Start 11/05/16 at 13:30; Stop 11/05/16 at 15:29; Status DC Potassium Chloride 50 ml @ 25 mls/hr Q2H IV Last administered on 11/06/16 11: 23; Start 11/06/16 at 09:00; Stop 11/06/16 at 12:59; Status DC Potassium Chloride (KCl Premix 20meq) 50 ml @ 25 mls/hr Q2H IV Last administered on 11/06/16 15:46; Start 11/06/16 at 14:00; Stop 11/06/16 at 17:59 ; Status DC Metoclopramide HCl (Reglan) 10 mg TID IV ; Start 11/07/16 at 14:00 Iohexol (Omnipaque 300 Mg/ml) 75 ml 1X ONCE IV ; Start 11/07/16 at 11:15; Stop 11/07/16 at 11:16; Status DC Info (Do NOT chart on this entry -- for MONITORING) 1 each PRN DAILY PRN MC SEE COMMENTS; Start 11/07/16 at 11:15; Stop 11/09/16 at 11:14 Acetaminophen/ Aspirin/Caffeine (Excedrin Migraine) 1 tab PRN BID PRN PO MIGRAINE HEADACHE; Start 11/07/16 at 11:30 Vitals/I & O Vital Sign - Last 24 Hours 11/06/16 11/06/16 11/06/16 11/06/16 14:48 15:04 15:10 19:35 Temp 97.9 97.7 97.9 97.7 Pulse 98 72 Resp 18 B/P 146/90 119/75 Pulse Ox 95 97 O2 Delivery Room Air Room Air Room Air Room Air 11/06/16 11/06/16 11/07/16 11/07/16 20:00 23:35 03:40 07:00 Temp 97.9 96.6 97.5 97.9 96.6 97.5 Pulse 94 82 73 Resp 18 B/P 129/82 123/88 128/74 Pulse Ox 95 97 93 O2 Delivery Room Air Room Air Room Air Room Air Intake and Output 11/06/16 11/06/16 11/07/16 15:00 23:00 07:00 Intake Total 50 ml 381 ml Output Total 350 ml 825 ml 950 ml Balance -300 ml -444 ml -950 ml Nutrition Consultation Dietary Evaluation: Recommendations by RD: PPN/TPN Comments: continue ppn at this time Expected Outcomes/Goals: diet adv/ tolerance Interpretation of weight loss: >5% in 1 month Malnutrition Findings: Food and Nutrition Intake (Sev: <50% est energy req 5days Reduced Builder Beam Strength: N/A Weight Status: Overweight Fluid Accumulation (N/A): N/A DERIAN WILLSON MD Nov 07, 2016 12:22
[2016-11-07] MEDS: METOCLOPRAMIDE HCL 10 MG/2 ML VIAL. IV SCH ×2 (14:17→20:34)
--- NOTE | 2016-11-07 14:20 | PDOC ---
Subjective: Subjective: Vomiting today, not really drinking any water. Says going to restart Reglan this afternoon - was stopped a few days ago because of leg twitching. Pain okay. 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 - LYMPHOVASCULAR TUMOR INVASION IDENTIFIED. 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 - Proximal and distal margins of resection negative for tumor. - Focal adhesed segment of sigmoid mesocolon. Vital Signs: Vital Signs Date Time Temp Pulse Resp B/P Pulse Ox O2 Delivery O2 Flow Rate FiO2 11/07/16 11:00 97.6 88 18 138/65 97 Room Air 97.6 Labs: Laboratory Tests Test 11/07/16 06:15 Sodium Level 141mmol/L Potassium Level 4.4mmol/L Chloride Level 106mmol/L Carbon Dioxide Level 30mmol/L Anion Gap 5 Blood Urea Nitrogen 9mg/dL Creatinine 0.7mg/dL Estimated GFR (Cockcroft-Gault) 115.0 Glucose Level 105mg/dL Calcium Level 8.3mg/dL PE: GEN: NAD LUNGS: clear anteriorly HEART: RRR ABD: BS quiet NEURO/PSYCH: A & O 3 A/P: Small bowel adenocarcinoma s/p resection 10/31 -basically NPO w/ n/v, on PPN, to restart Reglan -- Other per Dr. Fam. LEANDRO SHARMA Nov 07, 2016 14:20
[2016-11-07 15:12] VITALS: BP 123/85
[2016-11-07] MEDS: PAROXETINE 10 MG TABLET. PO SCH (18:00)
[2016-11-07 19:18] VITALS: BP 133/50
[2016-11-07 23:00] VITALS: BP 133/85
[2016-11-08] MEDS: ONDANSETRON PF 4 MG/2 ML VIAL. IV PRN ×2 (04:51→10:04)
[2016-11-08 07:00] VITALS: BP 133/80
[2016-11-08] MEDS: PANTOPRAZOLE 40 MG TABLET. PO SCH (07:30)
[2016-11-08] MEDS ORDERED: GADOBUTROL 7.5 MMOL/7.5 ML VIAL IV ONE (09:45)
--- NOTE | 2016-11-08 10:00 | RAD ---
MR of the liver with and without gadolinium, 11/08/2016: History: Liver lesion Imaging of the upper abdomen was performed in axial and coronal planes utilizing a variety of imaging sequences including T2 weighted, fat suppressed T2 weighted and opposed phase gradient echo sequences. Dynamic fat-suppressed T1-weighted scans were also obtained following IV injection of 7.5 cc of the Gadavist contrast agent. There is a subcapsular lesion in the lateral aspect of the right lobe of the liver which corresponds to the abnormality seen on the recent CT chest exam. It demonstrates slightly decreased signal intensity relative to the liver on the T2-weighted sequence. It is of high signal intensity on the opposed phase gradient echo images. It is best seen on the postcontrast scans where it is hypervascular relative to the liver. This process measures approximately 4 cm in width, 2.8 cm in AP dimension and 5 cm in craniocaudad extent. The signal characteristics are not typical of a hemangioma. No other hepatic lesion is seen. No significant hepatic steatosis is delineated. Incidental note is made of several small renal cysts. IMPRESSION: Single hypervascular solid lesion in the lateral aspect of the right lobe of liver as described above. A primary or secondary hepatic malignancy are possibilities. CT-guided biopsy may be considered for further evaluation.
[2016-11-08] MEDS: METOCLOPRAMIDE HCL 10 MG/2 ML VIAL. IV SCH ×3 (10:04→21:08)
[2016-11-08] MEDS: DO NOT USE 40 MG/0.4 ML DISP.SYRIN SQ SCH (10:04)
[2016-11-08] MEDS: HYDROMORPHONE STANDARD PCA 30 ML IV PRN (10:06)
[2016-11-08 10:45] LABS: CALCIUM 8.3 mg/dL (8.5-10.1); CREATININE 0.7 mg/dL (0.7-1.3)
--- NOTE | 2016-11-08 10:53 | PDOC ---
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 may need reinsert NGT. fu with sx History of Present Illness History of Present Illness finally has 2 bm 11/05,post op , but no flatus or bm since 11/06 some abd pain ,with cough using LEATHER SOFTENER every 1-2h, less than before cough is gone. vomited x1 on 11/06, 11/07, many times 11/08 encourage pt to move, but saying still feels very nausea again 11/06 k back to normal Vitals Vitals Vital Signs Date Time Temp Pulse Resp B/P Pulse Ox O2 Delivery O2 Flow Rate FiO2 11/08/16 10:06 95 Room Air 3.0 11/08/16 07:00 98.1 75 18 133/80 98.1 Physical Exam General: Alert, Oriented X3, Cooperative, No acute distress Heart: Normal S1, Normal S2 Lungs: Clear Abdomen: Soft, Other (drainage from lower portion of incision, wick in place, fredy serous ) Extremities: No edema, Normal pulses Skin: No rashes Labs LABS Laboratory Tests Test 11/08/16 10:15 Sodium Level 138mmol/L (136-145) Potassium Level 4.0mmol/L (3.5-5.1) Chloride Level 103mmol/L (98-107) Carbon Dioxide Level 30mmol/L (21-32) Anion Gap 5 (6-14) Blood Urea Nitrogen 10mg/dL (8-26) Creatinine 0.7mg/dL (0.7-1.3) Estimated GFR (Cockcroft-Gault) 115.0 Glucose Level 109mg/dL (70-99) Calcium Level 8.3mg/dL (8.5-10.1) Review of Systems Review of Systems no fever, chills, sob or chest pain Assessment and Plan Assessmemt and Plan Problems Medical Problems: (1) Intractable vomiting Status: Acute (2) Small intestine cancer Status: Acute Problems: Comment Review of Relevant I have reviewed the following items pako (where applicable) has been applied. Labs Laboratory Tests Test 11/07/16 06:15 11/08/16 10:15 Sodium Level 141mmol/L (136-145) 138mmol/L (136-145) Potassium Level 4.4mmol/L (3.5-5.1) 4.0mmol/L (3.5-5.1) Chloride Level 106mmol/L (98-107) 103mmol/L (98-107) Carbon Dioxide Level 30mmol/L (21-32) 30mmol/L (21-32) Anion Gap 5 (6-14) 5 (6-14) Blood Urea Nitrogen 9mg/dL (8-26) 10mg/dL (8-26) Creatinine 0.7mg/dL (0.7-1.3) 0.7mg/dL (0.7-1.3) Estimated GFR (Cockcroft-Gault) 115.0 115.0 Glucose Level 105mg/dL (70-99) 109mg/dL (70-99) Calcium Level 8.3mg/dL (8.5-10.1) 8.3mg/dL (8.5-10.1) Laboratory Tests Test 11/08/16 10:15 Sodium Level 138mmol/L (136-145) Potassium Level 4.0mmol/L (3.5-5.1) Chloride Level 103mmol/L (98-107) Carbon Dioxide Level 30mmol/L (21-32) Anion Gap 5 (6-14) Blood Urea Nitrogen 10mg/dL (8-26) Creatinine 0.7mg/dL (0.7-1.3) Estimated GFR (Cockcroft-Gault) 115.0 Glucose Level 109mg/dL (70-99) Calcium Level 8.3mg/dL (8.5-10.1) Medications Current Medications Sodium Chloride 3 ml 3 ml PRN DAILY PRN IV AFTER MEDS AND BLOOD DRAWS; Start at 21:30 Sodium Chloride (Iv Sodium Chloride 0.9% 1000ml Bag) 1,000 ml @ 100 mls/hr Q10H IV Last administered on 10/30/16 00:27; Start 10/29/16 at 21:30; Stop at 07:29; Status DC Bisacodyl (Dulcolax Supp) 10 mg PRN DAILY PRN MO CONSTIPATION; Start 10/29/16 at 21:30 Enoxaparin Sodium (Lovenox 40mg Syringe) 40 mg Q24H SQ Last administered on 21:11; Start 10/29/16 at 22:00; Stop 10/31/16 at 08:28; Status DC Metoclopramide HCl (Reglan) 10 mg Q8HRS IV Last administered on 11/06/16 06:07 ; Start 10/29/16 at 22:00; Stop 11/06/16 at 11:01; Status DC Ondansetron HCl (Zofran) 4 mg PRN Q8HRS PRN IV NAUSEA/VOMITING Last administered on 10/31/16 00:09; Start 10/29/16 at 21:30; Stop 11/01/16 at 14:47 ; Status DC Pantoprazole Sodium (Protonix Vial) 40 mg DAILYAC IVP Last administered on 11/05 08:25; Start 10/30/16 at 07:30; Stop 11/05/16 at 11:13; Status DC Paroxetine HCl (Paxil) 10 mg DAILY PO ; Start 10/30/16 at 09:00; Stop 10/30/16 at 09:33; Status DC Acetaminophen/ Aspirin/Caffeine (Excedrin Migraine) 1 tab PRN BID PRN PO MIGRAINE HEADACHE Last administered on 10/29/16 23:46; Start 10/29/16 at 21:30 ; Stop 11/07/16 at 11:23; Status DC Acetaminophen (Tylenol) 650 mg PRN Q6HRS PRN PO MILD PAIN / TEMP Last administered on 11/04/16 17:39; Start 10/29/16 at 22:00 Iohexol (Omnipaque 300 Mg/ml) 75 ml 1X ONCE IV Last administered on 10/30/16 09:09; Start 10/30/16 at 06:45; Stop 10/30/16 at 06:46; Status DC Iohexol (Omnipaque 240 Mg/ml) 30 ml 1X ONCE PO Last administered on 10/30/16 06:45; Start 10/30/16 at 06:45; Stop 10/30/16 at 06:46; Status DC Info (Do NOT chart on this entry -- for MONITORING) 1 each PRN DAILY PRN MC SEE COMMENTS; Start 10/30/16 at 06:45; Stop 11/01/16 at 06:44; Status DC Paroxetine HCl (Paxil) 10 mg DAILY@18 PO Last administered on 10/30/16 17:52; Start 10/30/16 at 18:00 Morphine Sulfate 2 mg PRN Q2HR PRN IV PAIN; Start 10/30/16 at 17:45; Stop 11/02 at 05:57; Status DC Ondansetron HCl (Zofran) 4 mg PRN Q6HRS PRN IV Nausea; Start 10/31/16 at 08:45 ; Stop 10/31/16 at 18:00; Status DC Fentanyl Citrate (Fentanyl 2ml Vial) 25 mcg PRN Q5MIN PRN IV MILD PAIN; Start 10/31/16 at 08:45; Stop 10/31/16 at 18:00; Status DC Fentanyl Citrate (Fentanyl 2ml Vial) 50 mcg PRN Q5MIN PRN IV MODERATE PAIN; Start 10/31/16 at 08:45; Stop 10/31/16 at 08:50; Status DC Morphine Sulfate 1 mg 1 mg PRN Q10MIN PRN IV SEVERE PAIN; Start 10/31/16 at 08: 45; Stop 10/31/16 at 18:00; Status DC Lactated Ringer's (Iv Lactated Ringers) 1,000 ml @ 30 mls/hr Q24H IV ; Start at 08:44; Stop 10/31/16 at 20:43; Status DC Lidocaine HCl 2 ml 1X PRN PRN ID IV START; Start 10/31/16 at 08:45; Stop at 18:00; Status DC Hydromorphone HCl (Dilaudid) 0.5 mg PRN Q10MIN PRN IV SEV PAIN,Second choice; Start 10/31/16 at 08:45; Stop 10/31/16 at 18:00; Status DC Prochlorperazine Edisylate 5 mg 5 mg PACU PRN PRN IV NAUSEA; Start 10/31/16 at 08:45; Stop 10/31/16 at 18:00; Status DC Cefoxitin Sodium (Mefoxin 2gm Ivpb For Omni) 100 ml @ 200 mls/hr 1X ONCE IV Last administered on 10/31/16t 13:16; Start 10/31/16 at 11:30; Stop 10/31/16 at 11:59; Status DC Sevoflurane (Ultane) 60 ml STK-MED ONCE IH ; Start 10/31/16 at 12:14; Stop 10/31 at 12:15; Status DC Fentanyl Citrate (Fentanyl 2ml Vial) 100 mcg STK-MED ONCE .ROUTE ; Start at 12:14; Stop 10/31/16 at 12:15; Status DC Rocuronium [place] 50 mg 50 mg STK-MED ONCE .ROUTE ; Start 10/31/16 at 12:14; Stop 10/31/16 at 12:15; Status DC Propofol (Diprivan) 20 ml @ As Directed STK-MED ONCE IV ; Start 10/31/16 at 12: 15; Stop 10/31/16 at 12:16; Status DC Dexamethasone Sodium Phosphate (Decadron) 20 mg STK-MED ONCE .ROUTE ; Start at 12:15; Stop 10/31/16 at 12:16; Status DC Ondansetron HCl (Zofran) 4 mg STK-MED ONCE .ROUTE ; Start 10/31/16 at 12:15; Stop 10/31/16 at 12:16; Status DC Lidocaine HCl 100 mg STK-MED ONCE .ROUTE ; Start 10/31/16 at 12:15; Stop at 12:16; Status DC Glycopyrrolate (Robinul) 1 mg STK-MED ONCE .ROUTE ; Start 10/31/16 at 12:40; Stop 10/31/16 at 12:41; Status DC Neostigmine Methylsulfate 5 mg STK-MED ONCE .ROUTE ; Start 10/31/16 at 12:40; Stop 10/31/16 at 12:41; Status DC Succinylcholine Chloride (Anectine) 200 mg STK-MED ONCE .ROUTE ; Start 10/31/16 at 13:04; Stop 10/31/16 at 13:05; Status DC Phenylephrine HCl 1 mg 1 mg STK-MED ONCE IV ; Start 10/31/16 at 13:14; Stop at 13:15; Status DC Albumin Human (Plasmanate) 500 ml @ As Directed STK-MED ONCE IV ; Start at 15:47; Stop 10/31/16 at 15:48; Status DC Rocuronium [place] (Zemuron) 100 mg STK-MED ONCE .ROUTE ; Start 10/31/16 at 15: 51; Stop 10/31/16 at 15:52; Status DC Fentanyl Citrate (Fentanyl 5ml Vial) 250 mcg STK-MED ONCE .ROUTE ; Start at 16:19; Stop 10/31/16 at 16:20; Status DC Sodium Chloride 3 ml 3 ml QSHIFT PRN IV AFTER MEDS AND BLOOD DRAWS; Start 10/31 at 17:30; Status UNV Hydromorphone HCl (Dilaudid Standard LEATHER SOFTENER) 30 ml @ 0 mls/hr CONT PRN PRN IV PROTOCOL Last administered on 11/08/16 10:06; Start 10/31/16 at 17:30 Hydromorphone HCl (Dilaudid) 0.4 mg PRN Q1HR PRN IV SEE COMMENTS; Start at 17:30; Stop 11/02/16 at 05:57; Status DC Ondansetron HCl (Zofran) 4 mg PRN Q6HRS PRN IV NAUESA, 1ST CHOICE Last administered on 11/08/16 10:04; Start 10/31/16 at 17:30 Metoclopramide HCl 10 mg 10 mg PRN Q6HRS PRN IV Nausea/Vomiting, 2nd Choice Last administered on 11/06/16 22:03; Start 10/31/16 at 17:30 Sodium Chloride (Iv Sodium Chloride 0.9% 1000ml Bag) 1,000 ml @ 125 mls/hr 1X ONCE IV Last administered on 10/31/16 22:45; Start 10/31/16 at 17:30; Stop at 01:29; Status DC Enoxaparin Sodium 40 mg 40 mg Q24H SQ Last administered on 11/08/16 10:04; Start 11/01/16 at 09:00 Hydromorphone HCl 30 ml @ As Directed STK-MED ONCE IV ; Start 10/31/16 at 17:24 ; Stop 10/31/16 at 17:26; Status DC Sodium Chloride (Iv Sodium Chloride 0.9% 500ml Bag) 500 ml @ 500 mls/hr 1X ONCE IV Last administered on 10/31/16 22:00; Start 10/31/16 at 22:00; Stop at 22:59; Status DC Cefoxitin Sodium 2 gm 2 gm STK-MED ONCE IV ; Start 10/31/16 at 16:00; Stop 11/01 at 08:43; Status DC Sodium Chloride 1,000 ml @ 1,000 mls/hr 1X ONCE IV Last administered on 14:00; Start 11/01/16 at 14:00; Stop 11/01/16 at 14:59; Status DC Sodium Chloride 1,000 ml @ 125 mls/hr 1X ONCE IV Last administered on 17:51; Start 11/01/16 at 14:00; Stop 11/01/16 at 21:59; Status DC Sodium Chloride 1,000 ml @ 1,000 mls/hr 1X ONCE IV Last administered on 13:14; Start 11/02/16 at 11:45; Stop 11/02/16 at 12:44; Status DC Amino Acids/ Glycerin/ Electrolytes (Procalamine) 1,000 ml @ 80 mls/hr [id number] IV Last administered on 11/04/16 03:00; Start 11/03/16 at 09:30; Stop at 07:57; Status DC Albuterol/ Ipratropium (Duoneb) 3 ml RTQID NEB Last administered on 11/05/16 07:53; Start 11/04/16 at 12:00; Stop 11/05/16 at 12:32; Status DC Albuterol Sulfate (Ventolin Neb Soln) 2.5 mg PRN Q4HRS PRN NEB SHORTNESS OF BREATH; Start 11/04/16 at 11:00 Lidocaine/Sodium Bicarbonate (Buffered Lidocaine 1%) 3 ml 1X ONCE IJ Last administered on 11/04/16 14:51; Start 11/04/16 at 14:00; Stop 11/04/16 at 14:01 ; Status DC Heparin Sodium/ Sodium Chloride 60 unit 1X ONCE IV Last administered on 14:52; Start 11/04/16 at 14:00; Stop 11/04/16 at 14:01; Status DC Guaifenesin 200 mg 200 mg PRN Q6HRS PRN PO COUGH; Start 11/04/16 at 16:15 Amino Acids/ Electrolytes (Clinimix E 2.75%-5% Solution) 2,000 ml @ 80 mls/hr Q24H IV Last administered on 11/07/16 08:26; Start 11/05/16 at 08:00 Pantoprazole Sodium (Protonix) 40 mg DAILYAC PO ; Start 11/06/16 at 07:30; Stop 11/08/16 at 10:30; Status DC Potassium Chloride (Klor-Con) 40 meq 1X ONCE PO ; Start 11/05/16 at 11:15; Stop 11/05/16 at 12:58; Status DC Polyethylene Glycol (miraLAX PACKET) 17 gm PRN DAILY PRN PO CONSTIPATION Last administered on 11/05/16 12:37; Start 11/05/16 at 11:15 Albuterol/ Ipratropium 3 ml 3 ml PRN DAILY PRN NEB SHORTNESS OF BREATH; Start 11/05/16 at 12:30; Stop 11/05/16 at 12:47; Status DC Potassium Chloride 50 ml @ 50 mls/hr Q1H IV Last administered on 11/05/16 15: 10; Start 11/05/16 at 13:30; Stop 11/05/16 at 15:29; Status DC Potassium Chloride 50 ml @ 25 mls/hr Q2H IV Last administered on 11/06/16 11: 23; Start 11/06/16 at 09:00; Stop 11/06/16 at 12:59; Status DC Potassium Chloride (KCl Premix 20meq) 50 ml @ 25 mls/hr Q2H IV Last administered on 11/06/16 15:46; Start 11/06/16 at 14:00; Stop 11/06/16 at 17:59 ; Status DC Metoclopramide HCl (Reglan) 10 mg TID IV Last administered on 11/08/16 10:04; Start 11/07/16 at 14:00 Iohexol (Omnipaque 300 Mg/ml) 75 ml 1X ONCE IV ; Start 11/07/16 at 11:15; Stop 11/07/16 at 11:16; Status DC Info (Do NOT chart on this entry -- for MONITORING) 1 each PRN DAILY PRN MC SEE COMMENTS; Start 11/07/16 at 11:15; Stop 11/09/16 at 11:14 Acetaminophen/ Aspirin/Caffeine (Excedrin Migraine) 1 tab PRN BID PRN PO MIGRAINE HEADACHE; Start 11/07/16 at 11:30 Gadobutrol (Gadavist) 7.5 mmol 1X ONCE IV Last administered on 11/08/16 10:03 ; Start 11/08/16 at 09:45; Stop 11/08/16 at 09:46; Status DC Pantoprazole Sodium (Protonix Vial) 40 mg DAILYAC IVP ; Start 11/09/16 at 07:30 Vitals/I & O Vital Sign - Last 24 Hours 11/07/16 11/07/16 11/07/16 11/07/16 11:00 15:12 19:18 20:00 Temp 97.6 99.7 97.5 97.6 99.7 97.5 Pulse 88 72 87 Resp 18 B/P 138/65 123/85 133/50 Pulse Ox 97 99 97 O2 Delivery Room Air Room Air Room Air Room Air 11/07/16 11/08/16 11/08/16 23:00 07:00 10:06 Temp 98.3 98.1 98.3 98.1 Pulse 89 75 Resp 18 18 B/P 133/85 133/80 Pulse Ox 91 95 95 O2 Delivery Room Air Room Air Room Air O2 Flow Rate 3.0 Intake and Output 11/07/16 11/07/16 11/08/16 15:00 23:00 07:00 Intake Total 0 ml Output Total 40 ml 925 ml 900 ml Balance -40 ml -925 ml -900 ml Nutrition Consultation Dietary Evaluation: Recommendations by RD: PPN/TPN Comments: continue ppn at this time Expected Outcomes/Goals: diet adv/ tolerance Interpretation of weight loss: >5% in 1 month Malnutrition Findings: Food and Nutrition Intake (Sev: <50% est energy req 5days Reduced Analytical Lead Strength: N/A Weight Status: Overweight Fluid Accumulation (N/A): N/A DERIAN WILLSON MD Nov 08, 2016 10:52
[2016-11-08 11:00] VITALS: BP 102/69
[2016-11-08] MEDS ORDERED: PROMETHAZINE 6.25 MG in IV NORMAL SALINE 50ML 50 ML IV PRN (11:00)
--- NOTE | 2016-11-08 11:32 | PDOC ---
PHU VACA [employer] PERSON 11/08/16 1132: SURGICAL PROGRESS NOTE Subjective still having nausea and emesis denies any bowel function since 11/05 Vital Signs Vital Signs Date Time Temp Pulse Resp B/P Pulse Ox O2 Delivery O2 Flow Rate FiO2 11/08/16 11:00 97.4 94 20 102/69 96 Room Air 97.4 11/08/16 10:06 3.0 I&O Intake and Output 11/08/16 07:00 Intake Total 0 ml Output Total 1865 ml Balance -1865 ml Intake Oral 0 ml Output Urine Total 1825 ml Drainage Total 40 ml General: Alert, Oriented X3, Cooperative, No acute distress Abdomen: Soft, Other (nondistended, dressing dry, drain serous) Labs Laboratory Tests Test 11/07/16 06:15 11/08/16 10:15 Sodium Level 141mmol/L (136-145) 138mmol/L (136-145) Potassium Level 4.4mmol/L (3.5-5.1) 4.0mmol/L (3.5-5.1) Chloride Level 106mmol/L (98-107) 103mmol/L (98-107) Carbon Dioxide Level 30mmol/L (21-32) 30mmol/L (21-32) Anion Gap 5 (6-14) 5 (6-14) Blood Urea Nitrogen 9mg/dL (8-26) 10mg/dL (8-26) Creatinine 0.7mg/dL (0.7-1.3) 0.7mg/dL (0.7-1.3) Estimated GFR (Cockcroft-Gault) 115.0 115.0 Glucose Level 105mg/dL (70-99) 109mg/dL (70-99) Calcium Level 8.3mg/dL (8.5-10.1) 8.3mg/dL (8.5-10.1) Laboratory Tests Test 11/08/16 10:15 Sodium Level 138mmol/L (136-145) Potassium Level 4.0mmol/L (3.5-5.1) Chloride Level 103mmol/L (98-107) Carbon Dioxide Level 30mmol/L (21-32) Anion Gap 5 (6-14) Blood Urea Nitrogen 10mg/dL (8-26) Creatinine 0.7mg/dL (0.7-1.3) Estimated GFR (Cockcroft-Gault) 115.0 Glucose Level 109mg/dL (70-99) Calcium Level 8.3mg/dL (8.5-10.1) Problem List Problems Medical Problems: (1) Intractable vomiting Status: Acute (2) Small intestine cancer Status: Acute Assessment/Plan s/p SBR still slow return of bowel function--increase activity, limit narcotic use will review with Dr Cage Problems: REAL CAGE MD 11/08/16 1450: SURGICAL PROGRESS NOTE Assessment/Plan addendum i saw and examined him. pain is improving but n/v persists. afeb vss abd soft nd nt inc clean, no infection mri/ct chest reviewed a/p n/v. suspect it is delayed gastric emptying secondary to longstanding (POA) gastric/duodenal obstruction from his tumor. however, given recent resection and anastamosis, ct abd/pelvis with iv and as much oral contrast as he can tolerate is ordered. hepatic mass. biopsy in IR friday (had lovenox today) will start tpn. Problems: PHU VACA APRN Nov 08, 2016 11:32 REAL CAGE MD Nov 08, 2016 14:50
--- NOTE | 2016-11-08 12:14 | PDOC ---
PROGRESS NOTES Subjective Subjective c/c - f/u of T3N2M0 - Stage III, Small bowel poorly differentiated adenocarcinoma ROS - abd pain stable. Objective Objective Vital Signs Date Time Temp Pulse Resp B/P Pulse Ox O2 Delivery O2 Flow Rate FiO2 11/08/16 11:00 97.4 94 20 102/69 96 Room Air 97.4 11/08/16 10:06 3.0 Intake and Output 11/08/16 07:00 Intake Total 0 ml Output Total 1865 ml Balance -1865 ml Intake Oral 0 ml Output Urine Total 1825 ml Drainage Total 40 ml Physical Exam Heart: Normal S1, Normal S2 General: Alert, Oriented X3 Lungs: Clear to auscultation Neuro: Normal speech Psych/Mental Status: Mental status NL Assessment Assessment Problems Medical Problems: (1) Intractable vomiting Status: Acute (2) Small intestine cancer Status: Acute A/P: 1. 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 12/27 LN positive. Reviewed pathology Plan adjuvant chemo with FOLFOX for 12 cycles in 4 weeks. CEA 8.8, CA 19-9 is 27 F/u CT chest 11/07/16 Small subcapsular area of increased density laterally in the right lobe of the liver, not evident on the 10/30/2016 CT study. MRI 11/08/16: Single hypervascular solid lesion in the lateral aspect of the right lobe of liver as described above. A primary or secondary hepatic malignancy are possibilities. CT-guided biopsy of liver lesion ordered. Continue supportive care per surgery, primary team. 2. Abd pain - cont pain management per surgery 3. Liver lesion, bx ordered PATHOLOGY REPORT: * * * * * * * * FINAL DIAGNOSIS: Segment of small bowel and mesentery, proximal jejunum segmental resection: - INVASIVE ADENOCARCINOMA OF SMALL BOWEL, POORLY DIFFERENTIATED, FORMING A SEGMENTAL ULCERATED NODULAR TUMOR MASS MEASURING UP TO 12 CM IN LENGTH, WITH TUMOR INVASION THROUGH MUSCULARIS PROPRIA INTO SUBSEROSA AND EXTENSIVE TUMOR INVASION OF MESENTERY. - LYMPHOVASCULAR TUMOR INVASION IDENTIFIED. 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 - Proximal and distal margins of resection negative for tumor. - Focal adhesed segment of sigmoid mesocolon. (JPM:patrick; d/t: 11/05/2016) Clinical History: Not known: . Specimen: Jejunum Procedure: Segmental resection Tumor Site: Jejunum Macroscopic Tumor Perforation: Not identified: . Histologic Type: Adenocarcinoma (not otherwise characterized) Histologic Grade: G3: Poorly differentiated Tumor Size: Greatest dimension: 12 cm Microscopic Tumor Extension: Tumor invades through the muscularis propria into the subserosal adipose tissue or the nonperitonealized george-intestinal soft tissues but does not extend to the serosal surface All margins uninvolved by invasive carcinoma Distance of invasive carcinoma from closest margin: 7 cm Closest margin: Proximal margin Proximal Margin: Uninvolved by invasive carcinoma Intramucosal carcinoma/adenoma not identified at proximal margin: . Distal Margin: Uninvolved by invasive carcinoma Intramucosal carcinoma/adenoma not identified at distal margin: . MARGIN: Uninvolved by invasive carcinoma Other Margin(s): Uninvolved by invasive carcinoma Lymph-Vascular Invasion: Present Primary Tumor (pT): pT3: Tumor invades through the muscularis propria into the subserosa or into the nonperitonealized perimuscular tissue (mesentery or retroperitoneum) with extension 2 cm or less Regional Lymph Nodes (pN): pN2: Metastasis in 4 or more regional lymph nodes Number examined: 12 Number involved: 5 Distant Metastasis: Not applicable: . Additional Pathologic Findings: None identified REPORT ELECTRONICALLY SIGNED BY: Alessio Ahumada M.D. DATE/TIME: 11/06/2016 14:19 * * * * * * * * Comment Review of Relevant I have reviewed the following items pako (where applicable) has been applied. Labs Laboratory Tests Test 11/07/16 06:15 11/08/16 10:15 Sodium Level 141mmol/L (136-145) 138mmol/L (136-145) Potassium Level 4.4mmol/L (3.5-5.1) 4.0mmol/L (3.5-5.1) Chloride Level 106mmol/L (98-107) 103mmol/L (98-107) Carbon Dioxide Level 30mmol/L (21-32) 30mmol/L (21-32) Anion Gap 5 (6-14) 5 (6-14) Blood Urea Nitrogen 9mg/dL (8-26) 10mg/dL (8-26) Creatinine 0.7mg/dL (0.7-1.3) 0.7mg/dL (0.7-1.3) Estimated GFR (Cockcroft-Gault) 115.0 115.0 Glucose Level 105mg/dL (70-99) 109mg/dL (70-99) Calcium Level 8.3mg/dL (8.5-10.1) 8.3mg/dL (8.5-10.1) Laboratory Tests Test 11/08/16 10:15 Sodium Level 138mmol/L (136-145) Potassium Level 4.0mmol/L (3.5-5.1) Chloride Level 103mmol/L (98-107) Carbon Dioxide Level 30mmol/L (21-32) Anion Gap 5 (6-14) Blood Urea Nitrogen 10mg/dL (8-26) Creatinine 0.7mg/dL (0.7-1.3) Estimated GFR (Cockcroft-Gault) 115.0 Glucose Level 109mg/dL (70-99) Calcium Level 8.3mg/dL (8.5-10.1) Medications Current Medications Sodium Chloride 3 ml 3 ml PRN DAILY PRN IV AFTER MEDS AND BLOOD DRAWS; Start at 21:30 Sodium Chloride (Iv Sodium Chloride 0.9% 1000ml Bag) 1,000 ml @ 100 mls/hr Q10H IV Last administered on 10/30/16 00:27; Start 10/29/16 at 21:30; Stop at 07:29; Status DC Bisacodyl (Dulcolax Supp) 10 mg PRN DAILY PRN IA CONSTIPATION; Start 10/29/16 at 21:30 Enoxaparin Sodium (Lovenox 40mg Syringe) 40 mg Q24H SQ Last administered on 21:11; Start 10/29/16 at 22:00; Stop 10/31/16 at 08:28; Status DC Metoclopramide HCl (Reglan) 10 mg Q8HRS IV Last administered on 11/06/16 06:07 ; Start 10/29/16 at 22:00; Stop 11/06/16 at 11:01; Status DC Ondansetron HCl (Zofran) 4 mg PRN Q8HRS PRN IV NAUSEA/VOMITING Last administered on 10/31/16 00:09; Start 10/29/16 at 21:30; Stop 11/01/16 at 14:47 ; Status DC Pantoprazole Sodium (Protonix Vial) 40 mg DAILYAC IVP Last administered on 11/05 08:25; Start 10/30/16 at 07:30; Stop 11/05/16 at 11:13; Status DC Paroxetine HCl (Paxil) 10 mg DAILY PO ; Start 10/30/16 at 09:00; Stop 10/30/16 at 09:33; Status DC Acetaminophen/ Aspirin/Caffeine (Excedrin Migraine) 1 tab PRN BID PRN PO MIGRAINE HEADACHE Last administered on 10/29/16 23:46; Start 10/29/16 at 21:30 ; Stop 11/07/16 at 11:23; Status DC Acetaminophen (Tylenol) 650 mg PRN Q6HRS PRN PO MILD PAIN / TEMP Last administered on 11/04/16 17:39; Start 10/29/16 at 22:00 Iohexol (Omnipaque 300 Mg/ml) 75 ml 1X ONCE IV Last administered on 10/30/16 09:09; Start 10/30/16 at 06:45; Stop 10/30/16 at 06:46; Status DC Iohexol (Omnipaque 240 Mg/ml) 30 ml 1X ONCE PO Last administered on 10/30/16 06:45; Start 10/30/16 at 06:45; Stop 10/30/16 at 06:46; Status DC Info (Do NOT chart on this entry -- for MONITORING) 1 each PRN DAILY PRN MC SEE COMMENTS; Start 10/30/16 at 06:45; Stop 11/01/16 at 06:44; Status DC Paroxetine HCl (Paxil) 10 mg DAILY@18 PO Last administered on 10/30/16 17:52; Start 10/30/16 at 18:00 Morphine Sulfate 2 mg PRN Q2HR PRN IV PAIN; Start 10/30/16 at 17:45; Stop 11/02 at 05:57; Status DC Ondansetron HCl (Zofran) 4 mg PRN Q6HRS PRN IV Nausea; Start 10/31/16 at 08:45 ; Stop 10/31/16 at 18:00; Status DC Fentanyl Citrate (Fentanyl 2ml Vial) 25 mcg PRN Q5MIN PRN IV MILD PAIN; Start 10/31/16 at 08:45; Stop 10/31/16 at 18:00; Status DC Fentanyl Citrate (Fentanyl 2ml Vial) 50 mcg PRN Q5MIN PRN IV MODERATE PAIN; Start 10/31/16 at 08:45; Stop 10/31/16 at 08:50; Status DC Morphine Sulfate 1 mg 1 mg PRN Q10MIN PRN IV SEVERE PAIN; Start 10/31/16 at 08: 45; Stop 10/31/16 at 18:00; Status DC Lactated Ringer's (Iv Lactated Ringers) 1,000 ml @ 30 mls/hr Q24H IV ; Start at 08:44; Stop 10/31/16 at 20:43; Status DC Lidocaine HCl 2 ml 1X PRN PRN ID IV START; Start 10/31/16 at 08:45; Stop at 18:00; Status DC Hydromorphone HCl (Dilaudid) 0.5 mg PRN Q10MIN PRN IV SEV PAIN,Second choice; Start 10/31/16 at 08:45; Stop 10/31/16 at 18:00; Status DC Prochlorperazine Edisylate 5 mg 5 mg PACU PRN PRN IV NAUSEA; Start 10/31/16 at 08:45; Stop 10/31/16 at 18:00; Status DC Cefoxitin Sodium (Mefoxin 2gm Ivpb For Omni) 100 ml @ 200 mls/hr 1X ONCE IV Last administered on 10/31/16t 13:16; Start 10/31/16 at 11:30; Stop 10/31/16 at 11:59; Status DC Sevoflurane (Ultane) 60 ml STK-MED ONCE IH ; Start 10/31/16 at 12:14; Stop 10/31 at 12:15; Status DC Fentanyl Citrate (Fentanyl 2ml Vial) 100 mcg STK-MED ONCE .ROUTE ; Start at 12:14; Stop 10/31/16 at 12:15; Status DC Rocuronium Radford 50 mg 50 mg STK-MED ONCE .ROUTE ; Start 10/31/16 at 12:14; Stop 10/31/16 at 12:15; Status DC Propofol (Diprivan) 20 ml @ As Directed STK-MED ONCE IV ; Start 10/31/16 at 12: 15; Stop 10/31/16 at 12:16; Status DC Dexamethasone Sodium Phosphate (Decadron) 20 mg STK-MED ONCE .ROUTE ; Start at 12:15; Stop 10/31/16 at 12:16; Status DC Ondansetron HCl (Zofran) 4 mg STK-MED ONCE .ROUTE ; Start 10/31/16 at 12:15; Stop 10/31/16 at 12:16; Status DC Lidocaine HCl 100 mg STK-MED ONCE .ROUTE ; Start 10/31/16 at 12:15; Stop at 12:16; Status DC Glycopyrrolate (Robinul) 1 mg STK-MED ONCE .ROUTE ; Start 10/31/16 at 12:40; Stop 10/31/16 at 12:41; Status DC Neostigmine Methylsulfate 5 mg STK-MED ONCE .ROUTE ; Start 10/31/16 at 12:40; Stop 10/31/16 at 12:41; Status DC Succinylcholine Chloride (Anectine) 200 mg STK-MED ONCE .ROUTE ; Start 10/31/16 at 13:04; Stop 10/31/16 at 13:05; Status DC Phenylephrine HCl 1 mg 1 mg STK-MED ONCE IV ; Start 10/31/16 at 13:14; Stop at 13:15; Status DC Albumin Human (Plasmanate) 500 ml @ As Directed STK-MED ONCE IV ; Start at 15:47; Stop 10/31/16 at 15:48; Status DC Rocuronium Radford (Zemuron) 100 mg STK-MED ONCE .ROUTE ; Start 10/31/16 at 15: 51; Stop 10/31/16 at 15:52; Status DC Fentanyl Citrate (Fentanyl 5ml Vial) 250 mcg STK-MED ONCE .ROUTE ; Start at 16:19; Stop 10/31/16 at 16:20; Status DC Sodium Chloride 3 ml 3 ml QSHIFT PRN IV AFTER MEDS AND BLOOD DRAWS; Start 10/31 at 17:30; Status UNV Hydromorphone HCl (Dilaudid Standard MINER) 30 ml @ 0 mls/hr CONT PRN PRN IV PROTOCOL Last administered on 11/08/16 10:06; Start 10/31/16 at 17:30 Hydromorphone HCl (Dilaudid) 0.4 mg PRN Q1HR PRN IV SEE COMMENTS; Start at 17:30; Stop 11/02/16 at 05:57; Status DC Ondansetron HCl (Zofran) 4 mg PRN Q6HRS PRN IV NAUESA, 1ST CHOICE Last administered on 11/08/16 10:04; Start 10/31/16 at 17:30 Metoclopramide HCl 10 mg 10 mg PRN Q6HRS PRN IV Nausea/Vomiting, 2nd Choice Last administered on 11/06/16 22:03; Start 10/31/16 at 17:30 Sodium Chloride (Iv Sodium Chloride 0.9% 1000ml Bag) 1,000 ml @ 125 mls/hr 1X ONCE IV Last administered on 10/31/16 22:45; Start 10/31/16 at 17:30; Stop at 01:29; Status DC Enoxaparin Sodium 40 mg 40 mg Q24H SQ Last administered on 11/08/16 10:04; Start 11/01/16 at 09:00 Hydromorphone HCl 30 ml @ As Directed STK-MED ONCE IV ; Start 10/31/16 at 17:24 ; Stop 10/31/16 at 17:26; Status DC Sodium Chloride (Iv Sodium Chloride 0.9% 500ml Bag) 500 ml @ 500 mls/hr 1X ONCE IV Last administered on 10/31/16 22:00; Start 10/31/16 at 22:00; Stop at 22:59; Status DC Cefoxitin Sodium 2 gm 2 gm STK-MED ONCE IV ; Start 10/31/16 at 16:00; Stop 11/01 at 08:43; Status DC Sodium Chloride 1,000 ml @ 1,000 mls/hr 1X ONCE IV Last administered on 14:00; Start 11/01/16 at 14:00; Stop 11/01/16 at 14:59; Status DC Sodium Chloride 1,000 ml @ 125 mls/hr 1X ONCE IV Last administered on 17:51; Start 11/01/16 at 14:00; Stop 11/01/16 at 21:59; Status DC Sodium Chloride 1,000 ml @ 1,000 mls/hr 1X ONCE IV Last administered on 13:14; Start 11/02/16 at 11:45; Stop 11/02/16 at 12:44; Status DC Amino Acids/ Glycerin/ Electrolytes (Procalamine) 1,000 ml @ 80 mls/hr [id number] IV Last administered on 11/04/16 03:00; Start 11/03/16 at 09:30; Stop at 07:57; Status DC Albuterol/ Ipratropium (Duoneb) 3 ml RTQID NEB Last administered on 11/05/16 07:53; Start 11/04/16 at 12:00; Stop 11/05/16 at 12:32; Status DC Albuterol Sulfate (Ventolin Neb Soln) 2.5 mg PRN Q4HRS PRN NEB SHORTNESS OF BREATH; Start 11/04/16 at 11:00 Lidocaine/Sodium Bicarbonate (Buffered Lidocaine 1%) 3 ml 1X ONCE IJ Last administered on 11/04/16 14:51; Start 11/04/16 at 14:00; Stop 11/04/16 at 14:01 ; Status DC Heparin Sodium/ Sodium Chloride 60 unit 1X ONCE IV Last administered on 14:52; Start 11/04/16 at 14:00; Stop 11/04/16 at 14:01; Status DC Guaifenesin 200 mg 200 mg PRN Q6HRS PRN PO COUGH; Start 11/04/16 at 16:15 Amino Acids/ Electrolytes (Clinimix E 2.75%-5% Solution) 2,000 ml @ 80 mls/hr Q24H IV Last administered on 11/07/16 08:26; Start 11/05/16 at 08:00 Pantoprazole Sodium (Protonix) 40 mg DAILYAC PO ; Start 11/06/16 at 07:30; Stop 11/08/16 at 10:30; Status DC Potassium Chloride (Klor-Con) 40 meq 1X ONCE PO ; Start 11/05/16 at 11:15; Stop 11/05/16 at 12:58; Status DC Polyethylene Glycol (miraLAX PACKET) 17 gm PRN DAILY PRN PO CONSTIPATION Last administered on 11/05/16 12:37; Start 11/05/16 at 11:15 Albuterol/ Ipratropium 3 ml 3 ml PRN DAILY PRN NEB SHORTNESS OF BREATH; Start 11/05/16 at 12:30; Stop 11/05/16 at 12:47; Status DC Potassium Chloride 50 ml @ 50 mls/hr Q1H IV Last administered on 11/05/16 15: 10; Start 11/05/16 at 13:30; Stop 11/05/16 at 15:29; Status DC Potassium Chloride 50 ml @ 25 mls/hr Q2H IV Last administered on 11/06/16 11: 23; Start 11/06/16 at 09:00; Stop 11/06/16 at 12:59; Status DC Potassium Chloride (KCl Premix 20meq) 50 ml @ 25 mls/hr Q2H IV Last administered on 11/06/16 15:46; Start 11/06/16 at 14:00; Stop 11/06/16 at 17:59 ; Status DC Metoclopramide HCl (Reglan) 10 mg TID IV Last administered on 11/08/16 10:04; Start 11/07/16 at 14:00 Iohexol (Omnipaque 300 Mg/ml) 75 ml 1X ONCE IV ; Start 11/07/16 at 11:15; Stop 11/07/16 at 11:16; Status DC Info (Do NOT chart on this entry -- for MONITORING) 1 each PRN DAILY PRN MC SEE COMMENTS; Start 11/07/16 at 11:15; Stop 11/09/16 at 11:14 Acetaminophen/ Aspirin/Caffeine (Excedrin Migraine) 1 tab PRN BID PRN PO MIGRAINE HEADACHE; Start 11/07/16 at 11:30 Gadobutrol (Gadavist) 7.5 mmol 1X ONCE IV Last administered on 11/08/16 10:03 ; Start 11/08/16 at 09:45; Stop 11/08/16 at 09:46; Status DC Pantoprazole Sodium 40 mg 40 mg DAILYAC IVP ; Start 11/09/16 at 07:30 Promethazine HCl/ Sodium Chloride (Phenergan/Iv Sodium Chloride 0.9% 50ml) 50.25 ml @ 150.75 mls/ hr PRN Q6HRS PRN IV NAUSEA/VOMITING; Start 11/08/16 at 11:00 Vitals/I & O Vital Sign - Last 24 Hours 11/07/16 11/07/16 11/07/16 11/07/16 15:12 19:18 20:00 23:00 Temp 99.7 97.5 98.3 99.7 97.5 98.3 Pulse 72 87 89 Resp 18 18 18 B/P 123/85 133/50 133/85 Pulse Ox 99 97 91 O2 Delivery Room Air Room Air Room Air Room Air 11/08/16 11/08/16 11/08/16 07:00 10:06 11:00 Temp 98.1 97.4 98.1 97.4 Pulse 75 94 Resp 18 20 B/P 133/80 102/69 Pulse Ox 95 95 96 O2 Delivery Room Air Room Air Room Air O2 Flow Rate 3.0 Intake and Output 11/07/16 11/07/16 11/08/16 15:00 23:00 07:00 Intake Total 0 ml Output Total 40 ml 925 ml 900 ml Balance -40 ml -925 ml -900 ml Nutrition Consultation Dietary Evaluation: Recommendations by RD: PPN/TPN Comments: continue ppn at this time Expected Outcomes/Goals: diet adv/ tolerance Interpretation of weight loss: >5% in 1 month Malnutrition Findings: Food and Nutrition Intake (Sev: <50% est energy req 5days Reduced Imaging Scheduler Strength: N/A Weight Status: Overweight Fluid Accumulation (N/A): N/A ADELAIDA LOPEZ MD Nov 08, 2016 12:14
[2016-11-08] MEDS ORDERED: DOCUSATE SODIUM 100 MG CAPSULE PO PRN (13:15)
[2016-11-08] MEDS ORDERED: SENNOSIDES 8.6 MG TABLET PO PRN (13:15)
[2016-11-08 13:24] LABS: BASO % 1 % (0-3); EOS % 3 % (0-3); HEMATOCRIT 28.4 % (39.0-53.0); HEMOGLOBIN 9.5 g/dL (13.0-17.5); LYMPH # 0.9 x10^3/uL (1.0-4.8); LYMPH % 15 % (24-48); MEAN CORPUSCULAR HEMOGLOBIN 31 pg (25-35); MEAN CORPUSCULAR HGB CONC 33 g/dL (31-37); MEAN CORPUSCULAR VOLUME 93 fL (79-100); MONO % 11 % (0-9); NEUT % 71 % (31-73); PLATELET COUNT 231 x10^3/uL (140-400); RED BLOOD COUNT 3.06 x10^6/uL (4.30-5.70); RED CELL DISTRIBUTION WIDTH 15.7 % (11.5-14.5); WHITE BLOOD COUNT 6.2 x10^3/uL (4.0-11.0)
--- NOTE | 2016-11-08 13:37 | PDOC ---
Subjective: Subjective: Still n/v. No flatus or BM. Objective: Vital Signs: Vital Signs Date Time Temp Pulse Resp B/P Pulse Ox O2 Delivery O2 Flow Rate FiO2 11/08/16 11:00 97.4 94 20 102/69 96 Room Air 97.4 11/08/16 10:06 3.0 Labs: Laboratory Tests Test 11/08/16 10:15 11/08/16 13:00 Sodium Level 138mmol/L Potassium Level 4.0mmol/L Chloride Level 103mmol/L Carbon Dioxide Level 30mmol/L Anion Gap 5 Blood Urea Nitrogen 10mg/dL Creatinine 0.7mg/dL Estimated GFR (Cockcroft-Gault) 115.0 Glucose Level 109mg/dL Calcium Level 8.3mg/dL White Blood Count 6.2x10^3/uL Red Blood Count 3.06x10^6/uL Hemoglobin 9.5g/dL Hematocrit 28.4% Mean Corpuscular Volume 93fL Mean Corpuscular Hemoglobin 31pg Mean Corpuscular Hemoglobin Concent 33g/dL Red Cell Distribution Width 15.7% Platelet Count 231x10^3/uL Neutrophils (%) (Auto) 71% Lymphocytes (%) (Auto) 15% Monocytes (%) (Auto) 11% Eosinophils (%) (Auto) 3% Basophils (%) (Auto) 1% Neutrophils # (Auto) 4.4x10^3uL Lymphocytes # (Auto) 0.9x10^3/uL Monocytes # (Auto) 0.7x10^3/uL Eosinophils # (Auto) 0.2x10^3/uL Basophils # (Auto) 0.0x10^3/uL Imaging: Chest CT IMPRESSION: 1. No CT evidence of metastatic disease in the chest. 2. Small subcapsular area of increased density laterally in the right lobe of the liver, not evident on the 10/30/2016 CT study. This may represent a transient attenuation abnormality due to flow phenomenon. A neoplastic etiology cannot be excluded. MR scanning may be useful for further evaluation. Abd MRI IMPRESSION: Single hypervascular solid lesion in the lateral aspect of the right lobe of liver as described above. A primary or secondary hepatic malignancy are possibilities. CT-guided biopsy may be considered for further evaluation. PE: GEN: NAD ABD: soft NEURO/PSYCH: A & O 3 A/P: Small bowel adenocarcinoma s/p resection 10/31 -basically NPO w/ n/v, on PPN, to restart Reglan -abnormal MRI, liver lesion ---> biopsy planned -n/v ongoing ---> on Phenergan, Reglan, IV PPI; CT A/P ordered -- Await imaging, biopsy. Other per Dr. Fam. LEANDRO SHARMA Nov 08, 2016 13:37
[2016-11-08] MEDS ORDERED: CONTRAST GIVEN MC PRN (14:45)
[2016-11-08] MEDS ORDERED: IOHEXOL 240 MG/ML 50ML VIAL. PO ONE ×2 (14:45→15:30)
[2016-11-08] MEDS ORDERED: IOHEXOL 300 MG/ML 75 ML VIAL IV ONE (14:45)
[2016-11-08 15:00] VITALS: BP 121/84
[2016-11-08] MEDS: AA 2.75%/CALCIUM/LYTES/D5W 2,000 ML IV SCH (15:31)
--- NOTE | 2016-11-08 15:41 | RAD ---
Indication postop. Pain. Evaluate for potential anastomotic leak. The history of operative intervention one week ago for removal of proximal small bowel tumor (proximal jejunum) has been provided. A limited amount of oral contrast was administered. Approximately 75 cc of Omnipaque 300 was administered. Note is made of a preoperative examination 9 days ago. The lung bases are clear. There is pneumoperitoneum compatible with the history of recent operative intervention. There is an area of increased density in the right lobe of the liver similar to the CT examination of the chest yesterday. No additional finding in the liver is seen. The spleen appears unremarkable. The pancreas appears normal. Some mild stranding is seen in the mesentery consistent with recent operative intervention. A definite leak, abscess or unexpected finding is not seen. The pelvis is unremarkable. IMPRESSION: Postoperative changes. No definite evidence of abscess or leak. PQRS Compliance Statement: One or more of the following individualized dose reduction techniques were utilized for this examination: 1. Automated exposure control 2. Adjustment of the mA and/or kV according to patient size 3. Use of iterative reconstruction technique
--- NOTE | 2016-11-08 15:51 | PDOC ---
Provider Note Provider Note CT with expected post op findings. will dc fredy drain. advance diet when n/v/delayed gastric emptying improves. REAL CAGE MD Nov 08, 2016 15:51
[2016-11-08] MEDS: TPN PER PHARMACY MC PRN (16:27)
[2016-11-08] MEDS: PANTOPRAZOLE IV PUSH 40 MG VIAL. IVP SCH (17:47)
[2016-11-08] MEDS: PAROXETINE 10 MG TABLET. PO SCH (17:49)
[2016-11-08 19:41] VITALS: BP 132/83
[2016-11-08] MEDS ORDERED: TOTAL PARENTERAL NUTRITION 1,424.9987 ML, AMINO ACIDS 10 % 60 GM, DEXTROSE 70 % IN WATE... IV SCH ×10 (22:00)
[2016-11-08 22:56] VITALS: BP 123/81
[2016-11-09 02:52] VITALS: BP 121/66
[2016-11-09 06:23] LABS: CREATININE 0.7 mg/dL (0.7-1.3); MAGNESIUM 2.1 mg/dL (1.8-2.4); PHOSPHORUS 4.4 mg/dL (2.6-4.7); POTASSIUM 4.5 mmol/L (3.5-5.1)
[2016-11-09 07:00] VITALS: BP 105/64
[2016-11-09] MEDS ORDERED: PANTOPRAZOLE IV PUSH 40 MG VIAL. IVP SCH (07:30)
--- NOTE | 2016-11-09 08:21 | PDOC ---
PHU VACA [employer] 11/09/16 0821: SURGICAL PROGRESS NOTE Subjective nausea and emesis are improved(one small episode of emesis this AM) + flatus last night pain managed Vital Signs Vital Signs Date Time Temp Pulse Resp B/P Pulse Ox O2 Delivery O2 Flow Rate FiO2 11/09/16 02:52 98.2 83 18 121/66 92 Room Air 98.2 11/08/16 10:36 3.0 I&O Intake and Output 11/09/16 07:00 Intake Total 281 ml Output Total 1100 ml Balance -819 ml IV Total 281 ml Output Urine Total 1050 ml Drainage Total 50 ml General: Alert, Oriented X3, Cooperative, No acute distress Abdomen: Soft, Other (ND, incision without erythema, lower portion packed, drainage noted ) Labs Laboratory Tests Test 11/08/16 10:15 11/08/16 13:00 11/09/16 05:55 Sodium Level 138mmol/L (136-145) 141mmol/L (136-145) Potassium Level 4.0mmol/L (3.5-5.1) 4.5mmol/L (3.5-5.1) Chloride Level 103mmol/L (98-107) 105mmol/L (98-107) Carbon Dioxide Level 30mmol/L (21-32) 30mmol/L (21-32) Anion Gap 5 (6-14) 6 (6-14) Blood Urea Nitrogen 10mg/dL (8-26) 10mg/dL (8-26) Creatinine 0.7mg/dL (0.7-1.3) 0.7mg/dL (0.7-1.3) Estimated GFR (Cockcroft-Gault) 115.0 115.0 Glucose Level 109mg/dL (70-99) 111mg/dL (70-99) Calcium Level 8.3mg/dL (8.5-10.1) 8.0mg/dL (8.5-10.1) White Blood Count 6.2x10^3/uL (4.0-11.0) Red Blood Count 3.06x10^6/uL (4.30-5.70) Hemoglobin 9.5g/dL (13.0-17.5) Hematocrit 28.4% (39.0-53.0) Mean Corpuscular Volume 93fL (79-100) Mean Corpuscular Hemoglobin 31pg (25-35) Mean Corpuscular Hemoglobin Concent 33g/dL (31-37) Red Cell Distribution Width 15.7% (11.5-14.5) Platelet Count 231x10^3/uL (140-400) Neutrophils (%) (Auto) 71% (31-73) Lymphocytes (%) (Auto) 15% (24-48) Monocytes (%) (Auto) 11% (0-9) Eosinophils (%) (Auto) 3% (0-3) Basophils (%) (Auto) 1% (0-3) Neutrophils # (Auto) 4.4x10^3uL (1.8-7.7) Lymphocytes # (Auto) 0.9x10^3/uL (1.0-4.8) Monocytes # (Auto) 0.7x10^3/uL (0.0-1.1) Eosinophils # (Auto) 0.2x10^3/uL (0.0-0.7) Basophils # (Auto) 0.0x10^3/uL (0.0-0.2) Phosphorus Level 4.4mg/dL (2.6-4.7) Magnesium Level 2.1mg/dL (1.8-2.4) Triglycerides Level 113mg/dL (0-150) Laboratory Tests Test 11/08/16 10:15 11/08/16 13:00 11/09/16 05:55 Sodium Level 138mmol/L (136-145) 141mmol/L (136-145) Potassium Level 4.0mmol/L (3.5-5.1) 4.5mmol/L (3.5-5.1) Chloride Level 103mmol/L (98-107) 105mmol/L (98-107) Carbon Dioxide Level 30mmol/L (21-32) 30mmol/L (21-32) Anion Gap 5 (6-14) 6 (6-14) Blood Urea Nitrogen 10mg/dL (8-26) 10mg/dL (8-26) Creatinine 0.7mg/dL (0.7-1.3) 0.7mg/dL (0.7-1.3) Estimated GFR (Cockcroft-Gault) 115.0 115.0 Glucose Level 109mg/dL (70-99) 111mg/dL (70-99) Calcium Level 8.3mg/dL (8.5-10.1) 8.0mg/dL (8.5-10.1) White Blood Count 6.2x10^3/uL (4.0-11.0) Red Blood Count 3.06x10^6/uL (4.30-5.70) Hemoglobin 9.5g/dL (13.0-17.5) Hematocrit 28.4% (39.0-53.0) Mean Corpuscular Volume 93fL (79-100) Mean Corpuscular Hemoglobin 31pg (25-35) Mean Corpuscular Hemoglobin Concent 33g/dL (31-37) Red Cell Distribution Width 15.7% (11.5-14.5) Platelet Count 231x10^3/uL (140-400) Neutrophils (%) (Auto) 71% (31-73) Lymphocytes (%) (Auto) 15% (24-48) Monocytes (%) (Auto) 11% (0-9) Eosinophils (%) (Auto) 3% (0-3) Basophils (%) (Auto) 1% (0-3) Neutrophils # (Auto) 4.4x10^3uL (1.8-7.7) Lymphocytes # (Auto) 0.9x10^3/uL (1.0-4.8) Monocytes # (Auto) 0.7x10^3/uL (0.0-1.1) Eosinophils # (Auto) 0.2x10^3/uL (0.0-0.7) Basophils # (Auto) 0.0x10^3/uL (0.0-0.2) Phosphorus Level 4.4mg/dL (2.6-4.7) Magnesium Level 2.1mg/dL (1.8-2.4) Triglycerides Level 113mg/dL (0-150) Problem List Problems Medical Problems: (1) Intractable vomiting Status: Acute (2) Small intestine cancer Status: Acute Assessment/Plan s/p sbr improved symptoms, NPO another day Problems: BARBARA ANDRES MD 11/10/16 0756: SURGICAL PROGRESS NOTE Assessment/Plan Agree with above Problems: PHU VACA APRN Nov 09, 2016 08:21 BARBARA ANDRES MD Nov 10, 2016 07:56
[2016-11-09] MEDS: PANTOPRAZOLE IV PUSH 40 MG VIAL. IVP SCH ×2 (09:25→16:30)
[2016-11-09] MEDS: DO NOT USE 40 MG/0.4 ML DISP.SYRIN SQ SCH (09:25)
[2016-11-09] MEDS: METOCLOPRAMIDE HCL 10 MG/2 ML VIAL. IV SCH ×3 (09:25→20:36)
[2016-11-09 11:00] VITALS: BP 118/60
[2016-11-09] MEDS: TPN PER PHARMACY MC PRN (12:33)
--- NOTE | 2016-11-09 13:31 | PDOC ---
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 fu with sx, bx on Friday History of Present Illness History of Present Illness finally has 2 bm 11/05,post op , but no flatus or bm since 11/06. has flatus some abd pain ,with cough using TELEVISION [employer]S TESTER every 1-2h, less than before cough is gone. vomited x1 on 11/06, 11/07, many times 11/08, better 11/09 encourage pt to move, but saying still feels very nausea again 11/06 k back to normal Vitals Vitals Vital Signs Date Time Temp Pulse Resp B/P Pulse Ox O2 Delivery O2 Flow Rate FiO2 11/09/16 11:00 97.9 76 18 118/60 97 Room Air 97.9 11/08/16 10:36 3.0 Physical Exam General: Alert, Oriented X3, Cooperative, No acute distress Heart: Normal S1, Normal S2 Lungs: Clear Abdomen: Soft, Other (ND, incision without erythema, lower portion packed, drainage noted ) Extremities: No edema, Normal pulses Skin: No rashes Labs LABS Laboratory Tests Test 11/09/16 05:55 Sodium Level 141mmol/L (136-145) Potassium Level 4.5mmol/L (3.5-5.1) Chloride Level 105mmol/L (98-107) Carbon Dioxide Level 30mmol/L (21-32) Anion Gap 6 (6-14) Blood Urea Nitrogen 10mg/dL (8-26) Creatinine 0.7mg/dL (0.7-1.3) Estimated GFR (Cockcroft-Gault) 115.0 Glucose Level 111mg/dL (70-99) Calcium Level 8.0mg/dL (8.5-10.1) Phosphorus Level 4.4mg/dL (2.6-4.7) Magnesium Level 2.1mg/dL (1.8-2.4) Triglycerides Level 113mg/dL (0-150) Review of Systems Review of Systems no fever, chills, sob or chest pain Assessment and Plan Assessmemt and Plan Problems Medical Problems: (1) Intractable vomiting Status: Acute (2) Small intestine cancer Status: Acute Problems: Comment Review of Relevant I have reviewed the following items pako (where applicable) has been applied. Labs Laboratory Tests Test 11/08/16 10:15 11/08/16 13:00 11/09/16 05:55 Sodium Level 138mmol/L (136-145) 141mmol/L (136-145) Potassium Level 4.0mmol/L (3.5-5.1) 4.5mmol/L (3.5-5.1) Chloride Level 103mmol/L (98-107) 105mmol/L (98-107) Carbon Dioxide Level 30mmol/L (21-32) 30mmol/L (21-32) Anion Gap 5 (6-14) 6 (6-14) Blood Urea Nitrogen 10mg/dL (8-26) 10mg/dL (8-26) Creatinine 0.7mg/dL (0.7-1.3) 0.7mg/dL (0.7-1.3) Estimated GFR (Cockcroft-Gault) 115.0 115.0 Glucose Level 109mg/dL (70-99) 111mg/dL (70-99) Calcium Level 8.3mg/dL (8.5-10.1) 8.0mg/dL (8.5-10.1) White Blood Count 6.2x10^3/uL (4.0-11.0) Red Blood Count 3.06x10^6/uL (4.30-5.70) Hemoglobin 9.5g/dL (13.0-17.5) Hematocrit 28.4% (39.0-53.0) Mean Corpuscular Volume 93fL (79-100) Mean Corpuscular Hemoglobin 31pg (25-35) Mean Corpuscular Hemoglobin Concent 33g/dL (31-37) Red Cell Distribution Width 15.7% (11.5-14.5) Platelet Count 231x10^3/uL (140-400) Neutrophils (%) (Auto) 71% (31-73) Lymphocytes (%) (Auto) 15% (24-48) Monocytes (%) (Auto) 11% (0-9) Eosinophils (%) (Auto) 3% (0-3) Basophils (%) (Auto) 1% (0-3) Neutrophils # (Auto) 4.4x10^3uL (1.8-7.7) Lymphocytes # (Auto) 0.9x10^3/uL (1.0-4.8) Monocytes # (Auto) 0.7x10^3/uL (0.0-1.1) Eosinophils # (Auto) 0.2x10^3/uL (0.0-0.7) Basophils # (Auto) 0.0x10^3/uL (0.0-0.2) Phosphorus Level 4.4mg/dL (2.6-4.7) Magnesium Level 2.1mg/dL (1.8-2.4) Triglycerides Level 113mg/dL (0-150) Laboratory Tests Test 11/09/16 05:55 Sodium Level 141mmol/L (136-145) Potassium Level 4.5mmol/L (3.5-5.1) Chloride Level 105mmol/L (98-107) Carbon Dioxide Level 30mmol/L (21-32) Anion Gap 6 (6-14) Blood Urea Nitrogen 10mg/dL (8-26) Creatinine 0.7mg/dL (0.7-1.3) Estimated GFR (Cockcroft-Gault) 115.0 Glucose Level 111mg/dL (70-99) Calcium Level 8.0mg/dL (8.5-10.1) Phosphorus Level 4.4mg/dL (2.6-4.7) Magnesium Level 2.1mg/dL (1.8-2.4) Triglycerides Level 113mg/dL (0-150) Medications Current Medications Sodium Chloride 3 ml 3 ml PRN DAILY PRN IV AFTER MEDS AND BLOOD DRAWS; Start at 21:30 Sodium Chloride (Iv Sodium Chloride 0.9% 1000ml Bag) 1,000 ml @ 100 mls/hr Q10H IV Last administered on 10/30/16 00:27; Start 10/29/16 at 21:30; Stop at 07:29; Status DC Bisacodyl (Dulcolax Supp) 10 mg PRN DAILY PRN NC CONSTIPATION; Start 10/29/16 at 21:30 Enoxaparin Sodium (Lovenox 40mg Syringe) 40 mg Q24H SQ Last administered on 21:11; Start 10/29/16 at 22:00; Stop 10/31/16 at 08:28; Status DC Metoclopramide HCl (Reglan) 10 mg Q8HRS IV Last administered on 11/06/16 06:07 ; Start 10/29/16 at 22:00; Stop 11/06/16 at 11:01; Status DC Ondansetron HCl (Zofran) 4 mg PRN Q8HRS PRN IV NAUSEA/VOMITING Last administered on 10/31/16 00:09; Start 10/29/16 at 21:30; Stop 11/01/16 at 14:47 ; Status DC Pantoprazole Sodium (Protonix Vial) 40 mg DAILYAC IVP Last administered on 11/05 08:25; Start 10/30/16 at 07:30; Stop 11/05/16 at 11:13; Status DC Paroxetine HCl (Paxil) 10 mg DAILY PO ; Start 10/30/16 at 09:00; Stop 10/30/16 at 09:33; Status DC Acetaminophen/ Aspirin/Caffeine (Excedrin Migraine) 1 tab PRN BID PRN PO MIGRAINE HEADACHE Last administered on 10/29/16 23:46; Start 10/29/16 at 21:30 ; Stop 11/07/16 at 11:23; Status DC Acetaminophen (Tylenol) 650 mg PRN Q6HRS PRN PO MILD PAIN / TEMP Last administered on 11/04/16 17:39; Start 10/29/16 at 22:00 Iohexol (Omnipaque 300 Mg/ml) 75 ml 1X ONCE IV Last administered on 10/30/16 09:09; Start 10/30/16 at 06:45; Stop 10/30/16 at 06:46; Status DC Iohexol (Omnipaque 240 Mg/ml) 30 ml 1X ONCE PO Last administered on 10/30/16 06:45; Start 10/30/16 at 06:45; Stop 10/30/16 at 06:46; Status DC Info (Do NOT chart on this entry -- for MONITORING) 1 each PRN DAILY PRN MC SEE COMMENTS; Start 10/30/16 at 06:45; Stop 11/01/16 at 06:44; Status DC Paroxetine HCl (Paxil) 10 mg DAILY@18 PO Last administered on 10/30/16 17:52; Start 10/30/16 at 18:00 Morphine Sulfate 2 mg PRN Q2HR PRN IV PAIN; Start 10/30/16 at 17:45; Stop 11/02 at 05:57; Status DC Ondansetron HCl (Zofran) 4 mg PRN Q6HRS PRN IV Nausea; Start 10/31/16 at 08:45 ; Stop 10/31/16 at 18:00; Status DC Fentanyl Citrate (Fentanyl 2ml Vial) 25 mcg PRN Q5MIN PRN IV MILD PAIN; Start 10/31/16 at 08:45; Stop 10/31/16 at 18:00; Status DC Fentanyl Citrate (Fentanyl 2ml Vial) 50 mcg PRN Q5MIN PRN IV MODERATE PAIN; Start 10/31/16 at 08:45; Stop 10/31/16 at 08:50; Status DC Morphine Sulfate 1 mg 1 mg PRN Q10MIN PRN IV SEVERE PAIN; Start 10/31/16 at 08: 45; Stop 10/31/16 at 18:00; Status DC Lactated Ringer's (Iv Lactated Ringers) 1,000 ml @ 30 mls/hr Q24H IV ; Start at 08:44; Stop 10/31/16 at 20:43; Status DC Lidocaine HCl 2 ml 1X PRN PRN ID IV START; Start 10/31/16 at 08:45; Stop at 18:00; Status DC Hydromorphone HCl (Dilaudid) 0.5 mg PRN Q10MIN PRN IV SEV PAIN,Second choice; Start 10/31/16 at 08:45; Stop 10/31/16 at 18:00; Status DC Prochlorperazine Edisylate 5 mg 5 mg PACU PRN PRN IV NAUSEA; Start 10/31/16 at 08:45; Stop 10/31/16 at 18:00; Status DC Cefoxitin Sodium (Mefoxin 2gm Ivpb For Omni) 100 ml @ 200 mls/hr 1X ONCE IV Last administered on 10/31/16t 13:16; Start 10/31/16 at 11:30; Stop 10/31/16 at 11:59; Status DC Sevoflurane (Ultane) 60 ml STK-MED ONCE IH ; Start 10/31/16 at 12:14; Stop 10/31 at 12:15; Status DC Fentanyl Citrate (Fentanyl 2ml Vial) 100 mcg STK-MED ONCE .ROUTE ; Start at 12:14; Stop 10/31/16 at 12:15; Status DC Rocuronium Huntington 50 mg 50 mg STK-MED ONCE .ROUTE ; Start 10/31/16 at 12:14; Stop 10/31/16 at 12:15; Status DC Propofol (Diprivan) 20 ml @ As Directed STK-MED ONCE IV ; Start 10/31/16 at 12: 15; Stop 10/31/16 at 12:16; Status DC Dexamethasone Sodium Phosphate (Decadron) 20 mg STK-MED ONCE .ROUTE ; Start at 12:15; Stop 10/31/16 at 12:16; Status DC Ondansetron HCl (Zofran) 4 mg STK-MED ONCE .ROUTE ; Start 10/31/16 at 12:15; Stop 10/31/16 at 12:16; Status DC Lidocaine HCl 100 mg STK-MED ONCE .ROUTE ; Start 10/31/16 at 12:15; Stop at 12:16; Status DC Glycopyrrolate (Robinul) 1 mg STK-MED ONCE .ROUTE ; Start 10/31/16 at 12:40; Stop 10/31/16 at 12:41; Status DC Neostigmine Methylsulfate 5 mg STK-MED ONCE .ROUTE ; Start 10/31/16 at 12:40; Stop 10/31/16 at 12:41; Status DC Succinylcholine Chloride (Anectine) 200 mg STK-MED ONCE .ROUTE ; Start 10/31/16 at 13:04; Stop 10/31/16 at 13:05; Status DC Phenylephrine HCl 1 mg 1 mg STK-MED ONCE IV ; Start 10/31/16 at 13:14; Stop at 13:15; Status DC Albumin Human (Plasmanate) 500 ml @ As Directed STK-MED ONCE IV ; Start at 15:47; Stop 10/31/16 at 15:48; Status DC Rocuronium Huntington (Zemuron) 100 mg STK-MED ONCE .ROUTE ; Start 10/31/16 at 15: 51; Stop 10/31/16 at 15:52; Status DC Fentanyl Citrate (Fentanyl 5ml Vial) 250 mcg STK-MED ONCE .ROUTE ; Start at 16:19; Stop 10/31/16 at 16:20; Status DC Sodium Chloride 3 ml 3 ml QSHIFT PRN IV AFTER MEDS AND BLOOD DRAWS; Start 10/31 at 17:30; Status UNV Hydromorphone HCl (Dilaudid Standard TELEVISION [employer]S TESTER) 30 ml @ 0 mls/hr CONT PRN PRN IV PROTOCOL Last administered on 11/08/16 10:06; Start 10/31/16 at 17:30 Hydromorphone HCl (Dilaudid) 0.4 mg PRN Q1HR PRN IV SEE COMMENTS; Start at 17:30; Stop 11/02/16 at 05:57; Status DC Ondansetron HCl (Zofran) 4 mg PRN Q6HRS PRN IV NAUESA, 1ST CHOICE Last administered on 11/08/16 10:04; Start 10/31/16 at 17:30 Metoclopramide HCl 10 mg 10 mg PRN Q6HRS PRN IV Nausea/Vomiting, 2nd Choice Last administered on 11/06/16 22:03; Start 10/31/16 at 17:30 Sodium Chloride (Iv Sodium Chloride 0.9% 1000ml Bag) 1,000 ml @ 125 mls/hr 1X ONCE IV Last administered on 10/31/16 22:45; Start 10/31/16 at 17:30; Stop at 01:29; Status DC Enoxaparin Sodium 40 mg 40 mg Q24H SQ Last administered on 11/09/16 09:25; Start 11/01/16 at 09:00 Hydromorphone HCl 30 ml @ As Directed STK-MED ONCE IV ; Start 10/31/16 at 17:24 ; Stop 10/31/16 at 17:26; Status DC Sodium Chloride (Iv Sodium Chloride 0.9% 500ml Bag) 500 ml @ 500 mls/hr 1X ONCE IV Last administered on 10/31/16 22:00; Start 10/31/16 at 22:00; Stop at 22:59; Status DC Cefoxitin Sodium 2 gm 2 gm STK-MED ONCE IV ; Start 10/31/16 at 16:00; Stop 11/01 at 08:43; Status DC Sodium Chloride 1,000 ml @ 1,000 mls/hr 1X ONCE IV Last administered on 14:00; Start 11/01/16 at 14:00; Stop 11/01/16 at 14:59; Status DC Sodium Chloride 1,000 ml @ 125 mls/hr 1X ONCE IV Last administered on 17:51; Start 11/01/16 at 14:00; Stop 11/01/16 at 21:59; Status DC Sodium Chloride 1,000 ml @ 1,000 mls/hr 1X ONCE IV Last administered on 13:14; Start 11/02/16 at 11:45; Stop 11/02/16 at 12:44; Status DC Amino Acids/ Glycerin/ Electrolytes (Procalamine) 1,000 ml @ 80 mls/hr [id number] IV Last administered on 11/04/16 03:00; Start 11/03/16 at 09:30; Stop at 07:57; Status DC Albuterol/ Ipratropium (Duoneb) 3 ml RTQID NEB Last administered on 11/05/16 07:53; Start 11/04/16 at 12:00; Stop 11/05/16 at 12:32; Status DC Albuterol Sulfate (Ventolin Neb Soln) 2.5 mg PRN Q4HRS PRN NEB SHORTNESS OF BREATH; Start 11/04/16 at 11:00 Lidocaine/Sodium Bicarbonate (Buffered Lidocaine 1%) 3 ml 1X ONCE IJ Last administered on 11/04/16 14:51; Start 11/04/16 at 14:00; Stop 11/04/16 at 14:01 ; Status DC Heparin Sodium/ Sodium Chloride 60 unit 1X ONCE IV Last administered on 14:52; Start 11/04/16 at 14:00; Stop 11/04/16 at 14:01; Status DC Guaifenesin 200 mg 200 mg PRN Q6HRS PRN PO COUGH; Start 11/04/16 at 16:15 Amino Acids/ Electrolytes (Clinimix E 2.75%-5% Solution) 2,000 ml @ 80 mls/hr Q24H IV Last administered on 11/08/16 15:31; Start 11/05/16 at 08:00; Stop at 21:59; Status DC Pantoprazole Sodium (Protonix) 40 mg DAILYAC PO ; Start 11/06/16 at 07:30; Stop 11/08/16 at 10:30; Status DC Potassium Chloride (Klor-Con) 40 meq 1X ONCE PO ; Start 11/05/16 at 11:15; Stop 11/05/16 at 12:58; Status DC Polyethylene Glycol (miraLAX PACKET) 17 gm PRN DAILY PRN PO CONSTIPATION Last administered on 11/05/16 12:37; Start 11/05/16 at 11:15 Albuterol/ Ipratropium 3 ml 3 ml PRN DAILY PRN NEB SHORTNESS OF BREATH; Start 11/05/16 at 12:30; Stop 11/05/16 at 12:47; Status DC Potassium Chloride 50 ml @ 50 mls/hr Q1H IV Last administered on 11/05/16 15: 10; Start 11/05/16 at 13:30; Stop 11/05/16 at 15:29; Status DC Potassium Chloride 50 ml @ 25 mls/hr Q2H IV Last administered on 11/06/16 11: 23; Start 11/06/16 at 09:00; Stop 11/06/16 at 12:59; Status DC Potassium Chloride (KCl Premix 20meq) 50 ml @ 25 mls/hr Q2H IV Last administered on 11/06/16 15:46; Start 11/06/16 at 14:00; Stop 11/06/16 at 17:59 ; Status DC Metoclopramide HCl (Reglan) 10 mg TID IV Last administered on 11/09/16 09:25; Start 11/07/16 at 14:00 Iohexol (Omnipaque 300 Mg/ml) 75 ml 1X ONCE IV ; Start 11/07/16 at 11:15; Stop 11/07/16 at 11:16; Status DC Info (Do NOT chart on this entry -- for MONITORING) 1 each PRN DAILY PRN MC SEE COMMENTS; Start 11/07/16 at 11:15; Stop 11/09/16 at 11:14; Status DC Acetaminophen/ Aspirin/Caffeine (Excedrin Migraine) 1 tab PRN BID PRN PO MIGRAINE HEADACHE; Start 11/07/16 at 11:30 Gadobutrol (Gadavist) 7.5 mmol 1X ONCE IV Last administered on 11/08/16 10:03 ; Start 11/08/16 at 09:45; Stop 11/08/16 at 09:46; Status DC Pantoprazole Sodium 40 mg 40 mg DAILYAC IVP ; Start 11/09/16 at 07:30; Stop at 07:30; Status DC Promethazine HCl/ Sodium Chloride (Phenergan/Iv Sodium Chloride 0.9% 50ml) 50.25 ml @ 150.75 mls/ hr PRN Q6HRS PRN IV NAUSEA/VOMITING; Start 11/08/16 at 11:00 Docusate Sodium (Colace) 100 mg PRN DAILY PRN PO CONSTIPATION; Start 11/08/16 at 13:15 Sennosides (Senna) 8.6 mg PRN BID PRN PO CONSTIPATION; Start 11/08/16 at 13:15 Pantoprazole Sodium (Protonix Vial) 40 mg BIDAC IVP Last administered on 09:25; Start 11/08/16 at 16:30 Iohexol (Omnipaque 300 Mg/ml) 75 ml 1X ONCE IV Last administered on 11/08/16 15:02; Start 11/08/16 at 14:45; Stop 11/08/16 at 14:46; Status DC Iohexol (Omnipaque 240 Mg/ml) 30 ml 1X ONCE PO ; Start 11/08/16 at 14:45; Stop 11/08/16 at 14:46; Status DC Info (Do NOT chart on this entry -- for MONITORING) 1 each PRN DAILY PRN MC SEE COMMENTS; Start 11/08/16 at 14:45; Stop 11/10/16 at 14:44 Info 1 each 1 each PRN DAILY PRN MC SEE COMMENTS Last administered on t 12:33; Start 11/08/16 at 15:00 Sodium Chloride/ Potassium Chloride/ Potassium Phosphate/ Magnesium Sulfate/ Calcium Gluconate/ Multivitamins/ Chromium/Copper/ Manganese/Seleni/ Zn/Total Parenteral Nutrition/Amino Acids/Dextrose/ Fat Emulsion Intravenous (Sodium Chloride/ Potassium Phosphate/Calc... 1,512 ml @ 63 mls/hr TPN CONT IV ; Start 11/08/16 at 22:00; Stop 11/09/16 at 21:59 Iohexol 50 ml 50 ml 1X ONCE PO ; Start 11/08/16 at 15:30; Stop 11/08/16 at 15: 31; Status DC Sodium Chloride/ Potassium Chloride/ Potassium Phosphate/ Magnesium Sulfate/ Calcium Gluconate/ Multivitamins/ Chromium/Copper/ Manganese/Seleni/ Zn/Total Parenteral Nutrition/Amino Acids/Dextrose/ Fat Emulsion Intravenous (Sodium Chloride/ Potassium Phosphate/Calc... 1,512 ml @ 63 mls/hr TPN CONT IV ; Start 11/09/16 at 22:00; Stop 11/10/16 at 21:59 Vitals/I & O Vital Sign - Last 24 Hours 11/08/16 11/08/16 11/08/16 11/08/16 15:00 19:41 20:00 22:56 Temp 98.7 98.0 98.3 98.7 98.0 98.3 Pulse 83 85 91 Resp 20 18 18 B/P 121/84 132/83 123/81 Pulse Ox 96 94 94 O2 Delivery Room Air Room Air Room Air Room Air 11/09/16 11/09/16 11/09/16 11/09/16 02:52 07:00 08:00 11:00 Temp 98.2 97.8 97.9 98.2 97.8 97.9 Pulse 83 91 76 Resp 18 18 18 B/P 121/66 105/64 118/60 Pulse Ox 92 95 97 O2 Delivery Room Air Room Air Room Air Room Air Intake and Output 11/08/16 11/08/16 11/09/16 15:00 23:00 07:00 Intake Total 281 ml Output Total 350 ml 750 ml Balance -69 ml -750 ml Nutrition Consultation Dietary Evaluation: Recommendations by RD: PPN/TPN Comments: continue ppn at this time Expected Outcomes/Goals: diet adv/ tolerance Interpretation of weight loss: >5% in 1 month Malnutrition Findings: Food and Nutrition Intake (Sev: <50% est energy req 5days Reduced Application Processor Strength: N/A Weight Status: Overweight Fluid Accumulation (N/A): N/A DERIAN WILLSON MD Nov 09, 2016 13:31
[2016-11-09] MEDS ORDERED: AA 2.75%/CALCIUM/LYTES/D5W 2,000 ML IV SCH (14:00)
[2016-11-09 15:00] VITALS: BP 120/80
[2016-11-09] MEDS: PAROXETINE 10 MG TABLET. PO SCH (16:31)
[2016-11-09] MEDS: METOCLOPRAMIDE HCL 10 MG/2 ML VIAL. IV PRN (19:32)
[2016-11-09 19:57] VITALS: BP 133/81
[2016-11-09] MEDS ORDERED: TOTAL PARENTERAL NUTRITION 1,424.9987 ML, AMINO ACIDS 10 % 60 GM, DEXTROSE 70 % IN WATE... IV SCH ×10 (22:00)
[2016-11-09 23:08] VITALS: BP 124/73
[2016-11-10 03:42] VITALS: BP 115/69
[2016-11-10 06:24] LABS: CALCIUM 8.1 mg/dL (8.5-10.1); CREATININE 0.7 mg/dL (0.7-1.3); MAGNESIUM 2.1 mg/dL (1.8-2.4); PHOSPHORUS 3.2 mg/dL (2.6-4.7); POTASSIUM 4.3 mmol/L (3.5-5.1)
[2016-11-10 07:00] VITALS: BP 113/64
[2016-11-10] MEDS: PANTOPRAZOLE IV PUSH 40 MG VIAL. IVP SCH ×2 (08:33→17:27)
[2016-11-10] MEDS: METOCLOPRAMIDE HCL 10 MG/2 ML VIAL. IV SCH ×3 (08:33→21:07)
[2016-11-10] MEDS: DO NOT USE 40 MG/0.4 ML DISP.SYRIN SQ SCH (08:34)
--- NOTE | 2016-11-10 09:13 | PDOC ---
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 11/10/16 0913: SURGICAL PROGRESS NOTE Subjective several am episodes of emesis one episode last evening none this AM had a BM Vital Signs Vital Signs Date Time Temp Pulse Resp B/P Pulse Ox O2 Delivery O2 Flow Rate FiO2 11/10/16 07:56 96 Room Air 11/10/16 07:00 98.0 79 18 113/64 98.0 I&O Intake and Output 11/10/16 07:00 Intake Total 0 ml Output Total 2100 ml Balance -2100 ml Intake Oral 0 ml Output Urine Total 2100 ml General: Alert, Oriented X3, Cooperative, No acute distress Abdomen: Soft, Other (incision no erythema, some drainage to lower portion, wick to lower portion, ) Labs Laboratory Tests Test 11/08/16 10:15 11/08/16 13:00 11/09/16 05:55 11/10/16 06:00 Sodium Level 138mmol/L (136-145) 141mmol/L (136-145) 139mmol/L (136-145) Potassium Level 4.0mmol/L (3.5-5.1) 4.5mmol/L (3.5-5.1) 4.3mmol/L (3.5-5.1) Chloride Level 103mmol/L (98-107) 105mmol/L (98-107) 105mmol/L (98-107) Carbon Dioxide Level 30mmol/L (21-32) 30mmol/L (21-32) 27mmol/L (21-32) Anion Gap 5 (6-14) 6 (6-14) 7 (6-14) Blood Urea Nitrogen 10mg/dL (8-26) 10mg/dL (8-26) 10mg/dL (8-26) Creatinine 0.7mg/dL (0.7-1.3) 0.7mg/dL (0.7-1.3) 0.7mg/dL (0.7-1.3) Estimated GFR (Cockcroft-Gault) 115.0 115.0 115.0 Glucose Level 109mg/dL (70-99) 111mg/dL (70-99) 114mg/dL (70-99) Calcium Level 8.3mg/dL (8.5-10.1) 8.0mg/dL (8.5-10.1) 8.1mg/dL (8.5-10.1) White Blood Count 6.2x10^3/uL (4.0-11.0) Red Blood Count 3.06x10^6/uL (4.30-5.70) Hemoglobin 9.5g/dL (13.0-17.5) Hematocrit 28.4% (39.0-53.0) Mean Corpuscular Volume 93fL (79-100) Mean Corpuscular Hemoglobin 31pg (25-35) Mean Corpuscular Hemoglobin Concent 33g/dL (31-37) Red Cell Distribution Width 15.7% (11.5-14.5) Platelet Count 231x10^3/uL (140-400) Neutrophils (%) (Auto) 71% (31-73) Lymphocytes (%) (Auto) 15% (24-48) Monocytes (%) (Auto) 11% (0-9) Eosinophils (%) (Auto) 3% (0-3) Basophils (%) (Auto) 1% (0-3) Neutrophils # (Auto) 4.4x10^3uL (1.8-7.7) Lymphocytes # (Auto) 0.9x10^3/uL (1.0-4.8) Monocytes # (Auto) 0.7x10^3/uL (0.0-1.1) Eosinophils # (Auto) 0.2x10^3/uL (0.0-0.7) Basophils # (Auto) 0.0x10^3/uL (0.0-0.2) Phosphorus Level 4.4mg/dL (2.6-4.7) 3.2mg/dL (2.6-4.7) Magnesium Level 2.1mg/dL (1.8-2.4) 2.1mg/dL (1.8-2.4) Triglycerides Level 113mg/dL (0-150) Laboratory Tests Test 11/10/16 06:00 Sodium Level 139mmol/L (136-145) Potassium Level 4.3mmol/L (3.5-5.1) Chloride Level 105mmol/L (98-107) Carbon Dioxide Level 27mmol/L (21-32) Anion Gap 7 (6-14) Blood Urea Nitrogen 10mg/dL (8-26) Creatinine 0.7mg/dL (0.7-1.3) Estimated GFR (Cockcroft-Gault) 115.0 Glucose Level 114mg/dL (70-99) Calcium Level 8.1mg/dL (8.5-10.1) Phosphorus Level 3.2mg/dL (2.6-4.7) Magnesium Level 2.1mg/dL (1.8-2.4) Problem List Problems Medical Problems: (1) Intractable vomiting Status: Acute (2) Small intestine cancer Status: Acute Assessment/Plan s/p sbr delayed gastric function, still had emesis yesterday, will hold off on PO yet today, reeval in am did have BM today Problems: BARBARA ANDRES MD 11/10/16 1155: SURGICAL PROGRESS NOTE Assessment/Plan Agree with above Problems: PHU VACA APRN Nov 10, 2016 09:13 BARBARA ANDRES MD Nov 10, 2016 11:55
[2016-11-10 11:00] VITALS: BP 109/58
--- NOTE | 2016-11-10 12:39 | PDOC ---
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 fu with sx, bx on Friday History of Present Illness History of Present Illness post op, finally has 2 bm 11/05, 11/10 . has flatus 11/08, , vomited x1 on 11/06, 11/07, many times 11/08, better 11/09, 11/10 some abd pain ,with cough using RADIAL ROUTER OPERATOR every 1-2h, less than before cough is gone. encourage pt to move, but saying still feels very nausea again 11/06 k back to normal Vitals Vitals Vital Signs Date Time Temp Pulse Resp B/P Pulse Ox O2 Delivery O2 Flow Rate FiO2 11/10/16 11:00 97.9 80 18 109/58 97 Room Air 97.9 Physical Exam General: Alert, Oriented X3, Cooperative, No acute distress Heart: Normal S1, Normal S2 Lungs: Clear Abdomen: Soft, Other (incision no erythema, some drainage to lower portion, wick to lower portion, ) Extremities: No edema, Normal pulses Skin: No rashes Labs LABS Laboratory Tests Test 11/10/16 06:00 Sodium Level 139mmol/L (136-145) Potassium Level 4.3mmol/L (3.5-5.1) Chloride Level 105mmol/L (98-107) Carbon Dioxide Level 27mmol/L (21-32) Anion Gap 7 (6-14) Blood Urea Nitrogen 10mg/dL (8-26) Creatinine 0.7mg/dL (0.7-1.3) Estimated GFR (Cockcroft-Gault) 115.0 Glucose Level 114mg/dL (70-99) Calcium Level 8.1mg/dL (8.5-10.1) Phosphorus Level 3.2mg/dL (2.6-4.7) Magnesium Level 2.1mg/dL (1.8-2.4) Review of Systems Review of Systems no fever, chills, sob or chest pain Assessment and Plan Assessmemt and Plan Problems Medical Problems: (1) Intractable vomiting Status: Acute (2) Small intestine cancer Status: Acute Problems: Comment Review of Relevant I have reviewed the following items pako (where applicable) has been applied. Labs Laboratory Tests Test 11/08/16 13:00 11/09/16 05:55 11/10/16 06:00 White Blood Count 6.2x10^3/uL (4.0-11.0) Red Blood Count 3.06x10^6/uL (4.30-5.70) Hemoglobin 9.5g/dL (13.0-17.5) Hematocrit 28.4% (39.0-53.0) Mean Corpuscular Volume 93fL (79-100) Mean Corpuscular Hemoglobin 31pg (25-35) Mean Corpuscular Hemoglobin Concent 33g/dL (31-37) Red Cell Distribution Width 15.7% (11.5-14.5) Platelet Count 231x10^3/uL (140-400) Neutrophils (%) (Auto) 71% (31-73) Lymphocytes (%) (Auto) 15% (24-48) Monocytes (%) (Auto) 11% (0-9) Eosinophils (%) (Auto) 3% (0-3) Basophils (%) (Auto) 1% (0-3) Neutrophils # (Auto) 4.4x10^3uL (1.8-7.7) Lymphocytes # (Auto) 0.9x10^3/uL (1.0-4.8) Monocytes # (Auto) 0.7x10^3/uL (0.0-1.1) Eosinophils # (Auto) 0.2x10^3/uL (0.0-0.7) Basophils # (Auto) 0.0x10^3/uL (0.0-0.2) Sodium Level 141mmol/L (136-145) 139mmol/L (136-145) Potassium Level 4.5mmol/L (3.5-5.1) 4.3mmol/L (3.5-5.1) Chloride Level 105mmol/L (98-107) 105mmol/L (98-107) Carbon Dioxide Level 30mmol/L (21-32) 27mmol/L (21-32) Anion Gap 6 (6-14) 7 (6-14) Blood Urea Nitrogen 10mg/dL (8-26) 10mg/dL (8-26) Creatinine 0.7mg/dL (0.7-1.3) 0.7mg/dL (0.7-1.3) Estimated GFR (Cockcroft-Gault) 115.0 115.0 Glucose Level 111mg/dL (70-99) 114mg/dL (70-99) Calcium Level 8.0mg/dL (8.5-10.1) 8.1mg/dL (8.5-10.1) Phosphorus Level 4.4mg/dL (2.6-4.7) 3.2mg/dL (2.6-4.7) Magnesium Level 2.1mg/dL (1.8-2.4) 2.1mg/dL (1.8-2.4) Triglycerides Level 113mg/dL (0-150) Laboratory Tests Test 11/10/16 06:00 Sodium Level 139mmol/L (136-145) Potassium Level 4.3mmol/L (3.5-5.1) Chloride Level 105mmol/L (98-107) Carbon Dioxide Level 27mmol/L (21-32) Anion Gap 7 (6-14) Blood Urea Nitrogen 10mg/dL (8-26) Creatinine 0.7mg/dL (0.7-1.3) Estimated GFR (Cockcroft-Gault) 115.0 Glucose Level 114mg/dL (70-99) Calcium Level 8.1mg/dL (8.5-10.1) Phosphorus Level 3.2mg/dL (2.6-4.7) Magnesium Level 2.1mg/dL (1.8-2.4) Medications Current Medications Sodium Chloride 3 ml 3 ml PRN DAILY PRN IV AFTER MEDS AND BLOOD DRAWS; Start at 21:30 Sodium Chloride (Iv Sodium Chloride 0.9% 1000ml Bag) 1,000 ml @ 100 mls/hr Q10H IV Last administered on 10/30/16 00:27; Start 10/29/16 at 21:30; Stop at 07:29; Status DC Bisacodyl (Dulcolax Supp) 10 mg PRN DAILY PRN NM CONSTIPATION; Start 10/29/16 at 21:30 Enoxaparin Sodium (Lovenox 40mg Syringe) 40 mg Q24H SQ Last administered on 21:11; Start 10/29/16 at 22:00; Stop 10/31/16 at 08:28; Status DC Metoclopramide HCl (Reglan) 10 mg Q8HRS IV Last administered on 11/06/16 06:07 ; Start 10/29/16 at 22:00; Stop 11/06/16 at 11:01; Status DC Ondansetron HCl (Zofran) 4 mg PRN Q8HRS PRN IV NAUSEA/VOMITING Last administered on 10/31/16 00:09; Start 10/29/16 at 21:30; Stop 11/01/16 at 14:47 ; Status DC Pantoprazole Sodium (Protonix Vial) 40 mg DAILYAC IVP Last administered on 11/05 08:25; Start 10/30/16 at 07:30; Stop 11/05/16 at 11:13; Status DC Paroxetine HCl (Paxil) 10 mg DAILY PO ; Start 10/30/16 at 09:00; Stop 10/30/16 at 09:33; Status DC Acetaminophen/ Aspirin/Caffeine (Excedrin Migraine) 1 tab PRN BID PRN PO MIGRAINE HEADACHE Last administered on 10/29/16 23:46; Start 10/29/16 at 21:30 ; Stop 11/07/16 at 11:23; Status DC Acetaminophen (Tylenol) 650 mg PRN Q6HRS PRN PO MILD PAIN / TEMP Last administered on 11/04/16 17:39; Start 10/29/16 at 22:00 Iohexol (Omnipaque 300 Mg/ml) 75 ml 1X ONCE IV Last administered on 10/30/16 09:09; Start 10/30/16 at 06:45; Stop 10/30/16 at 06:46; Status DC Iohexol (Omnipaque 240 Mg/ml) 30 ml 1X ONCE PO Last administered on 10/30/16 06:45; Start 10/30/16 at 06:45; Stop 10/30/16 at 06:46; Status DC Info (Do NOT chart on this entry -- for MONITORING) 1 each PRN DAILY PRN MC SEE COMMENTS; Start 10/30/16 at 06:45; Stop 11/01/16 at 06:44; Status DC Paroxetine HCl (Paxil) 10 mg DAILY@18 PO Last administered on 10/30/16 17:52; Start 10/30/16 at 18:00 Morphine Sulfate 2 mg PRN Q2HR PRN IV PAIN; Start 10/30/16 at 17:45; Stop 11/02 at 05:57; Status DC Ondansetron HCl (Zofran) 4 mg PRN Q6HRS PRN IV Nausea; Start 10/31/16 at 08:45 ; Stop 10/31/16 at 18:00; Status DC Fentanyl Citrate (Fentanyl 2ml Vial) 25 mcg PRN Q5MIN PRN IV MILD PAIN; Start 10/31/16 at 08:45; Stop 10/31/16 at 18:00; Status DC Fentanyl Citrate (Fentanyl 2ml Vial) 50 mcg PRN Q5MIN PRN IV MODERATE PAIN; Start 10/31/16 at 08:45; Stop 10/31/16 at 08:50; Status DC Morphine Sulfate 1 mg 1 mg PRN Q10MIN PRN IV SEVERE PAIN; Start 10/31/16 at 08: 45; Stop 10/31/16 at 18:00; Status DC Lactated Ringer's (Iv Lactated Ringers) 1,000 ml @ 30 mls/hr Q24H IV ; Start at 08:44; Stop 10/31/16 at 20:43; Status DC Lidocaine HCl 2 ml 1X PRN PRN ID IV START; Start 10/31/16 at 08:45; Stop at 18:00; Status DC Hydromorphone HCl (Dilaudid) 0.5 mg PRN Q10MIN PRN IV SEV PAIN,Second choice; Start 10/31/16 at 08:45; Stop 10/31/16 at 18:00; Status DC Prochlorperazine Edisylate 5 mg 5 mg PACU PRN PRN IV NAUSEA; Start 10/31/16 at 08:45; Stop 10/31/16 at 18:00; Status DC Cefoxitin Sodium (Mefoxin 2gm Ivpb For Omni) 100 ml @ 200 mls/hr 1X ONCE IV Last administered on 10/31/16t 13:16; Start 10/31/16 at 11:30; Stop 10/31/16 at 11:59; Status DC Sevoflurane (Ultane) 60 ml STK-MED ONCE IH ; Start 10/31/16 at 12:14; Stop 10/31 at 12:15; Status DC Fentanyl Citrate (Fentanyl 2ml Vial) 100 mcg STK-MED ONCE .ROUTE ; Start at 12:14; Stop 10/31/16 at 12:15; Status DC Rocuronium Aurora 50 mg 50 mg STK-MED ONCE .ROUTE ; Start 10/31/16 at 12:14; Stop 10/31/16 at 12:15; Status DC Propofol (Diprivan) 20 ml @ As Directed STK-MED ONCE IV ; Start 10/31/16 at 12: 15; Stop 10/31/16 at 12:16; Status DC Dexamethasone Sodium Phosphate (Decadron) 20 mg STK-MED ONCE .ROUTE ; Start at 12:15; Stop 10/31/16 at 12:16; Status DC Ondansetron HCl (Zofran) 4 mg STK-MED ONCE .ROUTE ; Start 10/31/16 at 12:15; Stop 10/31/16 at 12:16; Status DC Lidocaine HCl 100 mg STK-MED ONCE .ROUTE ; Start 10/31/16 at 12:15; Stop at 12:16; Status DC Glycopyrrolate (Robinul) 1 mg STK-MED ONCE .ROUTE ; Start 10/31/16 at 12:40; Stop 10/31/16 at 12:41; Status DC Neostigmine Methylsulfate 5 mg STK-MED ONCE .ROUTE ; Start 10/31/16 at 12:40; Stop 10/31/16 at 12:41; Status DC Succinylcholine Chloride (Anectine) 200 mg STK-MED ONCE .ROUTE ; Start 10/31/16 at 13:04; Stop 10/31/16 at 13:05; Status DC Phenylephrine HCl 1 mg 1 mg STK-MED ONCE IV ; Start 10/31/16 at 13:14; Stop at 13:15; Status DC Albumin Human (Plasmanate) 500 ml @ As Directed STK-MED ONCE IV ; Start at 15:47; Stop 10/31/16 at 15:48; Status DC Rocuronium Aurora (Zemuron) 100 mg STK-MED ONCE .ROUTE ; Start 10/31/16 at 15: 51; Stop 10/31/16 at 15:52; Status DC Fentanyl Citrate (Fentanyl 5ml Vial) 250 mcg STK-MED ONCE .ROUTE ; Start at 16:19; Stop 10/31/16 at 16:20; Status DC Sodium Chloride 3 ml 3 ml QSHIFT PRN IV AFTER MEDS AND BLOOD DRAWS; Start 10/31 at 17:30; Status UNV Hydromorphone HCl (Dilaudid Standard RADIAL ROUTER OPERATOR) 30 ml @ 0 mls/hr CONT PRN PRN IV PROTOCOL Last administered on 11/08/16 10:06; Start 10/31/16 at 17:30 Hydromorphone HCl (Dilaudid) 0.4 mg PRN Q1HR PRN IV SEE COMMENTS; Start at 17:30; Stop 11/02/16 at 05:57; Status DC Ondansetron HCl (Zofran) 4 mg PRN Q6HRS PRN IV NAUESA, 1ST CHOICE Last administered on 11/08/16 10:04; Start 10/31/16 at 17:30 Metoclopramide HCl 10 mg 10 mg PRN Q6HRS PRN IV Nausea/Vomiting, 2nd Choice Last administered on 11/09/16 19:32; Start 10/31/16 at 17:30 Sodium Chloride (Iv Sodium Chloride 0.9% 1000ml Bag) 1,000 ml @ 125 mls/hr 1X ONCE IV Last administered on 10/31/16 22:45; Start 10/31/16 at 17:30; Stop at 01:29; Status DC Enoxaparin Sodium 40 mg 40 mg Q24H SQ Last administered on 11/10/16 08:34; Start 11/01/16 at 09:00 Hydromorphone HCl 30 ml @ As Directed STK-MED ONCE IV ; Start 10/31/16 at 17:24 ; Stop 10/31/16 at 17:26; Status DC Sodium Chloride (Iv Sodium Chloride 0.9% 500ml Bag) 500 ml @ 500 mls/hr 1X ONCE IV Last administered on 10/31/16 22:00; Start 10/31/16 at 22:00; Stop at 22:59; Status DC Cefoxitin Sodium 2 gm 2 gm STK-MED ONCE IV ; Start 10/31/16 at 16:00; Stop 11/01 at 08:43; Status DC Sodium Chloride 1,000 ml @ 1,000 mls/hr 1X ONCE IV Last administered on 14:00; Start 11/01/16 at 14:00; Stop 11/01/16 at 14:59; Status DC Sodium Chloride 1,000 ml @ 125 mls/hr 1X ONCE IV Last administered on 17:51; Start 11/01/16 at 14:00; Stop 11/01/16 at 21:59; Status DC Sodium Chloride 1,000 ml @ 1,000 mls/hr 1X ONCE IV Last administered on 13:14; Start 11/02/16 at 11:45; Stop 11/02/16 at 12:44; Status DC Amino Acids/ Glycerin/ Electrolytes (Procalamine) 1,000 ml @ 80 mls/hr [id number] IV Last administered on 11/04/16 03:00; Start 11/03/16 at 09:30; Stop at 07:57; Status DC Albuterol/ Ipratropium (Duoneb) 3 ml RTQID NEB Last administered on 11/05/16 07:53; Start 11/04/16 at 12:00; Stop 11/05/16 at 12:32; Status DC Albuterol Sulfate (Ventolin Neb Soln) 2.5 mg PRN Q4HRS PRN NEB SHORTNESS OF BREATH; Start 11/04/16 at 11:00 Lidocaine/Sodium Bicarbonate (Buffered Lidocaine 1%) 3 ml 1X ONCE IJ Last administered on 11/04/16 14:51; Start 11/04/16 at 14:00; Stop 11/04/16 at 14:01 ; Status DC Heparin Sodium/ Sodium Chloride 60 unit 1X ONCE IV Last administered on 14:52; Start 11/04/16 at 14:00; Stop 11/04/16 at 14:01; Status DC Guaifenesin 200 mg 200 mg PRN Q6HRS PRN PO COUGH; Start 11/04/16 at 16:15 Amino Acids/ Electrolytes (Clinimix E 2.75%-5% Solution) 2,000 ml @ 80 mls/hr Q24H IV Last administered on 11/08/16 15:31; Start 11/05/16 at 08:00; Stop at 21:59; Status DC Pantoprazole Sodium (Protonix) 40 mg DAILYAC PO ; Start 11/06/16 at 07:30; Stop 11/08/16 at 10:30; Status DC Potassium Chloride (Klor-Con) 40 meq 1X ONCE PO ; Start 11/05/16 at 11:15; Stop 11/05/16 at 12:58; Status DC Polyethylene Glycol (miraLAX PACKET) 17 gm PRN DAILY PRN PO CONSTIPATION Last administered on 11/05/16 12:37; Start 11/05/16 at 11:15 Albuterol/ Ipratropium 3 ml 3 ml PRN DAILY PRN NEB SHORTNESS OF BREATH; Start 11/05/16 at 12:30; Stop 11/05/16 at 12:47; Status DC Potassium Chloride 50 ml @ 50 mls/hr Q1H IV Last administered on 11/05/16 15: 10; Start 11/05/16 at 13:30; Stop 11/05/16 at 15:29; Status DC Potassium Chloride 50 ml @ 25 mls/hr Q2H IV Last administered on 11/06/16 11: 23; Start 11/06/16 at 09:00; Stop 11/06/16 at 12:59; Status DC Potassium Chloride (KCl Premix 20meq) 50 ml @ 25 mls/hr Q2H IV Last administered on 11/06/16 15:46; Start 11/06/16 at 14:00; Stop 11/06/16 at 17:59 ; Status DC Metoclopramide HCl (Reglan) 10 mg TID IV Last administered on 11/10/16 08:33; Start 11/07/16 at 14:00 Iohexol (Omnipaque 300 Mg/ml) 75 ml 1X ONCE IV ; Start 11/07/16 at 11:15; Stop 11/07/16 at 11:16; Status DC Info (Do NOT chart on this entry -- for MONITORING) 1 each PRN DAILY PRN MC SEE COMMENTS; Start 11/07/16 at 11:15; Stop 11/09/16 at 11:14; Status DC Acetaminophen/ Aspirin/Caffeine (Excedrin Migraine) 1 tab PRN BID PRN PO MIGRAINE HEADACHE; Start 11/07/16 at 11:30 Gadobutrol (Gadavist) 7.5 mmol 1X ONCE IV Last administered on 11/08/16 10:03 ; Start 11/08/16 at 09:45; Stop 11/08/16 at 09:46; Status DC Pantoprazole Sodium 40 mg 40 mg DAILYAC IVP ; Start 11/09/16 at 07:30; Stop at 07:30; Status DC Promethazine HCl/ Sodium Chloride (Phenergan/Iv Sodium Chloride 0.9% 50ml) 50.25 ml @ 150.75 mls/ hr PRN Q6HRS PRN IV NAUSEA/VOMITING; Start 11/08/16 at 11:00 Docusate Sodium (Colace) 100 mg PRN DAILY PRN PO CONSTIPATION; Start 11/08/16 at 13:15 Sennosides (Senna) 8.6 mg PRN BID PRN PO CONSTIPATION; Start 11/08/16 at 13:15 Pantoprazole Sodium (Protonix Vial) 40 mg BIDAC IVP Last administered on 08:33; Start 11/08/16 at 16:30 Iohexol (Omnipaque 300 Mg/ml) 75 ml 1X ONCE IV Last administered on 11/08/16 15:02; Start 11/08/16 at 14:45; Stop 11/08/16 at 14:46; Status DC Iohexol (Omnipaque 240 Mg/ml) 30 ml 1X ONCE PO ; Start 11/08/16 at 14:45; Stop 11/08/16 at 14:46; Status DC Info (Do NOT chart on this entry -- for MONITORING) 1 each PRN DAILY PRN MC SEE COMMENTS; Start 11/08/16 at 14:45; Stop 11/10/16 at 14:44 Info 1 each 1 each PRN DAILY PRN MC SEE COMMENTS Last administered on 12:33; Start 11/08/16 at 15:00 Sodium Chloride/ Potassium Chloride/ Potassium Phosphate/ Magnesium Sulfate/ Calcium Gluconate/ Multivitamins/ Chromium/Copper/ Manganese/Seleni/ Zn/Total Parenteral Nutrition/Amino Acids/Dextrose/ Fat Emulsion Intravenous (Sodium Chloride/ Potassium Phosphate/Calc... 1,512 ml @ 63 mls/hr TPN CONT IV ; Start 11/08/16 at 22:00; Stop 11/09/16 at 21:59; Status DC Iohexol 50 ml 50 ml 1X ONCE PO ; Start 11/08/16 at 15:30; Stop 11/08/16 at 15: 31; Status DC Sodium Chloride 90 meq/Potassium Chloride 50 meq/ Potassium Phosphate 13.6 mmol/ Magnesium Sulfate 10 meq/ Calcium Gluconate 10 meq/ Multivitamins 10 ml/Chromium / Copper/Manganese/ Seleni/Zn 1 ml/ Total Parenteral Nutrition/Amino Acids/ Dextrose/ Fat Emulsion Intravenous 1,512 ml @ 63 mls/hr TPN CONT IV Last administered on 11/09/16 22:00; Start 11/09/16 at 22:00; Stop 11/10/16 at 21:59 Amino Acids/ Electrolytes (Clinimix E 2.75%-5% Solution) 2,000 ml @ 80 mls/hr Q24H IV Last administered on 11/09/16 14:47; Start 11/09/16 at 14:00; Stop at 19:10; Status DC Vitals/I & O Vital Sign - Last 24 Hours 11/09/16 11/09/16 11/09/16 11/09/16 15:00 19:57 20:00 23:08 Temp 98.1 98.1 97.9 98.1 98.1 97.9 Pulse 83 98 77 Resp 18 18 20 B/P 120/80 133/81 124/73 Pulse Ox 97 95 97 O2 Delivery Room Air Room Air Room Air Room Air 11/10/16 11/10/16 11/10/16 11/10/16 03:42 07:00 07:56 08:00 Temp 97.9 98.0 97.9 98.0 Pulse 74 79 Resp 20 18 B/P 115/69 113/64 Pulse Ox 97 98 96 O2 Delivery Room Air Room Air Room Air Room Air 11/10/16 11:00 Temp 97.9 97.9 Pulse 80 Resp 18 B/P 109/58 Pulse Ox 97 O2 Delivery Room Air Intake and Output 11/09/16 11/09/16 11/10/16 15:00 23:00 07:00 Intake Total 0 ml Output Total 900 ml 1200 ml Balance -900 ml -1200 ml Nutrition Consultation Dietary Evaluation: Recommendations by RD: PPN/TPN Comments: continue ppn at this time Expected Outcomes/Goals: diet adv/ tolerance Interpretation of weight loss: >5% in 1 month Malnutrition Findings: Food and Nutrition Intake (Sev: <50% est energy req 5days 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
[2016-11-10] MEDS: TPN PER PHARMACY MC PRN (13:59)
[2016-11-10 15:00] VITALS: BP 115/65
[2016-11-10] MEDS: PAROXETINE 10 MG TABLET. PO SCH (17:28)
[2016-11-10 19:00] VITALS: BP 117/67
[2016-11-10] MEDS ORDERED: TOTAL PARENTERAL NUTRITION 1,424.9987 ML, AMINO ACIDS 10 % 60 GM, DEXTROSE 70 % IN WATE... IV SCH ×10 (22:00)
[2016-11-10 23:00] VITALS: BP 127/85
[2016-11-11] VITALS (16 sets, daily range): BP systolic 105–125; BP diastolic 60–88
[2016-11-11 06:14] LABS: BASO # 0.1 x10^3/uL (0.0-0.2); BASO % 1 % (0-3); EOS % 6 % (0-3); HEMATOCRIT 30.1 % (39.0-53.0); LYMPH # 1.3 x10^3/uL (1.0-4.8); LYMPH % 26 % (24-48); MEAN CORPUSCULAR HEMOGLOBIN 31 pg (25-35); MEAN CORPUSCULAR HGB CONC 33 g/dL (31-37); MEAN CORPUSCULAR VOLUME 94 fL (79-100); MONO % 14 % (0-9); NEUT % 52 % (31-73); PLATELET COUNT 218 x10^3/uL (140-400); RED BLOOD COUNT 3.22 x10^6/uL (4.30-5.70); RED CELL DISTRIBUTION WIDTH 16.1 % (11.5-14.5); WHITE BLOOD COUNT 4.9 x10^3/uL (4.0-11.0)
[2016-11-11 06:17] LABS: CALCIUM 8.4 mg/dL (8.5-10.1); CREATININE 0.9 mg/dL (0.7-1.3); GFR 86.1; MAGNESIUM 2.1 mg/dL (1.8-2.4); PHOSPHORUS 3.8 mg/dL (2.6-4.7); POTASSIUM 4.1 mmol/L (3.5-5.1)
[2016-11-11 08:36] LABS: INR 1.2 (0.8-1.1)
[2016-11-11] MEDS: METOCLOPRAMIDE HCL 10 MG/2 ML VIAL. IV SCH ×3 (08:46→22:44)
[2016-11-11] MEDS: PANTOPRAZOLE IV PUSH 40 MG VIAL. IVP SCH ×2 (08:47→17:10)
[2016-11-11] MEDS: DO NOT USE 40 MG/0.4 ML DISP.SYRIN SQ SCH (08:47)
[2016-11-11] MEDS ORDERED: CONTRAST GIVEN MC PRN ×2 (09:00→10:30)
--- NOTE | 2016-11-11 09:29 | PDOC ---
PROGRESS NOTES Subjective Subjective T3N2M0 - Stage III, Small bowel poorly differentiated adenocarcinoma Objective Objective Vital Signs Date Time Temp Pulse Resp B/P Pulse Ox O2 Delivery O2 Flow Rate FiO2 11/11/16 08:00 Room Air 3.0 11/11/16 07:00 98.1 78 18 106/67 97 98.1 Intake and Output 11/11/16 07:00 Intake Total 0 ml Output Total 1500 ml Balance -1500 ml Intake Oral 0 ml Output Urine Total 1500 ml # Bowel Movements 1 Physical Exam Heart: Normal S1, Normal S2 General: Alert, Oriented X3 Lungs: Clear to auscultation Psych/Mental Status: Mental status NL Assessment Assessment Problems Medical Problems: (1) Intractable vomiting Status: Acute (2) Small intestine cancer Status: Acute A/P: 1. 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 12/27 LN positive. Reviewed pathology Plan adjuvant chemo with FOLFOX for 12 cycles in 4 weeks. CEA 8.8, CA 19-9 is 27 F/u CT chest 11/07/16 Small subcapsular area of increased density laterally in the right lobe of the liver, not evident on the 10/30/2016 CT study. MRI 11/08/16: Single hypervascular solid lesion in the lateral aspect of the right lobe of liver as described above. A primary or secondary hepatic malignancy are possibilities. CT-guided biopsy of liver lesion planned for . Continue supportive care per surgery, primary team. 2. Abd pain - cont pain management per surgery. Improved. 3. Liver lesion, bx ordered PATHOLOGY REPORT: * * * * * * * * FINAL DIAGNOSIS: Segment of small bowel and mesentery, proximal jejunum segmental resection: - INVASIVE ADENOCARCINOMA OF SMALL BOWEL, POORLY DIFFERENTIATED, FORMING A SEGMENTAL ULCERATED NODULAR TUMOR MASS MEASURING UP TO 12 CM IN LENGTH, WITH TUMOR INVASION THROUGH MUSCULARIS PROPRIA INTO SUBSEROSA AND EXTENSIVE TUMOR INVASION OF MESENTERY. - LYMPHOVASCULAR TUMOR INVASION IDENTIFIED. 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 - Proximal and distal margins of resection negative for tumor. - Focal adhesed segment of sigmoid mesocolon. (JPM:patrick; d/t: 11/05/2016) Clinical History: Not known: . Specimen: Jejunum Procedure: Segmental resection Tumor Site: Jejunum Macroscopic Tumor Perforation: Not identified: . Histologic Type: Adenocarcinoma (not otherwise characterized) Histologic Grade: G3: Poorly differentiated Tumor Size: Greatest dimension: 12 cm Microscopic Tumor Extension: Tumor invades through the muscularis propria into the subserosal adipose tissue or the nonperitonealized george-intestinal soft tissues but does not extend to the serosal surface All margins uninvolved by invasive carcinoma Distance of invasive carcinoma from closest margin: 7 cm Closest margin: Proximal margin Proximal Margin: Uninvolved by invasive carcinoma Intramucosal carcinoma/adenoma not identified at proximal margin: . Distal Margin: Uninvolved by invasive carcinoma Intramucosal carcinoma/adenoma not identified at distal margin: . MARGIN: Uninvolved by invasive carcinoma Other Margin(s): Uninvolved by invasive carcinoma Lymph-Vascular Invasion: Present Primary Tumor (pT): pT3: Tumor invades through the muscularis propria into the subserosa or into the nonperitonealized perimuscular tissue (mesentery or retroperitoneum) with extension 2 cm or less Regional Lymph Nodes (pN): pN2: Metastasis in 4 or more regional lymph nodes Number examined: 12 Number involved: 5 Distant Metastasis: Not applicable: . Additional Pathologic Findings: None identified REPORT ELECTRONICALLY SIGNED BY: Alessio Ahumada M.D. DATE/TIME: 11/06/2016 14:19 * * * * * * * * Comment Review of Relevant I have reviewed the following items pako (where applicable) has been applied. Labs Laboratory Tests Test 11/10/16 06:00 11/10/16 21:55 11/11/16 05:50 11/11/16 08:05 Sodium Level 139mmol/L (136-145) 139mmol/L (136-145) Potassium Level 4.3mmol/L (3.5-5.1) 4.1mmol/L (3.5-5.1) Chloride Level 105mmol/L (98-107) 106mmol/L (98-107) Carbon Dioxide Level 27mmol/L (21-32) 26mmol/L (21-32) Anion Gap 7 (6-14) 7 (6-14) Blood Urea Nitrogen 10mg/dL (8-26) 11mg/dL (8-26) Creatinine 0.7mg/dL (0.7-1.3) 0.9mg/dL (0.7-1.3) Estimated GFR (Cockcroft-Gault) 115.0 86.1 Glucose Level 114mg/dL (70-99) 103mg/dL (70-99) Calcium Level 8.1mg/dL (8.5-10.1) 8.4mg/dL (8.5-10.1) Phosphorus Level 3.2mg/dL (2.6-4.7) 3.8mg/dL (2.6-4.7) Magnesium Level 2.1mg/dL (1.8-2.4) 2.1mg/dL (1.8-2.4) Glucose (Fingerstick) 95mg/dL (70-99) White Blood Count 4.9x10^3/uL (4.0-11.0) Red Blood Count 3.22x10^6/uL (4.30-5.70) Hemoglobin 10.0g/dL (13.0-17.5) Hematocrit 30.1% (39.0-53.0) Mean Corpuscular Volume 94fL (79-100) Mean Corpuscular Hemoglobin 31pg (25-35) Mean Corpuscular Hemoglobin Concent 33g/dL (31-37) Red Cell Distribution Width 16.1% (11.5-14.5) Platelet Count 218x10^3/uL (140-400) Neutrophils (%) (Auto) 52% (31-73) Lymphocytes (%) (Auto) 26% (24-48) Monocytes (%) (Auto) 14% (0-9) Eosinophils (%) (Auto) 6% (0-3) Basophils (%) (Auto) 1% (0-3) Neutrophils # (Auto) 2.5x10^3uL (1.8-7.7) Lymphocytes # (Auto) 1.3x10^3/uL (1.0-4.8) Monocytes # (Auto) 0.7x10^3/uL (0.0-1.1) Eosinophils # (Auto) 0.3x10^3/uL (0.0-0.7) Basophils # (Auto) 0.1x10^3/uL (0.0-0.2) Prothrombin Time 14.0SEC (11.7-14.0) Prothromb Time International Ratio 1.2 (0.8-1.1) Laboratory Tests Test 11/10/16 21:55 11/11/16 05:50 11/11/16 08:05 Glucose (Fingerstick) 95mg/dL (70-99) White Blood Count 4.9x10^3/uL (4.0-11.0) Red Blood Count 3.22x10^6/uL (4.30-5.70) Hemoglobin 10.0g/dL (13.0-17.5) Hematocrit 30.1% (39.0-53.0) Mean Corpuscular Volume 94fL (79-100) Mean Corpuscular Hemoglobin 31pg (25-35) Mean Corpuscular Hemoglobin Concent 33g/dL (31-37) Red Cell Distribution Width 16.1% (11.5-14.5) Platelet Count 218x10^3/uL (140-400) Neutrophils (%) (Auto) 52% (31-73) Lymphocytes (%) (Auto) 26% (24-48) Monocytes (%) (Auto) 14% (0-9) Eosinophils (%) (Auto) 6% (0-3) Basophils (%) (Auto) 1% (0-3) Neutrophils # (Auto) 2.5x10^3uL (1.8-7.7) Lymphocytes # (Auto) 1.3x10^3/uL (1.0-4.8) Monocytes # (Auto) 0.7x10^3/uL (0.0-1.1) Eosinophils # (Auto) 0.3x10^3/uL (0.0-0.7) Basophils # (Auto) 0.1x10^3/uL (0.0-0.2) Sodium Level 139mmol/L (136-145) Potassium Level 4.1mmol/L (3.5-5.1) Chloride Level 106mmol/L (98-107) Carbon Dioxide Level 26mmol/L (21-32) Anion Gap 7 (6-14) Blood Urea Nitrogen 11mg/dL (8-26) Creatinine 0.9mg/dL (0.7-1.3) Estimated GFR (Cockcroft-Gault) 86.1 Glucose Level 103mg/dL (70-99) Calcium Level 8.4mg/dL (8.5-10.1) Phosphorus Level 3.8mg/dL (2.6-4.7) Magnesium Level 2.1mg/dL (1.8-2.4) Prothrombin Time 14.0SEC (11.7-14.0) Prothromb Time International Ratio 1.2 (0.8-1.1) Medications Current Medications Sodium Chloride 3 ml 3 ml PRN DAILY PRN IV AFTER MEDS AND BLOOD DRAWS; Start at 21:30 Sodium Chloride (Iv Sodium Chloride 0.9% 1000ml Bag) 1,000 ml @ 100 mls/hr Q10H IV Last administered on 10/30/16 00:27; Start 10/29/16 at 21:30; Stop at 07:29; Status DC Bisacodyl (Dulcolax Supp) 10 mg PRN DAILY PRN DC CONSTIPATION; Start 10/29/16 at 21:30 Enoxaparin Sodium (Lovenox 40mg Syringe) 40 mg Q24H SQ Last administered on 21:11; Start 10/29/16 at 22:00; Stop 10/31/16 at 08:28; Status DC Metoclopramide HCl (Reglan) 10 mg Q8HRS IV Last administered on 11/06/16 06:07 ; Start 10/29/16 at 22:00; Stop 11/06/16 at 11:01; Status DC Ondansetron HCl (Zofran) 4 mg PRN Q8HRS PRN IV NAUSEA/VOMITING Last administered on 10/31/16 00:09; Start 10/29/16 at 21:30; Stop 11/01/16 at 14:47 ; Status DC Pantoprazole Sodium (Protonix Vial) 40 mg DAILYAC IVP Last administered on 11/05 08:25; Start 10/30/16 at 07:30; Stop 11/05/16 at 11:13; Status DC Paroxetine HCl (Paxil) 10 mg DAILY PO ; Start 10/30/16 at 09:00; Stop 10/30/16 at 09:33; Status DC Acetaminophen/ Aspirin/Caffeine (Excedrin Migraine) 1 tab PRN BID PRN PO MIGRAINE HEADACHE Last administered on 10/29/16 23:46; Start 10/29/16 at 21:30 ; Stop 11/07/16 at 11:23; Status DC Acetaminophen (Tylenol) 650 mg PRN Q6HRS PRN PO MILD PAIN / TEMP Last administered on 11/04/16 17:39; Start 10/29/16 at 22:00 Iohexol (Omnipaque 300 Mg/ml) 75 ml 1X ONCE IV Last administered on 10/30/16 09:09; Start 10/30/16 at 06:45; Stop 10/30/16 at 06:46; Status DC Iohexol (Omnipaque 240 Mg/ml) 30 ml 1X ONCE PO Last administered on 10/30/16 06:45; Start 10/30/16 at 06:45; Stop 10/30/16 at 06:46; Status DC Info (Do NOT chart on this entry -- for MONITORING) 1 each PRN DAILY PRN MC SEE COMMENTS; Start 10/30/16 at 06:45; Stop 11/01/16 at 06:44; Status DC Paroxetine HCl (Paxil) 10 mg DAILY@18 PO Last administered on 10/30/16 17:52; Start 10/30/16 at 18:00 Morphine Sulfate 2 mg PRN Q2HR PRN IV PAIN; Start 10/30/16 at 17:45; Stop 11/02 at 05:57; Status DC Ondansetron HCl (Zofran) 4 mg PRN Q6HRS PRN IV Nausea; Start 10/31/16 at 08:45 ; Stop 10/31/16 at 18:00; Status DC Fentanyl Citrate (Fentanyl 2ml Vial) 25 mcg PRN Q5MIN PRN IV MILD PAIN; Start 10/31/16 at 08:45; Stop 10/31/16 at 18:00; Status DC Fentanyl Citrate (Fentanyl 2ml Vial) 50 mcg PRN Q5MIN PRN IV MODERATE PAIN; Start 10/31/16 at 08:45; Stop 10/31/16 at 08:50; Status DC Morphine Sulfate 1 mg 1 mg PRN Q10MIN PRN IV SEVERE PAIN; Start 10/31/16 at 08: 45; Stop 10/31/16 at 18:00; Status DC Lactated Ringer's (Iv Lactated Ringers) 1,000 ml @ 30 mls/hr Q24H IV ; Start at 08:44; Stop 10/31/16 at 20:43; Status DC Lidocaine HCl 2 ml 1X PRN PRN ID IV START; Start 10/31/16 at 08:45; Stop at 18:00; Status DC Hydromorphone HCl (Dilaudid) 0.5 mg PRN Q10MIN PRN IV SEV PAIN,Second choice; Start 10/31/16 at 08:45; Stop 10/31/16 at 18:00; Status DC Prochlorperazine Edisylate 5 mg 5 mg PACU PRN PRN IV NAUSEA; Start 10/31/16 at 08:45; Stop 10/31/16 at 18:00; Status DC Cefoxitin Sodium (Mefoxin 2gm Ivpb For Omni) 100 ml @ 200 mls/hr 1X ONCE IV Last administered on 10/31/16t 13:16; Start 10/31/16 at 11:30; Stop 10/31/16 at 11:59; Status DC Sevoflurane (Ultane) 60 ml STK-MED ONCE IH ; Start 10/31/16 at 12:14; Stop 10/31 at 12:15; Status DC Fentanyl Citrate (Fentanyl 2ml Vial) 100 mcg STK-MED ONCE .ROUTE ; Start at 12:14; Stop 10/31/16 at 12:15; Status DC Rocuronium Galeton 50 mg 50 mg STK-MED ONCE .ROUTE ; Start 10/31/16 at 12:14; Stop 10/31/16 at 12:15; Status DC Propofol (Diprivan) 20 ml @ As Directed STK-MED ONCE IV ; Start 10/31/16 at 12: 15; Stop 10/31/16 at 12:16; Status DC Dexamethasone Sodium Phosphate (Decadron) 20 mg STK-MED ONCE .ROUTE ; Start at 12:15; Stop 10/31/16 at 12:16; Status DC Ondansetron HCl (Zofran) 4 mg STK-MED ONCE .ROUTE ; Start 10/31/16 at 12:15; Stop 10/31/16 at 12:16; Status DC Lidocaine HCl 100 mg STK-MED ONCE .ROUTE ; Start 10/31/16 at 12:15; Stop at 12:16; Status DC Glycopyrrolate (Robinul) 1 mg STK-MED ONCE .ROUTE ; Start 10/31/16 at 12:40; Stop 10/31/16 at 12:41; Status DC Neostigmine Methylsulfate 5 mg STK-MED ONCE .ROUTE ; Start 10/31/16 at 12:40; Stop 10/31/16 at 12:41; Status DC Succinylcholine Chloride (Anectine) 200 mg STK-MED ONCE .ROUTE ; Start 10/31/16 at 13:04; Stop 10/31/16 at 13:05; Status DC Phenylephrine HCl 1 mg 1 mg STK-MED ONCE IV ; Start 10/31/16 at 13:14; Stop at 13:15; Status DC Albumin Human (Plasmanate) 500 ml @ As Directed STK-MED ONCE IV ; Start at 15:47; Stop 10/31/16 at 15:48; Status DC Rocuronium Galeton (Zemuron) 100 mg STK-MED ONCE .ROUTE ; Start 10/31/16 at 15: 51; Stop 10/31/16 at 15:52; Status DC Fentanyl Citrate (Fentanyl 5ml Vial) 250 mcg STK-MED ONCE .ROUTE ; Start at 16:19; Stop 10/31/16 at 16:20; Status DC Sodium Chloride 3 ml 3 ml QSHIFT PRN IV AFTER MEDS AND BLOOD DRAWS; Start 10/31 at 17:30; Status UNV Hydromorphone HCl (Dilaudid Standard INTELLIGENCE CONSULTANT) 30 ml @ 0 mls/hr CONT PRN PRN IV PROTOCOL Last administered on 11/08/16t 10:06; Start 10/31/16 at 17:30 Hydromorphone HCl (Dilaudid) 0.4 mg PRN Q1HR PRN IV SEE COMMENTS; Start at 17:30; Stop 11/02/16 at 05:57; Status DC Ondansetron HCl (Zofran) 4 mg PRN Q6HRS PRN IV NAUESA, 1ST CHOICE Last administered on 11/08/16 10:04; Start 10/31/16 at 17:30 Metoclopramide HCl 10 mg 10 mg PRN Q6HRS PRN IV Nausea/Vomiting, 2nd Choice Last administered on 11/09/16 19:32; Start 10/31/16 at 17:30 Sodium Chloride (Iv Sodium Chloride 0.9% 1000ml Bag) 1,000 ml @ 125 mls/hr 1X ONCE IV Last administered on 10/31/16 22:45; Start 10/31/16 at 17:30; Stop at 01:29; Status DC Enoxaparin Sodium 40 mg 40 mg Q24H SQ Last administered on 11/10/16 08:34; Start 11/01/16 at 09:00 Hydromorphone HCl 30 ml @ As Directed STK-MED ONCE IV ; Start 10/31/16 at 17:24 ; Stop 10/31/16 at 17:26; Status DC Sodium Chloride (Iv Sodium Chloride 0.9% 500ml Bag) 500 ml @ 500 mls/hr 1X ONCE IV Last administered on 10/31/16 22:00; Start 10/31/16 at 22:00; Stop at 22:59; Status DC Cefoxitin Sodium 2 gm 2 gm STK-MED ONCE IV ; Start 10/31/16 at 16:00; Stop 11/01 at 08:43; Status DC Sodium Chloride 1,000 ml @ 1,000 mls/hr 1X ONCE IV Last administered on 14:00; Start 11/01/16 at 14:00; Stop 11/01/16 at 14:59; Status DC Sodium Chloride 1,000 ml @ 125 mls/hr 1X ONCE IV Last administered on 17:51; Start 11/01/16 at 14:00; Stop 11/01/16 at 21:59; Status DC Sodium Chloride 1,000 ml @ 1,000 mls/hr 1X ONCE IV Last administered on 13:14; Start 11/02/16 at 11:45; Stop 11/02/16 at 12:44; Status DC Amino Acids/ Glycerin/ Electrolytes (Procalamine) 1,000 ml @ 80 mls/hr [id number] IV Last administered on 11/04/16 03:00; Start 11/03/16 at 09:30; Stop at 07:57; Status DC Albuterol/ Ipratropium (Duoneb) 3 ml RTQID NEB Last administered on 11/05/16 07:53; Start 11/04/16 at 12:00; Stop 11/05/16 at 12:32; Status DC Albuterol Sulfate (Ventolin Neb Soln) 2.5 mg PRN Q4HRS PRN NEB SHORTNESS OF BREATH; Start 11/04/16 at 11:00 Lidocaine/Sodium Bicarbonate (Buffered Lidocaine 1%) 3 ml 1X ONCE IJ Last administered on 11/04/16 14:51; Start 11/04/16 at 14:00; Stop 11/04/16 at 14:01 ; Status DC Heparin Sodium/ Sodium Chloride 60 unit 1X ONCE IV Last administered on 14:52; Start 11/04/16 at 14:00; Stop 11/04/16 at 14:01; Status DC Guaifenesin 200 mg 200 mg PRN Q6HRS PRN PO COUGH; Start 11/04/16 at 16:15 Amino Acids/ Electrolytes (Clinimix E 2.75%-5% Solution) 2,000 ml @ 80 mls/hr Q24H IV Last administered on 11/08/16 15:31; Start 11/05/16 at 08:00; Stop at 21:59; Status DC Pantoprazole Sodium (Protonix) 40 mg DAILYAC PO ; Start 11/06/16 at 07:30; Stop 11/08/16 at 10:30; Status DC Potassium Chloride (Klor-Con) 40 meq 1X ONCE PO ; Start 11/05/16 at 11:15; Stop 11/05/16 at 12:58; Status DC Polyethylene Glycol (miraLAX PACKET) 17 gm PRN DAILY PRN PO CONSTIPATION Last administered on 11/05/16 12:37; Start 11/05/16 at 11:15 Albuterol/ Ipratropium 3 ml 3 ml PRN DAILY PRN NEB SHORTNESS OF BREATH; Start 11/05/16 at 12:30; Stop 11/05/16 at 12:47; Status DC Potassium Chloride 50 ml @ 50 mls/hr Q1H IV Last administered on 11/05/16 15: 10; Start 11/05/16 at 13:30; Stop 11/05/16 at 15:29; Status DC Potassium Chloride 50 ml @ 25 mls/hr Q2H IV Last administered on 11/06/16 11: 23; Start 11/06/16 at 09:00; Stop 11/06/16 at 12:59; Status DC Potassium Chloride (KCl Premix 20meq) 50 ml @ 25 mls/hr Q2H IV Last administered on 11/06/16 15:46; Start 11/06/16 at 14:00; Stop 11/06/16 at 17:59 ; Status DC Metoclopramide HCl (Reglan) 10 mg TID IV Last administered on 11/11/16 08:46; Start 11/07/16 at 14:00 Iohexol (Omnipaque 300 Mg/ml) 75 ml 1X ONCE IV ; Start 11/07/16 at 11:15; Stop 11/07/16 at 11:16; Status DC Info (Do NOT chart on this entry -- for MONITORING) 1 each PRN DAILY PRN MC SEE COMMENTS; Start 11/07/16 at 11:15; Stop 11/09/16 at 11:14; Status DC Acetaminophen/ Aspirin/Caffeine (Excedrin Migraine) 1 tab PRN BID PRN PO MIGRAINE HEADACHE; Start 11/07/16 at 11:30 Gadobutrol (Gadavist) 7.5 mmol 1X ONCE IV Last administered on 11/08/16 10:03 ; Start 11/08/16 at 09:45; Stop 11/08/16 at 09:46; Status DC Pantoprazole Sodium 40 mg 40 mg DAILYAC IVP ; Start 11/09/16 at 07:30; Stop at 07:30; Status DC Promethazine HCl/ Sodium Chloride (Phenergan/Iv Sodium Chloride 0.9% 50ml) 50.25 ml @ 150.75 mls/ hr PRN Q6HRS PRN IV NAUSEA/VOMITING; Start 11/08/16 at 11:00 Docusate Sodium (Colace) 100 mg PRN DAILY PRN PO CONSTIPATION; Start 11/08/16 at 13:15 Sennosides (Senna) 8.6 mg PRN BID PRN PO CONSTIPATION; Start 11/08/16 at 13:15 Pantoprazole Sodium (Protonix Vial) 40 mg BIDAC IVP Last administered on 08:47; Start 11/08/16 at 16:30 Iohexol (Omnipaque 300 Mg/ml) 75 ml 1X ONCE IV Last administered on 11/08/16 15:02; Start 11/08/16 at 14:45; Stop 11/08/16 at 14:46; Status DC Iohexol (Omnipaque 240 Mg/ml) 30 ml 1X ONCE PO ; Start 11/08/16 at 14:45; Stop 11/08/16 at 14:46; Status DC Info (Do NOT chart on this entry -- for MONITORING) 1 each PRN DAILY PRN MC SEE COMMENTS; Start 11/08/16 at 14:45; Stop 11/10/16 at 14:44; Status DC Info 1 each 1 each PRN DAILY PRN MC SEE COMMENTS Last administered on 13:59; Start 11/08/16 at 15:00 Sodium Chloride/ Potassium Chloride/ Potassium Phosphate/ Magnesium Sulfate/ Calcium Gluconate/ Multivitamins/ Chromium/Copper/ Manganese/Seleni/ Zn/Total Parenteral Nutrition/Amino Acids/Dextrose/ Fat Emulsion Intravenous (Sodium Chloride/ Potassium Phosphate/Calc... 1,512 ml @ 63 mls/hr TPN CONT IV ; Start 11/08/16 at 22:00; Stop 11/09/16 at 21:59; Status DC Iohexol 50 ml 50 ml 1X ONCE PO ; Start 11/08/16 at 15:30; Stop 11/08/16 at 15: 31; Status DC Sodium Chloride 90 meq/Potassium Chloride 50 meq/ Potassium Phosphate 13.6 mmol/ Magnesium Sulfate 10 meq/ Calcium Gluconate 10 meq/ Multivitamins 10 ml/Chromium / Copper/Manganese/ Seleni/Zn 1 ml/ Total Parenteral Nutrition/Amino Acids/ Dextrose/ Fat Emulsion Intravenous 1,512 ml @ 63 mls/hr TPN CONT IV Last administered on 11/09/16 22:00; Start 11/09/16 at 22:00; Stop 11/10/16 at 21:59 ; Status DC Amino Acids/ Electrolytes 2,000 ml @ 80 mls/hr Q24H IV Last administered on 14:47; Start 11/09/16 at 14:00; Stop 11/09/16 at 19:10; Status DC Sodium Chloride/ Potassium Chloride/ Potassium Phosphate/ Magnesium Sulfate/ Calcium Gluconate/ Multivitamins/ Chromium/Copper/ Manganese/Seleni/ Zn/Total Parenteral Nutrition/Amino Acids/Dextrose/ Fat Emulsion Intravenous (Sodium Chloride/ Potassium Phosphate/Calc... 1,512 ml @ 63 mls/hr TPN CONT IV Last administered on 11/10/16 22:00; Start 11/10/16 at 22:00; Stop 11/11/16 at 21:59 Iohexol (Omnipaque 300 Mg/ml) 75 ml 1X ONCE IV ; Start 11/11/16 at 09:30; Stop 11/11/16 at 09:31 Info (Do NOT chart on this entry -- for MONITORING) 1 each PRN DAILY PRN MC SEE COMMENTS; Start 11/11/16 at 09:00; Stop 11/13/16 at 08:59 Vitals/I & O Vital Sign - Last 24 Hours 11/10/16 11/10/16 11/10/16 11/10/16 11:00 15:00 19:00 20:00 Temp 97.9 97.6 99.7 97.9 97.6 99.7 Pulse 80 86 80 Resp 18 18 19 B/P 109/58 115/65 117/67 Pulse Ox 97 98 97 O2 Delivery Room Air Room Air Room Air Room Air 11/10/16 11/11/16 11/11/16 11/11/16 23:00 03:00 07:00 08:00 Temp 99.4 98.1 98.1 99.4 98.1 98.1 Pulse 86 87 78 Resp 19 17 18 B/P 127/85 110/69 106/67 Pulse Ox 97 96 97 O2 Delivery Room Air Room Air Room Air Room Air O2 Flow Rate 3.0 Intake and Output 11/10/16 11/10/16 11/11/16 15:00 23:00 07:00 Intake Total 0 ml Output Total 450 ml 1050 ml Balance -450 ml -1050 ml Nutrition Consultation Dietary Evaluation: Recommendations by RD: PPN/TPN Comments: continue ppn at this time Expected Outcomes/Goals: diet adv/ tolerance Interpretation of weight loss: >5% in 1 month Malnutrition Findings: Food and Nutrition Intake (Sev: <50% est energy req 5days 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
[2016-11-11] MEDS ORDERED: IOHEXOL 300 MG/ML 75 ML VIAL IV ONE ×2 (09:30→10:15)
[2016-11-11] MEDS ORDERED: LIDOCAINE 1% / SOD BICARB 8.4% 20 ML VIAL. IJ ONE ×2 (09:36→10:15)
[2016-11-11] MEDS ORDERED: FENTANYL PF 250 MCG/5 ML VIAL. ONE (09:48)
[2016-11-11] MEDS ORDERED: MIDAZOLAM HCL/PF 5 MG/5 ML VIAL ONE (09:48)
[2016-11-11] MEDS ORDERED: FENTANYL PF 250 MCG/5 ML VIAL. IV ONE (10:15)
[2016-11-11] MEDS ORDERED: MIDAZOLAM HCL/PF 5 MG/5 ML VIAL IV ONE (10:15)
--- NOTE | 2016-11-11 10:32 | PDOC ---
MODERATE SEDATION ASSESSMENT RISKS/ALTERNATIVES Risks/Alternatives Risks and alternatives of this type of sedation and procedure discussed with: RISK/ALTERNATIVES: Patient H & P ON CHART H & P H & P on chart and reviewed for co-morbid conditions and appropriate labs. H&P ON CHART: Yes STATUS PREG STATUS ASSESSED: N/A MEDS/ALLERGIES REVIEWED Meds/Allergies Reviewed Medications and Allergies including time and route of recently administered narcotics and sedatives. MEDS/ALLERGIES REVIEWED: Yes ASA RATING ASA RATING: III AIRWAY ASSESSMENT Airway Assessment Airway patency, oral function limitations, presence of caps, crowns, dentures, partials, and ability to extend neck assessed. AIRWAY ASSESSMENT: Yes MALLAMPATI SCORE MALLAMPATI SCORE: II PRE-SEDATION ASSESSMENT PRE-SEDATION ASSESSMENT: Yes MAHESH PRAJAPATI MD Nov 11, 2016 10:32
--- NOTE | 2016-11-11 10:36 | PDOC ---
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 No apparent complication. Disposition Disposition From IR/CT return to [facility]. F/u with HIMS, Oncology, and General Surgery. Full report to follow. MAHESH PRAJAPATI MD Nov 11, 2016 10:36
--- NOTE | 2016-11-11 11:28 | PDOC ---
Provider Note Provider Note His nausea is much improved and is resolved. He is hungry, having "good" bowel movements. denies emesis yesterday and today. afeb vss appears well, not toxic abd soft nd nt inc healing. no erythema a/p start clear liquids. REAL CAGE MD Nov 11, 2016 11:28
--- NOTE | 2016-11-11 11:45 | PDOC ---
PROGRESS NOTES Chief Complaint Chief Complaint SBO ASSESSMENT AND PLAN: 1. SB adeno CA: s/p ex lap with small bowel resection, duodenojejunal anastomosis on 10/31/16. 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 Liver lesion: s/p bx this AM. awaiting path. GI, Onc following 3. Nutrition: on TPN currently. starting clears as per surgery 4. Pain control: adequate. off [employer] 5. Hyopkalemia: resolved. monitor lytes on TPN 6. non sustained Vtach: resolved; 2/2 hypokalemia likely 7. COPD: no acute issues. nebs PRN 8. gi, dvt ppx History of Present Illness History of Present Illness Vitals Vitals Vital Signs Date Time Temp Pulse Resp B/P Pulse Ox O2 Delivery O2 Flow Rate FiO2 11/11/16 11:18 97 Room Air 2.0 11/11/16 10:45 96.5 85 20 115/60 96.5 Physical Exam General: Alert, Oriented X3 Heart: Normal S1, Normal S2 Lungs: Clear Abdomen: Soft, Other (incision no erythema, some drainage to lower portion, wick to lower portion, ) Extremities: No edema, Normal pulses Skin: No rashes Labs LABS Laboratory Tests Test 11/10/16 21:55 11/11/16 05:50 11/11/16 08:05 Glucose (Fingerstick) 95mg/dL (70-99) White Blood Count 4.9x10^3/uL (4.0-11.0) Red Blood Count 3.22x10^6/uL (4.30-5.70) Hemoglobin 10.0g/dL (13.0-17.5) Hematocrit 30.1% (39.0-53.0) Mean Corpuscular Volume 94fL (79-100) Mean Corpuscular Hemoglobin 31pg (25-35) Mean Corpuscular Hemoglobin Concent 33g/dL (31-37) Red Cell Distribution Width 16.1% (11.5-14.5) Platelet Count 218x10^3/uL (140-400) Neutrophils (%) (Auto) 52% (31-73) Lymphocytes (%) (Auto) 26% (24-48) Monocytes (%) (Auto) 14% (0-9) Eosinophils (%) (Auto) 6% (0-3) Basophils (%) (Auto) 1% (0-3) Neutrophils # (Auto) 2.5x10^3uL (1.8-7.7) Lymphocytes # (Auto) 1.3x10^3/uL (1.0-4.8) Monocytes # (Auto) 0.7x10^3/uL (0.0-1.1) Eosinophils # (Auto) 0.3x10^3/uL (0.0-0.7) Basophils # (Auto) 0.1x10^3/uL (0.0-0.2) Sodium Level 139mmol/L (136-145) Potassium Level 4.1mmol/L (3.5-5.1) Chloride Level 106mmol/L (98-107) Carbon Dioxide Level 26mmol/L (21-32) Anion Gap 7 (6-14) Blood Urea Nitrogen 11mg/dL (8-26) Creatinine 0.9mg/dL (0.7-1.3) Estimated GFR (Cockcroft-Gault) 86.1 Glucose Level 103mg/dL (70-99) Calcium Level 8.4mg/dL (8.5-10.1) Phosphorus Level 3.8mg/dL (2.6-4.7) Magnesium Level 2.1mg/dL (1.8-2.4) Prothrombin Time 14.0SEC (11.7-14.0) Prothromb Time International Ratio 1.2 (0.8-1.1) Review of Systems Review of Systems feels ok. increasing activity, walking with nursing staffing coordinator. Nutrition Consultation Dietary Evaluation: Recommendations by RD: PPN/TPN Comments: continue ppn at this time Expected Outcomes/Goals: diet adv/ tolerance Interpretation of weight loss: >5% in 1 month Malnutrition Findings: Food and Nutrition Intake (Sev: <50% est energy req 5days Reduced Scientific Specialist Strength: N/A Weight Status: Overweight Fluid Accumulation (N/A): N/A PAYAM FANG MD Nov 11, 2016 11:45
--- NOTE | 2016-11-11 13:18 | PDOC ---
Subjective: Subjective: Doing better. No n/v, less abd pain. Going to try clears this afternoon. Objective: Vital Signs: Vital Signs Date Time Temp Pulse Resp B/P Pulse Ox O2 Delivery O2 Flow Rate FiO2 11/11/16 13:00 98.1 76 18 120/70 97 Room Air 98.1 11/11/16 11:18 2.0 Labs: Laboratory Tests Test 11/10/16 21:55 11/11/16 05:50 11/11/16 08:05 Glucose (Fingerstick) 95mg/dL White Blood Count 4.9x10^3/uL Red Blood Count 3.22x10^6/uL Hemoglobin 10.0g/dL Hematocrit 30.1% Mean Corpuscular Volume 94fL Mean Corpuscular Hemoglobin 31pg Mean Corpuscular Hemoglobin Concent 33g/dL Red Cell Distribution Width 16.1% Platelet Count 218x10^3/uL Neutrophils (%) (Auto) 52% Lymphocytes (%) (Auto) 26% Monocytes (%) (Auto) 14% Eosinophils (%) (Auto) 6% Basophils (%) (Auto) 1% Neutrophils # (Auto) 2.5x10^3uL Lymphocytes # (Auto) 1.3x10^3/uL Monocytes # (Auto) 0.7x10^3/uL Eosinophils # (Auto) 0.3x10^3/uL Basophils # (Auto) 0.1x10^3/uL Sodium Level 139mmol/L Potassium Level 4.1mmol/L Chloride Level 106mmol/L Carbon Dioxide Level 26mmol/L Anion Gap 7 Blood Urea Nitrogen 11mg/dL Creatinine 0.9mg/dL Estimated GFR (Cockcroft-Gault) 86.1 Glucose Level 103mg/dL Calcium Level 8.4mg/dL Phosphorus Level 3.8mg/dL Magnesium Level 2.1mg/dL Prothrombin Time 14.0SEC Prothromb Time International Ratio 1.2 PE: GEN: NAD LUNGS: CTAB HEART: RRR ABD: BS+, less tender NEURO/PSYCH: A & O 3 A/P: Small bowel adenocarcinoma s/p resection 10/31 -n/v, abd pain improved --->going to try clears today -s/p liver biopsy 11/11 -- Improving. Plans to try PO. LEANDRO SHARMA Nov 11, 2016 13:18
[2016-11-11] MEDS ORDERED: DOCUSATE SODIUM 100 MG CAPSULE. PO PRN (14:15)
[2016-11-11] MEDS ORDERED: BISACODYL 10 MG SUPP.RECT. PR PRN (14:15)
[2016-11-11] MEDS: TPN PER PHARMACY MC PRN (14:22)
--- NOTE | 2016-11-11 15:44 | RAD ---
CT-guided liver biopsy Indication: 61-year-old male with small bowel adenocarcinoma. CT and MRI revealed a subcapsular lesion along lateral aspect of right lobe of liver. Image guided liver lesion biopsy has been requested. Anesthesia: 16 minutes moderate sedation was provided utilizing a total of 1 mg Versed and 50 mcg fentanyl, IV. The patient was appropriately monitored by a qualified independent observer throughout the time of moderate sedation. Consent: The procedure was explained in its entirety to the patient and/or the patient's designated event marketing representative by a member of the treatment team. This included a discussion of risks and benefits and acceptable alternatives to the procedure, as well as expected consequences of no treatment at all. Discussion of risks included, but was not limited to, those that are most frequent and those that are rare, but possibly severe or life-threatening, as well as the possibility of unforeseen complications. Procedure: Informed consent was obtained from the patient. He was placed supine on the CT scanner. Preliminary noncontrast and dynamic IV contrast CT images were obtained through liver. Those images confirmed the presence of a poorly defined hyperdense subcapsular lesion within lateral aspect right lobe of liver. A skin site suitable for CT-guided biopsy of the lesion was selected and marked. That area was prepped and draped in the usual sterile fashion. Conscious sedation was provided with IV Versed and fentanyl. Using aseptic technique, local anesthesia, and CT guidance, a 17-gauge guide needle was successfully introduced into the right lobe liver lesion. Three 18-gauge core biopsy samples were then obtained and were submitted in formalin to pathology. Hemostasis was achieved with autologous clot introduced through the biopsy guide needle, which was then removed. A sterile dressing was applied. Patient tolerated the procedure well without apparent complication. Completion CT images revealed no evidence of significant intraparenchymal, subcapsular, or perihepatic hemorrhage. Impression: Uneventful CT-guided liver biopsy, as described. PQRS Compliance Statement: One or more of the following individualized dose reduction techniques was utilized for this procedure: 1. Automated exposure control. 2. Adjustment of MA and/or KV according to patient size. 3. Iterative reconstruction technique.
[2016-11-11] MEDS: PAROXETINE 10 MG TABLET. PO SCH (17:10)
[2016-11-11] MEDS ORDERED: TOTAL PARENTERAL NUTRITION 1,424.9987 ML, AMINO ACIDS 10 % 60 GM, DEXTROSE 70 % IN WATE... IV SCH ×10 (22:00)
[2016-11-12 07:00] VITALS: BP 100/59
--- NOTE | 2016-11-12 08:18 | PDOC ---
SURGICAL PROGRESS NOTE Subjective Doing well, no nausea or vomiting. Tolerating clears Vital Signs Vital Signs Date Time Temp Pulse Resp B/P Pulse Ox O2 Delivery O2 Flow Rate FiO2 11/12/16 07:00 97.9 72 18 100/59 99 Room Air 97.9 11/11/16 11:18 2.0 I&O Intake and Output 11/12/16 07:00 Intake Total 240 ml Output Total 300 ml Balance -60 ml Intake Oral 240 ml Output Urine Total 300 ml # Bowel Movements 2 PATIENT HAS A GIANG: No General: Alert, Oriented X3, Cooperative, mild distress Abdomen: Normal bowel sounds, Soft, No tenderness, Other (no acute changes) Labs Laboratory Tests Test 11/10/16 21:55 11/11/16 05:50 11/11/16 08:05 Glucose (Fingerstick) 95mg/dL (70-99) White Blood Count 4.9x10^3/uL (4.0-11.0) Red Blood Count 3.22x10^6/uL (4.30-5.70) Hemoglobin 10.0g/dL (13.0-17.5) Hematocrit 30.1% (39.0-53.0) Mean Corpuscular Volume 94fL (79-100) Mean Corpuscular Hemoglobin 31pg (25-35) Mean Corpuscular Hemoglobin Concent 33g/dL (31-37) Red Cell Distribution Width 16.1% (11.5-14.5) Platelet Count 218x10^3/uL (140-400) Neutrophils (%) (Auto) 52% (31-73) Lymphocytes (%) (Auto) 26% (24-48) Monocytes (%) (Auto) 14% (0-9) Eosinophils (%) (Auto) 6% (0-3) Basophils (%) (Auto) 1% (0-3) Neutrophils # (Auto) 2.5x10^3uL (1.8-7.7) Lymphocytes # (Auto) 1.3x10^3/uL (1.0-4.8) Monocytes # (Auto) 0.7x10^3/uL (0.0-1.1) Eosinophils # (Auto) 0.3x10^3/uL (0.0-0.7) Basophils # (Auto) 0.1x10^3/uL (0.0-0.2) Sodium Level 139mmol/L (136-145) Potassium Level 4.1mmol/L (3.5-5.1) Chloride Level 106mmol/L (98-107) Carbon Dioxide Level 26mmol/L (21-32) Anion Gap 7 (6-14) Blood Urea Nitrogen 11mg/dL (8-26) Creatinine 0.9mg/dL (0.7-1.3) Estimated GFR (Cockcroft-Gault) 86.1 Glucose Level 103mg/dL (70-99) Calcium Level 8.4mg/dL (8.5-10.1) Phosphorus Level 3.8mg/dL (2.6-4.7) Magnesium Level 2.1mg/dL (1.8-2.4) Prothrombin Time 14.0SEC (11.7-14.0) Prothromb Time International Ratio 1.2 (0.8-1.1) Problem List Problems Medical Problems: (1) Intractable vomiting Status: Acute (2) Small intestine cancer Status: Acute Assessment/Plan s/p xlap with sbr for adenocarcinoma of the small bowel Adv diet Problems: ORI MCFADDEN MD Nov 12, 2016 08:18
[2016-11-12] MEDS: METOCLOPRAMIDE HCL 10 MG/2 ML VIAL. IV SCH ×3 (08:56→21:00)
[2016-11-12] MEDS: DO NOT USE 40 MG/0.4 ML DISP.SYRIN SQ SCH (08:56)
[2016-11-12] MEDS: PANTOPRAZOLE IV PUSH 40 MG VIAL. IVP SCH ×2 (08:57→15:55)
--- NOTE | 2016-11-12 09:06 | PDOC ---
PROGRESS NOTES Subjective Subjective c/c - f/u of T3N2M0 - Stage III, Small bowel poorly differentiated adenocarcinoma Objective Objective Vital Signs Date Time Temp Pulse Resp B/P Pulse Ox O2 Delivery O2 Flow Rate FiO2 11/12/16 07:00 97.9 72 18 100/59 99 Room Air 97.9 11/11/16 11:18 2.0 Intake and Output 11/12/16 07:00 Intake Total 240 ml Output Total 300 ml Balance -60 ml Intake Oral 240 ml Output Urine Total 300 ml # Bowel Movements 2 Physical Exam Heart: Normal S1, Normal S2 General: Alert, Oriented X3 Lungs: Clear to auscultation Neuro: Normal speech Psych/Mental Status: Mental status NL Assessment Assessment Problems Medical Problems: (1) Intractable vomiting Status: Acute (2) Small intestine cancer Status: Acute A/P: 1. 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 12/27 LN positive. Reviewed pathology Plan adjuvant chemo with FOLFOX or XELOX for 6 months in 2-4 weeks. I d/w Dr Harris who will arrange for outpatient oncology consult with Dr Klein at their [place] facility for adjuvant chemotherapy. CEA 8.8, CA 19-9 is 27 F/u CT chest 11/07/16 Small subcapsular area of increased density laterally in the right lobe of the liver, not evident on the 10/30/2016 CT study. MRI 11/08/16: Single hypervascular solid lesion in the lateral aspect of the right lobe of liver as described above. A primary or secondary hepatic malignancy are possibilities. CT-guided biopsy of liver lesion planned for . Continue supportive care per surgery, primary team. 2. Abd pain - cont pain management per surgery. Improved. 3. Liver lesion, bx done - 11/11/16 and prelim results are neg for malignancy. PATHOLOGY REPORT: * * * * * * * * FINAL DIAGNOSIS: Segment of small bowel and mesentery, proximal jejunum segmental resection: - INVASIVE ADENOCARCINOMA OF SMALL BOWEL, POORLY DIFFERENTIATED, FORMING A SEGMENTAL ULCERATED NODULAR TUMOR MASS MEASURING UP TO 12 CM IN LENGTH, WITH TUMOR INVASION THROUGH MUSCULARIS PROPRIA INTO SUBSEROSA AND EXTENSIVE TUMOR INVASION OF MESENTERY. - LYMPHOVASCULAR TUMOR INVASION IDENTIFIED. 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 - Proximal and distal margins of resection negative for tumor. - Focal adhesed segment of sigmoid mesocolon. (JPM:csd; d/t: 11/05/2016) Clinical History: Not known: . Specimen: Jejunum Procedure: Segmental resection Tumor Site: Jejunum Macroscopic Tumor Perforation: Not identified: . Histologic Type: Adenocarcinoma (not otherwise characterized) Histologic Grade: G3: Poorly differentiated Tumor Size: Greatest dimension: 12 cm Microscopic Tumor Extension: Tumor invades through the muscularis propria into the subserosal adipose tissue or the nonperitonealized george-intestinal soft tissues but does not extend to the serosal surface All margins uninvolved by invasive carcinoma Distance of invasive carcinoma from closest margin: 7 cm Closest margin: Proximal margin Proximal Margin: Uninvolved by invasive carcinoma Intramucosal carcinoma/adenoma not identified at proximal margin: . Distal Margin: Uninvolved by invasive carcinoma Intramucosal carcinoma/adenoma not identified at distal margin: . MARGIN: Uninvolved by invasive carcinoma Other Margin(s): Uninvolved by invasive carcinoma Lymph-Vascular Invasion: Present Primary Tumor (pT): pT3: Tumor invades through the muscularis propria into the subserosa or into the nonperitonealized perimuscular tissue (mesentery or retroperitoneum) with extension 2 cm or less Regional Lymph Nodes (pN): pN2: Metastasis in 4 or more regional lymph nodes Number examined: 12 Number involved: 5 Distant Metastasis: Not applicable: . Additional Pathologic Findings: None identified REPORT ELECTRONICALLY SIGNED BY: Alessio Ahumada M.D. DATE/TIME: 11/06/2016 14:19 * * * * * * * * Comment Review of Relevant I have reviewed the following items pako (where applicable) has been applied. Labs Laboratory Tests Test 11/10/16 21:55 11/11/16 05:50 11/11/16 08:05 Glucose (Fingerstick) 95mg/dL (70-99) White Blood Count 4.9x10^3/uL (4.0-11.0) Red Blood Count 3.22x10^6/uL (4.30-5.70) Hemoglobin 10.0g/dL (13.0-17.5) Hematocrit 30.1% (39.0-53.0) Mean Corpuscular Volume 94fL (79-100) Mean Corpuscular Hemoglobin 31pg (25-35) Mean Corpuscular Hemoglobin Concent 33g/dL (31-37) Red Cell Distribution Width 16.1% (11.5-14.5) Platelet Count 218x10^3/uL (140-400) Neutrophils (%) (Auto) 52% (31-73) Lymphocytes (%) (Auto) 26% (24-48) Monocytes (%) (Auto) 14% (0-9) Eosinophils (%) (Auto) 6% (0-3) Basophils (%) (Auto) 1% (0-3) Neutrophils # (Auto) 2.5x10^3uL (1.8-7.7) Lymphocytes # (Auto) 1.3x10^3/uL (1.0-4.8) Monocytes # (Auto) 0.7x10^3/uL (0.0-1.1) Eosinophils # (Auto) 0.3x10^3/uL (0.0-0.7) Basophils # (Auto) 0.1x10^3/uL (0.0-0.2) Sodium Level 139mmol/L (136-145) Potassium Level 4.1mmol/L (3.5-5.1) Chloride Level 106mmol/L (98-107) Carbon Dioxide Level 26mmol/L (21-32) Anion Gap 7 (6-14) Blood Urea Nitrogen 11mg/dL (8-26) Creatinine 0.9mg/dL (0.7-1.3) Estimated GFR (Cockcroft-Gault) 86.1 Glucose Level 103mg/dL (70-99) Calcium Level 8.4mg/dL (8.5-10.1) Phosphorus Level 3.8mg/dL (2.6-4.7) Magnesium Level 2.1mg/dL (1.8-2.4) Prothrombin Time 14.0SEC (11.7-14.0) Prothromb Time International Ratio 1.2 (0.8-1.1) Medications Current Medications Sodium Chloride 3 ml 3 ml PRN DAILY PRN IV AFTER MEDS AND BLOOD DRAWS; Start at 21:30 Sodium Chloride (Iv Sodium Chloride 0.9% 1000ml Bag) 1,000 ml @ 100 mls/hr Q10H IV Last administered on 10/30/16 00:27; Start 10/29/16 at 21:30; Stop at 07:29; Status DC Bisacodyl (Dulcolax Supp) 10 mg PRN DAILY PRN NC CONSTIPATION; Start 10/29/16 at 21:30; Stop 11/11/16 at 14:05; Status DC Enoxaparin Sodium (Lovenox 40mg Syringe) 40 mg Q24H SQ Last administered on 21:11; Start 10/29/16 at 22:00; Stop 10/31/16 at 08:28; Status DC Metoclopramide HCl (Reglan) 10 mg Q8HRS IV Last administered on 11/06/16 06:07 ; Start 10/29/16 at 22:00; Stop 11/06/16 at 11:01; Status DC Ondansetron HCl (Zofran) 4 mg PRN Q8HRS PRN IV NAUSEA/VOMITING Last administered on 10/31/16 00:09; Start 10/29/16 at 21:30; Stop 11/01/16 at 14:47 ; Status DC Pantoprazole Sodium (Protonix Vial) 40 mg DAILYAC IVP Last administered on 11/05 08:25; Start 10/30/16 at 07:30; Stop 11/05/16 at 11:13; Status DC Paroxetine HCl (Paxil) 10 mg DAILY PO ; Start 10/30/16 at 09:00; Stop 10/30/16 at 09:33; Status DC Acetaminophen/ Aspirin/Caffeine (Excedrin Migraine) 1 tab PRN BID PRN PO MIGRAINE HEADACHE Last administered on 10/29/16 23:46; Start 10/29/16 at 21:30 ; Stop 11/07/16 at 11:23; Status DC Acetaminophen (Tylenol) 650 mg PRN Q6HRS PRN PO MILD PAIN / TEMP Last administered on 11/04/16 17:39; Start 10/29/16 at 22:00 Iohexol (Omnipaque 300 Mg/ml) 75 ml 1X ONCE IV Last administered on 10/30/16 09:09; Start 10/30/16 at 06:45; Stop 10/30/16 at 06:46; Status DC Iohexol (Omnipaque 240 Mg/ml) 30 ml 1X ONCE PO Last administered on 10/30/16 06:45; Start 10/30/16 at 06:45; Stop 10/30/16 at 06:46; Status DC Info (Do NOT chart on this entry -- for MONITORING) 1 each PRN DAILY PRN MC SEE COMMENTS; Start 10/30/16 at 06:45; Stop 11/01/16 at 06:44; Status DC Paroxetine HCl (Paxil) 10 mg DAILY@18 PO Last administered on 11/11/16 17:10; Start 10/30/16 at 18:00 Morphine Sulfate 2 mg PRN Q2HR PRN IV PAIN; Start 10/30/16 at 17:45; Stop 11/02 at 05:57; Status DC Ondansetron HCl (Zofran) 4 mg PRN Q6HRS PRN IV Nausea; Start 10/31/16 at 08:45 ; Stop 10/31/16 at 18:00; Status DC Fentanyl Citrate (Fentanyl 2ml Vial) 25 mcg PRN Q5MIN PRN IV MILD PAIN; Start 10/31/16 at 08:45; Stop 10/31/16 at 18:00; Status DC Fentanyl Citrate (Fentanyl 2ml Vial) 50 mcg PRN Q5MIN PRN IV MODERATE PAIN; Start 10/31/16 at 08:45; Stop 10/31/16 at 08:50; Status DC Morphine Sulfate 1 mg 1 mg PRN Q10MIN PRN IV SEVERE PAIN; Start 10/31/16 at 08: 45; Stop 10/31/16 at 18:00; Status DC Lactated Ringer's (Iv Lactated Ringers) 1,000 ml @ 30 mls/hr Q24H IV ; Start at 08:44; Stop 10/31/16 at 20:43; Status DC Lidocaine HCl 2 ml 1X PRN PRN ID IV START; Start 10/31/16 at 08:45; Stop at 18:00; Status DC Hydromorphone HCl (Dilaudid) 0.5 mg PRN Q10MIN PRN IV SEV PAIN,Second choice; Start 10/31/16 at 08:45; Stop 10/31/16 at 18:00; Status DC Prochlorperazine Edisylate 5 mg 5 mg PACU PRN PRN IV NAUSEA; Start 10/31/16 at 08:45; Stop 10/31/16 at 18:00; Status DC Cefoxitin Sodium (Mefoxin 2gm Ivpb For Omni) 100 ml @ 200 mls/hr 1X ONCE IV Last administered on 10/31/16t 13:16; Start 10/31/16 at 11:30; Stop 10/31/16 at 11:59; Status DC Sevoflurane (Ultane) 60 ml STK-MED ONCE IH ; Start 10/31/16 at 12:14; Stop 10/31 at 12:15; Status DC Fentanyl Citrate (Fentanyl 2ml Vial) 100 mcg STK-MED ONCE .ROUTE ; Start at 12:14; Stop 10/31/16 at 12:15; Status DC Rocuronium [place] 50 mg 50 mg STK-MED ONCE .ROUTE ; Start 10/31/16 at 12:14; Stop 10/31/16 at 12:15; Status DC Propofol (Diprivan) 20 ml @ As Directed STK-MED ONCE IV ; Start 10/31/16 at 12: 15; Stop 10/31/16 at 12:16; Status DC Dexamethasone Sodium Phosphate (Decadron) 20 mg STK-MED ONCE .ROUTE ; Start at 12:15; Stop 10/31/16 at 12:16; Status DC Ondansetron HCl (Zofran) 4 mg STK-MED ONCE .ROUTE ; Start 10/31/16 at 12:15; Stop 10/31/16 at 12:16; Status DC Lidocaine HCl 100 mg STK-MED ONCE .ROUTE ; Start 10/31/16 at 12:15; Stop at 12:16; Status DC Glycopyrrolate (Robinul) 1 mg STK-MED ONCE .ROUTE ; Start 10/31/16 at 12:40; Stop 10/31/16 at 12:41; Status DC Neostigmine Methylsulfate 5 mg STK-MED ONCE .ROUTE ; Start 10/31/16 at 12:40; Stop 10/31/16 at 12:41; Status DC Succinylcholine Chloride (Anectine) 200 mg STK-MED ONCE .ROUTE ; Start 10/31/16 at 13:04; Stop 10/31/16 at 13:05; Status DC Phenylephrine HCl 1 mg 1 mg STK-MED ONCE IV ; Start 10/31/16 at 13:14; Stop at 13:15; Status DC Albumin Human (Plasmanate) 500 ml @ As Directed STK-MED ONCE IV ; Start at 15:47; Stop 10/31/16 at 15:48; Status DC Rocuronium [place] (Zemuron) 100 mg STK-MED ONCE .ROUTE ; Start 10/31/16 at 15: 51; Stop 10/31/16 at 15:52; Status DC Fentanyl Citrate (Fentanyl 5ml Vial) 250 mcg STK-MED ONCE .ROUTE ; Start at 16:19; Stop 10/31/16 at 16:20; Status DC Sodium Chloride 3 ml 3 ml QSHIFT PRN IV AFTER MEDS AND BLOOD DRAWS; Start 10/31 at 17:30; Status UNV Hydromorphone HCl (Dilaudid Standard BURLING AND JOINING SUPERVISOR) 30 ml @ 0 mls/hr CONT PRN PRN IV PROTOCOL Last administered on 11/08/16 10:06; Start 10/31/16 at 17:30; Stop at 12:48; Status DC Hydromorphone HCl (Dilaudid) 0.4 mg PRN Q1HR PRN IV SEE COMMENTS; Start at 17:30; Stop 11/02/16 at 05:57; Status DC Ondansetron HCl (Zofran) 4 mg PRN Q6HRS PRN IV NAUESA, 1ST CHOICE Last administered on 11/08/16 10:04; Start 10/31/16 at 17:30 Metoclopramide HCl 10 mg 10 mg PRN Q6HRS PRN IV Nausea/Vomiting, 2nd Choice Last administered on 11/09/16 19:32; Start 10/31/16 at 17:30 Sodium Chloride (Iv Sodium Chloride 0.9% 1000ml Bag) 1,000 ml @ 125 mls/hr 1X ONCE IV Last administered on 10/31/16 22:45; Start 10/31/16 at 17:30; Stop at 01:29; Status DC Enoxaparin Sodium 40 mg 40 mg Q24H SQ Last administered on 11/12/16 08:56; Start 11/01/16 at 09:00 Hydromorphone HCl 30 ml @ As Directed STK-MED ONCE IV ; Start 10/31/16 at 17:24 ; Stop 10/31/16 at 17:26; Status DC Sodium Chloride (Iv Sodium Chloride 0.9% 500ml Bag) 500 ml @ 500 mls/hr 1X ONCE IV Last administered on 10/31/16 22:00; Start 10/31/16 at 22:00; Stop at 22:59; Status DC Cefoxitin Sodium 2 gm 2 gm STK-MED ONCE IV ; Start 10/31/16 at 16:00; Stop 11/01 at 08:43; Status DC Sodium Chloride 1,000 ml @ 1,000 mls/hr 1X ONCE IV Last administered on 14:00; Start 11/01/16 at 14:00; Stop 11/01/16 at 14:59; Status DC Sodium Chloride 1,000 ml @ 125 mls/hr 1X ONCE IV Last administered on 17:51; Start 11/01/16 at 14:00; Stop 11/01/16 at 21:59; Status DC Sodium Chloride 1,000 ml @ 1,000 mls/hr 1X ONCE IV Last administered on 13:14; Start 11/02/16 at 11:45; Stop 11/02/16 at 12:44; Status DC Amino Acids/ Glycerin/ Electrolytes (Procalamine) 1,000 ml @ 80 mls/hr [id number] IV Last administered on 11/04/16 03:00; Start 11/03/16 at 09:30; Stop at 07:57; Status DC Albuterol/ Ipratropium (Duoneb) 3 ml RTQID NEB Last administered on 11/05/16 07:53; Start 11/04/16 at 12:00; Stop 11/05/16 at 12:32; Status DC Albuterol Sulfate (Ventolin Neb Soln) 2.5 mg PRN Q4HRS PRN NEB SHORTNESS OF BREATH; Start 11/04/16 at 11:00 Lidocaine/Sodium Bicarbonate (Buffered Lidocaine 1%) 3 ml 1X ONCE IJ Last administered on 11/04/16 14:51; Start 11/04/16 at 14:00; Stop 11/04/16 at 14:01 ; Status DC Heparin Sodium/ Sodium Chloride 60 unit 1X ONCE IV Last administered on 14:52; Start 11/04/16 at 14:00; Stop 11/04/16 at 14:01; Status DC Guaifenesin 200 mg 200 mg PRN Q6HRS PRN PO COUGH; Start 11/04/16 at 16:15 Amino Acids/ Electrolytes (Clinimix E 2.75%-5% Solution) 2,000 ml @ 80 mls/hr Q24H IV Last administered on 11/08/16 15:31; Start 11/05/16 at 08:00; Stop at 21:59; Status DC Pantoprazole Sodium (Protonix) 40 mg DAILYAC PO ; Start 11/06/16 at 07:30; Stop 11/08/16 at 10:30; Status DC Potassium Chloride (Klor-Con) 40 meq 1X ONCE PO ; Start 11/05/16 at 11:15; Stop 11/05/16 at 12:58; Status DC Polyethylene Glycol (miraLAX PACKET) 17 gm PRN DAILY PRN PO CONSTIPATION Last administered on 11/05/16 12:37; Start 11/05/16 at 11:15 Albuterol/ Ipratropium 3 ml 3 ml PRN DAILY PRN NEB SHORTNESS OF BREATH; Start 11/05/16 at 12:30; Stop 11/05/16 at 12:47; Status DC Potassium Chloride 50 ml @ 50 mls/hr Q1H IV Last administered on 11/05/16 15: 10; Start 11/05/16 at 13:30; Stop 11/05/16 at 15:29; Status DC Potassium Chloride 50 ml @ 25 mls/hr Q2H IV Last administered on 11/06/16 11: 23; Start 11/06/16 at 09:00; Stop 11/06/16 at 12:59; Status DC Potassium Chloride (KCl Premix 20meq) 50 ml @ 25 mls/hr Q2H IV Last administered on 11/06/16 15:46; Start 11/06/16 at 14:00; Stop 11/06/16 at 17:59 ; Status DC Metoclopramide HCl (Reglan) 10 mg TID IV Last administered on 11/12/16 08:56; Start 11/07/16 at 14:00 Iohexol (Omnipaque 300 Mg/ml) 75 ml 1X ONCE IV ; Start 11/07/16 at 11:15; Stop 11/07/16 at 11:16; Status DC Info (Do NOT chart on this entry -- for MONITORING) 1 each PRN DAILY PRN MC SEE COMMENTS; Start 11/07/16 at 11:15; Stop 11/09/16 at 11:14; Status DC Acetaminophen/ Aspirin/Caffeine (Excedrin Migraine) 1 tab PRN BID PRN PO MIGRAINE HEADACHE; Start 11/07/16 at 11:30 Gadobutrol (Gadavist) 7.5 mmol 1X ONCE IV Last administered on 11/08/16 10:03 ; Start 11/08/16 at 09:45; Stop 11/08/16 at 09:46; Status DC Pantoprazole Sodium 40 mg 40 mg DAILYAC IVP ; Start 11/09/16 at 07:30; Stop at 07:30; Status DC Promethazine HCl/ Sodium Chloride (Phenergan/Iv Sodium Chloride 0.9% 50ml) 50.25 ml @ 150.75 mls/ hr PRN Q6HRS PRN IV NAUSEA/VOMITING; Start 11/08/16 at 11:00 Docusate Sodium (Colace) 100 mg PRN DAILY PRN PO CONSTIPATION; Start 11/08/16 at 13:15; Stop 11/11/16 at 14:05; Status DC Sennosides (Senna) 8.6 mg PRN BID PRN PO CONSTIPATION; Start 11/08/16 at 13:15 Pantoprazole Sodium (Protonix Vial) 40 mg BIDAC IVP Last administered on 08:57; Start 11/08/16 at 16:30 Iohexol (Omnipaque 300 Mg/ml) 75 ml 1X ONCE IV Last administered on 11/08/16 15:02; Start 11/08/16 at 14:45; Stop 11/08/16 at 14:46; Status DC Iohexol (Omnipaque 240 Mg/ml) 30 ml 1X ONCE PO ; Start 11/08/16 at 14:45; Stop 11/08/16 at 14:46; Status DC Info (Do NOT chart on this entry -- for MONITORING) 1 each PRN DAILY PRN MC SEE COMMENTS; Start 11/08/16 at 14:45; Stop 11/10/16 at 14:44; Status DC Info 1 each 1 each PRN DAILY PRN MC SEE COMMENTS Last administered on 14:22; Start 11/08/16 at 15:00 Sodium Chloride/ Potassium Chloride/ Potassium Phosphate/ Magnesium Sulfate/ Calcium Gluconate/ Multivitamins/ Chromium/Copper/ Manganese/Seleni/ Zn/Total Parenteral Nutrition/Amino Acids/Dextrose/ Fat Emulsion Intravenous (Sodium Chloride/ Potassium Phosphate/Calc... 1,512 ml @ 63 mls/hr TPN CONT IV ; Start 11/08/16 at 22:00; Stop 11/09/16 at 21:59; Status DC Iohexol 50 ml 50 ml 1X ONCE PO ; Start 11/08/16 at 15:30; Stop 11/08/16 at 15: 31; Status DC Sodium Chloride 90 meq/Potassium Chloride 50 meq/ Potassium Phosphate 13.6 mmol/ Magnesium Sulfate 10 meq/ Calcium Gluconate 10 meq/ Multivitamins 10 ml/Chromium / Copper/Manganese/ Seleni/Zn 1 ml/ Total Parenteral Nutrition/Amino Acids/ Dextrose/ Fat Emulsion Intravenous 1,512 ml @ 63 mls/hr TPN CONT IV Last administered on 11/09/16 22:00; Start 11/09/16 at 22:00; Stop 11/10/16 at 21:59 ; Status DC Amino Acids/ Electrolytes 2,000 ml @ 80 mls/hr Q24H IV Last administered on 14:47; Start 11/09/16 at 14:00; Stop 11/09/16 at 19:10; Status DC Sodium Chloride/ Potassium Chloride/ Potassium Phosphate/ Magnesium Sulfate/ Calcium Gluconate/ Multivitamins/ Chromium/Copper/ Manganese/Seleni/ Zn/Total Parenteral Nutrition/Amino Acids/Dextrose/ Fat Emulsion Intravenous (Sodium Chloride/ Potassium Phosphate/Calc... 1,512 ml @ 63 mls/hr TPN CONT IV Last administered on 11/10/16 22:00; Start 11/10/16 at 22:00; Stop 11/11/16 at 21:59 ; Status DC Iohexol (Omnipaque 300 Mg/ml) 75 ml 1X ONCE IV Last administered on 11/11/16 10:10; Start 11/11/16 at 09:30; Stop 11/11/16 at 09:31; Status DC Info (Do NOT chart on this entry -- for MONITORING) 1 each PRN DAILY PRN MC SEE COMMENTS; Start 11/11/16 at 09:00; Stop 11/13/16 at 08:59 Lidocaine/Sodium Bicarbonate (Buffered Lidocaine 1%) 20 ml STK-MED ONCE IJ ; Start 11/11/16 at 09:36; Stop 11/11/16 at 09:37; Status DC Midazolam HCl (Versed) 5 mg STK-MED ONCE .ROUTE ; Start 11/11/16 at 09:48; Stop 11/11/16 at 09:49; Status DC Fentanyl Citrate (Fentanyl 5ml Vial) 250 mcg STK-MED ONCE .ROUTE ; Start at 09:48; Stop 11/11/16 at 09:49; Status DC Lidocaine/Sodium Bicarbonate (Buffered Lidocaine 1%) 6 ml 1X ONCE IJ Last administered on 11/11/16 10:17; Start 11/11/16 at 10:15; Stop 11/11/16 at 10:16 ; Status DC Midazolam HCl (Versed) 1 mg 1X ONCE IV Last administered on 11/11/16 10:17; Start 11/11/16 at 10:15; Stop 11/11/16 at 10:16; Status DC Fentanyl Citrate (Fentanyl 5ml Vial) 50 mcg 1X ONCE IV Last administered on 10:18; Start 11/11/16 at 10:15; Stop 11/11/16 at 10:16; Status DC Iohexol (Omnipaque 300 Mg/ml) 50 ml 1X ONCE IV Last administered on 11/11/16 10:10; Start 11/11/16 at 10:15; Stop 11/11/16 at 10:17; Status DC Info (Do NOT chart on this entry -- for MONITORING) 1 each PRN DAILY PRN MC SEE COMMENTS; Start 11/11/16 at 10:30; Stop 11/13/16 at 10:29 Bisacodyl (Dulcolax Supp) 10 mg PRN DAILY PRN NC CONSTIPATION; Start 11/11/16 at 14:15 Docusate Sodium 100 mg 100 mg PRN DAILY PRN PO CONSTIPATION; Start 11/11/16 at 14:15 Sodium Chloride/ Potassium Chloride/ Potassium Phosphate/ Magnesium Sulfate/ Calcium Gluconate/ Multivitamins/ Chromium/Copper/ Manganese/Seleni/ Zn/Total Parenteral Nutrition/Amino Acids/Dextrose/ Fat Emulsion Intravenous (Sodium Chloride/ Potassium Phosphate/Calc... 1,512 ml @ 63 mls/hr TPN CONT IV Last administered on 11/11/16t 22:45; Start 11/11/16 at 22:00; Stop 11/12/16 at 21:59 Vitals/I & O Vital Sign - Last 24 Hours 11/11/16 11/11/16 11/11/16 11/11/16 10:04 10:09 10:14 10:18 Pulse 88 83 85 Resp 9 12 14 14 Pulse Ox 99 97 97 97 O2 Delivery Nasal Cannula Nasal Cannula Nasal Cannula Nasal Cannula O2 Flow Rate 2.0 2.0 2.0 2.0 11/11/16 11/11/16 11/11/16 11/11/16 10:20 10:45 11:00 11:15 Temp 96.5 96.5 96.5 96.5 Pulse 82 85 79 84 Resp 14 20 20 18 B/P 115/60 114/67 117/72 Pulse Ox 97 97 97 98 O2 Delivery Nasal Cannula Room Air Room Air Room Air O2 Flow Rate 2.0 11/11/16 11/11/16 11/11/16 11/11/16 11:18 11:30 12:00 12:30 Pulse 75 79 82 Resp 18 20 18 B/P 125/88 121/73 110/70 Pulse Ox 97 97 98 98 O2 Delivery Room Air Room Air Room Air Room Air O2 Flow Rate 2.0 11/11/16 11/11/16 11/11/16 11/11/16 13:00 14:30 19:35 20:00 Temp 98.1 98.8 97.7 98.1 98.8 97.7 Pulse 76 87 91 Resp 18 18 18 B/P 120/70 109/71 112/73 Pulse Ox 97 97 96 O2 Delivery Room Air Room Air Room Air Room Air 11/11/16 11/12/16 23:00 07:00 Temp 97.6 97.9 97.6 97.9 Pulse 77 72 Resp 18 18 B/P 115/70 100/59 Pulse Ox 97 99 O2 Delivery Room Air Room Air Intake and Output 11/11/16 11/11/16 11/12/16 15:00 23:00 07:00 Intake Total 240 ml 0 ml Output Total 300 ml Balance -60 ml 0 ml Nutrition Consultation Dietary Evaluation: Recommendations by RD: PPN/TPN Comments: REC a change in macronutrients in TPN: 230 dextrose, 80 g AA, 40 g lipid pharmacy notified of changes Expected Outcomes/Goals: diet adv/ tolerance Interpretation of weight loss: >5% in 1 month Malnutrition Findings: Food and Nutrition Intake (Sev: <50% est energy req 5days Reduced Net Programmer Analyst Strength: N/A Weight Status: Overweight Fluid Accumulation (N/A): N/A ADELAIDA LOPEZ MD Nov 12, 2016 09:06
[2016-11-12 10:51] VITALS: BP 115/68
--- NOTE | 2016-11-12 11:03 | PDOC ---
Subjective: Subjective: Doing better, tolerating PO. Objective: Vital Signs: Vital Signs Date Time Temp Pulse Resp B/P Pulse Ox O2 Delivery O2 Flow Rate FiO2 11/12/16 10:51 97.9 93 18 115/68 98 Room Air 97.9 11/11/16 11:18 2.0 PE: GEN: NAD, out of bed ABD: S/ND/NT NEURO/PSYCH: A & O 3 A/P: Small bowel adenocarcinoma s/p resection 10/31 -tolerating PO -s/p liver biopsy 11/11 - prelim results neg for malignancy -- Improving. LEANDRO SHARMA Nov 12, 2016 11:03
[2016-11-12] MEDS: TPN PER PHARMACY MC PRN (13:54)
[2016-11-12 15:00] VITALS: BP 105/57
[2016-11-12] MEDS ORDERED: IV NORMAL SALINE 1000ML BAG 1,000 ML IV ONE (17:00)
--- NOTE | 2016-11-12 17:04 | PDOC ---
PROGRESS NOTES Chief Complaint Chief Complaint SBO ASSESSMENT AND PLAN: 1. SB adeno CA: s/p ex lap with small bowel resection, duodenojejunal anastomosis on 10/31/16. 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 Liver lesion: s/p bx this AM. awaiting path. GI, Onc following 3. Nutrition: on TPN currently. advancing diet to full liquids. when good PO intake, stop TPN 4. Pain control: adequate. off INVENTORY CLERK 5. Dehydration/mild orthostasis: IVF bolus, recheck 6. Hyopkalemia: resolved. monitor lytes on TPN 7. non sustained Vtach: resolved; 2/2 hypokalemia likely 8. COPD: no acute issues. nebs PRN 9. gi, dvt ppx History of Present Illness History of Present Illness Vitals Vitals Vital Signs Date Time Temp Pulse Resp B/P Pulse Ox O2 Delivery O2 Flow Rate FiO2 11/12/16 15:00 98.0 75 20 105/57 99 Room Air 98.0 11/11/16 11:18 2.0 Physical Exam General: Alert, Oriented X3, Cooperative, No acute distress Heart: Regular rate Lungs: Clear Abdomen: Normal bowel sounds, Soft, No tenderness, Other (midline incision packed/dressed) Extremities: No edema Skin: No rashes Review of Systems Review of Systems pain well controlled. tolerating full liquids. trying to walk, but lightheaded with distance. Nutrition Consultation Dietary Evaluation: Recommendations by RD: PPN/TPN Comments: REC a change in macronutrients in TPN: 230 dextrose, 80 g AA, 40 g lipid pharmacy notified of changes Expected Outcomes/Goals: diet adv/ tolerance Interpretation of weight loss: >5% in 1 month Malnutrition Findings: Food and Nutrition Intake (Sev: <50% est energy req 5days Reduced Manager Inventory Control Strength: N/A Weight Status: Overweight Fluid Accumulation (N/A): N/A PAYAM FANG MD Nov 12, 2016 17:04
[2016-11-12] MEDS: PAROXETINE 10 MG TABLET. PO SCH (18:29)
[2016-11-12 19:00] VITALS: BP 118/69
[2016-11-12] MEDS: ALBUTEROL SULFATE 2.5 MG/3 ML NEBU. NEB PRN (21:43)
[2016-11-12] MEDS ORDERED: DEXTROSE 70% IV SCH ×10 (22:00)
[2016-11-12] MEDS ORDERED: AMINO ACIDS IV SCH ×10 (22:00)
[2016-11-12] MEDS ORDERED: [UNRECOGNIZED DRUG - OTHER] IV SCH ×10 (22:00)
[2016-11-12] MEDS ORDERED: TOTAL PARENTERAL NUTRITION IV SCH ×10 (22:00)
[2016-11-12 23:00] VITALS: BP 104/57
[2016-11-13] MEDS: ALBUTEROL SULFATE 2.5 MG/3 ML NEBU. NEB PRN ×4 (00:16→22:45)
[2016-11-13] MEDS: ACETAMINOPHEN 325 MG TABLET. PO PRN (00:35)
[2016-11-13 03:00] VITALS: BP 110/60
[2016-11-13 03:44] LABS: BASO # 0.1 x10^3/uL (0.0-0.2); BASO % 1 % (0-3); EOS % 5 % (0-3); HEMATOCRIT 27.3 % (39.0-53.0); LYMPH # 1.5 x10^3/uL (1.0-4.8); LYMPH % 25 % (24-48); MEAN CORPUSCULAR HEMOGLOBIN 31 pg (25-35); MEAN CORPUSCULAR HGB CONC 33 g/dL (31-37); MEAN CORPUSCULAR VOLUME 95 fL (79-100); MONO % 15 % (0-9); NEUT % 53 % (31-73); PLATELET COUNT 240 x10^3/uL (140-400); RED BLOOD COUNT 2.89 x10^6/uL (4.30-5.70); RED CELL DISTRIBUTION WIDTH 16.1 % (11.5-14.5)
[2016-11-13 04:02] LABS: ALBUMIN 2.2 g/dL (3.4-5.0); ALBUMIN/GLOBULIN RATIO 0.6 (1.0-1.7); CALCIUM 8.2 mg/dL (8.5-10.1); GFR 76.2; MAGNESIUM 1.9 mg/dL (1.8-2.4); PHOSPHORUS 3.8 mg/dL (2.6-4.7); POTASSIUM 3.9 mmol/L (3.5-5.1); TOTAL BILIRUBIN 0.6 mg/dL (0.2-1.0); TOTAL PROTEIN 5.7 g/dL (6.4-8.2)
[2016-11-13 07:00] VITALS: BP 88/42
[2016-11-13] MEDS: METOCLOPRAMIDE HCL 10 MG/2 ML VIAL. IV SCH (09:00)
--- NOTE | 2016-11-13 09:29 | PDOC ---
G I PROGRESS NOTE Subjective No major complaints. Says eating and stooling; still on full liquids. Physical Exam Lungs clear anteriorly. RRR Abdomen soft, not distended nor tender. Bowel sounds present. Review of Relevant I have reviewed the following items pako (where applicable) has been applied. Labs Laboratory Tests Test 11/13/16 03:30 White Blood Count 6.0x10^3/uL (4.0-11.0) Red Blood Count 2.89x10^6/uL (4.30-5.70) Hemoglobin 9.0g/dL (13.0-17.5) Hematocrit 27.3% (39.0-53.0) Mean Corpuscular Volume 95fL (79-100) Mean Corpuscular Hemoglobin 31pg (25-35) Mean Corpuscular Hemoglobin Concent 33g/dL (31-37) Red Cell Distribution Width 16.1% (11.5-14.5) Platelet Count 240x10^3/uL (140-400) Neutrophils (%) (Auto) 53% (31-73) Lymphocytes (%) (Auto) 25% (24-48) Monocytes (%) (Auto) 15% (0-9) Eosinophils (%) (Auto) 5% (0-3) Basophils (%) (Auto) 1% (0-3) Neutrophils # (Auto) 3.2x10^3uL (1.8-7.7) Lymphocytes # (Auto) 1.5x10^3/uL (1.0-4.8) Monocytes # (Auto) 0.9x10^3/uL (0.0-1.1) Eosinophils # (Auto) 0.3x10^3/uL (0.0-0.7) Basophils # (Auto) 0.1x10^3/uL (0.0-0.2) Sodium Level 141mmol/L (136-145) Potassium Level 3.9mmol/L (3.5-5.1) Chloride Level 109mmol/L (98-107) Carbon Dioxide Level 25mmol/L (21-32) Anion Gap 7 (6-14) Blood Urea Nitrogen 11mg/dL (8-26) Creatinine 1.0mg/dL (0.7-1.3) Estimated GFR (Cockcroft-Gault) 76.2 BUN/Creatinine Ratio 11 (6-20) Glucose Level 113mg/dL (70-99) Calcium Level 8.2mg/dL (8.5-10.1) Phosphorus Level 3.8mg/dL (2.6-4.7) Magnesium Level 1.9mg/dL (1.8-2.4) Total Bilirubin 0.6mg/dL (0.2-1.0) Aspartate Amino Transf (AST/SGOT) 84U/L (15-37) Alanine Aminotransferase (ALT/SGPT) 98U/L (16-63) Alkaline Phosphatase 190U/L (46-116) Total Protein 5.7g/dL (6.4-8.2) Albumin 2.2g/dL (3.4-5.0) Albumin/Globulin Ratio 0.6 (1.0-1.7) Laboratory Tests Test 11/13/16 03:30 White Blood Count 6.0x10^3/uL (4.0-11.0) Red Blood Count 2.89x10^6/uL (4.30-5.70) Hemoglobin 9.0g/dL (13.0-17.5) Hematocrit 27.3% (39.0-53.0) Mean Corpuscular Volume 95fL (79-100) Mean Corpuscular Hemoglobin 31pg (25-35) Mean Corpuscular Hemoglobin Concent 33g/dL (31-37) Red Cell Distribution Width 16.1% (11.5-14.5) Platelet Count 240x10^3/uL (140-400) Neutrophils (%) (Auto) 53% (31-73) Lymphocytes (%) (Auto) 25% (24-48) Monocytes (%) (Auto) 15% (0-9) Eosinophils (%) (Auto) 5% (0-3) Basophils (%) (Auto) 1% (0-3) Neutrophils # (Auto) 3.2x10^3uL (1.8-7.7) Lymphocytes # (Auto) 1.5x10^3/uL (1.0-4.8) Monocytes # (Auto) 0.9x10^3/uL (0.0-1.1) Eosinophils # (Auto) 0.3x10^3/uL (0.0-0.7) Basophils # (Auto) 0.1x10^3/uL (0.0-0.2) Sodium Level 141mmol/L (136-145) Potassium Level 3.9mmol/L (3.5-5.1) Chloride Level 109mmol/L (98-107) Carbon Dioxide Level 25mmol/L (21-32) Anion Gap 7 (6-14) Blood Urea Nitrogen 11mg/dL (8-26) Creatinine 1.0mg/dL (0.7-1.3) Estimated GFR (Cockcroft-Gault) 76.2 BUN/Creatinine Ratio 11 (6-20) Glucose Level 113mg/dL (70-99) Calcium Level 8.2mg/dL (8.5-10.1) Phosphorus Level 3.8mg/dL (2.6-4.7) Magnesium Level 1.9mg/dL (1.8-2.4) Total Bilirubin 0.6mg/dL (0.2-1.0) Aspartate Amino Transf (AST/SGOT) 84U/L (15-37) Alanine Aminotransferase (ALT/SGPT) 98U/L (16-63) Alkaline Phosphatase 190U/L (46-116) Total Protein 5.7g/dL (6.4-8.2) Albumin 2.2g/dL (3.4-5.0) Albumin/Globulin Ratio 0.6 (1.0-1.7) Medications Current Medications Sodium Chloride 3 ml 3 ml PRN DAILY PRN IV AFTER MEDS AND BLOOD DRAWS; Start at 21:30 Sodium Chloride (Iv Sodium Chloride 0.9% 1000ml Bag) 1,000 ml @ 100 mls/hr Q10H IV Last administered on 10/30/16 00:27; Start 10/29/16 at 21:30; Stop at 07:29; Status DC Bisacodyl (Dulcolax Supp) 10 mg PRN DAILY PRN [place] CONSTIPATION; Start 10/29/16 at 21:30; Stop 11/11/16 at 14:05; Status DC Enoxaparin Sodium (Lovenox 40mg Syringe) 40 mg Q24H SQ Last administered on 21:11; Start 10/29/16 at 22:00; Stop 10/31/16 at 08:28; Status DC Metoclopramide HCl (Reglan) 10 mg Q8HRS IV Last administered on 11/06/16 06:07 ; Start 10/29/16 at 22:00; Stop 11/06/16 at 11:01; Status DC Ondansetron HCl (Zofran) 4 mg PRN Q8HRS PRN IV NAUSEA/VOMITING Last administered on 10/31/16 00:09; Start 10/29/16 at 21:30; Stop 11/01/16 at 14:47 ; Status DC Pantoprazole Sodium (Protonix Vial) 40 mg DAILYAC IVP Last administered on 11/05 08:25; Start 10/30/16 at 07:30; Stop 11/05/16 at 11:13; Status DC Paroxetine HCl (Paxil) 10 mg DAILY PO ; Start 10/30/16 at 09:00; Stop 10/30/16 at 09:33; Status DC Acetaminophen/ Aspirin/Caffeine (Excedrin Migraine) 1 tab PRN BID PRN PO MIGRAINE HEADACHE Last administered on 10/29/16 23:46; Start 10/29/16 at 21:30 ; Stop 11/07/16 at 11:23; Status DC Acetaminophen (Tylenol) 650 mg PRN Q6HRS PRN PO MILD PAIN / TEMP Last administered on 11/13/16 00:35; Start 10/29/16 at 22:00 Iohexol (Omnipaque 300 Mg/ml) 75 ml 1X ONCE IV Last administered on 10/30/16 09:09; Start 10/30/16 at 06:45; Stop 10/30/16 at 06:46; Status DC Iohexol (Omnipaque 240 Mg/ml) 30 ml 1X ONCE PO Last administered on 10/30/16 06:45; Start 10/30/16 at 06:45; Stop 10/30/16 at 06:46; Status DC Info (Do NOT chart on this entry -- for MONITORING) 1 each PRN DAILY PRN MC SEE COMMENTS; Start 10/30/16 at 06:45; Stop 11/01/16 at 06:44; Status DC Paroxetine HCl (Paxil) 10 mg DAILY@18 PO Last administered on 11/12/16 18:29; Start 10/30/16 at 18:00 Morphine Sulfate 2 mg PRN Q2HR PRN IV PAIN; Start 10/30/16 at 17:45; Stop 11/02 at 05:57; Status DC Ondansetron HCl (Zofran) 4 mg PRN Q6HRS PRN IV Nausea; Start 10/31/16 at 08:45 ; Stop 10/31/16 at 18:00; Status DC Fentanyl Citrate (Fentanyl 2ml Vial) 25 mcg PRN Q5MIN PRN IV MILD PAIN; Start 10/31/16 at 08:45; Stop 10/31/16 at 18:00; Status DC Fentanyl Citrate (Fentanyl 2ml Vial) 50 mcg PRN Q5MIN PRN IV MODERATE PAIN; Start 10/31/16 at 08:45; Stop 10/31/16 at 08:50; Status DC Morphine Sulfate 1 mg 1 mg PRN Q10MIN PRN IV SEVERE PAIN; Start 10/31/16 at 08: 45; Stop 10/31/16 at 18:00; Status DC Lactated Ringer's (Iv Lactated Ringers) 1,000 ml @ 30 mls/hr Q24H IV ; Start at 08:44; Stop 10/31/16 at 20:43; Status DC Lidocaine HCl 2 ml 1X PRN PRN ID IV START; Start 10/31/16 at 08:45; Stop at 18:00; Status DC Hydromorphone HCl (Dilaudid) 0.5 mg PRN Q10MIN PRN IV SEV PAIN,Second choice; Start 10/31/16 at 08:45; Stop 10/31/16 at 18:00; Status DC Prochlorperazine Edisylate 5 mg 5 mg PACU PRN PRN IV NAUSEA; Start 10/31/16 at 08:45; Stop 10/31/16 at 18:00; Status DC Cefoxitin Sodium (Mefoxin 2gm Ivpb For Omni) 100 ml @ 200 mls/hr 1X ONCE IV Last administered on 10/31/16t 13:16; Start 10/31/16 at 11:30; Stop 10/31/16 at 11:59; Status DC Sevoflurane (Ultane) 60 ml STK-MED ONCE IH ; Start 10/31/16 at 12:14; Stop 3/16 /17 at 12:15; Status DC Fentanyl Citrate (Fentanyl 2ml Vial) 100 mcg STK-MED ONCE .ROUTE ; Start at 12:14; Stop 10/31/16 at 12:15; Status DC Rocuronium [place] 50 mg 50 mg STK-MED ONCE .ROUTE ; Start 10/31/16 at 12:14; Stop 10/31/16 at 12:15; Status DC Propofol (Diprivan) 20 ml @ As Directed STK-MED ONCE IV ; Start 10/31/16 at 12: 15; Stop 10/31/16 at 12:16; Status DC Dexamethasone Sodium Phosphate (Decadron) 20 mg STK-MED ONCE .ROUTE ; Start at 12:15; Stop 10/31/16 at 12:16; Status DC Ondansetron HCl (Zofran) 4 mg STK-MED ONCE .ROUTE ; Start 10/31/16 at 12:15; Stop 10/31/16 at 12:16; Status DC Lidocaine HCl 100 mg STK-MED ONCE .ROUTE ; Start 10/31/16 at 12:15; Stop at 12:16; Status DC Glycopyrrolate (Robinul) 1 mg STK-MED ONCE .ROUTE ; Start 10/31/16 at 12:40; Stop 10/31/16 at 12:41; Status DC Neostigmine Methylsulfate 5 mg STK-MED ONCE .ROUTE ; Start 10/31/16 at 12:40; Stop 10/31/16 at 12:41; Status DC Succinylcholine Chloride (Anectine) 200 mg STK-MED ONCE .ROUTE ; Start 10/31/16 at 13:04; Stop 10/31/16 at 13:05; Status DC Phenylephrine HCl 1 mg 1 mg STK-MED ONCE IV ; Start 10/31/16 at 13:14; Stop at 13:15; Status DC Albumin Human (Plasmanate) 500 ml @ As Directed STK-MED ONCE IV ; Start at 15:47; Stop 10/31/16 at 15:48; Status DC Rocuronium [place] (Zemuron) 100 mg STK-MED ONCE .ROUTE ; Start 10/31/16 at 15: 51; Stop 10/31/16 at 15:52; Status DC Fentanyl Citrate (Fentanyl 5ml Vial) 250 mcg STK-MED ONCE .ROUTE ; Start at 16:19; Stop 10/31/16 at 16:20; Status DC Sodium Chloride 3 ml 3 ml QSHIFT PRN IV AFTER MEDS AND BLOOD DRAWS; Start 10/31 at 17:30; Status UNV Hydromorphone HCl (Dilaudid Standard [employer]) 30 ml @ 0 mls/hr CONT PRN PRN IV PROTOCOL Last administered on 11/08/16 10:06; Start 10/31/16 at 17:30; Stop at 12:48; Status DC Hydromorphone HCl (Dilaudid) 0.4 mg PRN Q1HR PRN IV SEE COMMENTS; Start at 17:30; Stop 11/02/16 at 05:57; Status DC Ondansetron HCl (Zofran) 4 mg PRN Q6HRS PRN IV NAUESA, 1ST CHOICE Last administered on 11/08/16 10:04; Start 10/31/16 at 17:30 Metoclopramide HCl 10 mg 10 mg PRN Q6HRS PRN IV Nausea/Vomiting, 2nd Choice Last administered on 11/09/16 19:32; Start 10/31/16 at 17:30 Sodium Chloride (Iv Sodium Chloride 0.9% 1000ml Bag) 1,000 ml @ 125 mls/hr 1X ONCE IV Last administered on 10/31/16 22:45; Start 10/31/16 at 17:30; Stop at 01:29; Status DC Enoxaparin Sodium 40 mg 40 mg Q24H SQ Last administered on 11/12/16 08:56; Start 11/01/16 at 09:00 Hydromorphone HCl 30 ml @ As Directed STK-MED ONCE IV ; Start 10/31/16 at 17:24 ; Stop 10/31/16 at 17:26; Status DC Sodium Chloride (Iv Sodium Chloride 0.9% 500ml Bag) 500 ml @ 500 mls/hr 1X ONCE IV Last administered on 10/31/16 22:00; Start 10/31/16 at 22:00; Stop at 22:59; Status DC Cefoxitin Sodium 2 gm 2 gm STK-MED ONCE IV ; Start 10/31/16 at 16:00; Stop 11/01 at 08:43; Status DC Sodium Chloride 1,000 ml @ 1,000 mls/hr 1X ONCE IV Last administered on 14:00; Start 11/01/16 at 14:00; Stop 11/01/16 at 14:59; Status DC Sodium Chloride 1,000 ml @ 125 mls/hr 1X ONCE IV Last administered on 17:51; Start 11/01/16 at 14:00; Stop 11/01/16 at 21:59; Status DC Sodium Chloride 1,000 ml @ 1,000 mls/hr 1X ONCE IV Last administered on 13:14; Start 11/02/16 at 11:45; Stop 11/02/16 at 12:44; Status DC Amino Acids/ Glycerin/ Electrolytes (Procalamine) 1,000 ml @ 80 mls/hr [id number] IV Last administered on 11/04/16 03:00; Start 11/03/16 at 09:30; Stop at 07:57; Status DC Albuterol/ Ipratropium (Duoneb) 3 ml RTQID NEB Last administered on 11/05/16 07:53; Start 11/04/16 at 12:00; Stop 11/05/16 at 12:32; Status DC Albuterol Sulfate (Ventolin Neb Soln) 2.5 mg PRN Q4HRS PRN NEB SHORTNESS OF BREATH Last administered on 11/13/16 00:16; Start 11/04/16 at 11:00 Lidocaine/Sodium Bicarbonate (Buffered Lidocaine 1%) 3 ml 1X ONCE IJ Last administered on 11/04/16 14:51; Start 11/04/16 at 14:00; Stop 11/04/16 at 14:01 ; Status DC Heparin Sodium/ Sodium Chloride 60 unit 1X ONCE IV Last administered on 14:52; Start 11/04/16 at 14:00; Stop 11/04/16 at 14:01; Status DC Guaifenesin 200 mg 200 mg PRN Q6HRS PRN PO COUGH; Start 11/04/16 at 16:15 Amino Acids/ Electrolytes (Clinimix E 2.75%-5% Solution) 2,000 ml @ 80 mls/hr Q24H IV Last administered on 11/08/16 15:31; Start 11/05/16 at 08:00; Stop at 21:59; Status DC Pantoprazole Sodium (Protonix) 40 mg DAILYAC PO ; Start 11/06/16 at 07:30; Stop 11/08/16 at 10:30; Status DC Potassium Chloride (Klor-Con) 40 meq 1X ONCE PO ; Start 11/05/16 at 11:15; Stop 11/05/16 at 12:58; Status DC Polyethylene Glycol (miraLAX PACKET) 17 gm PRN DAILY PRN PO CONSTIPATION Last administered on 11/05/16 12:37; Start 11/05/16 at 11:15 Albuterol/ Ipratropium 3 ml 3 ml PRN DAILY PRN NEB SHORTNESS OF BREATH; Start 11/05/16 at 12:30; Stop 11/05/16 at 12:47; Status DC Potassium Chloride 50 ml @ 50 mls/hr Q1H IV Last administered on 11/05/16 15: 10; Start 11/05/16 at 13:30; Stop 11/05/16 at 15:29; Status DC Potassium Chloride 50 ml @ 25 mls/hr Q2H IV Last administered on 11/06/16 11: 23; Start 11/06/16 at 09:00; Stop 11/06/16 at 12:59; Status DC Potassium Chloride (KCl Premix 20meq) 50 ml @ 25 mls/hr Q2H IV Last administered on 11/06/16 15:46; Start 11/06/16 at 14:00; Stop 11/06/16 at 17:59 ; Status DC Metoclopramide HCl (Reglan) 10 mg TID IV Last administered on 11/12/16 21:00; Start 11/07/16 at 14:00 Iohexol (Omnipaque 300 Mg/ml) 75 ml 1X ONCE IV ; Start 11/07/16 at 11:15; Stop 11/07/16 at 11:16; Status DC Info (Do NOT chart on this entry -- for MONITORING) 1 each PRN DAILY PRN MC SEE COMMENTS; Start 11/07/16 at 11:15; Stop 11/09/16 at 11:14; Status DC Acetaminophen/ Aspirin/Caffeine (Excedrin Migraine) 1 tab PRN BID PRN PO MIGRAINE HEADACHE; Start 11/07/16 at 11:30 Gadobutrol (Gadavist) 7.5 mmol 1X ONCE IV Last administered on 11/08/16 10:03 ; Start 11/08/16 at 09:45; Stop 11/08/16 at 09:46; Status DC Pantoprazole Sodium 40 mg 40 mg DAILYAC IVP ; Start 11/09/16 at 07:30; Stop at 07:30; Status DC Promethazine HCl/ Sodium Chloride (Phenergan/Iv Sodium Chloride 0.9% 50ml) 50.25 ml @ 150.75 mls/ hr PRN Q6HRS PRN IV NAUSEA/VOMITING; Start 11/08/16 at 11:00 Docusate Sodium (Colace) 100 mg PRN DAILY PRN PO CONSTIPATION; Start 11/08/16 at 13:15; Stop 11/11/16 at 14:05; Status DC Sennosides (Senna) 8.6 mg PRN BID PRN PO CONSTIPATION; Start 11/08/16 at 13:15 Pantoprazole Sodium (Protonix Vial) 40 mg BIDAC IVP Last administered on 15:55; Start 11/08/16 at 16:30 Iohexol (Omnipaque 300 Mg/ml) 75 ml 1X ONCE IV Last administered on 11/08/16 15:02; Start 11/08/16 at 14:45; Stop 11/08/16 at 14:46; Status DC Iohexol (Omnipaque 240 Mg/ml) 30 ml 1X ONCE PO ; Start 11/08/16 at 14:45; Stop 11/08/16 at 14:46; Status DC Info (Do NOT chart on this entry -- for MONITORING) 1 each PRN DAILY PRN MC SEE COMMENTS; Start 11/08/16 at 14:45; Stop 11/10/16 at 14:44; Status DC Info 1 each 1 each PRN DAILY PRN MC SEE COMMENTS Last administered on 13:54; Start 11/08/16 at 15:00 Sodium Chloride/ Potassium Chloride/ Potassium Phosphate/ Magnesium Sulfate/ Calcium Gluconate/ Multivitamins/ Chromium/Copper/ Manganese/Seleni/ Zn/Total Parenteral Nutrition/Amino Acids/Dextrose/ Fat Emulsion Intravenous (Sodium Chloride/ Potassium Phosphate/Calc... 1,512 ml @ 63 mls/hr TPN CONT IV ; Start 11/08/16 at 22:00; Stop 11/09/16 at 21:59; Status DC Iohexol 50 ml 50 ml 1X ONCE PO ; Start 11/08/16 at 15:30; Stop 11/08/16 at 15: 31; Status DC Sodium Chloride 90 meq/Potassium Chloride 50 meq/ Potassium Phosphate 13.6 mmol/ Magnesium Sulfate 10 meq/ Calcium Gluconate 10 meq/ Multivitamins 10 ml/Chromium / Copper/Manganese/ Seleni/Zn 1 ml/ Total Parenteral Nutrition/Amino Acids/ Dextrose/ Fat Emulsion Intravenous 1,512 ml @ 63 mls/hr TPN CONT IV Last administered on 11/09/16 22:00; Start 11/09/16 at 22:00; Stop 11/10/16 at 21:59 ; Status DC Amino Acids/ Electrolytes 2,000 ml @ 80 mls/hr Q24H IV Last administered on 14:47; Start 11/09/16 at 14:00; Stop 11/09/16 at 19:10; Status DC Sodium Chloride/ Potassium Chloride/ Potassium Phosphate/ Magnesium Sulfate/ Calcium Gluconate/ Multivitamins/ Chromium/Copper/ Manganese/Seleni/ Zn/Total Parenteral Nutrition/Amino Acids/Dextrose/ Fat Emulsion Intravenous (Sodium Chloride/ Potassium Phosphate/Calc... 1,512 ml @ 63 mls/hr TPN CONT IV Last administered on 11/10/16 22:00; Start 11/10/16 at 22:00; Stop 11/11/16 at 21:59 ; Status DC Iohexol (Omnipaque 300 Mg/ml) 75 ml 1X ONCE IV Last administered on 11/11/16 10:10; Start 11/11/16 at 09:30; Stop 11/11/16 at 09:31; Status DC Info (Do NOT chart on this entry -- for MONITORING) 1 each PRN DAILY PRN MC SEE COMMENTS; Start 11/11/16 at 09:00; Stop 11/13/16 at 08:59; Status DC Lidocaine/Sodium Bicarbonate (Buffered Lidocaine 1%) 20 ml STK-MED ONCE IJ ; Start 11/11/16 at 09:36; Stop 11/11/16 at 09:37; Status DC Midazolam HCl (Versed) 5 mg STK-MED ONCE .ROUTE ; Start 11/11/16 at 09:48; Stop 11/11/16 at 09:49; Status DC Fentanyl Citrate (Fentanyl 5ml Vial) 250 mcg STK-MED ONCE .ROUTE ; Start at 09:48; Stop 11/11/16 at 09:49; Status DC Lidocaine/Sodium Bicarbonate (Buffered Lidocaine 1%) 6 ml 1X ONCE IJ Last administered on 11/11/16 10:17; Start 11/11/16 at 10:15; Stop 11/11/16 at 10:16 ; Status DC Midazolam HCl (Versed) 1 mg 1X ONCE IV Last administered on 11/11/16 10:17; Start 11/11/16 at 10:15; Stop 11/11/16 at 10:16; Status DC Fentanyl Citrate (Fentanyl 5ml Vial) 50 mcg 1X ONCE IV Last administered on 10:18; Start 11/11/16 at 10:15; Stop 11/11/16 at 10:16; Status DC Iohexol (Omnipaque 300 Mg/ml) 50 ml 1X ONCE IV Last administered on 11/11/16 10:10; Start 11/11/16 at 10:15; Stop 11/11/16 at 10:17; Status DC Info (Do NOT chart on this entry -- for MONITORING) 1 each PRN DAILY PRN MC SEE COMMENTS; Start 11/11/16 at 10:30; Stop 11/13/16 at 10:29 Bisacodyl (Dulcolax Supp) 10 mg PRN DAILY PRN [place] CONSTIPATION; Start 11/11/16 at 14:15 Docusate Sodium 100 mg 100 mg PRN DAILY PRN PO CONSTIPATION; Start 11/11/16 at 14:15 Sodium Chloride 90 meq/Potassium Chloride 50 meq/ Potassium Phosphate 13.6 mmol/ Magnesium Sulfate 10 meq/ Calcium Gluconate 10 meq/ Multivitamins 10 ml/Chromium / Copper/Manganese/ Seleni/Zn 1 ml/ Total Parenteral Nutrition/Amino Acids/ Dextrose/ Fat Emulsion Intravenous 1,512 ml @ 63 mls/hr TPN CONT IV Last administered on 11/11/16 22:45; Start 11/11/16 at 22:00; Stop 11/12/16 at 21:59 ; Status DC Sodium Chloride 90 meq/Potassium Chloride 50 meq/ Potassium Phosphate 13.6 mmol/ Magnesium Sulfate 10 meq/ Calcium Gluconate 10 meq/ Multivitamins 10 ml/Chromium / Copper/Manganese/ Seleni/Zn 1 ml/ Total Parenteral Nutrition/Amino Acids/ Dextrose/ Fat Emulsion Intravenous 1,472 ml @ 61.333 mls/ hr TPN CONT IV Last administered on 11/12/16 23:37; Start 11/12/16 at 22:00; Stop 11/13/16 at 21:59 Sodium Chloride (Iv Sodium Chloride 0.9% 1000ml Bag) 1,000 ml @ 1,000 mls/hr 1X ONCE IV Last administered on 11/12/16 18:30; Start 11/12/16 at 17:00; Stop 11/12/16 at 17:59; Status DC Still on scheduled IV Reglan. Vitals/I & O Vital Sign - Last 24 Hours 11/12/16 11/12/16 11/12/16 11/12/16 10:51 15:00 19:00 20:00 Temp 97.9 98.0 98.1 97.9 98.0 98.1 Pulse 93 75 85 Resp 18 20 18 B/P 115/68 105/57 118/69 Pulse Ox 98 99 99 O2 Delivery Room Air Room Air Room Air Room Air 11/12/16 11/12/16 11/13/16 11/13/16 21:44 23:00 00:18 03:00 Temp 98.1 98.1 98.1 98.1 Pulse 105 90 Resp 18 18 B/P 104/57 110/60 Pulse Ox 94 96 98 97 O2 Delivery Room Air Room Air Room Air Room Air 11/13/16 07:00 Temp 97.7 97.7 Pulse 84 Resp 16 B/P 88/42 Pulse Ox 98 O2 Delivery Room Air Intake and Output 11/12/16 11/12/16 11/13/16 15:00 23:00 07:00 Intake Total 1500 ml 1900 ml Output Total 1100 ml Balance 400 ml 1900 ml Problem List Problems Medical Problems: (1) Intractable vomiting Status: Acute (2) Small intestine cancer Status: Acute Assessment AdenoCa, jejunum, post-resection. Gastric emptying seems better. Plan of Care: Continue current Tx, Mgmt Plan of Care Note Try po Reglan; if does OK, trial off? Otherwise OK to dismiss from our standpoint at your discretion. Advance diet? ROBINSON RAMOS MD Nov 13, 2016 09:29
[2016-11-13] MEDS: PANTOPRAZOLE IV PUSH 40 MG VIAL. IVP SCH (09:59)
[2016-11-13] MEDS: METOCLOPRAMIDE HCL 10 MG/2 ML VIAL. IV PRN (10:00)
[2016-11-13] MEDS: DO NOT USE 40 MG/0.4 ML DISP.SYRIN SQ SCH (10:00)
--- NOTE | 2016-11-13 10:49 | PDOC ---
Provider Note Provider Note He feels well. leandra full liquids without n/v. +flatus/bm afeb alert, appears well abd soft nd nt inc healing. minimal serous drainage from loosely approximated wound as expected a/p soft diet dc tpn after this bag anticipate dc tomorrow or Friday. REAL CAGE MD Nov 13, 2016 10:48
[2016-11-13 11:00] VITALS: BP 82/54
[2016-11-13] MEDS: METOCLOPRAMIDE HCL 10 MG/10 ML SOLUTION. PO SCH ×2 (11:13→16:30)
--- NOTE | 2016-11-13 11:31 | PDOC ---
PROGRESS NOTES Chief Complaint Chief Complaint SBO ASSESSMENT AND PLAN: 1. SB adeno CA: s/p ex lap with small bowel resection, duodenojejunal anastomosis on 10/31/16. 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 Liver lesion: s/p bx this AM. awaiting path. GI, Onc following 3. Nutrition: on TPN currently. advancing PO diet. stop TPN this PM. protein supplements 4. Pain control: adequate. 5. Dehydration/mild orthostasis: resolved 6. Hypokalemia: resolved. monitor lytes on TPN 7. non sustained Vtach: resolved; 2/2 hypokalemia likely 8. COPD: no acute issues. nebs PRN 9. gi, dvt ppx 10. Dispo: "home" (assisted) in next couple of days History of Present Illness History of Present Illness Vitals Vitals Vital Signs Date Time Temp Pulse Resp B/P Pulse Ox O2 Delivery O2 Flow Rate FiO2 11/13/16 11:00 97.9 68 16 82/54 97 Room Air 97.9 Physical Exam General: Alert, Oriented X3, Cooperative, No acute distress Heart: Regular rate Lungs: Clear Abdomen: Normal bowel sounds, Soft, No tenderness, Other (midline incision with dehiscence in lower half; clean, no sign of infect) Extremities: No edema Skin: No rashes Labs LABS Laboratory Tests Test 11/13/16 03:30 White Blood Count 6.0x10^3/uL (4.0-11.0) Red Blood Count 2.89x10^6/uL (4.30-5.70) Hemoglobin 9.0g/dL (13.0-17.5) Hematocrit 27.3% (39.0-53.0) Mean Corpuscular Volume 95fL (79-100) Mean Corpuscular Hemoglobin 31pg (25-35) Mean Corpuscular Hemoglobin Concent 33g/dL (31-37) Red Cell Distribution Width 16.1% (11.5-14.5) Platelet Count 240x10^3/uL (140-400) Neutrophils (%) (Auto) 53% (31-73) Lymphocytes (%) (Auto) 25% (24-48) Monocytes (%) (Auto) 15% (0-9) Eosinophils (%) (Auto) 5% (0-3) Basophils (%) (Auto) 1% (0-3) Neutrophils # (Auto) 3.2x10^3uL (1.8-7.7) Lymphocytes # (Auto) 1.5x10^3/uL (1.0-4.8) Monocytes # (Auto) 0.9x10^3/uL (0.0-1.1) Eosinophils # (Auto) 0.3x10^3/uL (0.0-0.7) Basophils # (Auto) 0.1x10^3/uL (0.0-0.2) Sodium Level 141mmol/L (136-145) Potassium Level 3.9mmol/L (3.5-5.1) Chloride Level 109mmol/L (98-107) Carbon Dioxide Level 25mmol/L (21-32) Anion Gap 7 (6-14) Blood Urea Nitrogen 11mg/dL (8-26) Creatinine 1.0mg/dL (0.7-1.3) Estimated GFR (Cockcroft-Gault) 76.2 BUN/Creatinine Ratio 11 (6-20) Glucose Level 113mg/dL (70-99) Calcium Level 8.2mg/dL (8.5-10.1) Phosphorus Level 3.8mg/dL (2.6-4.7) Magnesium Level 1.9mg/dL (1.8-2.4) Total Bilirubin 0.6mg/dL (0.2-1.0) Aspartate Amino Transf (AST/SGOT) 84U/L (15-37) Alanine Aminotransferase (ALT/SGPT) 98U/L (16-63) Alkaline Phosphatase 190U/L (46-116) Total Protein 5.7g/dL (6.4-8.2) Albumin 2.2g/dL (3.4-5.0) Albumin/Globulin Ratio 0.6 (1.0-1.7) Nutrition Consultation Dietary Evaluation: Recommendations by RD: PPN/TPN Comments: REC a change in macronutrients in TPN: 230 dextrose, 80 g AA, 40 g lipid pharmacy notified of changes Expected Outcomes/Goals: diet adv/ tolerance Interpretation of weight loss: >5% in 1 month Malnutrition Findings: Food and Nutrition Intake (Sev: <50% est energy req 5days 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
[2016-11-13 15:00] VITALS: BP 106/70
--- NOTE | 2016-11-13 16:56 | PATHOLOGY ---
PATHOLOGY REPORT * * * * * * * * FINAL DIAGNOSIS: Liver, needle biopsy: - Negative for malignancy. See comment. COMMENT: Sections of the liver needle biopsy reveal segments of liver tissue showing focal fatty change and inflammation. There is no evidence of malignancy. This is a preliminary report. Routine liver biopsy special stains and a final diagnosis will be reported separately. (JPM:; d/t: 11/13/16) REPORT ELECTRONICALLY SIGNED BY: Alessio Ahumada M.D. DATE/TIME: 11/13/2016 16:22 * * * * * * * * GROSS PATHOLOGY: Received in formalin labeled "Tahir Reardon, liver biopsy," are three distinct needle cores of caceres soft tissue ranging from 1.4 to 1.7 cm in length, which are submitted entirely in cassette A1. (CAA; 11/11/2016) INITIAL CPT CODE(S): A; 65318, 59537, 32218, 76188, 71812, 41081 Professional services performed [place] [address] Technical services performed by [facility] at [address] [place] [address]. SPECIMEN(S) RECEIVED: A.Liver, needle biopsy CLINICAL HISTORY: Small bowel adenocarcinoma, liver lesions, s/p small bowel resection PATIENT: TAHIR REARDON /AGE: 11 1955 (Age: 61) PATIENT #: [id number] ALT CASE #: SPECIMEN COLLECTION DATE: 11/11/2016 SPECIMEN RECEIVED DATE: 11/11/2016 [facility] - [address] [place] [address] - PHONE: [phone] * * * END OF REPORT * * *
[2016-11-13] MEDS: PAROXETINE 10 MG TABLET. PO SCH (18:00)
[2016-11-13] MEDS: PANTOPRAZOLE 40 MG TABLET. PO SCH (18:26)
[2016-11-13 19:57] VITALS: BP 113/73
[2016-11-13 23:11] VITALS: BP 97/68
[2016-11-14 03:26] VITALS: BP 104/73
[2016-11-14] MEDS: ALBUTEROL SULFATE 2.5 MG/3 ML NEBU. NEB PRN ×2 (03:36→11:53)
[2016-11-14] MEDS ORDERED: ACETAMINOPHEN 325 MG TABLET. PO PRN (06:18)
[2016-11-14] MEDS ORDERED: ONDANSETRON PF 4 MG/2 ML VIAL. IV PRN (06:30)
[2016-11-14 07:20] VITALS: BP 123/63
[2016-11-14] MEDS ORDERED: ENOXAPARIN 40 MG/0.4 ML SYRINGE. SQ SCH (09:00)
--- NOTE | 2016-11-14 09:48 | PDOC ---
Provider Note Provider Note Evens solid food. +bm and flatus. no sig pain afeb appears well wants to dc today abd soft nd nt inc loosely approximated, moist but no infection. a/p ok to dc today pack wound daily. f/u with me in 1 week. REAL CAGE MD Nov 14, 2016 09:48
[2016-11-14] MEDS: PANTOPRAZOLE 40 MG TABLET. PO SCH (10:36)
[2016-11-14 10:45] VITALS: BP 129/75
--- NOTE | 2016-11-14 12:28 | PDOC ---
PROGRESS NOTES Subjective Subjective c/c - f/u of T3N2M0 - Stage III, Small bowel poorly differentiated adenocarcinoma Objective Objective Vital Signs Date Time Temp Pulse Resp B/P Pulse Ox O2 Delivery O2 Flow Rate FiO2 11/14/16 11:55 98 Room Air 11/14/16 10:45 82 18 129/75 11/14/16 08:00 2.0 11/14/16 07:20 98.6 98.6 Intake and Output 11/14/16 07:00 Intake Total 1260 ml Output Total 1450 ml Balance -190 ml Intake Oral 1260 ml Output Urine Total 1000 ml Stool Total 450 ml # Bowel Movements 1 Physical Exam Heart: Normal S1, Normal S2 General: Alert, Oriented X3 Lungs: Clear to auscultation Neuro: Normal speech Psych/Mental Status: Mental status NL Assessment Assessment Problems Medical Problems: (1) Intractable vomiting Status: Acute (2) Small intestine cancer Status: Acute A/P: 1. 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 12/27 LN positive. Reviewed pathology Plan adjuvant chemo with FOLFOX or XELOX for 6 months in 2-4 weeks. I d/w Dr Harris who will arrange for outpatient oncology consult with Dr Klein at their [place] facility for adjuvant chemotherapy. CEA 8.8, CA 19-9 is 27 F/u CT chest 11/07/16 Small subcapsular area of increased density laterally in the right lobe of the liver, not evident on the 10/30/2016 CT study. MRI 11/08/16: Single hypervascular solid lesion in the lateral aspect of the right lobe of liver as described above. A primary or secondary hepatic malignancy are possibilities. CT-guided biopsy of liver lesion planned for . Continue supportive care per surgery, primary team. 2. Abd pain - cont pain management per surgery. Improved. 3. Liver lesion, bx done - 11/11/16 and prelim results are neg for malignancy. Further stains pending. Agree with discharge plans. Comment Review of Relevant I have reviewed the following items pako (where applicable) has been applied. Labs Laboratory Tests Test 11/13/16 03:30 White Blood Count 6.0x10^3/uL (4.0-11.0) Red Blood Count 2.89x10^6/uL (4.30-5.70) Hemoglobin 9.0g/dL (13.0-17.5) Hematocrit 27.3% (39.0-53.0) Mean Corpuscular Volume 95fL (79-100) Mean Corpuscular Hemoglobin 31pg (25-35) Mean Corpuscular Hemoglobin Concent 33g/dL (31-37) Red Cell Distribution Width 16.1% (11.5-14.5) Platelet Count 240x10^3/uL (140-400) Neutrophils (%) (Auto) 53% (31-73) Lymphocytes (%) (Auto) 25% (24-48) Monocytes (%) (Auto) 15% (0-9) Eosinophils (%) (Auto) 5% (0-3) Basophils (%) (Auto) 1% (0-3) Neutrophils # (Auto) 3.2x10^3uL (1.8-7.7) Lymphocytes # (Auto) 1.5x10^3/uL (1.0-4.8) Monocytes # (Auto) 0.9x10^3/uL (0.0-1.1) Eosinophils # (Auto) 0.3x10^3/uL (0.0-0.7) Basophils # (Auto) 0.1x10^3/uL (0.0-0.2) Sodium Level 141mmol/L (136-145) Potassium Level 3.9mmol/L (3.5-5.1) Chloride Level 109mmol/L (98-107) Carbon Dioxide Level 25mmol/L (21-32) Anion Gap 7 (6-14) Blood Urea Nitrogen 11mg/dL (8-26) Creatinine 1.0mg/dL (0.7-1.3) Estimated GFR (Cockcroft-Gault) 76.2 BUN/Creatinine Ratio 11 (6-20) Glucose Level 113mg/dL (70-99) Calcium Level 8.2mg/dL (8.5-10.1) Phosphorus Level 3.8mg/dL (2.6-4.7) Magnesium Level 1.9mg/dL (1.8-2.4) Total Bilirubin 0.6mg/dL (0.2-1.0) Aspartate Amino Transf (AST/SGOT) 84U/L (15-37) Alanine Aminotransferase (ALT/SGPT) 98U/L (16-63) Alkaline Phosphatase 190U/L (46-116) Total Protein 5.7g/dL (6.4-8.2) Albumin 2.2g/dL (3.4-5.0) Albumin/Globulin Ratio 0.6 (1.0-1.7) Medications Current Medications Sodium Chloride 3 ml 3 ml PRN DAILY PRN IV AFTER MEDS AND BLOOD DRAWS; Start at 21:30 Sodium Chloride (Iv Sodium Chloride 0.9% 1000ml Bag) 1,000 ml @ 100 mls/hr Q10H IV Last administered on 10/30/16 00:27; Start 10/29/16 at 21:30; Stop at 07:29; Status DC Bisacodyl (Dulcolax Supp) 10 mg PRN DAILY PRN [place] CONSTIPATION; Start 10/29/16 at 21:30; Stop 11/11/16 at 14:05; Status DC Enoxaparin Sodium (Lovenox 40mg Syringe) 40 mg Q24H SQ Last administered on 21:11; Start 10/29/16 at 22:00; Stop 10/31/16 at 08:28; Status DC Metoclopramide HCl (Reglan) 10 mg Q8HRS IV Last administered on 11/06/16 06:07 ; Start 10/29/16 at 22:00; Stop 11/06/16 at 11:01; Status DC Ondansetron HCl (Zofran) 4 mg PRN Q8HRS PRN IV NAUSEA/VOMITING Last administered on 10/31/16 00:09; Start 10/29/16 at 21:30; Stop 11/01/16 at 14:47 ; Status DC Pantoprazole Sodium (Protonix Vial) 40 mg DAILYAC IVP Last administered on 11/05 08:25; Start 10/30/16 at 07:30; Stop 11/05/16 at 11:13; Status DC Paroxetine HCl (Paxil) 10 mg DAILY PO ; Start 10/30/16 at 09:00; Stop 10/30/16 at 09:33; Status DC Acetaminophen/ Aspirin/Caffeine (Excedrin Migraine) 1 tab PRN BID PRN PO MIGRAINE HEADACHE Last administered on 10/29/16 23:46; Start 10/29/16 at 21:30 ; Stop 11/07/16 at 11:23; Status DC Acetaminophen (Tylenol) 650 mg PRN Q6HRS PRN PO MILD PAIN / TEMP Last administered on 11/13/16 00:35; Start 10/29/16 at 22:00; Stop 11/14/16 at 06:18 ; Status DC Iohexol (Omnipaque 300 Mg/ml) 75 ml 1X ONCE IV Last administered on 10/30/16 09:09; Start 10/30/16 at 06:45; Stop 10/30/16 at 06:46; Status DC Iohexol (Omnipaque 240 Mg/ml) 30 ml 1X ONCE PO Last administered on 10/30/16 06:45; Start 10/30/16 at 06:45; Stop 10/30/16 at 06:46; Status DC Info (Do NOT chart on this entry -- for MONITORING) 1 each PRN DAILY PRN MC SEE COMMENTS; Start 10/30/16 at 06:45; Stop 11/01/16 at 06:44; Status DC Paroxetine HCl (Paxil) 10 mg DAILY@18 PO Last administered on 11/13/16 18:00; Start 10/30/16 at 18:00 Morphine Sulfate 2 mg PRN Q2HR PRN IV PAIN; Start 10/30/16 at 17:45; Stop 11/02 at 05:57; Status DC Ondansetron HCl (Zofran) 4 mg PRN Q6HRS PRN IV Nausea; Start 10/31/16 at 08:45 ; Stop 10/31/16 at 18:00; Status DC Fentanyl Citrate (Fentanyl 2ml Vial) 25 mcg PRN Q5MIN PRN IV MILD PAIN; Start 10/31/16 at 08:45; Stop 10/31/16 at 18:00; Status DC Fentanyl Citrate (Fentanyl 2ml Vial) 50 mcg PRN Q5MIN PRN IV MODERATE PAIN; Start 10/31/16 at 08:45; Stop 10/31/16 at 08:50; Status DC Morphine Sulfate 1 mg 1 mg PRN Q10MIN PRN IV SEVERE PAIN; Start 10/31/16 at 08: 45; Stop 10/31/16 at 18:00; Status DC Lactated Ringer's (Iv Lactated Ringers) 1,000 ml @ 30 mls/hr Q24H IV ; Start at 08:44; Stop 10/31/16 at 20:43; Status DC Lidocaine HCl 2 ml 1X PRN PRN ID IV START; Start 10/31/16 at 08:45; Stop at 18:00; Status DC Hydromorphone HCl (Dilaudid) 0.5 mg PRN Q10MIN PRN IV SEV PAIN,Second choice; Start 10/31/16 at 08:45; Stop 10/31/16 at 18:00; Status DC Prochlorperazine Edisylate 5 mg 5 mg PACU PRN PRN IV NAUSEA; Start 10/31/16 at 08:45; Stop 10/31/16 at 18:00; Status DC Cefoxitin Sodium (Mefoxin 2gm Ivpb For Omni) 100 ml @ 200 mls/hr 1X ONCE IV Last administered on 10/31/16t 13:16; Start 10/31/16 at 11:30; Stop 10/31/16 at 11:59; Status DC Sevoflurane (Ultane) 60 ml STK-MED ONCE IH ; Start 10/31/16 at 12:14; Stop 10/31 at 12:15; Status DC Fentanyl Citrate (Fentanyl 2ml Vial) 100 mcg STK-MED ONCE .ROUTE ; Start at 12:14; Stop 10/31/16 at 12:15; Status DC Rocuronium [place] 50 mg 50 mg STK-MED ONCE .ROUTE ; Start 10/31/16 at 12:14; Stop 10/31/16 at 12:15; Status DC Propofol (Diprivan) 20 ml @ As Directed STK-MED ONCE IV ; Start 10/31/16 at 12: 15; Stop 10/31/16 at 12:16; Status DC Dexamethasone Sodium Phosphate (Decadron) 20 mg STK-MED ONCE .ROUTE ; Start at 12:15; Stop 10/31/16 at 12:16; Status DC Ondansetron HCl (Zofran) 4 mg STK-MED ONCE .ROUTE ; Start 10/31/16 at 12:15; Stop 10/31/16 at 12:16; Status DC Lidocaine HCl 100 mg STK-MED ONCE .ROUTE ; Start 10/31/16 at 12:15; Stop at 12:16; Status DC Glycopyrrolate (Robinul) 1 mg STK-MED ONCE .ROUTE ; Start 10/31/16 at 12:40; Stop 10/31/16 at 12:41; Status DC Neostigmine Methylsulfate 5 mg STK-MED ONCE .ROUTE ; Start 10/31/16 at 12:40; Stop 10/31/16 at 12:41; Status DC Succinylcholine Chloride (Anectine) 200 mg STK-MED ONCE .ROUTE ; Start 10/31/16 at 13:04; Stop 10/31/16 at 13:05; Status DC Phenylephrine HCl 1 mg 1 mg STK-MED ONCE IV ; Start 10/31/16 at 13:14; Stop at 13:15; Status DC Albumin Human (Plasmanate) 500 ml @ As Directed STK-MED ONCE IV ; Start at 15:47; Stop 10/31/16 at 15:48; Status DC Rocuronium [place] (Zemuron) 100 mg STK-MED ONCE .ROUTE ; Start 10/31/16 at 15: 51; Stop 10/31/16 at 15:52; Status DC Fentanyl Citrate (Fentanyl 5ml Vial) 250 mcg STK-MED ONCE .ROUTE ; Start at 16:19; Stop 10/31/16 at 16:20; Status DC Sodium Chloride 3 ml 3 ml QSHIFT PRN IV AFTER MEDS AND BLOOD DRAWS; Start 10/31 at 17:30; Status UNV Hydromorphone HCl (Dilaudid Standard SEAFOOD SPECIALIST) 30 ml @ 0 mls/hr CONT PRN PRN IV PROTOCOL Last administered on 11/08/16t 10:06; Start 10/31/16 at 17:30; Stop at 12:48; Status DC Hydromorphone HCl (Dilaudid) 0.4 mg PRN Q1HR PRN IV SEE COMMENTS; Start at 17:30; Stop 11/02/16 at 05:57; Status DC Ondansetron HCl (Zofran) 4 mg PRN Q6HRS PRN IV NAUESA, 1ST CHOICE Last administered on 11/08/16 10:04; Start 10/31/16 at 17:30; Stop 11/14/16 at 06:18 ; Status DC Metoclopramide HCl 10 mg 10 mg PRN Q6HRS PRN IV Nausea/Vomiting, 2nd Choice Last administered on 11/13/16 10:00; Start 10/31/16 at 17:30 Sodium Chloride (Iv Sodium Chloride 0.9% 1000ml Bag) 1,000 ml @ 125 mls/hr 1X ONCE IV Last administered on 10/31/16 22:45; Start 10/31/16 at 17:30; Stop at 01:29; Status DC Enoxaparin Sodium 40 mg 40 mg Q24H SQ Last administered on 11/13/16 10:00; Start 11/01/16 at 09:00; Stop 11/14/16 at 06:19; Status DC Hydromorphone HCl 30 ml @ As Directed STK-MED ONCE IV ; Start 10/31/16 at 17:24 ; Stop 10/31/16 at 17:26; Status DC Sodium Chloride (Iv Sodium Chloride 0.9% 500ml Bag) 500 ml @ 500 mls/hr 1X ONCE IV Last administered on 10/31/16 22:00; Start 10/31/16 at 22:00; Stop at 22:59; Status DC Cefoxitin Sodium 2 gm 2 gm STK-MED ONCE IV ; Start 10/31/16 at 16:00; Stop 11/01 at 08:43; Status DC Sodium Chloride 1,000 ml @ 1,000 mls/hr 1X ONCE IV Last administered on 14:00; Start 11/01/16 at 14:00; Stop 11/01/16 at 14:59; Status DC Sodium Chloride 1,000 ml @ 125 mls/hr 1X ONCE IV Last administered on 17:51; Start 11/01/16 at 14:00; Stop 11/01/16 at 21:59; Status DC Sodium Chloride 1,000 ml @ 1,000 mls/hr 1X ONCE IV Last administered on 13:14; Start 11/02/16 at 11:45; Stop 11/02/16 at 12:44; Status DC Amino Acids/ Glycerin/ Electrolytes (Procalamine) 1,000 ml @ 80 mls/hr [id number] IV Last administered on 11/04/16 03:00; Start 11/03/16 at 09:30; Stop at 07:57; Status DC Albuterol/ Ipratropium (Duoneb) 3 ml RTQID NEB Last administered on 11/05/16 07:53; Start 11/04/16 at 12:00; Stop 11/05/16 at 12:32; Status DC Albuterol Sulfate (Ventolin Neb Soln) 2.5 mg PRN Q4HRS PRN NEB SHORTNESS OF BREATH Last administered on 11/14/16 11:53; Start 11/04/16 at 11:00 Lidocaine/Sodium Bicarbonate (Buffered Lidocaine 1%) 3 ml 1X ONCE IJ Last administered on 11/04/16 14:51; Start 11/04/16 at 14:00; Stop 11/04/16 at 14:01 ; Status DC Heparin Sodium/ Sodium Chloride 60 unit 1X ONCE IV Last administered on 14:52; Start 11/04/16 at 14:00; Stop 11/04/16 at 14:01; Status DC Guaifenesin 200 mg 200 mg PRN Q6HRS PRN PO COUGH; Start 11/04/16 at 16:15 Amino Acids/ Electrolytes (Clinimix E 2.75%-5% Solution) 2,000 ml @ 80 mls/hr Q24H IV Last administered on 11/08/16 15:31; Start 11/05/16 at 08:00; Stop at 21:59; Status DC Pantoprazole Sodium (Protonix) 40 mg DAILYAC PO ; Start 11/06/16 at 07:30; Stop 11/08/16 at 10:30; Status DC Potassium Chloride (Klor-Con) 40 meq 1X ONCE PO ; Start 11/05/16 at 11:15; Stop 11/05/16 at 12:58; Status DC Polyethylene Glycol (miraLAX PACKET) 17 gm PRN DAILY PRN PO CONSTIPATION Last administered on 11/05/16 12:37; Start 11/05/16 at 11:15 Albuterol/ Ipratropium 3 ml 3 ml PRN DAILY PRN NEB SHORTNESS OF BREATH; Start 11/05/16 at 12:30; Stop 11/05/16 at 12:47; Status DC Potassium Chloride 50 ml @ 50 mls/hr Q1H IV Last administered on 11/05/16 15: 10; Start 11/05/16 at 13:30; Stop 11/05/16 at 15:29; Status DC Potassium Chloride 50 ml @ 25 mls/hr Q2H IV Last administered on 11/06/16 11: 23; Start 11/06/16 at 09:00; Stop 11/06/16 at 12:59; Status DC Potassium Chloride (KCl Premix 20meq) 50 ml @ 25 mls/hr Q2H IV Last administered on 11/06/16 15:46; Start 11/06/16 at 14:00; Stop 11/06/16 at 17:59 ; Status DC Metoclopramide HCl (Reglan) 10 mg TID IV Last administered on 11/12/16 21:00; Start 11/07/16 at 14:00; Stop 11/13/16 at 09:31; Status DC Iohexol (Omnipaque 300 Mg/ml) 75 ml 1X ONCE IV ; Start 11/07/16 at 11:15; Stop 11/07/16 at 11:16; Status DC Info (Do NOT chart on this entry -- for MONITORING) 1 each PRN DAILY PRN MC SEE COMMENTS; Start 11/07/16 at 11:15; Stop 11/09/16 at 11:14; Status DC Acetaminophen/ Aspirin/Caffeine (Excedrin Migraine) 1 tab PRN BID PRN PO MIGRAINE HEADACHE; Start 11/07/16 at 11:30 Gadobutrol (Gadavist) 7.5 mmol 1X ONCE IV Last administered on 11/08/16 10:03 ; Start 11/08/16 at 09:45; Stop 11/08/16 at 09:46; Status DC Pantoprazole Sodium 40 mg 40 mg DAILYAC IVP ; Start 11/09/16 at 07:30; Stop at 07:30; Status DC Promethazine HCl/ Sodium Chloride (Phenergan/Iv Sodium Chloride 0.9% 50ml) 50.25 ml @ 150.75 mls/ hr PRN Q6HRS PRN IV NAUSEA/VOMITING; Start 11/08/16 at 11:00 Docusate Sodium (Colace) 100 mg PRN DAILY PRN PO CONSTIPATION; Start 11/08/16 at 13:15; Stop 11/11/16 at 14:05; Status DC Sennosides (Senna) 8.6 mg PRN BID PRN PO CONSTIPATION; Start 11/08/16 at 13:15 ; Stop 11/13/16 at 17:41; Status DC Pantoprazole Sodium (Protonix Vial) 40 mg BIDAC IVP Last administered on 09:59; Start 11/08/16 at 16:30; Stop 11/13/16 at 10:52; Status DC Iohexol (Omnipaque 300 Mg/ml) 75 ml 1X ONCE IV Last administered on 11/08/16 15:02; Start 11/08/16 at 14:45; Stop 11/08/16 at 14:46; Status DC Iohexol (Omnipaque 240 Mg/ml) 30 ml 1X ONCE PO ; Start 11/08/16 at 14:45; Stop 11/08/16 at 14:46; Status DC Info (Do NOT chart on this entry -- for MONITORING) 1 each PRN DAILY PRN MC SEE COMMENTS; Start 11/08/16 at 14:45; Stop 11/10/16 at 14:44; Status DC Info 1 each 1 each PRN DAILY PRN MC SEE COMMENTS Last administered on 13:54; Start 11/08/16 at 15:00; Stop 11/13/16 at 10:49; Status DC Sodium Chloride/ Potassium Chloride/ Potassium Phosphate/ Magnesium Sulfate/ Calcium Gluconate/ Multivitamins/ Chromium/Copper/ Manganese/Seleni/ Zn/Total Parenteral Nutrition/Amino Acids/Dextrose/ Fat Emulsion Intravenous (Sodium Chloride/ Potassium Phosphate/Calc... 1,512 ml @ 63 mls/hr TPN CONT IV ; Start 11/08/16 at 22:00; Stop 11/09/16 at 21:59; Status DC Iohexol 50 ml 50 ml 1X ONCE PO ; Start 11/08/16 at 15:30; Stop 11/08/16 at 15: 31; Status DC Sodium Chloride 90 meq/Potassium Chloride 50 meq/ Potassium Phosphate 13.6 mmol/ Magnesium Sulfate 10 meq/ Calcium Gluconate 10 meq/ Multivitamins 10 ml/Chromium / Copper/Manganese/ Seleni/Zn 1 ml/ Total Parenteral Nutrition/Amino Acids/ Dextrose/ Fat Emulsion Intravenous 1,512 ml @ 63 mls/hr TPN CONT IV Last administered on 11/09/16 22:00; Start 11/09/16 at 22:00; Stop 11/10/16 at 21:59 ; Status DC Amino Acids/ Electrolytes 2,000 ml @ 80 mls/hr Q24H IV Last administered on 14:47; Start 11/09/16 at 14:00; Stop 11/09/16 at 19:10; Status DC Sodium Chloride/ Potassium Chloride/ Potassium Phosphate/ Magnesium Sulfate/ Calcium Gluconate/ Multivitamins/ Chromium/Copper/ Manganese/Seleni/ Zn/Total Parenteral Nutrition/Amino Acids/Dextrose/ Fat Emulsion Intravenous (Sodium Chloride/ Potassium Phosphate/Calc... 1,512 ml @ 63 mls/hr TPN CONT IV Last administered on 11/10/16 22:00; Start 11/10/16 at 22:00; Stop 11/11/16 at 21:59 ; Status DC Iohexol (Omnipaque 300 Mg/ml) 75 ml 1X ONCE IV Last administered on 11/11/16 10:10; Start 11/11/16 at 09:30; Stop 11/11/16 at 09:31; Status DC Info (Do NOT chart on this entry -- for MONITORING) 1 each PRN DAILY PRN MC SEE COMMENTS; Start 11/11/16 at 09:00; Stop 11/13/16 at 08:59; Status DC Lidocaine/Sodium Bicarbonate (Buffered Lidocaine 1%) 20 ml STK-MED ONCE IJ ; Start 11/11/16 at 09:36; Stop 11/11/16 at 09:37; Status DC Midazolam HCl (Versed) 5 mg STK-MED ONCE .ROUTE ; Start 11/11/16 at 09:48; Stop 11/11/16 at 09:49; Status DC Fentanyl Citrate (Fentanyl 5ml Vial) 250 mcg STK-MED ONCE .ROUTE ; Start at 09:48; Stop 11/11/16 at 09:49; Status DC Lidocaine/Sodium Bicarbonate (Buffered Lidocaine 1%) 6 ml 1X ONCE IJ Last administered on 11/11/16 10:17; Start 11/11/16 at 10:15; Stop 11/11/16 at 10:16 ; Status DC Midazolam HCl (Versed) 1 mg 1X ONCE IV Last administered on 11/11/16 10:17; Start 11/11/16 at 10:15; Stop 11/11/16 at 10:16; Status DC Fentanyl Citrate (Fentanyl 5ml Vial) 50 mcg 1X ONCE IV Last administered on 10:18; Start 11/11/16 at 10:15; Stop 11/11/16 at 10:16; Status DC Iohexol (Omnipaque 300 Mg/ml) 50 ml 1X ONCE IV Last administered on 11/11/16 10:10; Start 11/11/16 at 10:15; Stop 11/11/16 at 10:17; Status DC Info (Do NOT chart on this entry -- for MONITORING) 1 each PRN DAILY PRN MC SEE COMMENTS; Start 11/11/16 at 10:30; Stop 11/13/16 at 10:29; Status DC Bisacodyl (Dulcolax Supp) 10 mg PRN DAILY PRN [place] CONSTIPATION; Start 11/11/16 at 14:15; Stop 11/13/16 at 17:41; Status DC Docusate Sodium 100 mg 100 mg PRN DAILY PRN PO CONSTIPATION; Start 11/11/16 at 14:15 Sodium Chloride 90 meq/Potassium Chloride 50 meq/ Potassium Phosphate 13.6 mmol/ Magnesium Sulfate 10 meq/ Calcium Gluconate 10 meq/ Multivitamins 10 ml/Chromium / Copper/Manganese/ Seleni/Zn 1 ml/ Total Parenteral Nutrition/Amino Acids/ Dextrose/ Fat Emulsion Intravenous 1,512 ml @ 63 mls/hr TPN CONT IV Last administered on 11/11/16 22:45; Start 11/11/16 at 22:00; Stop 11/12/16 at 21:59 ; Status DC Sodium Chloride 90 meq/Potassium Chloride 50 meq/ Potassium Phosphate 13.6 mmol/ Magnesium Sulfate 10 meq/ Calcium Gluconate 10 meq/ Multivitamins 10 ml/Chromium / Copper/Manganese/ Seleni/Zn 1 ml/ Total Parenteral Nutrition/Amino Acids/ Dextrose/ Fat Emulsion Intravenous 1,472 ml @ 61.333 mls/ hr TPN CONT IV Last administered on 11/12/16 23:37; Start 11/12/16 at 22:00; Stop 11/13/16 at 17:41; Status DC Sodium Chloride (Iv Sodium Chloride 0.9% 1000ml Bag) 1,000 ml @ 1,000 mls/hr 1X ONCE IV Last administered on 11/12/16 18:30; Start 11/12/16 at 17:00; Stop 11/12/16 at 17:59; Status DC Metoclopramide HCl (Reglan) 10 mg TIDACHC PO Last administered on 11/13/16 11: 13; Start 11/13/16 at 11:30; Stop 11/13/16 at 17:41; Status DC Pantoprazole Sodium (Protonix) 40 mg BIDAC PO Last administered on 11/14/16 10 :36; Start 11/13/16 at 16:30 Acetaminophen (Tylenol) 650 mg PRN Q6HRS PRN PO MILD PAIN / TEMP; Start at 06:18 Ondansetron HCl (Zofran) 4 mg PRN Q6HRS PRN IV NAUSEA/VOMITING; Start 11/14/16 at 06:30 Enoxaparin Sodium (Lovenox 40mg Syringe) 40 mg DAILY SQ Last administered on 10:36; Start 11/14/16 at 09:00 Vitals/I & O Vital Sign - Last 24 Hours 11/13/16 11/13/16 11/13/16 11/13/16 15:00 17:19 19:57 20:00 Temp 97.9 98.6 97.9 98.6 Pulse 106 91 Resp 20 B/P 106/70 113/73 Pulse Ox 98 97 O2 Delivery Room Air Room Air Room Air Room Air 11/13/16 11/13/16 11/14/16 11/14/16 22:45 23:11 03:26 03:36 Temp 98.6 96.1 98.6 96.1 Pulse 104 84 Resp 20 20 B/P 97/68 104/73 Pulse Ox 97 96 98 O2 Delivery Room Air Room Air Room Air Room Air 11/14/16 11/14/16 11/14/16 11/14/16 07:20 08:00 10:45 11:55 Temp 98.6 98.6 Pulse 52 82 Resp 18 18 B/P 123/63 129/75 Pulse Ox 96 99 98 O2 Delivery Room Air Room Air Room Air Room Air O2 Flow Rate 2.0 Intake and Output 11/13/16 11/13/16 11/14/16 15:00 23:00 07:00 Intake Total 600 ml 660 ml Output Total 450 ml 1000 ml Balance 150 ml -340 ml Nutrition Consultation Dietary Evaluation: Recommendations by RD: Increase Calorie Intake, Protein supplementation Comments: Ensure tid for optimum nutrition Expected Outcomes/Goals: to meet > 75% est nutr needs Interpretation of weight loss: >5% in 1 month Malnutrition Findings: Food and Nutrition Intake (Sev: <50% est energy req 5days 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
== END 2016-11-14 13:57 | DRG 326 ==
LOC: 6 SOUTH 19:17 → EDBD 19:17 → EEVIPCON 19:17
PROVIDERS: ADMIT Internal Medicine Hematology & Oncology; ATTEND Internal Medicine Hematology & Oncology
PROC: 0DB90ZZ Excision of Duodenum, Open Approach (ICD-10-PCS; 2016-10-31)
PROC: 0DBA0ZZ Excision of Jejunum, Open Approach (ICD-10-PCS; principal; 2016-10-31 13:45)
PROC: 02HV33Z Insertion of Infusion Device into Superior Vena Cava, Percutaneous Approach (ICD-10-PCS; 2016-11-04)
PROC: B5181ZA Fluoroscopy of Superior Vena Cava using Low Osmolar Contrast, Guidance (ICD-10-PCS; 2016-11-04)
PROC: 0FB13ZX Excision of Right Lobe Liver, Percutaneous Approach, Diagnostic (ICD-10-PCS; 2016-11-11)
DX: C17.9 Malignant neoplasm of small intestine, unspecified (principal); E43 Unspecified severe protein-calorie malnutrition; K31.5 Obstruction of duodenum; I47.2 Ventricular tachycardia; I97.89 Other postprocedural complications and disorders of the circulatory system, not elsewhere classified; J96.10 Chronic respiratory failure, unspecified whether with hypoxia or hypercapnia; K56.7 Ileus, unspecified; K92.0 Hematemesis; E87.6 Hypokalemia; F41.9 Anxiety disorder, unspecified; I48.0 Paroxysmal atrial fibrillation; F32.9 Major depressive disorder, single episode, unspecified; E86.0 Dehydration; J44.9 Chronic obstructive pulmonary disease, unspecified; K21.9 Gastro-esophageal reflux disease without esophagitis; K76.0 Fatty (change of) liver, not elsewhere classified; Z80.1 Family history of malignant neoplasm of trachea, bronchus and lung; Z68.25 Body mass index [BMI] 25.0-25.9, adult; Z82.61 Family history of arthritis; Z83.3 Family history of diabetes mellitus; Z86.19 Personal history of other infectious and parasitic diseases; Z87.891 Personal history of nicotine dependence
CPT/HCPCS: 36415; 36569; 47000; 71010; 71260; 74177; 74183; 76937; 77001; 77012; 80048; 80053; 82378; 82947; 83735; 84100; 84443; 84478; 85007; 85014; 85018; 85027; 85610; 86301; 86850; 86900; 86901; 86920; 87641; 88307; 88313; 88331; 93005; 93306; 94250; 94640; 94760; C1751; C1892; C9113; J0330; J0610; J0694; J1100; J1170; J1650; J2250; J2370; J2405; J2704; J2710; J2765; J3010; J3475; J3480; J3490; J7030; J7040; J7120; J7620; J8597; P9045; Q9966; Q9967; 97110; 97116; 97530; A9585